=== PATIENT | male | born 1950 | race Caucasian/White ===

== ENCOUNTER 2020-03-01 11:17 | Outpatient (REF) | payer MEDICARE, OTHER, SELFPAY ==
[2020-03-01 13:47] LABS: Basophils Percent Auto 0.3 % (0-2); Eosinophils Absolute Auto 0.2 X10*3/uL (0.0-0.4); Hematocrit 41.6 % (42-52); Hemoglobin 14.1 g/dl (14.0-18.0); Imm Gran Abs Auto 0.05 X10*3/uL (0.00-0.03); Imm Gran Pct Auto 0.6 % (0.0-0.4); Lymphocytes Absolute Auto 3.3 X10*3/uL (1.2-4.9); Lymphocytes Percent Auto 37.3 % (20-40); MANUAL DIFF FLAG NO; Mean Corpuscular HGB Conc 33.9 g/dl (31.0-36.0); Mean Corpuscular Hemoglobin 31.1 pg (27.0-33.0); Mean Corpuscular Volume 91.6 fL (80-98); Monocytes Absolute Auto 0.8 X10*3/uL (0.1-1.2); Monocytes Percent Auto 8.4 % (2-11); Neutrophils Absolute Auto 4.6 X10*3/uL (2.0-8.3); Neutrophils Percent Auto 51.4 % (45-73); Platelet Count 219 X10*3/uL (160-400); Red Blood Count 4.54 X10*6/uL (4.60-5.80); Red Cell Distribution Width 13.7 % (11.0-16.0)
[2020-03-01 14:09] LABS: Alanine Aminotransferase 59 U/L (0-40); Albumin Level 4.1 g/dL (3.5-5.0); Alkaline Phosphatase 107 U/L (39-117); Anion Gap 10 (12-20); Aspartate Amino Transferase 42 U/L (5-37); Bilirubin Total 0.6 mg/dL (0.0-1.0); Blood Urea Nitrogen 20 mg/dL (9-16); Calcium 8.8 mg/dL (8.4-10.2); Carbon Dioxide 29 mmol/L (22-29); Chloride 104 mmol/L (96-108); Estimated Glomerular Filt Rate > 60; Glucose Random 74 mg/dL (60-115); Lactate Dehydrogenase 190 U/L (118-273); Potassium 4.4 mmol/l (3.3-5.1); Sodium 139 mmol/L (135-145); Total Protein 5.7 g/dL (6.5-8.0)
[2020-03-01 14:48] LABS: Erythrocyte Sedimentation Rate 3 MM/HR (0-15)
[2020-03-02 19:18] LABS: IgA 10 mg/dL (70-320); IgG 121 mg/dL (600-1540); IgM 327 mg/dL (50-300)
== END 2020-03-01 11:18 | disposition home or self-care (01) ==
LOC: HO.10HDL 11:17
PROVIDERS: PCP Internal Medicine Medical Oncology; Visit Provider Internal Medicine Medical Oncology
DX: C88.0 Waldenstrom macroglobulinemia (principal); I10 Essential (primary) hypertension
CPT/HCPCS: 36415; 80053; 82784; 83615; 85025; 85652; 86334

== ENCOUNTER → 2020-04-05 09:21 | Outpatient (BNVA) | payer MEDICARE, MEDICAID, OTHER, SELFPAY | PROVIDERS: PCP Internal Medicine Medical Oncology; Visit Provider Internal Medicine Cardiovascular Disease | DX: I48.19 Other persistent atrial fibrillation (principal); I51.7 Cardiomegaly; I10 Essential (primary) hypertension | CPT/HCPCS: 93005; 99212 ==

== ENCOUNTER 2020-04-11 10:30 | Day surgery (SDC) | payer MEDICARE, MEDICAID, SELFPAY ==
--- NOTE | 2020-04-10 12:27 | P.CONAN_ITS ---
HPI - Anesthesia Eval Consult details Narrative: 70yo M for Card[facility] Past Medical History Medical History (Updated 04/05/20 @ 11:45 by Yvan Xiao MD) Enlarged RV (right ventricle) HTN (hypertension) Paroxysmal atrial fibrillation Paroxysmal atrial flutter Persistent atrial fibrillation Family History Family History (Updated 04/04/20 @ 11:46 by MANNIE Vasques) Father CVD (cardiovascular disease) Mother Cancer Surgical History Surgical History (Updated 04/04/20 @ 11:45 by MANNIE Vasques) History of bone marrow biopsy History of cardiac radiofrequency ablation (RFA) History of ear surgery History of stapedectomy History of surgery on wrist Hx of hemorrhoidectomy Hx of tonsillectomy Hx of transesophageal echocardiography (ANUSHKA) for monitoring Hx of wisdom tooth extraction Social History Social History Smoking Status: Former smoker Meds Allergies Allergy/AdvReac Type Severity Reaction Status Date / Time amoxicillin [AMOXICILLIN] Allergy Intermediate RASH Verified 04/11/20 10:52 soap [Betadine] Allergy Unknown Rash Verified 04/11/20 10:52 povidone-iodine AdvReac Intermediate RASH (IF Verified 04/11/20 10:52 [From BETADINE] ON SKIN FOR PROLONGED TIME) Home Medications Medication Instructions Recorded Confirmed Type apixaban 5 mg tablet 5 mg PO BID 04/05/20 04/05/20 History atorvastatin 20 mg tablet 20 mg PO DAILY 04/05/20 04/05/20 History melatonin 5 mg capsule 5 mg PO .qhs cap 04/05/20 04/05/20 History metoprolol tartrate 25 mg tablet 25 mg PO BID 04/05/20 04/05/20 History multivitamin 1 tab PO DAILY 04/05/20 04/05/20 History ibrutinib [Imbruvica] tab PO 04/11/20 History Exam Exam Date and Time: April 10, 2020 1227 Narrative Narrative: EKG afib @ 84 Assessment and Plan Assessment Anesthesia Assessment: Chart Reviewed
[2020-04-11] VITALS (7 sets, daily range): BP systolic 99–123; BP diastolic 62–83; PULSE 76–93; RESP 16–17; TEMP 36.6–36.9; O2SAT 97–100; BMI 26.2
[2020-04-11] MEDS: Lactated Ringers 1,000 ML 50 ML IVCONT (11:02)
--- NOTE | 2020-04-11 12:00 | MHC.SHP ---
Pre-Procedural Eval Section A The patient is an INPATIENT: No Changes since office visit: Yes Patient answered all questions; No Cold of Flu in the past 2 weeks, No New Medical Problems and No Changes in Medication The History & Physical has been completed within 30 days and I have reviewed it.: Yes Section B Chief Complaint: a-fib Allergies: Allergies Allergy/AdvReac Type Severity Reaction Status Date / Time amoxicillin [AMOXICILLIN] Allergy Intermediate RASH Verified 04/11/20 10:52 soap [Betadine] Allergy Unknown Rash Verified 04/11/20 10:52 povidone-iodine AdvReac Intermediate RASH (IF Verified 04/11/20 10:52 [From BETADINE] ON SKIN FOR PROLONGED TIME) Plan I have reviewed the history and physical and performed a pertinent physical examination on my patient. No changes have occurred unless specified.
--- NOTE | 2020-04-11 12:07 | ECG_ITS ---
Test Reason : S/P CARDIOVERSION Blood Pressure : / mmHG Vent. Rate : 077 BPM Atrial Rate : 077 BPM P-R Int : 218 ms QRS Dur : 086 ms QT Int : 372 ms P-R-T Axes : -10 018 023 degrees QTc Int : 420 ms Sinus rhythm with 1st degree A-V block Otherwise normal ECG When compared with ECG of 02-JUL-2011 08:58, [place] interval has increased Referred By: Yvan Xiao Electronically Signed By:Jeffery Lima
--- NOTE | 2020-04-11 12:19 | HO.POSTANES ---
Post Anesthesia Evaluation Post Anesthesia Evaluation Vital Signs: Vital Signs Temp Pulse Resp BP Pulse Ox 04/11/20 12:12 97.9 F 76 16 103/67 100 04/11/20 10:52 98.5 F 93 16 123/83 97 Anesthesia: General Mental Status: Awake Pain Control: Satisfactory Nausea/Vomiting: None Hydration: Adequate Anesthesia-Related Issues: No Anes. Related Issues
--- NOTE | 2020-04-11 12:20 | HO.CARDIVERS ---
Cardioversion Procedure Note Cardioversion Date of Procedure: 04/11/2020 Ordering Provider: Myself Performing Provider: Myself Indication for Procedure: Recurrent persistent atrial fibrillation Pre-Op Diagnosis: Persistent atrial fibrillation Post-Op Diagnosis: Sinus rhythm Performed with Transesophageal Echo: No History: See history and physical for details. Consent: Verbal and Written consent was obtained from the patient before starting and confirming use of medications and oral anticoagulation. The patient was made aware of the risk benefits alternatives and 2nd opinion to procedure Procedure: After consent obtained, cardioversion pads were attached in anteroposterior configuration and the patient was sedated by the anesthesia team. Once adequate sedation achieved, patient was delivered 200 joules of biphasic synchronized energy in anteroposterior configuration Complications: None Impression: Converted successfully to sinus rhythm Recommendations: 1. . Continue flecainide 150 mg b.i.d.. 2. Continue full oral anticoagulation 3. Outpatient Holter monitor 4. EKG after cardioversion.
== END 2020-04-11 13:24 | disposition home or self-care (01) ==
PROVIDERS: PCP Internal Medicine Medical Oncology; Visit Provider Internal Medicine Cardiovascular Disease
PROC: 5A2204Z Restoration of Cardiac Rhythm, Single (ICD-10-PCS; principal; 2020-04-11 12:00)
DX: I48.19 Other persistent atrial fibrillation (principal); I51.7 Cardiomegaly; I11.9 Hypertensive heart disease without heart failure; Z79.02 Long term (current) use of antithrombotics/antiplatelets; Z79.899 Other long term (current) drug therapy; Z88.1 Allergy status to other antibiotic agents
CPT/HCPCS: 92960; 93005

== ENCOUNTER 2020-04-21 07:24 | Outpatient (REF) | payer MEDICARE, MEDICAID, SELFPAY ==
--- NOTE | ~2020-04-21 | XR_ITS ---
EXAMINATION: XR CHEST CLINICAL INFORMATION: Restaging lymphoma. COMPARISON: 11/17/2018 chest radiographs. TECHNIQUE: 2 views of the chest were obtained. FINDINGS: Subtle opacities are seen overlying the midlung woodward and right lower lung. There are no pleural effusions. No pneumothorax. The heart and mediastinal structures are unremarkable. XR/XR chest 2V IMPRESSION: Bilateral subtle infiltrates are nonspecific, but may represent an infectious/inflammatory process. Short-term radiographic follow-up is recommended as clinically indicated to assess for more acute change given the long interval between studies.
[2020-04-21 08:43] LABS: MANUAL DIFF FLAG NO
[2020-04-21 08:50] LABS: Basophils Absolute Auto 0.1 X10*3/uL (0.0-0.2); Basophils Percent Auto 0.6 % (0-2); Eosinophils Absolute Auto 0.2 X10*3/uL (0.0-0.4); Hematocrit 40.9 % (42-52); Hemoglobin 13.6 g/dl (14.0-18.0); Imm Gran Abs Auto 0.12 X10*3/uL (0.00-0.03); Imm Gran Pct Auto 1.3 % (0.0-0.4); Lymphocytes Absolute Auto 2.9 X10*3/uL (1.2-4.9); Lymphocytes Percent Auto 31.1 % (20-40); Mean Corpuscular HGB Conc 33.3 g/dl (31.0-36.0); Mean Corpuscular Hemoglobin 30.6 pg (27.0-33.0); Mean Corpuscular Volume 91.9 fL (80-98); Mean Platelet Volume 10.8 fL (9.4-12.4); Monocytes Absolute Auto 1.2 X10*3/uL (0.1-1.2); Monocytes Percent Auto 12.7 % (2-11); Neutrophils Absolute Auto 4.9 X10*3/uL (2.0-8.3); Neutrophils Percent Auto 52.3 % (45-73); Red Blood Count 4.45 X10*6/uL (4.60-5.80); Red Cell Distribution Width 13.4 % (11.0-16.0); White Blood Count 9.4 X10*3/uL (4.8-10.8)
[2020-04-21 09:03] LABS: Alanine Aminotransferase 40 U/L (0-40); Albumin Level 3.6 g/dL (3.5-5.0); Alkaline Phosphatase 149 U/L (39-117); Anion Gap 11 (12-20); Aspartate Amino Transferase 33 U/L (5-37); Bilirubin Total 0.5 mg/dL (0.0-1.0); Blood Urea Nitrogen 17 mg/dL (9-16); Calcium 8.9 mg/dL (8.4-10.2); Carbon Dioxide 30 mmol/L (22-29); Chloride 102 mmol/L (96-108); Estimated Glomerular Filt Rate > 60; Glucose Random 93 mg/dL (60-115); Platelet Count 400 X10*3/uL (160-400); Potassium 4.1 mmol/L (3.3-5.1); Sodium 139 mmol/L (135-145); Total Protein 5.6 g/dL (6.5-8.0)
[2020-04-24 11:52] LABS: IgA 12 mg/dL (70-320); IgG 122 mg/dL (600-1540); IgM 759 mg/dL (50-300)
[2020-04-25 07:58] LABS: Viscosity 1.6 rel to H2O (1.5-1.9)
== END 2020-04-21 07:25 | disposition home or self-care (01) ==
LOC: HO.XRAY 07:24
PROVIDERS: PCP Internal Medicine Medical Oncology; Visit Provider Internal Medicine Medical Oncology
DX: C83.00 Small cell B-cell lymphoma, unspecified site (principal)
CPT/HCPCS: 36415; 71046; 80053; 82784; 85025; 85810; 86334

== ENCOUNTER 2020-04-26 06:19 | Outpatient (REF) | payer MEDICARE, MEDICAID, SELFPAY ==
--- NOTE | ~2020-04-26 | CT_ITS ---
EXAMINATION: CT ABDOMEN AND PELVIS WITH CONTRAST CLINICAL INFORMATION: Malignant lymphoplasmacytic lymphoma. COMPARISON: CT abdomen and pelvis 11/17/2018 TECHNIQUE: Multidetector volumetric images were obtained from the superior aspect of the liver through the pubic symphysis following administration 85 mL of Omnipaque 350 intravenous contrast. Sagittal and coronal reformatted images were obtained on the technologist's workstation. Oral contrast: No. This CT examination was performed using dose optimization techniques as appropriate, variously including the following: *Automated exposure control *Adjustment of mA and/or kV according to patient size (this includes techniques or standardized protocols for targeted exams where dose is matched to indication/reason for exam; i.e. extremities or head) *Use of iterative reconstruction technique DLP: 431 mGy-cm FINDINGS: LUNG BASES: The heart size is normal. There is patchy atelectasis in the right lower lobe. There are scattered ground-glass attenuation changes in the left lower lobe. LIVER, GALLBLADDER, AND BILIARY TREE: The liver is normal in size, shape, and attenuation. No focal hepatic lesion or biliary ductal dilatation is present. The gallbladder is unremarkable with no evidence of radiopaque gallstones, gallbladder wall thickening, or obvious pericholecystic inflammatory changes. PANCREAS: Unremarkable. SPLEEN: Unremarkable. ADRENAL GLANDS: Unremarkable. KIDNEYS AND URETERS: The kidneys are normal in size, shape, and attenuation. No hydronephrosis, hydroureter, or calculi seen. No perinephric stranding. BLADDER: Unremarkable. GASTROINTESTINAL TRACT: There is scattered stool and gas seen throughout the colon without any significant distention. The small bowel loops are normal caliber. The appendix is normal caliber. ABDOMINAL WALL: No significant hernia is appreciated. LYMPH NODES: Normal. VASCULAR: Unremarkable. PELVIC VISCERA: The prostate gland is mildly enlarged. No abnormal pelvic or inguinal lymph nodes seen. There is no free fluid. OSSEOUS STRUCTURES: There is bilateral L3-L4, L4-L5 and L5-S1 facet joint arthropathy. No lytic or sclerotic process seen. CT/CT abdomen pelvis w con IMPRESSION: Patchy atelectasis right lower lobe and scattered small ground-glass attenuation changes left lower lobe, question atelectasis versus early infiltrate changes. No acute intra-abdominal process seen. Especially, there are no abnormal retroperitoneal or pelvic lymph nodes.
--- NOTE | 2020-04-26 02:53 | ECG_ITS ---
Hook-up date: 2020-04-26 15:56:00 Duration: 47:59:00 Test Indications: PERSISTANT ATRIAL FIB Medications: [id number] QRS complexes 50 Ventricular ectopics which represent <1 % of total QRS comp. 18 Supraventricular ectopics which represent <1 % of total QRS comp. * Paced QRS complexs which represent % of total QRS comp. VENTRICULAR ECTOPY 46 Isolated 0 Bigeminal Cycles 2 Couplets 0 Runs 0 Beats in Runs * Beats LONGEST at * BPM at :: -- * Beats FASTEST at * BPM at :: -- SUPRAVENTRICULAR ECTOPY 16 Isolated 1 Couplets 0 Runs 0 Beats in Runs * Beats LONGEST at * BPM at :: -- * Beats FASTEST at * BPM at :: -- HEART RATES 56 MIN at 02:02:13 2020-04-27 74 AVG 105 MAX at 10:30:46 2020-04-27 LONGEST RR 1.0880 secs at 09:27:59 2020-04-27 S-T LEVELS Channel 1 - 128 mm at 15:56:00 2020-04-26 - 128 mm at 15:56:00 2020-04-26 Channel 2 - 128 mm at 15:56:00 2020-04-26 - 128 mm at 15:56:00 2020-04-26 Channel 3 - 128 mm at 03:51:51 -- - 128 mm at 03:51:51 Underlying rhythm is sinus; Average ventricular rate 74/min; Rare supraventricular ectopy; Rare ventricular ectopy; mostly isolated with 2 couplets; No sustained arrhythmias; No atrial fibrillation; Patient diary not available for review. Referred By: Yvan Xiao Overread By: YASH SANDOVAL
[2020-04-26] MEDS: iohexoL 350 MG/ML 100 ML INFUS..BTL 85 ML IV (10:06)
[2020-04-26] MEDS: Barium Sulfate Oral (Berry) 450 ML ORAL.SUSP 900 ML PO (10:07)
== END 2020-04-26 06:20 | disposition home or self-care (01) ==
LOC: HO.CT 06:19
PROVIDERS: Visit Provider Internal Medicine Medical Oncology
DX: C83.00 Small cell B-cell lymphoma, unspecified site (principal); I48.19 Other persistent atrial fibrillation
CPT/HCPCS: 74177; 93225; 93226; Q9967

== ENCOUNTER → 2020-05-24 08:39 | Outpatient (BNVA) | payer MEDICARE, MEDICAID, SELFPAY | PROVIDERS: PCP Internal Medicine Medical Oncology; Visit Provider Internal Medicine Cardiovascular Disease | DX: I48.0 Paroxysmal atrial fibrillation (principal); I51.7 Cardiomegaly; I10 Essential (primary) hypertension | CPT/HCPCS: 93005; 99212 ==

== ENCOUNTER 2020-05-28 12:51 | Outpatient (REF) | payer MEDICARE, MEDICAID, SELFPAY ==
--- NOTE | ~2020-05-28 | XR_ITS ---
EXAMINATION: XR CHEST CLINICAL INFORMATION: Atelectasis. COMPARISON: Chest x-ray to 621 TECHNIQUE: 2 views of the chest were obtained. FINDINGS: The lungs are hyperinflated but clear of acute process. Heart size and pulmonary vascularity is normal. No gross bony abnormality seen. XR/XR chest 2V IMPRESSION: Unremarkable chest exam. No change from 04/21/2020
[2020-05-30 16:12] LABS: PES - Abn Protein Band 1 0.3 g/dL (NONE DETECTED); Prot Elec - Albumin 4.2 g/dL (3.8-4.8); Prot Elec - Alpha1 0.2 g/dL (0.2-0.3); Prot Elec - Alpha2 0.6 g/dL (0.5-0.9); Prot Elec - Beta 1 0.5 g/dL (0.4-0.6); Prot Elec - Beta 2 0.2 g/dL (0.2-0.5); Prot Elec - Gamma 0.5 g/dL (0.8-1.7); Prot Elec - Total Protein 6.1 g/dL (6.1-8.1)
[2020-06-03 11:27] LABS: IgA 14 mg/dL (70-320); IgG 128 mg/dL (600-1540); IgM 594 mg/dL (50-300)
== END 2020-05-28 12:52 | disposition home or self-care (01) ==
LOC: HO.XRAY 12:51
PROVIDERS: PCP Internal Medicine Medical Oncology; Visit Provider Internal Medicine Medical Oncology
DX: C83.00 Small cell B-cell lymphoma, unspecified site (principal); C88.0 Waldenstrom macroglobulinemia; J98.11 Atelectasis; R91.8 Other nonspecific abnormal finding of lung field
CPT/HCPCS: 36415; 71046; 82784; 84155; 84165; 86334

== ENCOUNTER 2020-08-02 07:38 | Outpatient (REF) | payer MEDICARE, MEDICAID, SELFPAY ==
[2020-08-02 08:40] LABS: MANUAL DIFF FLAG NO
[2020-08-02 08:46] LABS: Basophils Percent Auto 0.3 % (0-2); Eosinophils Percent Auto 0.2 % (0-4); Hematocrit 42.4 % (42-52); Hemoglobin 14.6 g/dl (14.0-18.0); Imm Gran Abs Auto 0.12 X10*3/uL (0.00-0.03); Imm Gran Pct Auto 1.3 % (0.0-0.4); Lymphocytes Absolute Auto 3.2 X10*3/uL (1.2-4.9); Lymphocytes Percent Auto 33.6 % (20-40); Mean Corpuscular HGB Conc 34.4 g/dl (31.0-36.0); Mean Corpuscular Hemoglobin 31.3 pg (27.0-33.0); Neutrophils Absolute Auto 5.2 X10*3/uL (2.0-8.3); Neutrophils Percent Auto 54.6 % (45-73); Platelet Count 195 X10*3/uL (160-400); Red Blood Count 4.66 X10*6/uL (4.60-5.80); Red Cell Distribution Width 13.3 % (11.0-16.0); White Blood Count 9.6 X10*3/uL (4.8-10.8)
[2020-08-02 09:10] LABS: Alanine Aminotransferase 203 U/L (0-40); Albumin Level 3.8 g/dL (3.5-5.0); Alkaline Phosphatase 100 U/L (39-117); Anion Gap 10 (12-20); Aspartate Amino Transferase 62 U/L (5-37); Bilirubin Total 0.6 mg/dL (0.0-1.0); Blood Urea Nitrogen 18 mg/dL (9-16); Calcium 8.9 mg/dL (8.4-10.2); Carbon Dioxide 28 mmol/L (22-29); Chloride 104 mmol/L (96-108); Estimated Glomerular Filt Rate > 60; Glucose Random 85 mg/dL (60-115); Potassium 3.8 mmol/L (3.3-5.1); Sodium 138 mmol/L (135-145); Total Protein 5.3 g/dL (6.5-8.0)
[2020-08-03 21:52] LABS: PES - Abn Protein Band 1 0.2 g/dL (NONE DETECTED); Prot Elec - Albumin 3.7 g/dL (3.8-4.8); Prot Elec - Alpha1 0.2 g/dL (0.2-0.3); Prot Elec - Alpha2 0.6 g/dL (0.5-0.9); Prot Elec - Beta 1 0.4 g/dL (0.4-0.6); Prot Elec - Beta 2 0.1 g/dL (0.2-0.5); Prot Elec - Gamma 0.4 g/dL (0.8-1.7); Prot Elec - Total Protein 5.4 g/dL (6.1-8.1)
[2020-08-06 14:02] LABS: IgA 12 mg/dL (70-320); IgG 113 mg/dL (600-1540); IgM 356 mg/dL (50-300)
== END 2020-08-02 07:39 | disposition home or self-care (01) ==
LOC: HO.LAB 07:38
PROVIDERS: PCP Internal Medicine Medical Oncology; Visit Provider Internal Medicine Medical Oncology
DX: C83.00 Small cell B-cell lymphoma, unspecified site (principal); C88.0 Waldenstrom macroglobulinemia
CPT/HCPCS: 36415; 80053; 82784; 84155; 84165; 85025; 86334

== ENCOUNTER 2020-08-22 09:28 | Outpatient (REF) | payer MEDICARE, MEDICAID, OTHER, SELFPAY ==
--- NOTE | 2020-08-22 09:30 | EMG_ITS ---
This is a 70-year-old man with heart disease and 2-month history of right hand weakness, which has gotten better. He is on flecainide, metoprolol, Eliquis, and atorvastatin. His neurological exam is normal. IMPRESSION: Right hand weakness, rule out nerve entrapment. Nerve conduction EMG study: Mild carpal tunnel syndrome on the right, otherwise normal study. Normal EMG of the right C5-T1 innervated muscles. MD SANDRO Lucas/ISAAC / [id number]
== END 2020-08-22 09:29 | disposition home or self-care (01) ==
LOC: HO.NEURO 09:28
PROVIDERS: Visit Provider Internal Medicine Medical Oncology
DX: G56.03 Carpal tunnel syndrome, bilateral upper limbs (principal)
CPT/HCPCS: 95885; 95910

== ENCOUNTER → 2020-08-27 08:10 | Outpatient (BNVA) | payer MEDICARE, OTHER, SELFPAY | PROVIDERS: PCP Internal Medicine Medical Oncology; Visit Provider Internal Medicine Cardiovascular Disease | DX: I48.0 Paroxysmal atrial fibrillation (principal); I10 Essential (primary) hypertension; Z79.899 Other long term (current) drug therapy | CPT/HCPCS: 93005; 99212 ==

== ENCOUNTER 2020-09-03 09:01 | Outpatient (REF) | payer MEDICARE, OTHER, SELFPAY ==
--- NOTE | ~2020-09-03 | XR_ITS ---
EXAMINATION: XR HAND, RIGHT CLINICAL INFORMATION: Pain in right hand. COMPARISON: None TECHNIQUE: PA, lateral, and oblique views of the right hand. FINDINGS: There is mild loss of PIP and DIP joint space. The MCP and intercarpal joint space is normal. No acute fracture, dislocation or subluxation seen. The soft tissues are normal. XR/XR hand RT min 3V IMPRESSION: Mild degenerative changes PIP and DIP joints right hand. No acute fracture or dislocation seen.
== END 2020-09-03 09:02 | disposition home or self-care (01) ==
LOC: HO.HOSX 09:01
PROVIDERS: Visit Provider Orthopaedic Surgery
DX: M79.641 Pain in right hand (principal)
CPT/HCPCS: 73130

== ENCOUNTER → 2020-09-24 09:58 | Outpatient (BNVA) | payer MEDICARE, OTHER, SELFPAY | PROVIDERS: PCP Internal Medicine Medical Oncology; Visit Provider Orthopaedic Surgery | DX: R29.898 Other symptoms and signs involving the musculoskeletal system (principal) | CPT/HCPCS: 99202 ==

== ENCOUNTER 2020-10-02 07:30 | Outpatient (REF) | payer MEDICARE, OTHER, SELFPAY ==
[2020-10-02 10:16] LABS: MANUAL DIFF FLAG NO
[2020-10-02 10:21] LABS: Basophils Percent Auto 0.5 % (0-2); Eosinophils Absolute Auto 0.2 X10*3/uL (0.0-0.4); Eosinophils Percent Auto 2.2 % (0-4); Hematocrit 41.5 % (42-52); Hemoglobin 14.1 g/dl (14.0-18.0); Imm Gran Abs Auto 0.04 X10*3/uL (0.00-0.03); Imm Gran Pct Auto 0.5 % (0.0-0.4); Lymphocytes Percent Auto 38.4 % (20-40); Mean Corpuscular Hemoglobin 31.8 pg (27.0-33.0); Mean Corpuscular Volume 93.7 fL (80-98); Mean Platelet Volume 12.4 fL (9.4-12.4); Monocytes Absolute Auto 0.7 X10*3/uL (0.1-1.2); Monocytes Percent Auto 9.4 % (2-11); Neutrophils Absolute Auto 3.8 X10*3/uL (2.0-8.3); Platelet Count 170 X10*3/uL (160-400); Red Blood Count 4.43 X10*6/uL (4.60-5.80); Red Cell Distribution Width 13.5 % (11.0-16.0); White Blood Count 7.7 X10*3/uL (4.8-10.8)
[2020-10-02 10:40] LABS: Alanine Aminotransferase 29 U/L (0-40); Alkaline Phosphatase 79 U/L (39-117); Anion Gap 12 (12-20); Aspartate Amino Transferase 32 U/L (5-37); Bilirubin Total 0.9 mg/dL (0.0-1.0); Blood Urea Nitrogen 15 mg/dL (9-16); Calcium 9.1 mg/dL (8.4-10.2); Carbon Dioxide 27 mmol/L (22-29); Chloride 106 mmol/L (96-108); Estimated Glomerular Filt Rate > 60; Glucose Random 100 mg/dL (60-115); Potassium 3.9 mmol/L (3.3-5.1); Sodium 141 mmol/L (135-145); Total Protein 5.6 g/dL (6.5-8.0)
[2020-10-03 13:47] LABS: IgA 10 mg/dL (70-320); IgM 289 mg/dL (50-300)
[2020-10-03 19:46] LABS: PES - Abn Protein Band 1 0.2 g/dL (NONE DETECTED); Prot Elec - Albumin 3.8 g/dL (3.8-4.8); Prot Elec - Alpha1 0.2 g/dL (0.2-0.3); Prot Elec - Alpha2 0.5 g/dL (0.5-0.9); Prot Elec - Beta 1 0.4 g/dL (0.4-0.6); Prot Elec - Beta 2 0.2 g/dL (0.2-0.5); Prot Elec - Gamma 0.3 g/dL (0.8-1.7); Prot Elec - Total Protein 5.4 g/dL (6.1-8.1)
== END 2020-10-02 07:31 | disposition home or self-care (01) ==
LOC: HO.10HDL 07:30
PROVIDERS: Visit Provider Internal Medicine Medical Oncology
DX: C83.00 Small cell B-cell lymphoma, unspecified site (principal); E78.00 Pure hypercholesterolemia, unspecified; E66.3 Overweight
CPT/HCPCS: 36415; 80053; 82784; 84165; 85025

== ENCOUNTER 2021-01-01 07:34 | Outpatient (REF) | payer MEDICARE, OTHER, SELFPAY ==
[2021-01-01 10:29] LABS: MANUAL DIFF FLAG NO
[2021-01-01 10:38] LABS: Basophils Percent Auto 0.4 % (0-2); Eosinophils Absolute Auto 0.2 X10*3/uL (0.0-0.4); Eosinophils Percent Auto 2.4 % (0-4); Hematocrit 46.8 % (42-52); Imm Gran Abs Auto 0.02 X10*3/uL (0.00-0.03); Imm Gran Pct Auto 0.2 % (0.0-0.4); Lymphocytes Absolute Auto 2.8 X10*3/uL (1.2-4.9); Lymphocytes Percent Auto 35.2 % (20-40); Mean Corpuscular HGB Conc 34.2 g/dl (31.0-36.0); Mean Corpuscular Hemoglobin 30.8 pg (27.0-33.0); Mean Platelet Volume 12.5 fL (9.4-12.4); Monocytes Absolute Auto 0.7 X10*3/uL (0.1-1.2); Monocytes Percent Auto 8.1 % (2-11); Neutrophils Absolute Auto 4.3 X10*3/uL (2.0-8.3); Neutrophils Percent Auto 53.7 % (45-73); Platelet Count 186 X10*3/uL (160-400); White Blood Count 8.1 X10*3/uL (4.8-10.8)
[2021-01-01 10:43] LABS: INTERNATIONAL NORM RATIO 1.1 (0.9-1.1); Prothrombin Time 12.1 SEC (9.9-13.0)
[2021-01-01 11:13] LABS: Alanine Aminotransferase 36 U/L (0-40); Albumin Level 4.3 g/dL (3.5-5.0); Alkaline Phosphatase 78 U/L (39-117); Anion Gap 14 (12-20); Aspartate Amino Transferase 35 U/L (5-37); Bilirubin Total 0.7 mg/dL (0.0-1.0); Blood Urea Nitrogen 15 mg/dL (9-16); Calcium 9.3 mg/dL (8.4-10.2); Carbon Dioxide 27 mmol/L (22-29); Chloride 104 mmol/L (96-108); Cholesterol 206 mg/dL; Estimated Glomerular Filt Rate > 60; Glucose Fasting 91 mg/dL (60-99); HDL Cholesterol 101 mg/dL; LDL Cholesterol Calculated 91 mg/dl; Potassium 4.2 mmol/L (3.3-5.1); Sodium 141 mmol/L (135-145); Total Protein 5.9 g/dL (6.5-8.0); Triglycerides 74 mg/dL
[2021-01-01 11:38] LABS: Ferritin 135 ng/mL (20-250)
[2021-01-02 21:01] LABS: PES - Abn Protein Band 1 0.2 g/dL (NONE DETECTED); Prot Elec - Albumin 4.2 g/dL (3.8-4.8); Prot Elec - Alpha1 0.2 g/dL (0.2-0.3); Prot Elec - Alpha2 0.5 g/dL (0.5-0.9); Prot Elec - Beta 1 0.4 g/dL (0.4-0.6); Prot Elec - Beta 2 0.2 g/dL (0.2-0.5); Prot Elec - Gamma 0.3 g/dL (0.8-1.7); Prot Elec - Total Protein 5.8 g/dL (6.1-8.1)
[2021-01-03 13:26] LABS: IgA 11 mg/dL (70-320); IgM 314 mg/dL (50-300)
== END 2021-01-01 07:35 | disposition home or self-care (01) ==
LOC: HO.10HDL 07:34
PROVIDERS: Absent Provider Internal Medicine Clinical Cardiac Electrophysiology; Visit Provider Internal Medicine Medical Oncology
DX: M54.16 Radiculopathy, lumbar region (principal); C88.0 Waldenstrom macroglobulinemia; E78.00 Pure hypercholesterolemia, unspecified; I48.0 Paroxysmal atrial fibrillation
CPT/HCPCS: 36415; 80053; 80061; 82728; 82784; 84165; 85025; 85610; 86334

== ENCOUNTER → 2021-01-21 07:22 | Outpatient (REF) | payer MEDICARE, OTHER, SELFPAY ==
--- NOTE | 2021-01-21 07:24 | CA_ITS ---
Transthoracic Echocardiogram Patient (Last, First, Middle): Jose Powers M Gender: Male Date of : 1950 Age: 70 Procedure Date: 01/21/2021 Procedure Type: Transthoracic Echocardiogram Location: OP Height: 175.26 cm Weight: 81.65 kg BSA: 1.98 m2 Heart Rate: bpm BP: 118 / 60 mmHg Coconut Jelly Roller: Referring MD: Yvan Xiao MD Symptoms: I31.3 - Pericardial effusion (noninflammatory) Study Quality: Good ECG Rhythm: Sinus Conclusions: - The left ventricular systolic function is normal. The calculated ejection fraction is 58% by biplane method. - Mildly increased right ventricular cavity size. - There is a trivial pericardial effusion. Findings Left Ventricle Normal left ventricular cavity size. There is mildly increased left ventricular wall thickness. The left ventricular systolic function is normal. The calculated ejection fraction is 58% by biplane method. There is no evidence of regional wall motion abnormalities. Right Ventricle Mildly increased right ventricular cavity size. There is normal right ventricular systolic function. Tricuspid Valve There is mild tricuspid valve regurgitation. Pericardium/Pleural There is a trivial pericardial effusion. Prior Study Comparison No significant change compared to prior study dated: 09/09/2019. Measurements 2D Linear Measurements IVSd: 1.13 0.6-0.9/0.6-1.0 cm LVIDd: 4.53 3.9-5.3/4.2-5.9 cm LVIDd Index: 2.29 2.4-3.2/2.2-3.1 cm/m2 LVIDs: 2.88 2.0-3.6 cm LVPWd: 1.16 0.7-1.1 cm LV Mass: 233.23 67-162/88-224 g LV Mass Index: 117.79 43-95/49-115 g/m2 2D Systolic Function EF 4C: 59.80 >55% EF 2C: 56.40 >55% EF BiP: 58.20 >55% Mitral Valve MV Pk E: 0.84 MV PK A: 0.68 MV Decel Time: 180.00 E/A: 1.20 E'Lateral: 10.20 E'Medial: 6.53 E/E' Med: 12.90 E/E' Lat: 8.20 PHT: 53.00 MVA PHT: 4.15 Decel [place]: 4.66 Diastolic Function MV Pk E: 0.84 MV Pk A: 0.68 E/A: 1.20 E'Medial: 6.53 E/E' Med: 12.90 E' Laterial: 10.20 E/E' Lat: 8.20 Tricuspid Valve TR Pk Durga: 2.57 TR Pk Grad: 26.00 Updated in Other Vendor System with Status of Final Wyatt Palomino MD electronically signed on 01/23/2021 4:05:47 PM with status of Final
== END ==
LOC: HO.CARD 07:22
PROVIDERS: Visit Provider Internal Medicine Cardiovascular Disease
DX: I31.3 Pericardial effusion (noninflammatory) (principal); I48.0 Paroxysmal atrial fibrillation; I51.7 Cardiomegaly
CPT/HCPCS: 93308

== ENCOUNTER → 2021-02-01 11:12 | Outpatient (BNVA) | payer MEDICARE, OTHER, SELFPAY | PROVIDERS: PCP Internal Medicine Medical Oncology; Visit Provider Internal Medicine Cardiovascular Disease | DX: I48.0 Paroxysmal atrial fibrillation (principal); I10 Essential (primary) hypertension | CPT/HCPCS: 93005; 99212 ==

== ENCOUNTER → 2021-02-22 11:52 | Outpatient (BNVA) | payer MEDICARE, OTHER, SELFPAY | PROVIDERS: Visit Provider Internal Medicine Cardiovascular Disease | DX: R94.31 Abnormal electrocardiogram [ECG] [EKG] (principal) | CPT/HCPCS: 93005 ==

== ENCOUNTER 2021-02-23 23:25 | Emergency (ER) | payer MEDICARE, MEDICAID, SELFPAY ==
--- NOTE | 2021-02-23 | ECG_ITS ---
Test Reason : WEAK Blood Pressure : / mmHG Vent. Rate : 092 BPM Atrial Rate : 092 BPM P-R Int : 208 ms QRS Dur : 106 ms QT Int : 420 ms P-R-T Axes : 031 027 078 degrees QTc Int : 519 ms Normal sinus rhythm Low voltage QRS Lateral T wave inversions. consider oschemia Prolonged QT Abnormal ECG When compared with ECG of 11-APR-2020 12:18, QRS duration has increased Nonspecific T wave abnormality, worse in Inferior leads T wave inversion now evident in Lateral leads QT has lengthened Referred By: Generic ED Physician Electronically Signed By:Jeffery Lima
--- NOTE | ~2021-02-23 | CT_ITS ---
EXAMINATION: CT ABDOMEN AND PELVIS WITH CONTRAST CLINICAL INFORMATION: Right upper quadrant pain, elevated alkaline phosphatase COMPARISON: 04/26/2020 TECHNIQUE: Multidetector volumetric images were obtained from the superior aspect of the liver through the pubic symphysis following administration 85 mL of Omnipaque 350 intravenous contrast. Sagittal and coronal reformatted images were obtained on the technologist's workstation. Oral contrast: No This CT examination was performed using dose optimization techniques as appropriate, variously including the following: *Automated exposure control *Adjustment of mA and/or kV according to patient size (this includes techniques or standardized protocols for targeted exams where dose is matched to indication/reason for exam; i.e. extremities or head) *Use of iterative reconstruction technique DLP: 619 mGy-cm FINDINGS: LUNG BASES: There are partially visualized small pleural effusions, right greater than left. Partially visualized moderate to large pericardial effusion. LIVER, GALLBLADDER, AND BILIARY TREE: There is hypoattenuation of the liver suggesting steatosis. No intrahepatic biliary ductal dilatation. Trace perihepatic fluid. Gallbladder appears partially contracted with thick-walled appearance. PANCREAS: Unremarkable. SPLEEN: Unremarkable. ADRENAL GLANDS: Unremarkable. KIDNEYS AND URETERS: Bilateral nephrograms are symmetric. No hydronephrosis or obstructing calculus identified. BLADDER: Unremarkable. GASTROINTESTINAL TRACT: There is minimal colonic diverticulosis without diverticulitis. No evidence of bowel obstruction or significant wall thickening. The appendix is unremarkable. No free air is seen. ABDOMINAL WALL: No significant hernia is appreciated. LYMPH NODES: Normal. VASCULAR: There are scattered atherosclerotic calcifications. PELVIC VISCERA: Prostate gland appears enlarged, measuring approximately 5.2 cm in diameter. Small amount of pelvic free fluid is noted. OSSEOUS STRUCTURES: Unremarkable. CT/CT abdomen pelvis w con IMPRESSION: 1. Thick-walled appearance of the partially contracted gallbladder. Cholecystitis is a possibility, and this would be better assessed with ultrasound. 2. Partially visualized moderate to large pericardial effusion and small pleural effusions. 3. Trace free fluid in the abdomen/pelvis. Fleischner guidelines were followed.
[2021-02-23 23:32] VITALS: BP 139/98; PULSE 99; O2SAT 98
[2021-02-23 23:34] VITALS: BP 130/93; PULSE 98; RESP 16; TEMP 36.4; O2SAT 99; BMI 28.2
[2021-02-24 01:13] LABS: MANUAL DIFF FLAG NO
[2021-02-24 01:15] LABS: Basophils Percent Auto 0.2 % (0-2); Hematocrit 36.7 % (42.0-52.0); Hemoglobin 12.3 g/dl (14.0-18.0); Imm Gran Abs Auto 0.27 X10*3/uL (0.00-0.03); Imm Gran Pct Auto 2.1 % (0.0-0.4); Lymphocytes Absolute Auto 1.5 X10*3/uL (1.2-4.9); Lymphocytes Percent Auto 11.5 % (20-40); Mean Corpuscular HGB Conc 33.5 g/dl (31.0-36.0); Mean Corpuscular Hemoglobin 30.4 pg (27.0-33.0); Mean Corpuscular Volume 90.8 fL (80.0-98.0); Mean Platelet Volume 11.8 fL (9.4-12.4); Monocytes Absolute Auto 1.4 X10*3/uL (0.1-1.2); Monocytes Percent Auto 11.2 % (2-11); Neutrophils Absolute Auto 9.6 x10*3/uL (2.0-8.3); Platelet Count 382 X10*3/uL (160-400); Red Blood Count 4.04 X10*6/uL (4.60-5.80); Red Cell Distribution Width 13.2 % (11.0-16.0); White Blood Count 12.8 X10*3/uL (4.8-10.8)
[2021-02-24 01:27] LABS: COVID-19 Test Negative (Negative); IDNOW Serial# 9DD0AD1C
[2021-02-24 01:31] LABS: Alanine Aminotransferase 126 U/L (0-40); Albumin Level 3.6 g/dL (3.5-5.0); Alkaline Phosphatase 336 U/L (39-117); Anion Gap 16 (12-20); Aspartate Amino Transferase 59 U/L (5-37); Bilirubin Total 0.7 mg/dL (0.0-1.0); Blood Urea Nitrogen 36 mg/dL (9-16); Calcium 8.4 mg/dL (8.4-10.2); Carbon Dioxide 22 mmol/L (22-29); Chloride 98 mmol/L (96-108); Creatinine Clr Calc Pharmacy 60.8; Estimated Glomerular Filt Rate 57; Glucose Random 150 mg/dL (60-115); Potassium 4.9 mmol/L (3.3-5.1); Sodium 131 mmol/L (135-145); Total Protein 5.3 g/dL (6.5-8.0)
[2021-02-24 01:34] LABS: Troponin-I High Sensitivity 4.1 ng/L (<3.5-35.0)
[2021-02-24 04:32] VITALS: BP 122/92; PULSE 90; RESP 16; O2SAT 96
--- NOTE | 2021-02-24 04:42 | ED_ITS ---
HPI - Weakness General Chief complaint: Weakness Stated complaint: failure to thrive Time Seen by Provider: 02/24/21 04:11 Source: patient Mode of arrival: EMS History of Present Illness HPI Narrative: 71-year-old male with history of atrial fibrillation, hypertension is brought in by EMS after he complains of increasing weakness and shortness of breath over the past 4-5 days with loss of appetite and states he has had decreased urine output. Patient states that he recently had an ablation approximately 3 weeks ago and afterwards developed pericardial effusion and is concerned that it may be present. Related Data Home Medications Medication Instructions Recorded Confirmed melatonin 5 mg capsule 5 mg PO .qhs cap 04/05/20 02/01/21 multivitamin (Multiple Vitamins) 1 tab PO DAILY 04/05/20 02/01/21 ferrous sulfate 324 mg (65 mg 324 mg PO DAILY 05/24/20 02/01/21 iron) tablet,delayed release ibrutinib 280 mg tablet (Imbruvica) 280 mg PO tab 05/24/20 02/01/21 colchicine 0.6 mg tablet 0.6 mg PO DAILY tab 02/01/21 02/01/21 Previous Rx's Medication Instructions Recorded atorvastatin 20 mg tablet 20 mg PO DAILY #90 tab 05/14/20 metoprolol tartrate 50 mg tablet 50 mg PO BID #180 tab 05/28/20 flecainide 150 mg tablet 150 mg PO Q12H #180 tab 08/27/20 apixaban 5 mg tablet (Eliquis) 5 mg PO BID #60 tab 02/01/21 Allergies Allergy/AdvReac Type Severity Reaction Status Date / Time amoxicillin [AMOXICILLIN] Allergy Intermediate RASH Verified 09/24/20 10:14 soap [Betadine] Allergy Unknown Rash Verified 09/24/20 10:14 povidone-iodine AdvReac Intermediate RASH (IF Verified 09/24/20 10:14 [From BETADINE] ON SKIN FOR PROLONGED TIME) Review of Systems Review of Systems: Pertinent positives and negatives as stated in HPI 10 point review of systems otherwise negative. [facility] Past Medical History Source: nursing notes reviewed Medical History Enlarged RV (right ventricle) HTN (hypertension) Paroxysmal atrial fibrillation Paroxysmal atrial flutter Pericardial effusion Persistent atrial fibrillation Surgical History History of bone marrow biopsy History of cardiac radiofrequency ablation (RFA) History of ear surgery History of stapedectomy History of surgery on wrist Hx of hemorrhoidectomy Hx of tonsillectomy Hx of transesophageal echocardiography (ANUSHKA) for monitoring Hx of wisdom tooth extraction Family History Family History Father CVD (cardiovascular disease) Mother Cancer Social History Social History Alcohol intake: never Patient Tobacco Use Status: Never used Tobacco Use of substances other than those prescribed or required for medical reasons: No Advance Directives: No Advance Directives Information Provided: Yes 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al status: retired 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 GENERAL: Well developed, well nourished, mild distress. HEAD: Normocephalic/atraumatic EYES: PERRLA, EOMI OROPHARYNX: no oral lesions noted, posterior pharynx clear NECK: Supple, no adenopathy LUNGS: Normal breath sounds. No adventitious sounds or accessory muscle use. SpO2<96> CARDIOVASCULAR: Regular rate and rhythm without noted murmurs, no JVD ABDOMEN: Soft, right upper quadrant discomfort, non-distended with bowel sounds. SKIN: Inspection of the skin reveals no rashes, NEUROLOGIC: Alert and oriented x 4. Strength and sensation to light touch were grossly intact x 4. Course Course Course Narrative: 71-year-old male with history and clinical presentation suggestive of possible choledocholithiasis/cholecystitis and the possibility pericardial effusion. Clinically patient is hemodynamically stable and on review of all investigations is noted have a leukocytosis in combination with LFT elevations. On CT scan it was noted that patient has a large pericardial effusion. I discussed this case with Dr. Lima and IR confirms that they do not come in on the weekend and therefore discussed the case with [facility] who accepts transfer. Patient was informed of all results, findings, and plans and is agreeable to the transfer. MDM - Weakness Lab Data Result diagrams: 02/24/21 01:09 02/24/21 01:09 Labs: Lab Results 02/24/21 02/24/21 02/24/21 Range/Units 01:09 01:09 01:09 WBC 12.8 H (4.8-10.8) X10*3/uL RBC 4.04 L (4.60-5.80) X10*6/uL Hgb 12.3 L (14.0-18.0) g/dl Hct 36.7 L (42.0-52.0) % MCV 90.8 (80.0-98.0) fL MCH 30.4 (27.0-33.0) pg MCHC 33.5 (31.0-36.0) g/dl RDW 13.2 (11.0-16.0) % Plt Count 382 (160-400) X10*3/uL MPV 11.8 (9.4-12.4) fL Immature Gran % (Auto) 2.1 H (0.0-0.4) % Neut % (Auto) 75.0 H (45-73) % Lymph % (Auto) 11.5 L (20-40) % Bryan % (Auto) 11.2 H (2-11) % Eos % (Auto) 0.0 (0-4) % Baso % (Auto) 0.2 (0-2) % Lymph # (Auto) 1.5 (1.2-4.9) X10*3/uL Bryan # (Auto) 1.4 H (0.1-1.2) X10*3/uL Eos # (Auto) 0.0 (0.0-0.4) X10*3/uL Baso # (Auto) 0.0 (0.0-0.2) X10*3/uL Abs Immat Gran (auto) 0.27 H (0.00-0.03) X10*3/uL Absolute Neuts (auto) 9.6 H (2.0-8.3) x10*3/uL Absolute Nucleated RBC 0.000 (0.0-0.012) X10*3/uL Nucleated RBC % (auto) 0.0 (0.0-0.2) /100WBC Sodium 131 L (135-145) mmol/L Potassium 4.9 (3.3-5.1) mmol/L Chloride 98 (96-108) mmol/L Carbon Dioxide 22 (22-29) mmol/L Anion Gap 16 (12-20) BUN 36 H (9-16) mg/dL Creatinine 1.25 (0.5-1.4) mg/dL Estim Creat Clear Calc 60.8 Estimated GFR 57 Random Glucose 150 H D (60-115) mg/dL Calcium 8.4 D (8.4-10.2) mg/dL Total Bilirubin 0.7 (0.0-1.0) mg/dL AST 59 H (5-37) U/L ALT 126 H (0-40) U/L Alkaline Phosphatase 336 H D (39-117) U/L Troponin I High Sens 4.1 (<3.5-35.0) ng/L Total Protein 5.3 L (6.5-8.0) g/dL Albumin 3.6 (3.5-5.0) g/dL Urine Color Urine Appearance Urine pH (5.0-8.0) Ur Specific [facility] (1.005-1.025) Urine Protein (NEG-TRACE) MG/DL Urine Glucose (UA) (NEG) MG/DL Urine Ketones (NEG) MG/DL Urine Blood (NEG) Urine Nitrite (NEG) Ur Leukocyte Esterase (NEG) Urine RBC (0) /HPF Urine WBC (0-4) /HPF Ur Squamous Epith Cells /LPF Urine Bacteria /LPF Hyaline Casts /LPF Granular Casts /LPF Urine Mucus /LPF COVID-19 (CHIVO) (Negative) COVID-19 Clin Com 02/24/21 02/24/21 Range/Units 01:09 04:47 WBC (4.8-10.8) X10*3/uL RBC (4.60-5.80) X10*6/uL Hgb (14.0-18.0) g/dl Hct (42.0-52.0) % MCV (80.0-98.0) fL MCH (27.0-33.0) pg MCHC (31.0-36.0) g/dl RDW (11.0-16.0) % Plt Count (160-400) X10*3/uL MPV (9.4-12.4) fL Immature Gran % (Auto) (0.0-0.4) % Neut % (Auto) (45-73) % Lymph % (Auto) (20-40) % Bryan % (Auto) (2-11) % Eos % (Auto) (0-4) % Baso % (Auto) (0-2) % Lymph # (Auto) (1.2-4.9) X10*3/uL Bryan # (Auto) (0.1-1.2) X10*3/uL Eos # (Auto) (0.0-0.4) X10*3/uL Baso # (Auto) (0.0-0.2) X10*3/uL Abs Immat Gran (auto) (0.00-0.03) X10*3/uL Absolute Neuts (auto) (2.0-8.3) x10*3/uL Absolute Nucleated RBC (0.0-0.012) X10*3/uL Nucleated RBC % (auto) (0.0-0.2) /100WBC Sodium (135-145) mmol/L Potassium (3.3-5.1) mmol/L Chloride (96-108) mmol/L Carbon Dioxide (22-29) mmol/L Anion Gap (12-20) BUN (9-16) mg/dL Creatinine (0.5-1.4) mg/dL Estim Creat Clear Calc Estimated GFR Random Glucose (60-115) mg/dL Calcium (8.4-10.2) mg/dL Total Bilirubin (0.0-1.0) mg/dL AST (5-37) U/L ALT (0-40) U/L Alkaline Phosphatase (39-117) U/L Troponin I High Sens (<3.5-35.0) ng/L Total Protein (6.5-8.0) g/dL Albumin (3.5-5.0) g/dL Urine Color DK YELLOW Urine Appearance HAZY Urine pH 6.0 (5.0-8.0) Ur Specific [facility] >= 1.030 H (1.005-1.025) Urine Protein 2+ H (NEG-TRACE) MG/DL Urine Glucose (UA) NEG (NEG) MG/DL Urine Ketones NEG (NEG) MG/DL Urine Blood NEG (NEG) Urine Nitrite NEG (NEG) Ur Leukocyte Esterase NEG (NEG) Urine RBC 0-2 (0) /HPF Urine WBC 0-2 (0-4) /HPF Ur Squamous Epith Cells 1+ /LPF Urine Bacteria TRACE /LPF Hyaline Casts 15-29 /LPF Granular Casts 0-2 /LPF Urine Mucus 3+ /LPF COVID-19 (CHIVO) Negative (Negative) COVID-19 Clin Com See Note ECG Data Attestation: I personally reviewed and interpreted this ECG as follows: Prior ECG tracings: available for review (04/11/[address] changes in V4-V6) Interpretation: Normal sinus rhythm, HR-92, no STEMI. Discharge Plan Discharge Clinical Impression: Pericardial effusion, Abdominal pain, right upper quadrant Patient Disposition: Xfer [facility] Transfer Details: Requires specialty services, Interventional Radiology for large pericardial effusion Prescriptions: No Action atorvastatin 20 mg tablet 20 mg PO DAILY Qty: 90 RF: 3 metoprolol tartrate 50 mg tablet 50 mg PO BID Qty: 180 RF: 3 flecainide 150 mg tablet 150 mg PO Q12H Qty: 180 RF: 1 Imbruvica 280 mg tablet 280 mg PO RF: 0 ferrous sulfate 324 mg (65 mg iron) tablet,delayed release (DR/EC) 324 mg PO DAILY RF: 0 multivitamin [Multiple Vitamins] Tablet 1 tab PO DAILY RF: 0 melatonin 5 mg capsule 5 mg PO .qhs RF: 0 colchicine 0.6 mg tablet 0.6 mg PO DAILY RF: 0 Eliquis 5 mg tablet 5 mg PO BID Qty: 60 RF: 1
[2021-02-24 04:53] LABS: Appearance Urine HAZY; Color Urine DK YELLOW; Glucose Urine UA NEG (NEG); Leukocyte Esterase Urine NEG (NEG); Nitrite Urine NEG (NEG); Specific Gravity - Urine >= 1.030 (1.005-1.025); UACC Culture Trigger NO; Urine Blood NEG (NEG); Urine Ketones NEG (NEG); Urine Protein 2+ MG/DL (NEG-TRACE)
[2021-02-24 04:58] LABS: RBC Urine 0-2 /HPF (0); Squamous Epithelial Cell Urine 1+ /LPF; WBC Urine 0-2 /HPF (0-4)
[2021-02-24 04:59] LABS: Bacteria Urine TRACE /LPF; Granular Casts Urine 0-2 /LPF; Mucus Urine 3+ /LPF
[2021-02-24] MEDS: iohexoL 350 MG/ML 100 ML INFUS..BTL IV (05:08)
--- NOTE | 2021-02-24 05:25 | PC.NURSE ---
call out to jolie
--- NOTE | 2021-02-24 06:14 | PC.NURSE ---
Jose presents alert and oriented x 3 for evaluation of generalized weakness and the sensation that he is short of breath with minimal exertion x 3-4 days. There is no chest pain. Respirations appear spontaneous and non-labored, no cyanosis, he is speaking in full sentences. Jose states he has voided not at all since Thursday night. However, shorty after his arrival to bed 10 he ambulated to the bathroom outside of bed 7 and back to bed 10 independently and with steady gait. He was able to provide approximately 150cc skye urine.
--- NOTE | 2021-02-24 06:35 | PC.NURSE ---
Due to finding of large pericardial effusion on CT the pt will be transferred to [facility] for a higher level of care/interventional radiology.
--- NOTE | 2021-02-24 06:42 | PC.NURSE ---
nursing report given to EHSAN Lentz at [facility] m6 - [phone]
[2021-02-24 06:50] LABS: Lipase 26 U/L (8-78)
[2021-02-24 07:10] VITALS: BP 140/99; PULSE 92; RESP 18; TEMP 36.7; O2SAT 97
== END 2021-02-24 07:48 | disposition short-term general hospital (02) ==
PROVIDERS: Emergency Provider Student in an Organized Health Care Education/Training Program
DX: I31.3 Pericardial effusion (noninflammatory) (principal); R10.11 Right upper quadrant pain; D72.829 Elevated white blood cell count, unspecified; R53.1 Weakness; R62.7 Adult failure to thrive; I10 Essential (primary) hypertension; I48.0 Paroxysmal atrial fibrillation; Z79.01 Long term (current) use of anticoagulants; Z79.02 Long term (current) use of antithrombotics/antiplatelets; Z20.822 Contact with and (suspected) exposure to COVID-19
CPT/HCPCS: 36415; 74177; 80053; 81001; 83690; 84484; 85025; 87635; 93005; 99285; Q9967

== ENCOUNTER 2021-03-21 07:37 | Outpatient (REF) | payer MEDICARE, OTHER, SELFPAY ==
[2021-03-21 10:21] LABS: MANUAL DIFF FLAG NO
[2021-03-21 10:28] LABS: Basophils Absolute Auto 0.1 X10*3/uL (0.0-0.2); Basophils Percent Auto 0.7 % (0-2); Eosinophils Absolute Auto 0.3 X10*3/uL (0.0-0.4); Eosinophils Percent Auto 4.1 % (0-4); Hemoglobin 13.1 g/dl (14.0-18.0); Imm Gran Abs Auto 0.06 X10*3/uL (0.00-0.03); Imm Gran Pct Auto 0.7 % (0.0-0.4); Lymphocytes Absolute Auto 2.5 X10*3/uL (1.2-4.9); Lymphocytes Percent Auto 30.2 % (20-40); Mean Corpuscular Volume 90.7 fL (80.0-98.0); Mean Platelet Volume 10.7 fL (9.4-12.4); Monocytes Absolute Auto 0.8 X10*3/uL (0.1-1.2); Monocytes Percent Auto 9.6 % (2-11); Neutrophils Absolute Auto 4.5 x10*3/uL (2.0-8.3); Neutrophils Percent Auto 54.7 % (45-73); Platelet Count 535 X10*3/uL (160-400); Red Blood Count 4.52 X10*6/uL (4.60-5.80); White Blood Count 8.3 X10*3/uL (4.8-10.8)
[2021-03-21 11:04] LABS: Alanine Aminotransferase 38 U/L (0-40); Albumin Level 3.8 g/dL (3.5-5.0); Alkaline Phosphatase 187 U/L (39-117); Anion Gap 11 (12-20); Aspartate Amino Transferase 30 U/L (5-37); Bilirubin Total 0.4 mg/dL (0.0-1.0); Blood Urea Nitrogen 13 mg/dL (9-16); Calcium 9.5 mg/dL (8.4-10.2); Carbon Dioxide 29 mmol/L (22-29); Chloride 105 mmol/L (96-108); Estimated Glomerular Filt Rate > 60; Glucose Random 85 mg/dL (60-115); Potassium 4.4 mmol/L (3.3-5.1); Sodium 141 mmol/L (135-145); Total Protein 5.6 g/dL (6.5-8.0)
[2021-03-22 13:36] LABS: Beta-2 Microglobulin, Serum 2.54 mg/L (< OR = 2.51)
[2021-03-23 12:01] LABS: PES - Abn Protein Band 1 <0.2 g/dL (NONE DETECTED); Prot Elec - Albumin 3.4 g/dL (3.8-4.8); Prot Elec - Alpha1 0.3 g/dL (0.2-0.3); Prot Elec - Alpha2 0.7 g/dL (0.5-0.9); Prot Elec - Beta 1 0.4 g/dL (0.4-0.6); Prot Elec - Beta 2 0.2 g/dL (0.2-0.5); Prot Elec - Gamma 0.2 g/dL (0.8-1.7); Prot Elec - Total Protein 5.2 g/dL (6.1-8.1)
[2021-03-26 08:11] LABS: IgA 12 mg/dL (70-320); IgM 212 mg/dL (50-300)
[2021-03-28 06:12] LABS: Viscosity 1.5 rel to H2O (1.5-1.9)
== END 2021-03-21 07:38 | disposition home or self-care (01) ==
LOC: HO.10HDL 07:37
PROVIDERS: PCP Internal Medicine Medical Oncology; Visit Provider Internal Medicine Medical Oncology
DX: M54.16 Radiculopathy, lumbar region (principal); C83.00 Small cell B-cell lymphoma, unspecified site; C88.0 Waldenstrom macroglobulinemia
CPT/HCPCS: 36415; 80053; 82232; 82784; 84165; 85025; 85810; 86334

== ENCOUNTER → 2021-03-27 08:40 | Outpatient (BNVA) | payer MEDICARE, OTHER, SELFPAY | PROVIDERS: PCP Internal Medicine Medical Oncology; Visit Provider Internal Medicine Cardiovascular Disease | DX: I48.0 Paroxysmal atrial fibrillation (principal); I31.3 Pericardial effusion (noninflammatory) | CPT/HCPCS: 93005; 99212 ==

== ENCOUNTER → 2021-04-03 07:25 | Outpatient (REF) | payer MEDICARE, OTHER, SELFPAY ==
--- NOTE | 2021-04-03 07:35 | CA_ITS ---
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 There are no definitive echocardiographic findings of constrictive physiology. Prior Study Comparison Changes noted compared to prior study dated: 01/21/2021. no evidence of constrictive pericarditis on this study Updated in Other Vendor System with Status of Final Yvan Xiao MD electronically signed on 04/03/2021 8:56:51 AM with status of Final
== END ==
LOC: HO.CARD 07:25
PROVIDERS: PCP Internal Medicine Medical Oncology; Visit Provider Internal Medicine Cardiovascular Disease
DX: I31.3 Pericardial effusion (noninflammatory) (principal)
CPT/HCPCS: 93308

== ENCOUNTER → 2021-05-07 06:53 | Outpatient (REF) | payer MEDICARE, MEDICAID, SELFPAY ==
--- NOTE | 2021-05-07 06:55 | HM_ITS ---
* Total monitored time 3 days. * Underlying rhythm is sinus; average rate 90/Min; range 73 to 127/Min. * Frequent ventricular ectopy; burden of 13.2%; 2 morphologies; 1744 couplets; 94 runs, longest 4 beats. * Rare supraventricular ectopy. 3 supraventricular episodes; longest, 26 beats. * Patient symptoms of fainting/syncope associated with PVCs. MTDD
== END ==
LOC: HO.CARD 06:53
PROVIDERS: Visit Provider Internal Medicine Cardiovascular Disease
DX: I48.0 Paroxysmal atrial fibrillation (principal)
CPT/HCPCS: 93242

== ENCOUNTER 2021-06-20 07:33 | Outpatient (REF) | payer MEDICARE, OTHER, SELFPAY ==
[2021-06-20 07:57] LABS: MANUAL DIFF FLAG NO
[2021-06-20 08:10] LABS: Basophils Percent Auto 0.5 % (0-2); Eosinophils Absolute Auto 0.5 X10*3/uL (0.0-0.4); Eosinophils Percent Auto 5.7 % (0-4); Hematocrit 46.2 % (42.0-52.0); Hemoglobin 15.7 g/dl (14.0-18.0); Imm Gran Abs Auto 0.04 X10*3/uL (0.00-0.03); Imm Gran Pct Auto 0.5 % (0.0-0.4); Lymphocytes Absolute Auto 3.1 X10*3/uL (1.2-4.9); Lymphocytes Percent Auto 37.1 % (20-40); Mean Corpuscular Hemoglobin 29.6 pg (27.0-33.0); Mean Corpuscular Volume 87.2 fL (80.0-98.0); Mean Platelet Volume 11.4 fL (9.4-12.4); Monocytes Absolute Auto 0.8 X10*3/uL (0.1-1.2); Neutrophils Absolute Auto 3.8 x10*3/uL (2.0-8.3); Neutrophils Percent Auto 46.2 % (45-73); Platelet Count 215 X10*3/uL (160-400); White Blood Count 8.2 X10*3/uL (4.8-10.8)
[2021-06-20 08:35] LABS: Alanine Aminotransferase 33 U/L (0-40); Albumin Level 4.2 g/dL (3.5-5.0); Alkaline Phosphatase 94 U/L (39-117); Anion Gap 12 (12-20); Aspartate Amino Transferase 30 U/L (5-37); Bilirubin Total 0.7 mg/dL (0.0-1.0); Blood Urea Nitrogen 17 mg/dL (9-16); Calcium 9.5 mg/dL (8.4-10.2); Carbon Dioxide 27 mmol/L (22-29); Chloride 105 mmol/L (96-108); Estimated Glomerular Filt Rate > 60; Glucose Random 98 mg/dL (60-115); Potassium 4.7 mmol/L (3.3-5.1); Sodium 139 mmol/L (135-145); Total Protein 5.8 g/dL (6.5-8.0)
[2021-06-20 08:52] LABS: Erythrocyte Sedimentation Rate 2 MM/HR (0-15)
[2021-06-21 22:06] LABS: PES - Abn Protein Band 1 0.2 g/dL (NONE DETECTED); Prot Elec - Albumin 4.1 g/dL (3.8-4.8); Prot Elec - Alpha1 0.2 g/dL (0.2-0.3); Prot Elec - Alpha2 0.6 g/dL (0.5-0.9); Prot Elec - Beta 1 0.4 g/dL (0.4-0.6); Prot Elec - Beta 2 0.2 g/dL (0.2-0.5); Prot Elec - Gamma 0.3 g/dL (0.8-1.7); Prot Elec - Total Protein 5.8 g/dL (6.1-8.1)
[2021-06-25 14:27] LABS: IgA 13 mg/dL (70-320); IgM 253 mg/dL (50-300)
== END 2021-06-20 07:34 | disposition home or self-care (01) ==
LOC: HO.LAB 07:33
PROVIDERS: PCP Internal Medicine Medical Oncology; Visit Provider Internal Medicine Medical Oncology
DX: C83.00 Small cell B-cell lymphoma, unspecified site (principal); I10 Essential (primary) hypertension
CPT/HCPCS: 36415; 80053; 82784; 84165; 85025; 85652; 86334

== ENCOUNTER → 2021-07-09 08:42 | Outpatient (BNVA) | payer MEDICARE, OTHER, SELFPAY | PROVIDERS: PCP Internal Medicine Medical Oncology; Referring Provider Internal Medicine Medical Oncology; Visit Provider Internal Medicine Cardiovascular Disease | DX: R06.02 Shortness of breath (principal); I48.0 Paroxysmal atrial fibrillation; Z79.01 Long term (current) use of anticoagulants; Z79.899 Other long term (current) drug therapy | CPT/HCPCS: 93005; 99212 ==

== ENCOUNTER → 2021-08-01 07:29 | Outpatient (REF) | payer MEDICARE, OTHER, SELFPAY ==
--- NOTE | 2021-08-01 07:31 | CA_ITS ---
Acquisition Time: 2021-08-01 08:30:29 Total Exercise Time: 00:09:33 Test Indications: SOB, AFIB, PVC'S Medications: SEE CHART Protocol: ANGELITA Max HR: 122 BPM 80% of Pred: 151 BPM Max BP: 190/060 mmHG Max Work Load: 11.0 METS Exercise stress test with exercise 9 min 33 sec of Angelita protocol, achieving 80% MPHR, 11 METs, with mild sob, no chest discomfort, with attenuated heart rate, likely due to Metoprolol, with normotensive response to exercise, without arrythmia, with nondiagnostic EKG for ischemia due to suboptimal heart rate however there is ST depression noted inferiorly and V5-V6 that suggests ischemia.Test reviewed with Dr Palomino. Exercise nuclear stress test ordered for further evaluation. Referred By: Yvan Xiao Overread By: JENNIFER MADRIGAL
--- NOTE | 2021-08-01 07:31 | CA_ITS ---
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 The calculated ejection fraction is 53% by biplane method. - There is mild tricuspid valve regurgitation. Findings Left Ventricle Normal left ventricular cavity size. There is normal left ventricular wall thickness. The left ventricular systolic function is low normal. The calculated ejection fraction is 53% by biplane method. There is no evidence of regional wall motion abnormalities. Diastolic function is normal for age. Right Ventricle Normal right ventricular cavity size and systolic function. Atria Both atria are normal in size. Aortic Valve There is a normal trileaflet aortic valve. There is no aortic valve stenosis. There is no aortic valve regurgitation. Mitral Valve The mitral valve appears normal. There is trace mitral valve regurgitation. There is no mitral valve stenosis. Pulmonic Valve The pulmonic valve is likely normal. Tricuspid Valve Normal tricuspid valve structure. There is mild tricuspid valve regurgitation. The pulmonary artery systolic pressure is normal. Great Vessels The asc aorta is normal in size. Venous The inferior vena cava is normal in size and collapses greater than 50% with inspiration. Pericardium/Pleural There is no evidence of pericardial effusion. Prior Study Comparison Changes noted compared to prior study dated: 01/21/2021. LVEF slightly lower. Measurements 2D Linear Measurements IVSd: 0.92 0.6-0.9/0.6-1.0 cm LVIDd: 4.57 3.9-5.3/4.2-5.9 cm LVIDd Index: 2.26 2.4-3.2/2.2-3.1 cm/m2 LVIDs: 3.41 2.0-3.6 cm LVPWd: 0.97 0.7-1.1 cm LA Diam: 3.80 2.7-3.8/3.0-4.0 cm LAIDs Index: 1.88 1.5-2.3 cm/m2 LV Mass: 180.85 67-162/88-224 g LV Mass Index: 89.53 43-95/49-115 g/m2 LVOT Diam: 2.00 3.0+(-)1.3 cm 2D Systolic Function EF 4C: 50.50 >55% EF 2C: 55.90 >55% EF BiP: 53.20 >55% Mitral Valve MV Pk E: 0.81 MV PK A: 0.71 MV Decel Time: 164.00 E/A: 1.20 E'Lateral: 10.30 E'Medial: 7.72 E/E' Med: 10.50 E/E' Lat: 7.90 PHT: 48.00 MVA PHT: 4.58 Decel [place]: 4.97 Aortic Valve AoV Pk Durga: 1.26 AoV Mn Durga: 0.97 AoV VTI: 0.28 AoV Pk Grad: 6.00 Aov Mn Grad: 4.00 LACEY Cont.VTI: 2.11 LVOT LVOT Pk Durga: 0.78 LVOT Mn Durga: 0.59 LVOT VTI: 0.19 LVOT Pk Grad: 2.00 LVOT Mn Grad: 2.00 LVOT Diam: 2.00 LVOT Area: 3.14 Diastolic Function MV Pk E: 0.81 MV Pk A: 0.71 E/A: 1.20 E'Medial: 7.72 E/E' Med: 10.50 E' Laterial: 10.30 E/E' Lat: 7.90 Right Ventricle TAPSE (mm): 20.30 TVS' Durga: 10.30 Tricuspid Valve TR Pk Durga: 2.70 TR Pk Grad: 29.00 RA Press: 3.00 RVSP: 32.00 Great Vessels Aorta Sinus of Valsalva: 2.88 2.0-3.[address] Ridge: 2.59 1.7-3.4 cm Ao Asc: 3.20 2.1-3.4 cm Ao Arch: 3.00 Updated in Other Vendor System with Status of Final Wyatt Palomino MD electronically signed on 08/03/2021 1:48:38 PM with status of Final
== END ==
LOC: HO.CARD 07:29
PROVIDERS: Visit Provider Internal Medicine Cardiovascular Disease
DX: R06.02 Shortness of breath (principal)
CPT/HCPCS: 93017; 93306

== ENCOUNTER → 2021-08-13 13:26 | Outpatient (BNVA) | payer MEDICARE, OTHER, SELFPAY | PROVIDERS: PCP Internal Medicine Medical Oncology; Referring Provider Internal Medicine Medical Oncology; Visit Provider Internal Medicine Cardiovascular Disease | DX: R06.02 Shortness of breath (principal); I48.0 Paroxysmal atrial fibrillation; I10 Essential (primary) hypertension | CPT/HCPCS: 93005; 99212 ==

== ENCOUNTER 2021-09-19 05:59 | Outpatient (REF) | payer MEDICARE, MEDICAID, SELFPAY ==
[2021-09-19 11:22] LABS: MANUAL DIFF FLAG NO
[2021-09-19 11:33] LABS: Basophils Percent Auto 0.5 % (0-2); Eosinophils Absolute Auto 0.3 X10*3/uL (0.0-0.4); Eosinophils Percent Auto 4.3 % (0-4); Hematocrit 45.7 % (42.0-52.0); Hemoglobin 15.6 g/dl (14.0-18.0); Imm Gran Abs Auto 0.04 X10*3/uL (0.00-0.03); Imm Gran Pct Auto 0.5 % (0.0-0.4); Lymphocytes Absolute Auto 2.7 X10*3/uL (1.2-4.9); Mean Corpuscular HGB Conc 34.1 g/dl (31.0-36.0); Mean Corpuscular Hemoglobin 31.4 pg (27.0-33.0); Monocytes Absolute Auto 0.7 X10*3/uL (0.1-1.2); Monocytes Percent Auto 9.2 % (2-11); Neutrophils Absolute Auto 3.9 x10*3/uL (2.0-8.3); Neutrophils Percent Auto 50.5 % (45-73); Platelet Count 201 X10*3/uL (160-400); Red Blood Count 4.97 X10*6/uL (4.60-5.80); Red Cell Distribution Width 13.3 % (11.0-16.0); White Blood Count 7.7 X10*3/uL (4.8-10.8)
[2021-09-19 11:58] LABS: Alanine Aminotransferase 28 U/L (0-40); Albumin Level 4.1 g/dL (3.5-5.0); Alkaline Phosphatase 78 U/L (39-117); Anion Gap 11 (12-20); Aspartate Amino Transferase 26 U/L (5-37); Bilirubin Total 0.8 mg/dL (0.0-1.0); Blood Urea Nitrogen 15 mg/dL (9-16); Calcium 9.1 mg/dL (8.4-10.2); Carbon Dioxide 29 mmol/L (22-29); Chloride 105 mmol/L (96-108); Cholesterol 198 mg/dL; Estimated Glomerular Filt Rate > 60; Glucose Fasting 99 mg/dL (60-99); HDL Cholesterol 98 mg/dL; LDL Cholesterol Calculated 84 mg/dl; Potassium 4.4 mmol/L (3.3-5.1); Sodium 141 mmol/L (135-145); Total Protein 5.7 g/dL (6.5-8.0); Triglycerides 82 mg/dL
[2021-09-19 12:14] LABS: Prostate Specific Antigen 2.26 ng/mL (<0.05-4.0)
[2021-09-23 21:51] LABS: PES - Abn Protein Band 1 0.2 g/dL (NONE DETECTED); Prot Elec - Alpha1 0.2 g/dL (0.2-0.3); Prot Elec - Alpha2 0.5 g/dL (0.5-0.9); Prot Elec - Beta 1 0.4 g/dL (0.4-0.6); Prot Elec - Beta 2 0.2 g/dL (0.2-0.5); Prot Elec - Gamma 0.3 g/dL (0.8-1.7); Prot Elec - Total Protein 5.6 g/dL (6.1-8.1)
[2021-09-26 09:36] LABS: IgA 10 mg/dL (70-320); IgM 252 mg/dL (50-300)
== END 2021-09-19 06:00 | disposition home or self-care (01) ==
LOC: HO.HMGCLDS 05:59
PROVIDERS: Visit Provider Internal Medicine Medical Oncology
DX: Z12.5 Encounter for screening for malignant neoplasm of prostate (principal); C83.00 Small cell B-cell lymphoma, unspecified site; N40.0 Benign prostatic hyperplasia without lower urinary tract symptoms; C88.0 Waldenstrom macroglobulinemia; E66.3 Overweight
CPT/HCPCS: 36415; 80053; 80061; 82784; 84153; 84165; 85025; 86334

== ENCOUNTER 2021-09-24 08:21 | Outpatient (REF) | payer MEDICARE, MEDICAID, SELFPAY ==
--- NOTE | ~2021-09-24 | FL_ITS ---
EXAMINATION: FL BARIUM SWALLOW CLINICAL INFORMATION: Dysphagia. COMPARISON: None. TECHNIQUE: Barium swallow examination is performed using fluoroscopic evaluation in addition to multiple fluoroscopic spot views. The patient is imaged both upright and prone and using both thick and thin sulfate along with effervescent granules. Barium tablet was also administered. Fluoroscopy time: 0.6 minutes DAP: 4.9 Gy-cm2 Images: 48 FINDINGS: The swallowing mechanism is normal. No aspiration is seen. There is minimal laryngeal penetration. There is a large Zenker's diverticulum. The esophagus is otherwise normal-appearing. Esophageal motility is normal. No hernia or reflux or stricture is seen. Barium tablet passed freely into the stomach. FL/FL barium swallow IMPRESSION: Large Zenker's diverticulum. Minimal laryngeal penetration. No aspiration.
== END 2021-09-24 08:22 | disposition home or self-care (01) ==
LOC: HO.XRAY 08:21
PROVIDERS: PCP Internal Medicine Medical Oncology; Visit Provider Internal Medicine Medical Oncology
DX: C83.00 Small cell B-cell lymphoma, unspecified site (principal); R13.10 Dysphagia, unspecified
CPT/HCPCS: 74220

== ENCOUNTER 2022-01-01 08:30 | Outpatient (REF) | payer MEDICARE, MEDICAID, SELFPAY ==
[2022-01-01 10:36] LABS: MANUAL DIFF FLAG NO
[2022-01-01 11:06] LABS: Basophils Absolute Auto 0.1 X10*3/uL (0.0-0.2); Basophils Percent Auto 0.7 % (0-2); Eosinophils Absolute Auto 0.3 X10*3/uL (0.0-0.4); Eosinophils Percent Auto 3.8 % (0-4); Hematocrit 45.8 % (42.0-52.0); Imm Gran Abs Auto 0.07 X10*3/uL (0.00-0.03); Imm Gran Pct Auto 0.9 % (0.0-0.4); Lymphocytes Absolute Auto 2.6 X10*3/uL (1.2-4.9); Lymphocytes Percent Auto 35.3 % (20-40); Mean Corpuscular HGB Conc 34.9 g/dl (31.0-36.0); Mean Corpuscular Hemoglobin 31.4 pg (27.0-33.0); Monocytes Absolute Auto 0.7 X10*3/uL (0.1-1.2); Monocytes Percent Auto 9.3 % (2-11); Neutrophils Absolute Auto 3.7 x10*3/uL (2.0-8.3); Platelet Count 193 X10*3/uL (160-400); Red Blood Count 5.09 X10*6/uL (4.60-5.80); Red Cell Distribution Width 12.6 % (11.0-16.0); White Blood Count 7.4 X10*3/uL (4.8-10.8)
[2022-01-01 11:22] LABS: Alanine Aminotransferase 30 U/L (0-40); Albumin Level 4.3 g/dL (3.5-5.0); Alkaline Phosphatase 82 U/L (39-117); Anion Gap 13 (12-20); Aspartate Amino Transferase 30 U/L (5-37); Bilirubin Total 0.8 mg/dL (0.0-1.0); Blood Urea Nitrogen 16 mg/dL (9-16); Calcium 9.4 mg/dL (8.4-10.2); Carbon Dioxide 29 mmol/L (22-29); Chloride 104 mmol/L (96-108); Cholesterol 194 mg/dL; Estimated Glomerular Filt Rate > 60; Glucose Fasting 96 mg/dL (60-99); HDL Cholesterol 94 mg/dL; LDL Cholesterol Calculated 88 mg/dl; Potassium 4.8 mmol/L (3.3-5.1); Sodium 141 mmol/L (135-145); Triglycerides 61 mg/dL
[2022-01-01 11:42] LABS: Prostate Specific Antigen 2.48 ng/mL (<0.05-4.0)
[2022-01-03 14:56] LABS: Beta-2 Microglobulin, Serum 2.06 mg/L (< OR = 2.51)
[2022-01-04 21:56] LABS: PES - Abn Protein Band 1 <0.2 g/dL (NONE DETECTED); Prot Elec - Albumin 4.3 g/dL (3.8-4.8); Prot Elec - Alpha1 0.2 g/dL (0.2-0.3); Prot Elec - Alpha2 0.6 g/dL (0.5-0.9); Prot Elec - Beta 1 0.4 g/dL (0.4-0.6); Prot Elec - Beta 2 0.2 g/dL (0.2-0.5); Prot Elec - Gamma 0.3 g/dL (0.8-1.7)
[2022-01-06 15:56] LABS: IgA <5 mg/dL (70-320); IgM 244 mg/dL (50-300)
== END 2022-01-01 08:31 | disposition home or self-care (01) ==
LOC: HO.10HDL 08:30
PROVIDERS: Visit Provider Internal Medicine Medical Oncology
DX: Z12.5 Encounter for screening for malignant neoplasm of prostate (principal); C83.00 Small cell B-cell lymphoma, unspecified site; N40.0 Benign prostatic hyperplasia without lower urinary tract symptoms; E66.3 Overweight
CPT/HCPCS: 36415; 80053; 80061; 82232; 82784; 84153; 84165; 85025; 86334

== ENCOUNTER 2022-01-08 10:03 | Outpatient (REF) | payer MEDICARE, OTHER, SELFPAY ==
--- NOTE | ~2022-01-08 | XR_ITS ---
EXAMINATION: XR LUMBOSACRAL SPINE CLINICAL INFORMATION: Lumbar ago. Left-sided sciatica. COMPARISON: CT abdomen pelvis February 24, 2021 TECHNIQUE: Three views of the lumbosacral spine. FINDINGS: 5 nonrib-bearing lumbar vertebral bodies are visualized. There is minimal anterolisthesis of L5 on S1. Alignment is otherwise unremarkable. Lumbar vertebral body heights are maintained. Disc spaces throughout the lumbar spine are maintained. There are mild degenerative changes involving the posterior elements of the mid to lower lumbar spine. Sacroiliac joints are symmetric. Vascular calcifications noted. XR/XR lumbar spine 2-3V IMPRESSION: Mild degenerative changes of the lumbar spine. No compression deformity.
== END 2022-01-08 10:04 | disposition home or self-care (01) ==
LOC: HO.XRAY 10:03
PROVIDERS: PCP Internal Medicine Medical Oncology; Visit Provider Internal Medicine Medical Oncology
DX: M54.16 Radiculopathy, lumbar region (principal); G89.29 Other chronic pain; M54.41 Lumbago with sciatica, right side; M54.42 Lumbago with sciatica, left side
CPT/HCPCS: 72100

== ENCOUNTER → 2022-02-13 08:58 | Outpatient (BNVA) | payer MEDICARE, MEDICAID, SELFPAY | PROVIDERS: PCP Internal Medicine Medical Oncology; Referring Provider Internal Medicine Medical Oncology; Visit Provider Internal Medicine Cardiovascular Disease | DX: I44.30 Unspecified atrioventricular block (principal); I48.91 Unspecified atrial fibrillation; Z79.01 Long term (current) use of anticoagulants; Z79.899 Other long term (current) drug therapy | CPT/HCPCS: 93005 ==

== ENCOUNTER 2022-03-20 07:46 | Outpatient (REF) | payer MEDICARE, MEDICAID, SELFPAY ==
[2022-03-20 10:22] LABS: MANUAL DIFF FLAG NO
[2022-03-20 10:28] LABS: Basophils Absolute Auto 0.1 X10*3/uL (0.0-0.2); Basophils Percent Auto 0.7 % (0-2); Eosinophils Absolute Auto 0.2 X10*3/uL (0.0-0.4); Eosinophils Percent Auto 2.5 % (0-4); Hemoglobin 14.6 g/dl (14.0-18.0); Imm Gran Abs Auto 0.09 X10*3/uL (0.00-0.03); Imm Gran Pct Auto 1.1 % (0.0-0.4); Lymphocytes Absolute Auto 3.7 X10*3/uL (1.2-4.9); Lymphocytes Percent Auto 44.2 % (20-40); Mean Corpuscular Hemoglobin 30.3 pg (27.0-33.0); Mean Corpuscular Volume 89.2 fL (80.0-98.0); Mean Platelet Volume 10.9 fL (9.4-12.4); Monocytes Percent Auto 11.5 % (2-11); Neutrophils Absolute Auto 3.4 x10*3/uL (2.0-8.3); Platelet Count 261 X10*3/uL (160-400); Red Blood Count 4.82 X10*6/uL (4.60-5.80); Red Cell Distribution Width 12.7 % (11.0-16.0); White Blood Count 8.4 X10*3/uL (4.8-10.8)
[2022-03-20 10:54] LABS: Alanine Aminotransferase 33 U/L (0-40); Albumin Level 3.9 g/dL (3.5-5.0); Alkaline Phosphatase 114 U/L (39-117); Anion Gap 11 (12-20); Aspartate Amino Transferase 31 U/L (5-37); Bilirubin Total 0.7 mg/dL (0.0-1.0); Blood Urea Nitrogen 12 mg/dL (9-16); Carbon Dioxide 27 mmol/L (22-29); Chloride 106 mmol/L (96-108); Estimated Glomerular Filt Rate > 60; Glucose Random 95 mg/dL (60-115); Potassium 4.3 mmol/L (3.3-5.1); Sodium 140 mmol/L (135-145); Total Protein 5.3 g/dL (6.5-8.0)
[2022-03-20 11:14] LABS: Ferritin 354 ng/mL (20-250)
[2022-03-21 21:43] LABS: PES - Abn Protein Band 1 <0.2 g/dL (NONE DETECTED); Prot Elec - Albumin 3.6 g/dL (3.8-4.8); Prot Elec - Alpha1 0.3 g/dL (0.2-0.3); Prot Elec - Alpha2 0.7 g/dL (0.5-0.9); Prot Elec - Beta 1 0.4 g/dL (0.4-0.6); Prot Elec - Beta 2 0.2 g/dL (0.2-0.5); Prot Elec - Gamma 0.2 g/dL (0.8-1.7); Prot Elec - Total Protein 5.4 g/dL (6.1-8.1)
[2022-03-22 13:23] LABS: Beta-2 Microglobulin, Serum 2.29 mg/L (< OR = 2.51)
[2022-03-24 17:03] LABS: Viscosity 1.5 rel to H2O (1.5-1.9)
[2022-03-27 13:03] LABS: IgA 10 mg/dL (70-320); IgM 175 mg/dL (50-300)
== END 2022-03-20 07:47 | disposition home or self-care (01) ==
LOC: HO.10HDL 07:46
PROVIDERS: Emergency Medicine; Visit Provider Internal Medicine Medical Oncology
DX: C83.00 Small cell B-cell lymphoma, unspecified site (principal); M54.16 Radiculopathy, lumbar region; N40.0 Benign prostatic hyperplasia without lower urinary tract symptoms; C88.0 Waldenstrom macroglobulinemia
CPT/HCPCS: 36415; 80053; 82232; 82728; 82784; 84165; 85025; 85810; 86334

== ENCOUNTER 2022-03-24 05:55 | Outpatient (REF) | payer MEDICARE, OTHER, SELFPAY ==
--- NOTE | ~2022-03-24 | XR_ITS ---
EXAMINATION: XR CHEST CLINICAL INFORMATION: Malignant lymphoblastic lymphoma, Lovejoy storms macroglobulinemia for restaging COMPARISON: None TECHNIQUE: 2 views of the chest were obtained. FINDINGS: The lungs are well-expanded and clear. There is bilateral apical pleural thickening. The heart size and pulmonary vascularity is normal. No gross bony abnormality seen. XR/XR chest 2V IMPRESSION: Unremarkable chest exam.
--- NOTE | ~2022-03-24 | CT_ITS ---
EXAMINATION: CT ABDOMEN AND PELVIS WITH CONTRAST CLINICAL INFORMATION: Small B-cell lymphoma COMPARISON: 02/24/2021 TECHNIQUE: Multidetector volumetric images were obtained from the superior aspect of the liver through the pubic symphysis following administration 85 mL of Omnipaque 350 intravenous contrast. Sagittal and coronal reformatted images were obtained on the technologist's workstation. Oral contrast: No This CT examination was performed using dose optimization techniques as appropriate, variously including the following: *Automated exposure control *Adjustment of mA and/or kV according to patient size (this includes techniques or standardized protocols for targeted exams where dose is matched to indication/reason for exam; i.e. extremities or head) *Use of iterative reconstruction technique DLP: 547 mGy-cm FINDINGS: LUNG BASES: Previously seen pericardial effusion has resolved. Normal heart size. No pleural effusion. No focal consolidation or mass. LIVER, GALLBLADDER, AND BILIARY TREE: The liver is normal in size, shape, and attenuation. No focal hepatic lesion or biliary ductal dilatation is present. The gallbladder is unremarkable with no evidence of radiopaque gallstones, gallbladder wall thickening, or obvious pericholecystic inflammatory changes. PANCREAS: Unremarkable. SPLEEN: Unremarkable. ADRENAL GLANDS: Unremarkable. KIDNEYS AND URETERS: The kidneys are normal in size, shape, and attenuation. No hydronephrosis, hydroureter, or calculi seen. No perinephric stranding. BLADDER: Unremarkable. GASTROINTESTINAL TRACT: The small and large bowel are unremarkable. The appendix is unremarkable. ABDOMINAL WALL: No significant hernia is appreciated. LYMPH NODES: There are a few subcentimeter upper retroperitoneal lymph nodes. The largest is an aortocaval lymph node in image 38/95 that measures 8 x 10 mm. VASCULAR: Unremarkable. PELVIC VISCERA: Unremarkable. OSSEOUS STRUCTURES: Unremarkable. CT/CT abdomen pelvis w IV con IMPRESSION: No acute CT findings. No lymphadenopathy. Fleischner guidelines were followed.
[2022-03-24] MEDS: Barium Sulfate Oral (Berry) 450 ML ORAL.SUSP 900 ML PO (09:46)
[2022-03-24] MEDS: iohexoL 350 MG/ML 100 ML INFUS..BTL IV (09:46)
== END 2022-03-24 05:56 | disposition home or self-care (01) ==
LOC: HO.CT 05:55
PROVIDERS: Visit Provider Internal Medicine Medical Oncology
DX: C88.0 Waldenstrom macroglobulinemia (principal)
CPT/HCPCS: 71046; 74177; Q9967

== ENCOUNTER 2022-04-24 08:49 | Outpatient (REF) | payer MEDICARE, MEDICAID, SELFPAY ==
--- NOTE | ~2022-04-24 | MR_ITS ---
EXAMINATION: MR LUMBAR SPINE WITHOUT CONTRAST CLINICAL INFORMATION: Question herniated disc. History of DDD. Worsening bilateral leg pain. Known lymphoplasmacytic lymphoma. COMPARISON: Lumbar spine MRI 11/13/2015. TECHNIQUE: MRI of the lumbar spine was obtained using routine sequences without contrast. FINDINGS: The lumbar vertebral bodies maintain normal heights and alignment. There is disc desiccation at L4-L5 and L5-S1. Several scattered hemangiomata are noted. The conus medullaris terminates normally at the L1 level. The imaged portions of the intra-abdominal and intrapelvic contents are within normal limits. SPINAL LEVELS: L1-L2: No posterior disc abnormality. No spinal canal or neural foraminal stenosis. L2-L3: Mild disc bulging with moderate facet arthropathy. No spinal canal or neural foraminal stenosis. L3-L4: Disc bulging with moderate facet arthropathy ligamentum flavum infolding resulting mild spinal canal stenosis and mild right and mild to moderate left neural foraminal stenosis, increased from prior. L4-L5: Disc bulging with shallow central protrusion with moderate facet arthropathy resulting in severe spinal canal stenosis with compression of the thecal sac and compression of the traversing left more than right L5 nerve roots, increased from prior. Progressive mild to moderate left and mild right neural foraminal stenosis. L5-S1: Disc bulging with severe facet arthropathy. No significant narrowing of the spinal canal. Severe bilateral neural foraminal stenosis, mildly progressed from prior. MR/MR lumbar spine wo con IMPRESSION: 1. At L4-L5 there is progressive severe spinal canal stenosis with compression of the thecal sac and traversing left more than right L5 nerve roots. Progressive mild to moderate left and mild right neural foraminal stenosis. 2. At L5-S1 there is progressive severe bilateral neural foraminal stenosis.
== END 2022-04-24 08:50 | disposition home or self-care (01) ==
LOC: HO.MRI 08:49
PROVIDERS: Visit Provider Internal Medicine Medical Oncology
DX: M54.16 Radiculopathy, lumbar region (principal); M54.41 Lumbago with sciatica, right side
CPT/HCPCS: 72148

== ENCOUNTER 2022-04-28 15:31 | Outpatient (REF) | payer MEDICARE, MEDICAID, SELFPAY ==
--- NOTE | ~2022-04-28 | XR_ITS ---
EXAMINATION: XR FINGER, LEFT CLINICAL INFORMATION: Left hand injury COMPARISON: Previous x-ray April 2014 TECHNIQUE: 3 views of the left fourth finger FINDINGS: The bones and soft tissues are normal. No fracture. Alignment is anatomic. Joint spaces are maintained. XR/XR finger LT min 2V IMPRESSION: Normal finger radiographs.
== END 2022-04-28 15:32 | disposition home or self-care (01) ==
LOC: HO.XRAY 15:31
PROVIDERS: PCP Internal Medicine Medical Oncology; Visit Provider Internal Medicine Medical Oncology
DX: S69.92XA Unspecified injury of left wrist, hand and finger(s), initial encounter (principal); X58.XXXA Exposure to other specified factors, initial encounter; Y93.9 Activity, unspecified; Y92.9 Unspecified place or not applicable; Y99.9 Unspecified external cause status
CPT/HCPCS: 73140

== ENCOUNTER 2022-07-08 11:40 | Outpatient (REF) | payer MEDICARE, MEDICAID, SELFPAY ==
--- NOTE | ~2022-07-08 | FL_ITS ---
EXAMINATION: XR BARIUM SWALLOW CLINICAL INFORMATION: Pharyngoesophageal dysphagia COMPARISON: Previous barium swallow September 2021 TECHNIQUE: Fluoroscopic guidance was provided for modified barium swallow performed by the speech and hearing department. Patient was administered liquid barium and various food media mixed with barium. FINDINGS: There is question of flash penetration seen with initial swallowing of thin liquid. This was not appreciated on later images. There is abnormal contrast collection in the posterior esophagus suggestive of a Zenker's diverticulum. This is similar to preoperative exam September 2021. No aspiration. FLUOROSCOPY TIME: 1.1 minutes DOSE AREA PRODUCT: 1.2 Masters per centimeter squared. No saved fluoroscopic images. FL/FL barium swallow modified IMPRESSION: Contrast collection seen in the posterior esophagus suggestive of Zenker's diverticulum similar to preoperative exam September 2021. Question flash penetration with liquid barium seen on initial swallow. See speech and hearing report for detailed findings.
[2022-07-08 13:27] LABS: MANUAL DIFF FLAG NO
[2022-07-08 13:31] LABS: Basophils Absolute Auto 0.1 X10*3/uL (0.0-0.2); Basophils Percent Auto 0.6 % (0-2); Eosinophils Absolute Auto 0.2 X10*3/uL (0.0-0.4); Eosinophils Percent Auto 2.5 % (0-4); Hematocrit 45.9 % (42.0-52.0); Hemoglobin 15.6 g/dl (14.0-18.0); Imm Gran Abs Auto 0.04 X10*3/uL (0.00-0.03); Imm Gran Pct Auto 0.4 % (0.0-0.4); Lymphocytes Absolute Auto 4.1 X10*3/uL (1.2-4.9); Mean Corpuscular Hemoglobin 29.9 pg (27.0-33.0); Mean Corpuscular Volume 88.1 fL (80.0-98.0); Mean Platelet Volume 12.2 fL (9.4-12.4); Monocytes Absolute Auto 0.9 X10*3/uL (0.1-1.2); Neutrophils Absolute Auto 4.2 x10*3/uL (2.0-8.3); Neutrophils Percent Auto 44.5 % (45-73); Platelet Count 243 X10*3/uL (160-400); Red Blood Count 5.21 X10*6/uL (4.60-5.80); Red Cell Distribution Width 12.9 % (11.0-16.0); White Blood Count 9.5 X10*3/uL (4.8-10.8)
[2022-07-08 14:00] LABS: Alanine Aminotransferase 23 U/L (0-40); Albumin Level 4.1 g/dL (3.5-5.0); Alkaline Phosphatase 116 U/L (39-117); Anion Gap 12 (12-20); Aspartate Amino Transferase 26 U/L (5-37); Blood Urea Nitrogen 15 mg/dL (9-16); Calcium 9.3 mg/dL (8.4-10.2); Carbon Dioxide 27 mmol/L (22-29); Chloride 106 mmol/L (96-108); Estimated Glomerular Filt Rate > 60; Glucose Random 86 mg/dL (60-115); Potassium 4.4 mmol/L (3.3-5.1); Sodium 141 mmol/L (135-145); Total Protein 5.7 g/dL (6.5-8.0)
[2022-07-11 11:24] LABS: PES - Abn Protein Band 1 <0.2 g/dL (NONE DETECTED); Prot Elec - Albumin 3.7 g/dL (3.8-4.8); Prot Elec - Alpha1 0.3 g/dL (0.2-0.3); Prot Elec - Alpha2 0.7 g/dL (0.5-0.9); Prot Elec - Beta 1 0.4 g/dL (0.4-0.6); Prot Elec - Beta 2 0.3 g/dL (0.2-0.5); Prot Elec - Gamma 0.2 g/dL (0.8-1.7); Prot Elec - Total Protein 5.7 g/dL (6.1-8.1)
[2022-07-14 04:19] LABS: IgA 12 mg/dL (70-320); IgM 169 mg/dL (50-300)
== END 2022-07-08 11:41 | disposition home or self-care (01) ==
LOC: HO.10HDL 11:40
PROVIDERS: Visit Provider Internal Medicine Medical Oncology
DX: C88.0 Waldenstrom macroglobulinemia (principal); R13.14 Dysphagia, pharyngoesophageal phase; Z98.890 Other specified postprocedural states
CPT/HCPCS: 36415; 74230; 80053; 82232; 82784; 84165; 85025

== ENCOUNTER 2022-07-08 14:19 | Outpatient (REF) | payer MEDICARE, MEDICAID, SELFPAY | END 2022-07-08 14:20 | disposition home or self-care (01) | LOC: HO.XRAY 14:19 | PROVIDERS: Visit Provider Internal Medicine | DX: Z13.89 Encounter for screening for other disorder (principal) ==

== ENCOUNTER 2022-07-11 08:45 | Outpatient (REF) | payer MEDICARE, MEDICAID, SELFPAY ==
--- NOTE | ~2022-07-11 | FL_ITS ---
EXAMINATION: FL BARIUM SWALLOW CLINICAL INFORMATION: Pharyngeal esophageal dysphagia. Zenker's diverticulum. COMPARISON: Modified barium swallow 07/08/2022, barium swallow 09/24/2021 TECHNIQUE: Barium swallow examination is performed using fluoroscopic evaluation in addition to multiple fluoroscopic spot views, including cine images during swallowing. The patient is imaged both upright and semiupright using both thick and thin sulfate along with effervescent granules. Fluoroscopy time: 1.4 minutes DAP: 5.738 Gycm2 Images: 34 FINDINGS: There is a moderate Zenker's diverticulum approximately level C6. The mouth of the diverticulum appears wide. Diverticulum is midline on AP view. The mucosa is smooth. There is no extravasation of contrast. There is pooling of swallowed barium in the diverticulum. No aspiration during the exam. The diverticulum appears larger when compared with prior barium swallow exam 09/24/2021. Swallowing function appears normal. No cervical web or cervical achalasia. The thoracic esophagus shows normal motility with no obstruction, stricture, or ulceration. No tertiary contractions. There is a small intermittent sliding hiatal hernia during the Valsalva maneuver. There is also gastroesophageal reflux into the lower third thoracic esophagus. FL/FL barium swallow IMPRESSION: -Moderate midline Zenker's diverticulum, increased from prior barium swallow 09/24/2021. -Small intermittent sliding hiatal hernia with reflux.
--- NOTE | 2022-07-17 13:59 | MHC.SL.IMP ---
Date of Plan of Treatment: 07/08/22 Onset of Symptoms/Illness: 07/08/22 Date Treatment Started: 07/08/22 Admitting Diagnosis: Zenker's Diverticulum Primary Speech & Language Diagnosis: R13.14 Pharyngoesophageal Phase Dysphagia Secondary Speech & Language Diagnosis: Reason for Today's Visit: 68228 Modified Barium Swallow Study Comments: Pre-evaluation Dietary Consistencies: Regular Pre-evaluation Liquid Consistency: Thin Pre-evaluation Medication Administration: Whole with Liquid Medical History: Acid Reflux Comments: [facility] Fall Risk Assessment Score: Low risk Oral Motor Exam Facial Symmetry: Asymmetrical Facial Movement: Oral-Facial Facial Miscellaneous Observations: Mouth Occlusion: Oral-Facial Teeth Characteristics: Intact/Normal Oral-Facial Teeth Miscellaneous Observation: Oral-Facial Lip Pucker Description: Oral-Facial Smile (Lips) Description: Oral-Facial Puff Cheeks Description: Oral-Facial Lip Miscellaneous Comment: Tongue Size: Normal Tongue Frenum Length: Tongue Excursion Description: Normal Tongue Range of Movement Description: Normal Tongue Speed of Movement Description: Normal Tongue Strength of Movement (against opposing pressure): Normal Tongue Movement Characteristics: Tongue Movement Miscellaneous Observation: Oral Expression Ability: Understands Concepts Is patient able to manage secretions?: Yes Is patient able to produce volitional cough?: Yes Food and Liquid Trials: Oral Impairment: Lip Closure: 0=No labial escape Oral Impairment: Tongue Control During Bolus Hold: 0=Cohesive bolus between tongue to palatal seal Oral Impairment: Bolus Preparation/Mastication: 0=Timely and efficient chewing and mashing Oral Impairment: Bolus Transport/Lingual Motion: 0=Brisk tongue motion Oral Impairment: Oral Residue: 1=Trace residue lining oral structures Oral Impairment:Initiation of Pharyngeal Swallow: 0=Bolus head at posterior angle of ramus (first hyoid excursion) Pharyngeal Impairment: Soft Palate Elevation: 0=No bolus between soft palate (SP)/pharyngeal wall (PW) Pharyngeal Impairment: Laryngeal Elevation: 0=Complete superior movement of thyroid cartilage (see description) Pharyngeal Impairment: Anterior Hyoid Excursion: 0=Complete anterior movement Pharyngeal Impairment: Epiglottic Movement: 0=Complete inversion Pharyngeal Impairment: Laryngeal Vestibular Closure:: Pharyngeal Impairment: Pharyngeal Stripping Wave: 0=Present: complete Pharyngeal Impairment: Pharyngeal Contraction: Did not test Pharyngeal Impairment: Pharyngoesophageal Segment Openin=Minimal distension/minimal duration: marked obstruction of flow Pharyngeal Impairment: Tongue Base (TB) Retraction: 1=Trace column of contrast/air between TB and posterior PW Pharyngeal Impairment: Pharyngeal Residue: 2=Collection of residue within or on pharyngeal structures Pharyngeal Impairment: Esophageal Clearance Upright Position: Did not test Impressions and Recommendations Clinical Observations: Current (pre-evaluation) Intake/Diet: Pre-Study Functional Oral Intake Scale (FOIS): 7- Total oral intake with no restrictions MBSImP ID: [id number] Results: Lip closure for intraoral bolus containment resulted in no labial escape. Tongue control during bolus hold maintained a cohesive bolus held between tongue to palate seal. Bolus preparation and mastication resulted in timely and efficient chewing and mashing. Bolus transport/lingual motion was with brisk tongue motion. Oral residue was a trace, lining oral structures. Initiation of the pharyngeal swallow occurred as the bolus head reached the posterior angle of the mandibular ramus. Soft palate elevation resulted in no bolus between the soft palate and the pharyngeal wall. Laryngeal elevation demonstrated complete superior movement of the thyroid cartilage with complete approximation of the arytenoids to the epiglottic petiole. Anterior hyoid excursion demonstrated complete anterior movement. Epiglottic movement resulted in complete inversion. Laryngeal vestibular closure was complete, as indicated by no air or contrast within the laryngeal vestibule at the height of the swallow. Pharyngeal stripping wave was present and complete. Pharyngeal contraction could not be determined due to logistical reasons not related to physiologic impairment. Pharyngoesophageal segment opening yielded no distension, resulting in total obstruction of flow. Tongue base retraction allowed a trace column of contrast or air between the retracted tongue base and the posterior pharyngeal wall. Pharyngeal residue was a collection of residue within or on pharyngeal structures. Esophageal clearance in the upright position could not be assessed due to logistical reasons not related to physiologic impairment. Pt found to have a Zenker's diverticulum. Unfortunately, this is negatively impacting his ability to maintain nutrition and causes him distress. Contrast was noted to enter the upper esophagus and material form the diverticulum was shown to re-enter the pharynx. Cues to tuck chin or swallow effortfully were not able to clear the residue. He demonstrated good airway protection, but does explain that sometimes he coughs with food, comes back up . He is being referred back to his GI provider with questions of further surgical repair. Liquid Intake Recommendation: Thin Liquid Intake Strategies: Small Sips Dietary Recommendations: Regular Medication Administration: Crushed with Puree Please contact the pharmacy regarding appropriate crushable or liquid drug formulations that are available whenever modified delivery is recommended. Compensatory Strategies Recommended: Sitting Upright (90 deg) Double Swallow Small Bites and Sips Supervision during eating and or drinking: None Needed Recommended Treatments: Compens. Strategy Educat. Recommendation for Speech Therapy: Modified Barium Swallow Study - Outpatient Text Comment: Frequency/Duration: Date Range for Service Requested: Timeline to reassess: 3 months Bulk Clerk Clinician/Clinical Fellow: No Supervisory Statement: N/A Speech Language Pathologist: Gilles Mckenzie M.A., CCC-PRODUCTION MACHINIST
== END 2022-07-11 08:46 | disposition home or self-care (01) ==
LOC: HO.XRAY 08:45
PROVIDERS: Visit Provider Internal Medicine
DX: R13.14 Dysphagia, pharyngoesophageal phase (principal); Z98.890 Other specified postprocedural states
CPT/HCPCS: 74220; 92611

== ENCOUNTER → 2022-08-07 08:24 | Outpatient (BNVA) | payer MEDICARE, MEDICAID, SELFPAY | PROVIDERS: PCP Internal Medicine Medical Oncology; Referring Provider Internal Medicine Medical Oncology; Visit Provider Internal Medicine Cardiovascular Disease | DX: I48.0 Paroxysmal atrial fibrillation (principal); R06.02 Shortness of breath; Z79.01 Long term (current) use of anticoagulants; Z79.899 Other long term (current) drug therapy | CPT/HCPCS: 93005; 99212 ==

== ENCOUNTER → 2022-08-19 07:55 | Outpatient (REF) | payer MEDICARE, MEDICAID, SELFPAY ==
--- NOTE | 2022-08-19 07:57 | CA_ITS ---
Transthoracic Echocardiogram Patient (Last, First, Middle): Jose Powers M Gender: Male Date of : 1950 Age: 72 Procedure Date: 08/19/2022 Procedure Type: Transthoracic Echocardiogram Location: OP Height: 175.26 cm Weight: 92.99 kg BSA: 2.09 m2 Heart Rate: bpm BP: 128 / 80 mmHg Animal Anatomy Teacher: Referring MD: Yvan Xiao MD Symptoms: R06.02 - Shortness of breath Study Quality: Fair w Contrast ECG Rhythm: Sinus Conclusions: - The left ventricular systolic function is low normal. The visually estimated ejection fraction is between 50-55%. - Evidence suggests grade II (moderate) diastolic dysfunction. - Mildly increased right ventricular cavity size. - No obvious valvular pathology seen on this study. 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 Findings Procedure Information Contrast agent, definity, is being given per protocol without apparent complications. Left Ventricle Normal left ventricular cavity size. There is mildly increased left ventricular wall thickness. The left ventricular systolic function is low normal. The visually estimated ejection fraction is between 50-55%. E/E prime ratio is between 8 and 15 consistent with indeterminate filling pressures. Evidence suggests grade II (moderate) diastolic dysfunction. Right Ventricle Mildly increased right ventricular cavity size. There is normal right ventricular systolic function. Atria Both atria are likely dilated. Aortic Valve There is a normal trileaflet aortic valve. There is no aortic valve stenosis. There is no aortic valve regurgitation. Mitral Valve The mitral valve appears normal. There is trace mitral valve regurgitation. There is no mitral valve stenosis. Pulmonic Valve The pulmonic valve is likely normal. Tricuspid Valve Normal tricuspid valve structure. There is mild tricuspid valve regurgitation. There is no evidence of pulmonary hypertension. Great Vessels The asc aorta is normal in size. Venous The inferior vena cava is normal in size and collapses greater than 50% with inspiration. 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 Pericardium/Pleural There is no evidence of pericardial effusion. Prior Study Comparison No significant change compared to prior study dated: 08/01/2021. Recommendations, Care & Conclusions No obvious valvular pathology seen on this study. Measurements 2D Linear Measurements IVSd: 1.05 0.6-0.9/0.6-1.0 cm LVIDd: 4.54 3.9-5.3/4.2-5.9 cm LVIDd Index: 2.17 2.4-3.2/2.2-3.1 cm/m2 LVIDs: 3.70 2.0-3.6 cm LVPWd: 1.07 0.7-1.1 cm Ao Root: 3.00 2.1-3.5 cm LA Diam: 4.00 2.7-3.8/3.0-4.0 cm LAIDs Index: 1.91 1.5-2.3 cm/m2 LV Mass: 209.90 67-162/88-224 g LV Mass Index: 100.43 43-95/49-115 g/m2 LVOT Diam: 2.00 3.0+(-)1.3 cm 2D Systolic Function EF 4C: 50.00 >55% EF 2C: 53.00 >55% EF BiP: 52.80 >55% Mitral Valve MV Pk E: 0.79 MV PK A: 0.74 MV Decel Time: 153.00 E/A: 1.10 E'Lateral: 11.60 E'Medial: 6.42 E/E' Med: 12.40 E/E' Lat: 6.80 PHT: 45.00 MVA PHT: 4.89 Decel Berrien: 5.18 Aortic Valve AoV Pk Durga: 1.48 AoV Mn Durga: 0.94 AoV VTI: 0.35 AoV Pk Grad: 9.00 Aov Mn Grad: 4.00 LACEY Cont.VTI: 1.76 LVOT LVOT Pk Durga: 0.84 LVOT Mn Durga: 0.54 LVOT VTI: 0.19 LVOT Pk Grad: 3.00 LVOT Mn Grad: 1.00 LVOT Diam: 2.00 LVOT Area: 3.14 Diastolic Function MV Pk E: 0.79 MV Pk A: 0.74 E/A: 1.10 E'Medial: 6.42 E/E' Med: 12.40 E' Laterial: 11.60 E/E' Lat: 6.80 Right Ventricle TAPSE (mm): 27.00 TVS' Durga: 10.00 Tricuspid Valve TR Pk Durga: 2.32 TR Pk Grad: 22.00 RA Press: 3.00 RVSP: 25.00 Great Vessels Aorta Ao Root-2D: 3.00 2.0-3.7 cm Ao Asc: 3.10 2.1-3.4 cm Pulmonary Valve PV Pk Durga: 1.19 Peak PV Grad: 6.00 Updated in Other Vendor System with Status of Final Wyatt Palomino MD electronically signed on 08/20/2022 12:12:53 PM with status of Final
== END ==
LOC: HO.CARD 07:55
PROVIDERS: PCP Internal Medicine Medical Oncology; Visit Provider Internal Medicine Cardiovascular Disease
DX: R06.02 Shortness of breath (principal)
CPT/HCPCS: 93306; Q9957

== ENCOUNTER 2022-10-01 07:26 | Outpatient (REF) | payer MEDICARE, MEDICAID, SELFPAY ==
[2022-10-01 09:37] LABS: MANUAL DIFF FLAG NO
[2022-10-01 09:45] LABS: Basophils Absolute Auto 0.1 X10*3/uL (0.0-0.2); Basophils Percent Auto 0.5 % (0-2); Eosinophils Absolute Auto 0.2 X10*3/uL (0.0-0.4); Eosinophils Percent Auto 1.2 % (0-4); Hematocrit 40.9 % (42.0-52.0); Hemoglobin 13.5 g/dl (14.0-18.0); Imm Gran Abs Auto 0.26 X10*3/uL (0.00-0.03); Lymphocytes Absolute Auto 3.3 X10*3/uL (1.2-4.9); Mean Corpuscular Hemoglobin 29.3 pg (27.0-33.0); Mean Corpuscular Volume 88.9 fL (80.0-98.0); Mean Platelet Volume 11.7 fL (9.4-12.4); Monocytes Absolute Auto 1.2 X10*3/uL (0.1-1.2); Monocytes Percent Auto 9.5 % (2-11); Neutrophils Absolute Auto 8.1 x10*3/uL (2.0-8.3); Neutrophils Percent Auto 61.8 % (45-73); Platelet Count 261 X10*3/uL (160-400); Red Cell Distribution Width 13.2 % (11.0-16.0); White Blood Count 13.1 X10*3/uL (4.8-10.8)
[2022-10-01 09:54] LABS: Alanine Aminotransferase 24 U/L (0-40); Albumin Level 3.7 g/dL (3.5-5.0); Alkaline Phosphatase 164 U/L (39-117); Anion Gap 13 (12-20); Aspartate Amino Transferase 25 U/L (5-37); Bilirubin Total 0.6 mg/dL (0.0-1.0); Blood Urea Nitrogen 20 mg/dL (9-16); Calcium 9.2 mg/dL (8.4-10.2); Carbon Dioxide 26 mmol/L (22-29); Chloride 105 mmol/L (96-108); Cholesterol 139 mg/dL; Estimated Glomerular Filt Rate > 60; Glucose Fasting 85 mg/dL (60-99); HDL Cholesterol 60 mg/dL; LDL Cholesterol Calculated 63 mg/dl; Lactate Dehydrogenase 264 U/L (118-273); Sodium 140 mmol/L (135-145); Total Protein 5.8 g/dL (6.5-8.0); Triglycerides 83 mg/dL
[2022-10-03 13:47] LABS: PES - Abn Protein Band 1 <0.2 g/dL (NONE DETECTED); Prot Elec - Albumin 3.4 g/dL (3.8-4.8); Prot Elec - Alpha1 0.4 g/dL (0.2-0.3); Prot Elec - Alpha2 0.8 g/dL (0.5-0.9); Prot Elec - Beta 1 0.4 g/dL (0.4-0.6); Prot Elec - Beta 2 0.2 g/dL (0.2-0.5); Prot Elec - Gamma 0.2 g/dL (0.8-1.7); Prot Elec - Total Protein 5.4 g/dL (6.1-8.1)
[2022-10-05 20:28] LABS: Viscosity 1.4 rel to H2O (1.5-1.9)
[2022-10-08 14:44] LABS: IgA 13 mg/dL (70-320); IgM 150 mg/dL (50-300)
== END 2022-10-01 07:27 | disposition home or self-care (01) ==
LOC: HO.10HDL 07:26
PROVIDERS: Visit Provider Internal Medicine Medical Oncology
DX: C88.0 Waldenstrom macroglobulinemia (principal); I10 Essential (primary) hypertension; E78.01 Familial hypercholesterolemia
CPT/HCPCS: 36415; 80053; 80061; 82784; 83615; 84165; 85025; 85810; 86334

== ENCOUNTER 2022-12-29 07:46 | Outpatient (REF) | payer MEDICARE, MEDICAID, SELFPAY ==
[2022-12-29 10:35] LABS: MANUAL DIFF FLAG NO
[2022-12-29 10:42] LABS: Basophils Percent Auto 0.5 % (0-2); Eosinophils Absolute Auto 0.3 X10*3/uL (0.0-0.4); Eosinophils Percent Auto 3.3 % (0-4); Hematocrit 45.6 % (42.0-52.0); Hemoglobin 15.6 g/dl (14.0-18.0); Imm Gran Abs Auto 0.02 X10*3/uL (0.00-0.03); Imm Gran Pct Auto 0.3 % (0.0-0.4); Lymphocytes Percent Auto 38.1 % (20-40); Mean Corpuscular HGB Conc 34.2 g/dl (31.0-36.0); Mean Corpuscular Volume 87.7 fL (80.0-98.0); Mean Platelet Volume 11.6 fL (9.4-12.4); Monocytes Absolute Auto 0.9 X10*3/uL (0.1-1.2); Monocytes Percent Auto 11.4 % (2-11); Neutrophils Absolute Auto 3.6 x10*3/uL (2.0-8.3); Neutrophils Percent Auto 46.4 % (45-73); Platelet Count 212 X10*3/uL (160-400); Red Cell Distribution Width 14.3 % (11.0-16.0); White Blood Count 7.8 X10*3/uL (4.8-10.8)
[2022-12-29 11:24] LABS: Alanine Aminotransferase 33 U/L (0-40); Albumin Level 4.1 g/dL (3.5-5.0); Alkaline Phosphatase 102 U/L (39-117); Anion Gap 14 (12-20); Aspartate Amino Transferase 35 U/L (5-37); Bilirubin Total 0.6 mg/dL (0.0-1.0); Blood Urea Nitrogen 22 mg/dL (9-16); Calcium 9.2 mg/dL (8.4-10.2); Carbon Dioxide 26 mmol/L (22-29); Chloride 104 mmol/L (96-108); Estimated Glomerular Filt Rate > 60; Glucose Random 91 mg/dL (60-115); Lactate Dehydrogenase 258 U/L (118-273); Sodium 140 mmol/L (135-145)
[2022-12-30 12:49] LABS: Beta-2 Microglobulin, Serum 2.13 mg/L (< OR = 2.51)
[2023-01-01 16:47] LABS: Viscosity 1.5 rel to H2O (1.5-1.9)
[2023-01-01 19:08] LABS: IgA 14 mg/dL (70-320); IgM 193 mg/dL (50-300)
== END 2022-12-29 07:47 | disposition home or self-care (01) ==
LOC: HO.10HDL 07:46
PROVIDERS: Visit Provider Internal Medicine Medical Oncology
DX: C88.0 Waldenstrom macroglobulinemia (principal); I10 Essential (primary) hypertension; E66.3 Overweight
CPT/HCPCS: 36415; 80053; 82232; 82784; 83615; 85025; 85810; 86334

== ENCOUNTER 2023-04-23 07:23 | Outpatient (REF) | payer MEDICARE, MEDICAID, SELFPAY ==
[2023-04-23 07:35] LABS: MANUAL DIFF FLAG NO
[2023-04-23 07:42] LABS: Basophils Percent Auto 0.4 % (0-2); Eosinophils Absolute Auto 0.3 X10*3/uL (0.0-0.4); Eosinophils Percent Auto 3.5 % (0-4); Hematocrit 46.9 % (42.0-52.0); Hemoglobin 16.3 g/dl (14.0-18.0); Imm Gran Abs Auto 0.05 X10*3/uL (0.00-0.03); Imm Gran Pct Auto 0.5 % (0.0-0.4); Lymphocytes Absolute Auto 3.3 X10*3/uL (1.2-4.9); Lymphocytes Percent Auto 34.3 % (20-40); Mean Corpuscular HGB Conc 34.8 g/dl (31.0-36.0); Mean Corpuscular Hemoglobin 30.3 pg (27.0-33.0); Mean Corpuscular Volume 87.2 fL (80.0-98.0); Mean Platelet Volume 10.9 fL (9.4-12.4); Monocytes Absolute Auto 0.9 X10*3/uL (0.1-1.2); Monocytes Percent Auto 9.2 % (2-11); Neutrophils Absolute Auto 5.1 x10*3/uL (2.0-8.3); Neutrophils Percent Auto 52.1 % (45-73); Platelet Count 222 X10*3/uL (160-400); Red Blood Count 5.38 X10*6/uL (4.60-5.80); Red Cell Distribution Width 13.4 % (11.0-16.0); White Blood Count 9.7 X10*3/uL (4.8-10.8)
[2023-04-23 08:10] LABS: Alanine Aminotransferase 36 U/L (0-40); Albumin Level 4.1 g/dL (3.5-5.0); Alkaline Phosphatase 106 U/L (39-117); Anion Gap 11 (12-20); Aspartate Amino Transferase 37 U/L (5-37); Bilirubin Total 0.8 mg/dL (0.0-1.0); Blood Urea Nitrogen 19 mg/dL (9-16); Calcium 9.1 mg/dL (8.4-10.2); Carbon Dioxide 29 mmol/L (22-29); Chloride 105 mmol/L (96-108); Cholesterol 186 mg/dL (<200); Estimated Glomerular Filt Rate > 60; Glucose Fasting 100 mg/dL (60-99); HDL Cholesterol 73 mg/dL (>40); LDL Cholesterol Calculated 95 mg/dL (<100); Potassium 4.5 mmol/L (3.3-5.1); Sodium 140 mmol/L (135-145); Total Protein 5.9 g/dL (6.5-8.0); Triglycerides 92 mg/dL (<150)
[2023-04-24 13:18] LABS: Beta-2 Microglobulin, Serum 2.23 mg/L (< OR = 2.51)
[2023-04-27 11:39] LABS: PES - Abn Protein Band 1 <0.2 g/dL (NONE DETECTED); Prot Elec - Albumin 4.2 g/dL (3.8-4.8); Prot Elec - Alpha1 0.2 g/dL (0.2-0.3); Prot Elec - Alpha2 0.5 g/dL (0.5-0.9); Prot Elec - Beta 1 0.4 g/dL (0.4-0.6); Prot Elec - Beta 2 0.2 g/dL (0.2-0.5); Prot Elec - Gamma 0.2 g/dL (0.8-1.7); Prot Elec - Total Protein 5.8 g/dL (6.1-8.1)
[2023-04-28 13:33] LABS: IgA 13 mg/dL (70-320); IgM 170 mg/dL (50-300)
== END 2023-04-23 07:24 | disposition home or self-care (01) ==
LOC: HO.LAB 07:23
PROVIDERS: PCP Internal Medicine Medical Oncology; Visit Provider Internal Medicine Medical Oncology
DX: C83.00 Small cell B-cell lymphoma, unspecified site (principal); E66.3 Overweight; I10 Essential (primary) hypertension
CPT/HCPCS: 36415; 80053; 80061; 82232; 82784; 84165; 85025; 86334

== ENCOUNTER 2023-07-21 07:32 | Outpatient (REF) | payer MEDICARE, MEDICAID, SELFPAY ==
[2023-07-21 10:52] LABS: MANUAL DIFF FLAG NO
[2023-07-21 11:08] LABS: Basophils Percent Auto 0.5 % (0-2); Eosinophils Absolute Auto 0.2 X10*3/uL (0.0-0.4); Hematocrit 46.5 % (42.0-52.0); Hemoglobin 16.3 g/dl (14.0-18.0); Imm Gran Abs Auto 0.04 X10*3/uL (0.00-0.03); Imm Gran Pct Auto 0.5 % (0.0-0.4); Lymphocytes Absolute Auto 2.5 X10*3/uL (1.2-4.9); Lymphocytes Percent Auto 31.3 % (20-40); Mean Corpuscular HGB Conc 35.1 g/dl (31.0-36.0); Mean Corpuscular Volume 88.4 fL (80.0-98.0); Mean Platelet Volume 12.1 fL (9.4-12.4); Monocytes Absolute Auto 0.8 X10*3/uL (0.1-1.2); Neutrophils Absolute Auto 4.4 x10*3/uL (2.0-8.3); Neutrophils Percent Auto 54.7 % (45-73); Platelet Count 198 X10*3/uL (160-400); Red Blood Count 5.26 X10*6/uL (4.60-5.80); Red Cell Distribution Width 13.8 % (11.0-16.0)
[2023-07-21 12:00] LABS: Alanine Aminotransferase 30 U/L (0-40); Albumin Level 4.1 g/dL (3.5-5.0); Alkaline Phosphatase 100 U/L (39-117); Anion Gap 13 (12-20); Aspartate Amino Transferase 31 U/L (5-37); Bilirubin Total 0.8 mg/dL (0.0-1.0); Blood Urea Nitrogen 16 mg/dL (9-16); Calcium 9.2 mg/dL (8.4-10.2); Carbon Dioxide 26 mmol/L (22-29); Chloride 106 mmol/L (96-108); Cholesterol 172 mg/dL (<200); Estimated Glomerular Filt Rate > 60; Glucose Fasting 91 mg/dL (60-99); HDL Cholesterol 78 mg/dL (>40); LDL Cholesterol Calculated 75 mg/dL (<100); Potassium 4.3 mmol/L (3.3-5.1); Sodium 141 mmol/L (135-145); Total Protein 5.9 g/dL (6.5-8.0); Triglycerides 99 mg/dL (<150)
[2023-07-21 12:06] LABS: Prostate Specific Antigen 3.51 ng/mL (<0.05-4.0)
[2023-07-22 11:33] LABS: PES - Abn Protein Band 1 <0.2 g/dL (NONE DETECTED); Prot Elec - Alpha1 0.2 g/dL (0.2-0.3); Prot Elec - Alpha2 0.5 g/dL (0.5-0.9); Prot Elec - Beta 1 0.4 g/dL (0.4-0.6); Prot Elec - Beta 2 0.2 g/dL (0.2-0.5); Prot Elec - Gamma 0.2 g/dL (0.8-1.7); Prot Elec - Total Protein 5.6 g/dL (6.1-8.1)
[2023-07-22 11:58] LABS: Beta-2 Microglobulin, Serum 2.14 mg/L (< OR = 2.51)
[2023-07-24 16:37] LABS: IgA 12 mg/dL (70-320); IgG 114 mg/dL (600-1540); IgM 161 mg/dL (50-300)
== END 2023-07-21 07:33 | disposition home or self-care (01) ==
LOC: HO.10HDL 07:32
PROVIDERS: Visit Provider Internal Medicine Medical Oncology
DX: Z12.5 Encounter for screening for malignant neoplasm of prostate (principal); C83.00 Small cell B-cell lymphoma, unspecified site; E66.3 Overweight; N40.0 Benign prostatic hyperplasia without lower urinary tract symptoms; E78.01 Familial hypercholesterolemia
CPT/HCPCS: 36415; 80053; 80061; 82232; 82784; 84153; 84165; 85025; 86334

== ENCOUNTER 2023-08-06 08:43 | Outpatient (AMB) | payer MEDICARE, MEDICAID, SELFPAY ==
--- NOTE | 2023-08-06 08:45 | A.OFFVIS_ITS ---
Vital Signs 08/06/23 08:46 Height 5 ft 9 in Weight 218 lb 4.122 oz BMI 32.2 BP 120/78 Blood Pressure Location Lt brachial Position Sitting Pulse 66 Intake Visit Reasons: 1 yr f/up w/ ekg Intake Note: 1 year follow-up with ekg feeling good Hotel Front Desk Agent Required: No Allergies amoxicillin [AMOXICILLIN] Allergy (Intermediate, Verified 08/07/22 08:40) RASH soap [Betadine] Allergy (Unknown, Verified 08/07/22 08:40) Rash povidone-iodine [From BETADINE] Adverse Reaction (Intermediate, Verified 08/07/22 08:40) RASH (IF ON SKIN FOR PROLONGED TIME) Medication List - Last Reconciled 08/06/23 by Yvan Xiao MD atorvastatin 20 mg PO DAILY flecainide 150 mg PO Q12H ibrutinib (Imbruvica) mg PO metoprolol tartrate 50 mg PO BID multivitamin (Multiple Vitamins tablet) 1 tab PO DAILY naproxen 500 mg PO BID omeprazole 40 mg PO QAM HPI Comments Details: Sidney comes for follow-up. He has stopped taking his Eliquis because he said pharmacy was giving a tough time getting him Eliquis as he is also taking naproxen. Decided that naproxen is more important medicine for him as it helps him function and relieves his back pain. He is very limited because of his back pain. He decided to stop taking Eliquis understanding the stroke risk. He denies any episodes of atrial fibrillation. Overall doing well from that persp ective. He has had no prolonged palpitation irregular heartbeat. No lightheadedness, syncope. Denies any worsening shortness of breath, orthopnea, PND, leg edema. Taking all his medications. No major bleeding issues or neurologic events. [facility] Medical History Enlarged RV (right ventricle) HTN (hypertension) Paroxysmal atrial fibrillation Paroxysmal atrial flutter Pericardial effusion Persistent atrial fibrillation Surgical History History of bone marrow biopsy History of cardiac radiofrequency ablation (RFA) History of ear surgery History of stapedectomy History of surgery on wrist Hx of hemorrhoidectomy Hx of tonsillectomy Hx of transesophageal echocardiography (ANUSHKA) for monitoring Hx of wisdom tooth extraction Status post creation of pericardial window Family History Father CVD (cardiovascular disease) Mother Cancer Social History Alcohol intake: current Alcohol intake frequency: holidays/special occasions only Patient Tobacco Use Status: Never used Tobacco 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al status: retired 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 Review of Systems Const Denies chills, Denies fatigue, Denies fever(s), Denies frequent falls, Denies weakness, Denies weight gain and Denies weight loss ENT Denies dizziness Card Denies chest pain, Denies leg edema, Denies lightheadedness, Denies palpita tions, Denies dyspnea, Denies dyspnea on exertion, Denies orthopnea and Denies other (loss of consciousness) Resp Denies cough, Denies dyspnea and Denies dyspnea on exertion GI Denies hematochezia and Denies change in stool character Musc Denies abnormal gait, Denies muscle weakness, Denies numbness, Denies radiating pain into limb and Denies tingling Neuro Denies abnormal gait, Denies dizziness, Denies frequent falls, Denies numbness, Denies tingling and Denies weakness Endo Denies fatigue and Denies palpitations Physical Exam Vital Signs: Last Vital Signs Pulse 66 08/06/23 08:46 BP 120/78 08/06/23 08:46 BMI result Body Mass Index 32.2 Const General: cooperative, comfortable, alert and awake Nutritional Appearance: overweight Orientation/consciousness: patient oriented x3 Limitations: no limitations Neck Neck: Yes trachea midline, Yes supple and Yes no JVD Resp Effort & Inspection: normal respiratory effort Auscultation: clear to auscultation bilaterally Cardio Jugular venous distension: no JVD Palpation: normal PMI Rate: regular rate Rhythm: abnormal rhythm with ectopic beats Heart sounds: S1 normal heart sound present GI Auscultation: normal bowel sounds Skin General skin exam: no rashes or lesions noted Neuro General: patient oriented x3 and no focal motor deficits Extrem General: Yes no clubbing, cyanosis or edema Psych Appearance: grossly normal Office Procedures EKG Details: EKG shows normal sinus rhythm with first-degree AV block with nonspecific ST abnormality [id number], Complete Assessment & Plan Assessment & Plan (1) Paroxysmal atrial fibrillation: Code(s): I48.0 - Paroxysmal atrial fibrillation Category: Medical Plan: Highly symptomatic paroxysmal atrial fibrillation mostly heart failure symptoms. Has done very well with rhythm control approach. Will continue pursue rhythm control approach. Has tolerated flecainide therapy well. Continue flecainide will need concomitant metoprolol therapy for the same. Goals of therapy were discussed. Continue flecainide therapy. Will need EKGs every 6 months will schedule the same. We discussed the need for Eliquis therapy given his risk for stroke. I discussed interaction with naproxen therapy. He understands the risk. He is taking naproxen with food as well as taking omeprazole every day to protect his stomach. He understands the bleeding risk associated with Eliquis and naproxen. He will wish to restart Eliquis fully understanding the risk. I have taken the liberty to prescribe Eliquis. As an alternative to naproxen therapy who would like to explore other avenues and I have taken the liberty to refer him to pain Clinic (2) HTN (hypertension): Code(s): I10 - Essential (primary) hypertension Category: Medical Plan: Hypertension which is currently well optimized advised to monitor blood pressure at home. Goal blood pressure less than 130/84. Low-salt diet was discussed he does have underlying diastolic dysfunction. Will follow-up echocardiogram next year. Continue metoprolol therapy. Encouraged to participate in regular physical activity and weight loss program. Will follow up in the clinic in 6 months for EKG in 1 year with me. Thank you for allowing me to partake in his care Orders: Referrals Pain Management Referral M54.50 - Low back pain, unspecified Medications: New apixaban (Eliquis) 5 mg PO BID 180 tabs 3RF Refilled flecainide 150 mg PO Q12H 180 tabs 3RF R06.02 - Shortness of breath atorvastatin 20 mg PO DAILY 90 tabs 3RF Coding Level of Care Code Est Pt Level 4 (66582) Diagnoses Paroxysmal atrial fibrillation I48.0 HTN (hypertension) I10 CPT Codes EKG - CPT: 43256-[id number], Complete ([id number])
[2023-08-06 08:46] VITALS: BP 120/78; PULSE 66; BMI 32.2
== END 2023-08-06 09:10 | disposition home or self-care (01) ==
PROVIDERS: PCP Internal Medicine Medical Oncology; Visit Provider Internal Medicine Cardiovascular Disease
DX: I48.0 Paroxysmal atrial fibrillation (principal); I10 Essential (primary) hypertension
CPT/HCPCS: 93010; 99214

== ENCOUNTER → 2023-08-06 08:43 | Outpatient (BNVA) | payer MEDICARE, MEDICAID, SELFPAY | PROVIDERS: Visit Provider Internal Medicine Cardiovascular Disease | DX: I48.0 Paroxysmal atrial fibrillation (principal); I10 Essential (primary) hypertension; I44.0 Atrioventricular block, first degree; R94.31 Abnormal electrocardiogram [ECG] [EKG] | CPT/HCPCS: 93005; 99212 ==

== ENCOUNTER 2023-08-17 08:52 | Outpatient (AMB) | payer MEDICARE, MEDICAID, SELFPAY ==
--- NOTE | 2023-08-17 08:55 | A.OFFVIS_ITS ---
Vital Signs 08/17/23 09:00 Height 5 ft 9 in Weight 214 lb BMI 31.6 BP 177/90 H Blood Pressure Location Lt brachial Position Sitting Respiration 16 Pulse 71 Pulse Source Pulse Oximeter Pulse Oximetry (%) 96 Oxygen Delivery Method Room Air Intake Visit Reasons: Low Back Pain Allergies amoxicillin [AMOXICILLIN] Allergy (Intermediate, Verified 08/07/22 08:40) RASH soap [Betadine] Allergy (Unknown, Verified 08/07/22 08:40) Rash povidone-iodine [From BETADINE] Adverse Reaction (Intermediate, Verified 08/07/22 08:40) RASH (IF ON SKIN FOR PROLONGED TIME) HPI Comments Details: Jose is very pleasant 73 years old gentleman who presents in my office with complains bilateral lower extremities in the sensation of burning as well as weakness in bilateral lower extremities and tiredness of bilateral lower extremities. He reports his pain is not aggravated by flexing backwards at all. Flexing forward hurts himself a little however still demonstrates remarkable ability to flex his back forward. He denies pain with prolonged sitting. He reports the pain most severe in the morning and he in the morning walks with flexing himself forward unable to straighten his back to normal position. His pain varies withSeverity 3/10. He can not normally and do activities of daily living but He can not take care of himself. He is retired individual. He is self mobile. He went for consult with Dr. Raquel James, he had anf the lumbar spine the full report is as below however the most significant changes are at L4-5 interspace where there is severe progressive spinal canal stenosis. He was offered the surgery but he does not want to go for surgery. He reports his pain is stabbing, lancinating, sharp, lacerating, tingling, stinging, dull, hurting, heavy, tiring, exhausting sensation. He had physical therapy which made his pain worse. He went for chiropractic manipulation which resulted in no improvement. He was prescribed Naprosyn and nabumetone both of them are not helping his pain. 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 He is currently in sinus rhythm and order cardiology observation, there is no information of congestive heart failure. He is on blood thinners. His past surgical history significant for esophagoscopy diverticulectomy cricopharyngeal myotomy, 2022 radiofrequency ablation of the cardiac pathologic pathways which resulted in pericardial effusion and pericardial window surgery all of this happened in 2020 he had several bone marrow aspirations, he had ear surgery in 2011 hemorrhoidectomy in 2004 wrist surgery [id number] and rectal surgery in . His social history: He is retired individual. He stopped smoking 30 years ago. He drinks mixed drinks a week and he denies recreational drugs. [facility] Medical History Enlarged RV (right ventricle) HTN (hypertension) Paroxysmal atrial fibrillation Paroxysmal atrial flutter Pericardial effusion Persistent atrial fibrillation Surgical History History of bone marrow biopsy History of cardiac radiofrequency ablation (RFA) History of ear surgery History of stapedectomy History of surgery on wrist Hx of hemorrhoidectomy Hx of tonsillectomy Hx of transesophageal echocardiography (ANUSHKA) for monitoring Hx of wisdom tooth extraction Status post creation of pericardial window Family History Father CVD (cardiovascular disease) Mother Cancer Social History Alcohol intake: current Alcohol intake frequency: holidays/special occasions only Patient Tobacco Use Status: Never used Tobacco 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al status: retired 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 Review of Systems Const All systems reviewed & are unremarkable except as noted in HPI and below ENT Reports Normal hearing present Card Reports as per HPI Resp Reports no additional complaints GI Reports as per HPI Reports no additional complaints Musc Reports as per HPI Neuro Reports no additional complaints, Reports Normal hearing present, Denies Abnormal speech present, Denies confusion and Denies Sensory deficit (Neuro) Psych Denies confusion Jose De Jesus/Lymph Reports as per HPI Physical Exam Vital Signs: Last Vital Signs Pulse 71 08/17/23 09:00 Resp 16 08/17/23 09:00 BP 177/90 H 08/17/23 09:00 Pulse Ox 96 08/17/23 09:00 Oxygen Delivery Method Room Air 08/17/23 09:00 BMI result Body Mass Index 31.6 Const General: no acute distress; No confusion Orientation/consciousness: patient oriented x3 and No confusion Eyes General: appearance normal, both eyes and all related structures Pupils: Equal, round and reactive pupils present EOM: EOMs intact bilaterally Neck Neck: Yes full ROM Chest Chest palpation & inspection: normal inspection of the chest Resp Effort & Inspection: normal respiratory effort, able to speak in complete sentences, normal respiratory pattern, no audible wheezes and no cough Cardio Jugular venous distension: no JVD GI Inspection: Yes normal to inspection Back/Spine/Pelvis Other: Able to flex himself forward and backwards without significant difficulty. Reports only minimal discomfort with flexing forward ,but not flexing backwards. Admits urinary retention. Loading test is negative bilaterally. SLR is negative bilaterally. Bin test is negative bilaterally for the pain in the projection of sacroiliac joints, he reports pain in the projection of bilateral trochanters on performing of Bin test..pelvic distraction tests are negative bilaterally. Valsalva maneuver aggravates his pain. Flexing forward makes him more mobile. Reports increasing weakness in bilateral lower extremities with prolonged walking. Neuro General: patient oriented x3, gait normal and No confusion Cranial nerves: Yes CN's II-XII intact bilaterally, Yes Equal, round and reactive pupils present, Yes Normal hearing present and Yes Ability to bilaterally elevate shoulders present Speech: No Abnormal speech present Gait exam (Neuro): Normal gait present Motor exam (neuro): 5/5 motor strength present throughout Sensory Exam: No Sensory deficit (Neuro) Extrem General: No pedal edema Psych Speech and movement: Normal speech and movement present Affect: normal affect Attitude: cooperative Thought process: Normal thought process present Thought content: Normal thought content present Insight: Good insight present (Psych) Judgement: Good judgement present (Psych) Results Reviewed Results Reviewed: MR LUMBAR SPINE WITHOUT CONTRAST 04/24/2022 CLINICAL INFORMATION: Question herniated disc. History of DDD. Worsening bilateral leg pain. Known lymphoplasmacytic lymphoma. COMPARISON: Lumbar spine MRI 11/13/2015. TECHNIQUE: MRI of the lumbar spine was obtained using routine sequences without contrast. FINDINGS: The lumbar vertebral bodies maintain normal heights and alignment. There is disc desiccation at L4-L5 and L5-S1. Several scattered hemangiomata are noted. The conus medullaris terminates normally at the L1 level. The imaged portions of the intra-abdominal and intrapelvic contents are within normal limits. SPINAL LEVELS: L1-L2: No posterior disc abnormality. No spinal canal or neural foraminal stenosis. L2-L3: Mild disc bulging with moderate facet arthropathy. No spinal canal or neural foraminal stenosis. L3-L4: Disc bulging with moderate facet arthropathy ligamentum flavum infolding resulting mild spinal canal stenosis and mild right and mild to moderate left neural foraminal stenosis, increased from prior. L4-L5: Disc bulging with shallow central protrusion with moderate facet arthropathy resulting in severe spinal canal stenosis with compression of the thecal sac and compression of the traversing left more than right L5 nerve roots, increased from prior. Progressive mild to moderate left and mild right neural foraminal stenosis. L5-S1: Disc bulging with severe facet arthropathy. No significant narrowing of the spinal canal. Severe bilateral neural foraminal stenosis, mildly progressed from prior. MR/MR lumbar spine wo con IMPRESSION: 1. At L4-L5 there is progressive severe spinal canal stenosis with compression of the thecal sac and traversing left more than right L5 nerve roots. Progressive mild to moderate left and mild right neural foraminal stenosis. 2. At L5-S1 there is progressive severe bilateral neural foraminal stenosis. Assessment & Plan Assessment & Plan (1) Spinal stenosis at L4-L5 level: Code(s): M48.061 - Spinal stenosis, lumbar region without neurogenic claudication Category: Medical (2) Chronic pain syndrome: Code(s): G89.4 - Chronic pain syndrome Category: Medical Plan This very pleasant 73 years old gentleman is suffering from severe lower back pain secondary to spinal stenosis. He was offered a surgery by Dr. James, however he is a cancer patient and have questions about ability to heal after this extensive procedure. We discussed today options to treat his condition. He currently on significant doses of NSAIDs and they minimally helped his pain. At the same time he has heart problems as well as significant debilitating cancer diagnosis. He does not want to take any steroid injections because he is currently on medication which already suppresses his B-cells. In the situation I gave patient 3 options: 1. Make patient member of chronic opioid program here, he has a cancer patient and therefore has no limits for upper opioid dosages. It is less than ideal the because opioids will affect his endocrine system, gastrointestinal system, central neuro system. The patient rejected the offer to become a chronic opioid program member. Then I offered the patient neuromodulation with intrathecal pain pump versus spinal cord stimulator Nevro. I will schedule him for the trial of Nevro he seemed to be interested in the trial. He does not need to have psychological evaluation because he has a cancer patient. He was negative about intrathecal pain pump at least in the beginning. Therefore the only option is left for him as a trial of SCS. Patient Instructions: I here by testify that I spent 45 minutes in conversation with this patient as well as planning his care and organizing this note. Coding Level of Care Code New Pt Level 4 (40150) Diagnoses Spinal stenosis at L4-L5 level M48.061 Chronic pain syndrome G89.4
[2023-08-17 09:00] VITALS: BP 177/90; PULSE 71; RESP 16; O2SAT 96; BMI 31.6
== END 2023-08-17 09:59 | disposition home or self-care (01) ==
PROVIDERS: PCP Internal Medicine Medical Oncology; Referring Provider Internal Medicine Cardiovascular Disease; Visit Provider Anesthesiology
DX: M48.061 Spinal stenosis, lumbar region without neurogenic claudication (principal); G89.4 Chronic pain syndrome
CPT/HCPCS: 99204

== ENCOUNTER → 2023-08-17 08:52 | Outpatient (BNVA) | payer MEDICARE, MEDICAID, SELFPAY | PROVIDERS: PCP Internal Medicine Medical Oncology; Referring Provider Internal Medicine Cardiovascular Disease; Visit Provider Anesthesiology | DX: M48.061 Spinal stenosis, lumbar region without neurogenic claudication (principal); G89.4 Chronic pain syndrome | CPT/HCPCS: 99202 ==

== ENCOUNTER 2023-10-07 09:31 | Outpatient (REF) | payer MEDICARE, MEDICAID, SELFPAY ==
--- NOTE | ~2023-10-07 | US_ITS ---
EXAMINATION: US VENOUS ULTRASOUND WITH DOPPLER LOWER EXTREMITY, LEFT CLINICAL INFORMATION: Leg swelling COMPARISON: 04/15/2018 TECHNIQUE: Ultrasound of the deep veins is performed from the hip to the calf with compression sonography and color and pulse Doppler assessment. Spectral analysis with color-flow imaging is performed. FINDINGS: The common femoral vein is compressible and exhibits a normal phasic waveform; this suggests that the iliac veins are widely patent above. Within the proximal thigh, the visualized profunda femoris vein is normal. The examined greater saphenous vein and saphenofemoral junction are normal. Superficial femoral vein is patent in the proximal, mid and distal thigh. Popliteal vein is normal to the level of the trifurcation. On compression de paz scale and color Doppler images, the visualized posterior tibial and peroneal veins of the calf are patent. No evidence of Moss's cyst. US/US venous duplex LE IMPRESSION: No evidence of deep vein thrombosis in the left lower extremity.
== END 2023-10-07 09:32 | disposition home or self-care (01) ==
LOC: HO.US 09:31
PROVIDERS: PCP Internal Medicine Medical Oncology; Visit Provider Internal Medicine Medical Oncology
DX: R60.0 Localized edema (principal); R23.8 Other skin changes
CPT/HCPCS: 87070; 87205; 93971

== ENCOUNTER 2023-10-20 07:32 | Outpatient (REF) | payer MEDICARE, MEDICAID, SELFPAY ==
[2023-10-20 10:26] LABS: MANUAL DIFF FLAG NO
[2023-10-20 10:31] LABS: Basophils Percent Auto 0.4 % (0-2); Eosinophils Absolute Auto 0.2 X10*3/uL (0.0-0.4); Hematocrit 42.1 % (42.0-52.0); Hemoglobin 14.6 g/dl (14.0-18.0); Imm Gran Abs Auto 0.04 X10*3/uL (0.00-0.03); Imm Gran Pct Auto 0.6 % (0.0-0.4); Lymphocytes Absolute Auto 2.5 X10*3/uL (1.2-4.9); Lymphocytes Percent Auto 34.7 % (20-40); Mean Corpuscular HGB Conc 34.7 g/dl (31.0-36.0); Mean Corpuscular Hemoglobin 30.5 pg (27.0-33.0); Mean Corpuscular Volume 87.9 fL (80.0-98.0); Mean Platelet Volume 11.8 fL (9.4-12.4); Monocytes Absolute Auto 0.8 X10*3/uL (0.1-1.2); Neutrophils Absolute Auto 3.6 x10*3/uL (2.0-8.3); Neutrophils Percent Auto 50.3 % (45-73); Platelet Count 214 X10*3/uL (160-400); Red Blood Count 4.79 X10*6/uL (4.60-5.80); Red Cell Distribution Width 13.2 % (11.0-16.0); White Blood Count 7.1 X10*3/uL (4.8-10.8)
[2023-10-20 11:20] LABS: Prostate Specific Antigen 5.67 ng/mL (<0.05-4.0)
[2023-10-20 11:21] LABS: Alanine Aminotransferase 32 U/L (0-40); Albumin Level 3.9 g/dL (3.5-5.0); Alkaline Phosphatase 123 U/L (39-117); Anion Gap 15 (12-20); Aspartate Amino Transferase 34 U/L (5-37); Bilirubin Total 0.6 mg/dL (0.0-1.0); Blood Urea Nitrogen 13 mg/dL (9-16); Calcium 8.8 mg/dL (8.4-10.2); Carbon Dioxide 27 mmol/L (22-29); Chloride 103 mmol/L (96-108); Cholesterol 162 mg/dL (<200); Estimated Glomerular Filt Rate > 60; Glucose Fasting 103 mg/dL (60-99); HDL Cholesterol 67 mg/dL (>40); LDL Cholesterol Calculated 79 mg/dL (<100); Potassium 4.5 mmol/L (3.3-5.1); Sodium 140 mmol/L (135-145); Total Protein 5.5 g/dL (6.5-8.0); Triglycerides 84 mg/dL (<150)
[2023-10-21 13:13] LABS: PES - Abn Protein Band 1 <0.2 g/dL (NONE DETECTED); Prot Elec - Albumin 3.7 g/dL (3.8-4.8); Prot Elec - Alpha1 0.2 g/dL (0.2-0.3); Prot Elec - Alpha2 0.5 g/dL (0.5-0.9); Prot Elec - Beta 1 0.4 g/dL (0.4-0.6); Prot Elec - Beta 2 0.2 g/dL (0.2-0.5); Prot Elec - Gamma 0.2 g/dL (0.8-1.7); Prot Elec - Total Protein 5.2 g/dL (6.1-8.1)
[2023-10-22 12:08] LABS: IgA 11 mg/dL (70-320); IgG 91 mg/dL (600-1540); IgM 136 mg/dL (50-300)
== END 2023-10-20 07:33 | disposition home or self-care (01) ==
LOC: HO.10HDL 07:32
PROVIDERS: Visit Provider Internal Medicine Medical Oncology
DX: Z12.5 Encounter for screening for malignant neoplasm of prostate (principal); C83.00 Small cell B-cell lymphoma, unspecified site; I10 Essential (primary) hypertension; N40.0 Benign prostatic hyperplasia without lower urinary tract symptoms
CPT/HCPCS: 36415; 80053; 80061; 82784; 84153; 84165; 85025; 86334

== ENCOUNTER 2023-10-28 10:55 | Outpatient (REF) | payer MEDICARE, MEDICAID, SELFPAY ==
--- NOTE | ~2023-10-28 | XR_ITS ---
EXAMINATION: XR CHEST CLINICAL INFORMATION: Malignant lymphoplasmacytic lymphoma. Leg swelling. COMPARISON: 03/24/2022 TECHNIQUE: 2 views of the chest were obtained. FINDINGS: The lungs are well expanded. No focal consolidation. No pleural effusion. Cardiac silhouette is unchanged. XR/XR chest 2V IMPRESSION: No acute abnormality.
[2023-10-30 08:38] LABS: Free Prostate Spec Ag 0.5 ng/mL; Percent Free Prostate Spec Ag 11 % (calc) (>25); Prostate Specific Ag Total 4.7 ng/mL (< OR = 4.0)
== END 2023-10-28 10:56 | disposition home or self-care (01) ==
LOC: HO.10HDL 10:55
PROVIDERS: Visit Provider Internal Medicine Medical Oncology
DX: C83.00 Small cell B-cell lymphoma, unspecified site (principal); R60.0 Localized edema; N40.0 Benign prostatic hyperplasia without lower urinary tract symptoms
CPT/HCPCS: 36415; 71046; 84154

== ENCOUNTER 2023-11-02 13:44 | Outpatient (REF) | payer MEDICARE, MEDICAID, SELFPAY ==
--- NOTE | ~2023-11-02 | CT_ITS ---
EXAMINATION: CT ABDOMEN AND PELVIS WITH CONTRAST CLINICAL INFORMATION: Restaging of lymphoma. Left lower extremity swelling. Question obstruction of iliac vessels. COMPARISON: CT abdomen and pelvis from 03/24/2022. TECHNIQUE: Multidetector volumetric images were obtained from the superior aspect of the liver through the pubic symphysis following administration 85 mL of Omnipaque 350 intravenous contrast. Sagittal and coronal reformatted images were obtained on the technologist's workstation. Oral contrast: not given. This CT examination was performed using dose optimization techniques as appropriate, variously including the following: *Automated exposure control *Adjustment of mA and/or kV according to patient size (this includes techniques or standardized protocols for targeted exams where dose is matched to indication/reason for exam; i.e. extremities or head) *Use of iterative reconstruction technique DLP: 743 mGy-cm FINDINGS: LUNG BASES: Chronic stable reticulation in the periphery of the visualized lung bases. No focal consolidation or pleural effusion. No subpleural honeycombing. 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 HEPATOBILIARY: Liver has normal size, shape, and attenuation. No liver mass. Gallbladder has a normal appearance. No dilated bile ducts. PANCREAS: No edema, pancreatic ductal dilatation or mass. SPLEEN: Normal. ADRENAL GLANDS: Normal. KIDNEYS AND URETERS: Kidneys are normal in size and enhance symmetrically. No renal mass, nephrolithiasis or hydronephrosis. BLADDER: Normal. BOWEL AND PERITONEUM: Stomach and small bowel are unremarkable. No dilated loops. The appendix is normal. Scattered diverticula of the colon without evidence of diverticulitis. No overt colonic wall thickening or mesenteric fat stranding. No free fluid or pneumoperitoneum. ABDOMINAL WALL: Unremarkable. VASCULATURE: Mild atherosclerosis of the abdominal aorta without aneurysm. Inferior vena cava is normal. There is no evidence of caval or iliac vein thrombosis. Also, there is no pelvic mass or lymphadenopathy compressing vessels in the pelvis. LYMPH NODES: No suspicious enlarging lymph nodes. There are no pathologic sized lymph nodes. A retroperitoneal lymph node of 0.7 cm short axis dimension is unchanged (image 317, series 4). A left external iliac lymph node of 0.8 cm short axis dimension is unchanged. PELVIC VISCERA: Prostate gland is mildly enlarged and measures 5 cm transverse. No pelvic free fluid. MUSCULOSKELETAL: No acute or suspicious osseous abnormality. There are hemangiomas of the T10 and T11 vertebral bodies. Severe facet arthropathy, vacuum disc change and grade 1 anterolisthesis at L3-L4. Also, severe facet arthropathy, vacuum disc degenerative phenomenon and minimal anterolisthesis at L5-S1. Mild osteoarthritis of the hips. CT/CT abdomen pelvis w IV con IMPRESSION: * No imaging evidence of active lymphoma. No pathologic sized lymph nodes or splenomegaly. * The nonspecific interstitial disease in the visualized lower lung zones is unchanged compared to 03/24/2022. * No evidence of pelvic mass. There is no soft tissue lesion compressing iliac vessels.
[2023-11-02] MEDS: iohexoL 350 MG/ML 100 ML INFUS..BTL IV (14:15)
== END 2023-11-02 13:45 | disposition home or self-care (01) ==
LOC: HO.CT 13:44
PROVIDERS: PCP Internal Medicine Medical Oncology; Visit Provider Internal Medicine Medical Oncology
DX: C83.00 Small cell B-cell lymphoma, unspecified site (principal); M79.89 Other specified soft tissue disorders
CPT/HCPCS: 74177; Q9967

== ENCOUNTER 2023-11-30 08:46 | Outpatient (AMB) | payer MEDICARE, MEDICAID, SELFPAY ==
--- NOTE | 2023-11-30 08:49 | A.OFFVIS_ITS ---
Vital Signs 11/30/23 08:56 Height 5 ft 9 in Weight 214 lb BMI 31.6 Handedness Right Intake Visit Reasons: SUPERVISING CHEF right shoulder pain Intake Note: Jose is a 73 year old right hand dominant male who presents today as a new patient with complaints of right shoulder pain. Patient reports ongoing pain for many years. He states he had an injection in past with no relief. Patient mentions that his pain is on the lateral aspect of the shoulder and sometimes radiates to his neck. No hx of physical therapy. Allergies amoxicillin [AMOXICILLIN] Allergy (Intermediate, Verified 11/30/23 08:53) RASH adhesive Allergy (Mild, Verified 11/30/23 08:53) Rash soap [Betadine] Allergy (Unknown, Verified 11/30/23 08:53) Rash povidone-iodine [From BETADINE] Adverse Reaction (Intermediate, Verified 11/30/23 08:53) RASH (IF ON SKIN FOR PROLONGED TIME) HPI HPI SUPERVISING CHEF right shoulder pain: Details: This is a 73-year-old gentleman with right shoulder and neck pain. He was seen here about 6 years ago and diagnosed with rotator cuff arthropathy on the right. At that time he received in injection which was not particularly helpful. Now he describes more neck pain than shoulder pain. He has difficulty raising his hand to his mouth he has difficulty brushing his teeth and combing his hair and engaging in daily activities. He has a history of lymphoma which is controlled on a biologic. He is on Eliquis for atrial fibrillation and has a history of an enlarged right ventricle. [facility] Medical History Enlarged RV (right ventricle) HTN (hypertension) Paroxysmal atrial fibrillation Paroxysmal atrial flutter Pericardial effusion Persistent atrial fibrillation Surgical History History of bone marrow biopsy History of cardiac radiofrequency ablation (RFA) History of ear surgery History of stapedectomy History of surgery on wrist Hx of hemorrhoidectomy Hx of tonsillectomy Hx of transesophageal echocardiography (ANUSHKA) for monitoring Hx of wisdom tooth extraction Status post creation of pericardial window Family History Father CVD (cardiovascular disease) Mother Cancer Social History Alcohol intake: current Alcohol intake frequency: holidays/special occasions only Patient Tobacco Use Status: Never used Tobacco 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al status: retired 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 Physical Exam Vital Signs: BMI result Body Mass Index 31.6 Extrem Other: 3-/5 EC Positive horn blower's Positive drop-arm Results Reviewed Results Reviewed: MRI from 2018 shows rotator cuff arthropathy with proximal head migration. Assessment & Plan Assessment & Plan (1) Rotator cuff arthropathy of right shoulder: Code(s): M12.811 - Other specific arthropathies, not elsewhere classified, right shoulder Category: Medical Plan: This is a 73-year-old gentleman with rotator cuff arthropathy of the right shoulder. He is unable to engage in basic daily activities without pain and I discussed his diagnosis with him. I do think he would benefit from a reverse total shoulder arthroplasty. He has some cardiac comorbidities and a history of lymphoma. He has atrial fibrillation and a history of cardiac tamponade with an abnormal EKG performed about a year ago. He states that this is all stable and we will need to get some cardiac clarification. I explained to him the details of surgery including the risks, benefits and alternatives. He would like to proceed forward. I will have our nurse navigator contact him and we will order additional imaging for preoperative planning and seek cardiac clearance. Orders: Orders CT shoulder RT wo IV con Today M12.811 - Other specific arthropathies, not elsewhere classified, right shoulder MR shoulder RT wo con Today M12.811 - Other specific arthropathies, not elsewhere classified, right shoulder XR shoulder RT min 2V Today M25.519 - Pain in unspecified shoulder Coding Level of Care Code New Pt Level 4 (48727) Diagnoses Rotator cuff arthropathy of right shoulder M12.811
[2023-11-30 08:56] VITALS: BMI 31.6
== END 2023-11-30 09:27 | disposition home or self-care (01) ==
PROVIDERS: PCP Internal Medicine Medical Oncology; Visit Provider Orthopaedic Surgery
DX: M12.811 Other specific arthropathies, not elsewhere classified, right shoulder (principal)
CPT/HCPCS: 99204

== ENCOUNTER 2023-11-30 08:46 | Outpatient (REF) | payer MEDICARE, MEDICAID, SELFPAY | END 2023-11-30 08:47 | disposition home or self-care (01) | LOC: HO.HOSX 08:46 | PROVIDERS: PCP Internal Medicine Medical Oncology; Visit Provider Orthopaedic Surgery | DX: M25.511 Pain in right shoulder (principal); M12.811 Other specific arthropathies, not elsewhere classified, right shoulder; M54.2 Cervicalgia | CPT/HCPCS: 99202 ==

== ENCOUNTER 2023-12-29 13:11 | Outpatient (REF) | payer MEDICARE, MEDICAID, SELFPAY | END 2023-12-29 13:12 | disposition home or self-care (01) | LOC: HO.LNP 13:11 | PROVIDERS: Visit Provider Internal Medicine Medical Oncology | DX: S81.802A Unspecified open wound, left lower leg, initial encounter (principal) | CPT/HCPCS: 87070; 87147; 87205 ==

== ENCOUNTER 2023-12-31 11:24 | Outpatient (AMB) | payer MEDICARE, MEDICAID, SELFPAY ==
[2023-12-31 11:28] VITALS: BMI 31.6
--- NOTE | 2023-12-31 11:28 | MHC.OFFVIS ---
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 Pt states started in September 2023, he did bump the pretibial area of his left leg and about a week later his Left LE became discolored and swollen. He states his left foot looked bruised and his leg was red from the knee down. He did develop weeping and a non-healing ulcer. Pt states when he leaves it open to air they seem to heal faster, when he places a bandage on the wound it seems to drain more. States skin is very thin. 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 He had an initial injury in the being in September of this summer where he banged his left lower leg which caused a small laceration. Approximately 1 week after the injury, he began having increased left lower extremity swelling with discoloration with weeping of his left lower leg. He had a duplex ultrasound of the left lower extremity on October 06 which was negative for DVT. The discoloration continues; however, approximately over a month ago he had 2 open wounds on his lower danielle. They have just recently scabbed over. Approximately 2 weeks ago he had a wound just below the other 2 wounds open up and has consistently been weeping over the last 2 weeks. He has been keeping the area clean and dry with soap and water. He has been applying Neosporin and a Band-Aid over the site daily to prevent the weeping from destroying any clothes. He has been keeping the area open to air whenever possible. He states the discharge is very clear to yellowish discharge. He is on anticoagulation with Eliquis b.i.d. for AFib. He is not a diabetic. He has a remote history of smoking. He denies any pain of the left lower leg. He denies any concerns with the right lower leg. [facility] Medical History Pericardial effusion HTN (hypertension) Enlarged RV (right ventricle) Paroxysmal atrial flutter Paroxysmal atrial fibrillation Persistent atrial fibrillation Surgical History Status post creation of pericardial window Hx of wisdom tooth extraction History of surgery on wrist Hx of tonsillectomy History of stapedectomy Hx of transesophageal echocardiography (ANUSHKA) for monitoring Hx of hemorrhoidectomy History of bone marrow biopsy History of cardiac radiofrequency ablation (RFA) History of ear surgery Family History Father CVD (cardiovascular disease) Mother Cancer Social History Alcohol intake: current Alcohol intake frequency: holidays/special occasions only Patient Tobacco Use Status: Never used Tobacco 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al status: retired 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 Review of Systems Const Reports as per HPI and Denies weakness ENT Reports Normal hearing present and Denies dizziness Card Reports as per HPI, Denies chest pain, Denies chest pain at rest, Denies chest pain with activity, Denies dyspnea and Denies dyspnea on exertion Resp Reports as per HPI, Denies cough, Denies dyspnea and Denies dyspnea on exertion GI Reports as per HPI, Denies abdominal pain, Denies nausea and Denies vomiting Musc Denies numbness Skin/Breast Reports as per HPI, Denies erythema and Denies wounds Neuro Reports Normal hearing present, Denies dizziness, Denies numbness, Denies Sensory deficit (Neuro) and Denies weakness Psych Reports no additional complaints Endo Reports no additional complaints Physical Exam Vital Signs: BMI result Body Mass Index 31.6 Const General: healthy appearing and no acute distress Orientation/consciousness: patient oriented x3 HEENT Head: Yes normal to inspection Ears: hearing grossly normal bilaterally Mouth: Normal oral and palatal mucosa present Resp Effort & Inspection: normal respiratory effort and able to speak in complete sentences Auscultation: clear to auscultation bilaterally Cardio Jugular venous distension: no JVD Rate: regular rate Rhythm: regular rhythm Heart sounds: S1 normal heart sound present and S2 normal heart sound present Bruits: no abdominal aortic bruits, no carotid bruits, no femoral bruits and no renal bruits Peripheral pulses: Peripheral pulses 2+ throughout GI Inspection: Yes normal to inspection Palpation (GI): No Abdominal aortic bruit present Skin Other: Left lower extremity: Deep reddish-brown discoloration noted from just below the tibial tuberosity to the top of his ankle anteriorly. Two small healing circumferential wounds just below mid danielle with scabs in place. Dry skin noted through discoloration section. Appx 3cmx1.5cm open weeping wound noted with pink granulation base just below healed wounds. Dry skin noted throughout the discolored area. Feet cool to the touch. + palpable DP and PT pulses. Right lower extremity: no discoloration, erythema, wounds noted. CEAP C - 4 discoloration with erythema and wound E - primary A - superficial P - reflux General skin exam: no rashes or lesions noted Wounds: no wounds Hair: normal Neuro General: patient oriented x3 Cranial nerves: Yes Normal hearing present Cognition (Neuro): normal cognition Gait exam (Neuro): Normal gait present Motor exam (neuro): 5/5 motor strength present throughout Sensory Exam: No Sensory deficit (Neuro) Extrem General: Yes normal to inspection, Yes full ROM, Yes capillary refill normal and Yes normal gait Assessment & Plan Assessment & Plan (1) Inflammation of left lower leg concurrent with and due to varicose ulcer: Code(s): I83.228 - Varicose veins of left lower extremity with both ulcer of other part of lower extremity and inflammation Category: Medical (2) Non-healing wound of lower extremity: Comment: We discussed the keep the bandage on for the next 5-7 days. If the site continues to weep then keep a dry dressing on it. If the site starts drying, then you may apply bacitracin or Neosporin and bandage. If anything changes with this or the site gets worse, please reach back out to us Code(s): S81.809A - Unspecified open wound, unspecified lower leg, initial encounter Category: Medical Plan Jose is presenting today as a referral from his PCP for ongoing nonhealing wounds of his left lower leg. He had an initial injury of just hitting his left lower leg towards the knee against some concrete; the next week his entire anterior leg was weeping and discolored. He has since had 2 wounds that took appx 1m to heal (now both scabbed over) and another wound which continues to remain open. He has been placing Neosporin and bandages daily to prevent the weeping from damaging clothes. He was negative for a DVT when a duplex was done in September. He denies any pain and is able to walk without difficulty. His PCP ordered compression stockings; however, they ended up being too expensive so the pt was unable to get them. Possibly he has a nonhealing ulcer due to venous insufficiency. We will be ordering an USVI for the left lower extremity. I have discussed the pathophysiology with the patient. In addition I have provided informational material regarding venous disease to the patient. We have discussed conservative measures including compression, elevation, and exercise. I have also provided a handout regarding appropriate use of compression stockings and where to purchase good compression stockings as well. I have taken the liberty of ordering venous insufficiency testing with the patient. They will follow up with me after testing. The patient had an opportunity to ask questions regarding the treatment plan. All questions were answered. No major barriers to understanding were identified. The patient expressed understanding and agreement with the above treatment plan. The patient is aware they should contact our office by phone for worsening of the current condition or the appearance of new symptoms. Thank you for allowing me to participate in the vascular care of this patient. If you have any questions or concerns regarding the treatment for the above condition please do not hesitate to contact me. The office telephone contact is [phone]. This note is constructed using voice recognition software. While every effort has been made to ensure accuracy, professor of vegetable science errors may have been included. Thank you for allowing me to participate in the care of your patient. Yours sincerely, EMILY Sarmiento Orders: Orders US venous duplex LE LT 1 Week I83.228 - Varicose veins of left lower extremity with both ulcer of other part of lower extremity and inflammation, S81.809A - Unspecified open wound, unspecified lower leg, initial encounter Coding Level of Care Code New Pt New Pt Level 4 (19412) Patient Type New Diagnoses Inflammation of left lower leg concurrent with and due to varicose ulcer I83.228 Non-healing wound of lower extremity S81.809A
== END 2023-12-31 12:04 | disposition home or self-care (01) ==
LOC: HO.HVS 11:24
PROVIDERS: PCP Internal Medicine Medical Oncology; Visit Provider Physician Assistant Surgical
DX: I83.228 Varicose veins of left lower extremity with both ulcer of other part of lower extremity and inflammation (principal); S81.809A Unspecified open wound, unspecified lower leg, initial encounter
CPT/HCPCS: 99204

== ENCOUNTER → 2023-12-31 11:24 | Outpatient (BNVA) | payer MEDICARE, MEDICAID, SELFPAY | PROVIDERS: PCP Internal Medicine Medical Oncology; Visit Provider Physician Assistant Surgical | DX: I83.228 Varicose veins of left lower extremity with both ulcer of other part of lower extremity and inflammation (principal); L97.829 Non-pressure chronic ulcer of other part of left lower leg with unspecified severity; I48.91 Unspecified atrial fibrillation; Z79.01 Long term (current) use of anticoagulants; Z87.891 Personal history of nicotine dependence | CPT/HCPCS: 99202 ==

== ENCOUNTER 2024-01-01 07:47 | Outpatient (REF) | payer MEDICARE, MEDICAID, SELFPAY ==
--- NOTE | ~2024-01-01 | MR_ITS ---
EXAMINATION: MR SHOULDER WITHOUT CONTRAST, RIGHT CLINICAL INFORMATION: Right shoulder pain. Preoperative evaluation. Evaluate for rotator cuff tendon tear. COMPARISON: Right shoulder MRI dated 11/09/2017. TECHNIQUE: MRI of the shoulder without contrast was performed on a high-field scanner. FINDINGS: ROTATOR CUFF: Complete, full-thickness supraspinatus and infraspinatus tendon tears, increased when compared to the prior MRI. Tearing measures approximately 5.3 x 7.1 cm (AP x ML) with retraction of the torn tendon fibers proximal to the glenohumeral articulation. Severe supraspinatus and infraspinatus muscle atrophy. Full-thickness partial tear of the subscapularis tendon with thin inferior tendon fibers remaining intact. Moderate subscapularis muscle atrophy. BICEPS: Heterogeneity and irregularity of the intra-articular long head biceps tendon, consistent with tendinosis and longitudinal partial tearing. CORACOACROMIAL ARCH: The undersurface of the acromion is flat with undersurface bony remodeling and subacromial spurring. Severe acromioclavicular osteoarthritis. LABRUM/CAPSULE: Blunting through the periphery of the superior labrum, consistent with peripheral tearing. Intact inferior joint capsule. GLENOHUMERAL JOINT/MARROW: Chronic superior subluxation of the humeral head related to the rotator cuff tendon tears. Diffuse glenohumeral articular cartilage signal heterogeneity with marginal osteophytes. Small joint effusion with mild synovitis. Degenerative cystic change at the posterior aspect of the humeral head. MR/MR shoulder RT wo con IMPRESSION: 1. Complete, full-thickness tears of the supraspinatus and infraspinatus tendons with retraction of the torn tendon fibers proximal to the glenohumeral articulation. Full-thickness partial tear of the subscapularis tendon with thin inferior tendon fibers remaining intact. Moderate subscapularis muscle atrophy. 2. Intra-articular long head biceps tendinosis and longitudinal partial tearing. 3. Severe acromioclavicular osteoarthritis with undersurface bony remodeling and subacromial spurring. 4. Peripheral tearing through the periphery of the superior labrum. 5. Chronic superior subluxation of the humeral head related to the rotator cuff tendon tears. [id number] glenohumeral osteoarthritis. Small joint effusion with mild synovitis. Electronically signed by: Munir Pardo MD 01/10/2024 03:35 PM EDT RP
== END 2024-01-01 07:48 | disposition home or self-care (01) ==
LOC: HO.MRI 07:47
PROVIDERS: PCP Internal Medicine Medical Oncology; Visit Provider Orthopaedic Surgery
DX: M12.811 Other specific arthropathies, not elsewhere classified, right shoulder (principal)
CPT/HCPCS: 73221

== ENCOUNTER 2024-01-08 13:33 | Outpatient (REF) | payer MEDICARE, MEDICAID, SELFPAY ==
--- NOTE | ~2024-01-08 | CT_ITS ---
EXAMINATION: CT SHOULDER WITHOUT CONTRAST, RIGHT CLINICAL INFORMATION: Osteoarthritis. Pain. Preoperative evaluation. COMPARISON: Right shoulder MRI dated 01/01/2024. TECHNIQUE: Contiguous axial CT images of the right shoulder were obtained without contrast. Multiplanar reformats were provided and reviewed. This CT examination was performed using dose optimization techniques as appropriate, variously including the following: *Automated exposure control *Adjustment of mA and/or kV according to patient size (this includes techniques or standardized protocols for targeted exams where dose is matched to indication/reason for exam; i.e. extremities or head) *Use of iterative reconstruction technique DLP: 466 mGy-cm FINDINGS: Visualized right lung: Unremarkable. Bone/joint: No acute fracture or dislocation. Chronic superior subluxation of the humeral head related to the underlying rotator cuff tendon tear. Bony remodeling of the acromial undersurface. Glenohumeral joint space narrowing with marginal osteophytes. [id number] acromioclavicular osteoarthritis. No concerning lytic or blastic osseous lesion. Glenoid version: No glenoid bony remodeling or glenoid retroversion. Estimated depth of the glenoid vault: Approximately 2.1 cm. Glenoid morphology: Walch Type A2 Joint fluid/bursa/soft tissues: Small glenohumeral joint effusion. Complete, full-thickness tears of the supraspinatus and infraspinatus tendons with associated muscle atrophy. Rotator cuff tendon is better evaluated on the prior shoulder MRI. CT/CT shoulder RT wo IV con IMPRESSION: 1. Complete, full-thickness tears of the supraspinatus and infraspinatus tendons with associated muscle atrophy. 2. Chronic superior subluxation of the humeral head related to the underlying rotator cuff tendon tear. 3. Moderate glenohumeral osteoarthritis and [id number] acromioclavicular osteoarthritis. Electronically signed by: Munir Pardo MD 01/10/2024 03:49 PM EDT
== END 2024-01-08 13:34 | disposition home or self-care (01) ==
LOC: HO.CT 13:33
PROVIDERS: PCP Internal Medicine Medical Oncology; Visit Provider Orthopaedic Surgery
DX: M12.811 Other specific arthropathies, not elsewhere classified, right shoulder (principal)
CPT/HCPCS: 73200

== ENCOUNTER 2024-01-11 08:16 | Outpatient (REF) | payer MEDICARE, MEDICAID, SELFPAY ==
--- NOTE | ~2024-01-11 | US_ITS ---
EXAMINATION: US LOWER EXTREMITY VENOUS (REFLUX EXAM), BILATERAL CLINICAL INFORMATION: Unspecified open wound, unspecified lower leg, initial encounter COMPARISON: Venous duplex ultrasound of the left lower extremity dated 10/07/2023 TECHNIQUE: Color flow triplex imaging and compression Doppler was performed to evaluate both the deep and the superficial systems bilaterally. To evaluate the superficial system, the examination was performed in the upright position. Color-flow Doppler ultrasound and compression ultrasound were utilized. In addition, maneuvers were utilized to demonstrate reflux. FINDINGS: 1. DEEP VENOUS ULTRASOUND OF THE RIGHT LOWER EXTREMITY: Common Femoral Vein: Compressible, normal respiratory variation and augmented flow. Femoral Vein: Compressible, normal color flow and augmentation. Popliteal Vein: Compressible, normal augmentation. Deep Reflux: There is no evidence of reflux in the deep system in either the common femoral vein, superficial femoral or the popliteal vein. There is no evidence of a Moss's cyst. 2. SUPERFICIAL ULTRASOUND WITH DOPPLER OF RIGHT LOWER EXTREMITY: GREAT SAPHENOUS VEIN: Saphenofemoral Junction: 0.8 cm; Reflux: 0 ms Proximal Thigh: 0.4 cm; Reflux: 0 ms Mid Thigh: 0.3 cm; Reflux: 0 ms Distal Thigh: 0.3 cm; Reflux: 0 ms At Knee: 0.2 cm; Reflux: 0 ms Proximal Calf: 0.2 cm; Reflux: 0 ms Mid Calf: 0.2 cm; Reflux: 1188 ms Distal Calf: 0.2 cm; Reflux: 0 ms SMALL SAPHENOUS VEIN: Saphenopopliteal Junction: 0.4 cm; Reflux: 0 ms Proximal: 0.3 cm; Reflux: 0 ms Distal: 0.3 cm; Reflux: 0 ms PERFORATORS: Location: Mid calf Size: 0.4; Reflux: 0 ms VARICOSITIES: None imaged. 3. DEEP VENOUS ULTRASOUND OF THE LEFT LOWER EXTREMITY: Common Femoral Vein: Compressible, normal respiratory variation and augmented flow. Femoral Vein: Compressible, normal color flow and augmentation. Popliteal Vein: Compressible, normal augmentation. Deep Reflux: There is no evidence of reflux in the deep system in either the common femoral vein, superficial femoral or the popliteal vein. There is no evidence of a Moss's cyst. 4. SUPERFICIAL ULTRASOUND WITH DOPPLER OF LEFT LOWER EXTREMITY: GREAT SAPHENOUS VEIN: Saphenofemoral Junction: 0.7 cm; Reflux: 0 ms Proximal Thigh: 0.5 cm; Reflux: 0 ms Mid Thigh: 0.3 cm; Reflux: 0 ms Distal Thigh: 0.4 cm; Reflux: 0 ms At Knee: 0.3 cm; Reflux: 0 ms Proximal Calf: 0.3 cm; Reflux: 0 ms Mid Calf: 0.3 cm; Reflux: 1424 ms Distal Calf: 0.2 cm; Reflux: 0 ms DUPLICATED LATERAL GREAT SAPHENOUS VEIN: Saphenofemoral Junction: 0.2 cm; Reflux: 0 ms Mid Thigh: 0.1 cm; Reflux: 0 ms SMALL SAPHENOUS VEIN: Saphenopopliteal Junction: 0.4 cm; Reflux: 0 ms Proximal: 0.2 cm; Reflux: 0 ms Distal: 0.2 cm; Reflux: 0 ms PERFORATORS: Location: Mid calf Size: 0.3; Reflux: 0 ms VARICOSITIES: Location: Proximal calf Size: 0.3; Reflux: 0 ms Location: Mid calf Size: 0.4; Reflux: 1872 ms US/US venous duplex LE BI IMPRESSION: 1. No evidence of deep venous thrombosis or reflux in bilateral lower extremities. 2. Focal incompetence of the right great saphenous vein at the level of the mid calf with reflux measuring 1188 ms. 3. Focal incompetence of the left great saphenous vein at the level of the mid calf with reflux measuring 1424 ms. 4. 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 5. 2. Varicosities visualized in the left calf, one of which demonstrates significant reflux of 1872 ms. Electronically signed by: Luisa Moses MD 01/20/2024 01:47 PM [facility]
== END 2024-01-11 08:17 | disposition home or self-care (01) ==
LOC: HO.US 08:16
PROVIDERS: Visit Provider Physician Assistant Surgical
DX: I83.228 Varicose veins of left lower extremity with both ulcer of other part of lower extremity and inflammation (principal)
CPT/HCPCS: 93970

== ENCOUNTER 2024-01-18 07:50 | Outpatient (AMB) | payer MEDICARE, MEDICAID, SELFPAY ==
--- NOTE | 2024-01-18 08:05 | A.OFFVIS_ITS ---
Intake Visit Reasons: elevated PSA Intake Note: New Patient presents for initial visit for elevated psa Last PSA : 10/28/23- 4.7 Urology Medications: none Blood Thinner: Apixaban Decorator Consultant Required: No Bag Filler: Bag Filler offered & declined Accompanied by: Self / Same As Patient Allergies amoxicillin [AMOXICILLIN] Allergy (Intermediate, Verified 01/18/24 10:56) RASH adhesive Allergy (Mild, Verified 01/18/24 10:56) Rash soap [Betadine] Allergy (Unknown, Verified 01/18/24 10:56) Rash povidone-iodine [From BETADINE] Adverse Reaction (Intermediate, Verified 01/18/24 10:56) RASH (IF ON SKIN FOR PROLONGED TIME) Medication List - Last Reconciled 01/18/24 by MIKE Abbasi- apixaban (Eliquis) 5 mg PO BID atorvastatin 20 mg PO DAILY flecainide 150 mg PO Q12H ibrutinib (Imbruvica) mg PO metoprolol tartrate 50 mg PO BID metronidazole 0.75% 1 appl topical BEDTIME multivitamin (Multiple Vitamins tablet) 1 tab PO DAILY naproxen 500 mg PO BID omeprazole 40 mg PO QAM sulfamethoxazole-trimethoprim 800-160 mg (Bactrim DS) 1 tab PO BID 14 days tamsulosin 0.4 mg PO BEDTIME 90 days HPI Comments Details: Jose is a very pleasant 73-year-old male patient of . He has a past medical history of pericardial effusion, hypertension, enlarged right ventricle, and paroxysmal AFib/a flutter. He presents to the office today as a new patient for an elevated PSA. In discussion with the patient today he reports having followed up with his PCP at which time PSA was noted to be elevated and recommendation was made for urology referral for further assessment evaluation. PSAs are as follows: 10/04 2.3, 01/04 2.5, 08/06 3.5, 11/06 4.7, 11/06 5.7 % free PSA 11%. He reports noting ongoing issues with weak urinary stream, urinary hesitancy, and feeling of incomplete bladder emptying however reports the symptoms are present at night when having episodes of nocturia however denies any bothersome urinary issues throughout the day. We discussed at length potential causes of elevated PSA as well as lower urinary tract symptoms patient is experiencing. KUMAR noted boggy prostate. We discuss treatment of potential prostatitis given KUMAR. When asked he denies any known family history of prostate cancer. Discussed obtaining redraw of PSA 4-6 weeks status post completion of antibiotic therapy. Discussed obtaining retroperitoneal ultrasound for further assessment evaluation. He otherwise denies hematuria, dysuria, foul smelling urine, changes to urinary stream, flank pain, fever, and or chills. Unable to obtain urine for urinalysis as patient was unable to void. He otherwise offers no other issues or concerns at this time. [facility] Medical History Pericardial effusion HTN (hypertension) Enlarged RV (right ventricle) Paroxysmal atrial flutter Paroxysmal atrial fibrillation Persistent atrial fibrillation Surgical History Status post creation of pericardial window Hx of wisdom tooth extraction History of surgery on wrist Hx of tonsillectomy History of stapedectomy Hx of transesophageal echocardiography (ANUSHKA) for monitoring Hx of hemorrhoidectomy History of bone marrow biopsy History of cardiac radiofrequency ablation (RFA) History of ear surgery Family History Father CVD (cardiovascular disease) Mother Cancer Social History Alcohol intake: current Alcohol intake frequency: holidays/special occasions o nly Patient Tobacco Use Status: Never used Tobacco 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al status: retired 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 Review of Systems Const All systems reviewed & are unremarkable except as noted in HPI and below Physical Exam Const General: cooperative, healthy appearing, comfortable, no acute distress, well developed, alert and awake Orientation/consciousness: patient oriented x3 Limitations: no limitations HEENT Head: Yes normal to inspection, Yes normocephalic and Yes atraumatic Ears: hearing grossly normal bilaterally Eyes General: appearance normal, both eyes and all related structures Neck Neck: Yes normal visual inspection and Yes trachea midline Chest Chest palpation & inspection: normal inspection of the chest Resp Effort & Inspection: normal respiratory effort and able to speak in complete sentences Cardio Rate: regular rate GI Inspection: Yes normal to inspection General: Yes no CVA tenderness Back/Spine/Pelvis Back: no CVA tenderness Skin General skin exam: no rashes or lesions noted Neuro General: patient oriented x3 Extrem General: Yes normal to inspection Psych Appearance: grossly normal and well kempt Mental Status: mental status grossly normal Speech and movement: Normal speech and movement present and Clear speech present Affect: normal affect Attitude: cooperative Thought process: Normal thought process present Thought content: Normal thought content present Insight: Fair insight present (Psych) Judgement: Fair judgement present (Psych) Assessment & Plan Assessment & Plan (1) History of urinary hesitancy: Code(s): Z87.898 - Personal history of other specified conditions Category: Medical (2) Weak urinary stream: Code(s): R39.12 - Poor urinary stream Category: Medical (3) Prostatitis: Code(s): N41.9 - Inflammatory disease of prostate, unspecified Category: Medical Plan Unable to obtain urine for urinalysis as patient unable to void. KUMAR performed; as noted above. Discussed at length potential causes of elevated PSA as well as potential for prostatitis given KUMAR noted boggy prostate. Start Bactrim as discussed and prescribed. Start tamsulosin as discussed and prescribed. Discussed bladder triggers/irritants. Discussed obtaining PSA 4-6 weeks status post completion of antibiotic therapy as prescribed. Will obtain retroperitoneal ultrasound for further assessment evaluation. Follow-up in 2-3 months with imaging and labs to be completed prior; or sooner with any issues, concerns, and or questions. Orders: Orders PSA,Total (Free>4and<10) 6 Weeks E11.69 - Type 2 diabetes mellitus with other specified complication, N52.1 - Erectile dysfunction due to diseases classified elsewhere US retroperitoneal comp Today N41.9 - Inflammatory disease of prostate, unspecified, R39.12 - Poor urinary stream, Z87.898 - Personal history of other specified conditions Medications: New tamsulosin 0.4 mg PO BEDTIME 90 days 90 caps 0RF N40.1 - Benign prostatic hyperplasia with lower urinary tract symptoms sulfamethoxazole-trimethoprim 800-160 mg (Bactrim DS) 1 tab PO BID 14 days 28 tabs 0RF N39.0 - Urinary tract infection, site not specified Patient Instructions: The patient had an opportunity to ask questions regarding the treatment plan. All questions were answered. Physical exam, labs, and imaging were discussed and reviewed in detail. As well as risks, benefits, and discussion of treatment choices. No major barriers to understanding were identified. The patient expressed understanding and agreement with the above treatment plan. The patient was made aware they should contact our office by phone for worsening of their current condition, the appearance of new symptoms, or with any questions or concerns. Compliance is encouraged with any medications and follow up testing that is ordered. It is a privilege to be allowed the opportunity to participate in? your urological care.? Again, if you have any questions or concerns If you have any questions or concerns please do not hesitate to contact me. The office is [phone]. This note is constructed using voice recognition software. While every effort has been made to ensure accuracy director and professor errors may have been included. Yours sincerely, MARY Abbasi Coding Level of Care Code New Pt Level 4 (32397) Diagnoses History of urinary hesitancy Z87.898 Weak urinary stream R39.12 Prostatitis N41.9
== END 2024-01-18 08:42 | disposition home or self-care (01) ==
LOC: HO.HUSH 07:51
PROVIDERS: PCP Internal Medicine Medical Oncology; Visit Provider Nurse Practitioner Family
DX: Z87.898 Personal history of other specified conditions (principal); R39.12 Poor urinary stream; N41.9 Inflammatory disease of prostate, unspecified
CPT/HCPCS: 99204

== ENCOUNTER → 2024-01-18 07:50 | Outpatient (BNVA) | payer MEDICARE, MEDICAID, SELFPAY | PROVIDERS: PCP Internal Medicine Medical Oncology; Visit Provider Nurse Practitioner Family | DX: E11.69 Type 2 diabetes mellitus with other specified complication (principal); N52.1 Erectile dysfunction due to diseases classified elsewhere; N40.1 Benign prostatic hyperplasia with lower urinary tract symptoms; R39.12 Poor urinary stream; R33.8 Other retention of urine; R39.11 Hesitancy of micturition; R35.1 Nocturia; N41.9 Inflammatory disease of prostate, unspecified; N39.0 Urinary tract infection, site not specified | CPT/HCPCS: 99202 ==

== ENCOUNTER 2024-01-21 08:53 | Outpatient (AMB) | payer MEDICARE, MEDICAID, SELFPAY ==
--- NOTE | 2024-01-21 08:55 | A.OFFVIS_ITS ---
Vital Signs 01/21/24 08:56 Height 5 ft 9 in Weight 214 lb BMI 31.6 Intake Visit Reasons: follow up s/p US 01/11/24 Intake Note: follow up US 01/11/24, pt has Left LE swelling w/ ulcers and weeping over pretibial area. States that at times the wounds scab over and stay dry. Does not have dressing on today, states the wounds are better when open to air. States that elevation also helps with swelling and draining reduction. Service Architect Required: No Accompanied by: Self / Same As Patient Allergies amoxicillin [AMOXICILLIN] Allergy (Intermediate, Verified 01/18/24 10:56) RASH adhesive Allergy (Mild, Verified 01/18/24 10:56) Rash soap [Betadine] Allergy (Unknown, Verified 01/18/24 10:56) Rash povidone-iodine [From BETADINE] Adverse Reaction (Intermediate, Verified 01/18/24 10:56) RASH (IF ON SKIN FOR PROLONGED TIME) HPI HPI follow up s/p US 01/11/24: Details: Jose is presenting today as a follow-up to his ultrasound performed on 01/11/2024. He continues with a nonhealing ulcers on his left lower extremity with weeping. He states he used the Allevyn and he states it did much better. He has not been using any other treatments at this point. He has been trying to reach out to wound care multiple times on a referral from his PCP; however, he has not been able to reach them. He denies any other new concerns this morning. [facility] Medical History Pericardial effusion HTN (hypertension) Enlarged RV (right ventricle) Paroxysmal atrial flutter Paroxysmal atrial fibrillation Persistent atrial fibrillation Surgical History Status post creation of pericardial window Hx of wisdom tooth extraction History of surgery on wrist Hx of tonsillectomy History of stapedectomy Hx of transesophageal echocardiography (ANUSHKA) for monitoring Hx of hemorrhoidectomy History of bone marrow biopsy History of cardiac radiofrequency ablation (RFA) History of ear surgery Family History Father CVD (cardiovascular disease) Mother Cancer Social History Alcohol intake: current Alcohol intake frequency: holidays/special occasions only Patient Tobacco Use Status: Never used Tobacco 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al status: retired 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 Review of Systems Const Reports as per HPI and Denies weakness ENT Reports Normal hearing present and Denies dizziness Card Reports as per HPI, Denies chest pain, Denies chest pain at rest, Denies chest pain with activity, Denies dyspnea and Denies dyspnea on exertion Resp Reports as per HPI, Denies cough, Denies dyspnea and Denies dyspnea on exertion GI Reports as per HPI, Denies abdominal pain, Denies nausea and Denies vomiting Musc Denies numbness Skin/Breast Reports as per HPI, Denies erythema and Denies wounds Neuro Reports Normal hearing present, Denies dizziness, Denies numbness, Denies Sensory deficit (Neuro) and Denies weakness Psych Reports no additional complaints Endo Reports no additional complaints Physical Exam Vital Signs: BMI result Body Mass Index 31.6 Const General: healthy appearing and no acute distress Orientation/consciousness: patient oriented x3 HEENT Head: Yes normal to inspection Ears: hearing grossly normal bilaterally Mouth: Normal oral and palatal mucosa present Resp Effort & Inspection: normal respiratory effort and able to speak in complete sentences Auscultation: clear to auscultation bilaterally Cardio Jugular venous distension: no JVD Rate: regular rate Rhythm: regular rhythm Heart sounds: S1 normal heart sound present and S2 normal heart sound present Bruits: no abdominal aortic bruits, no carotid bruits, no femoral bruits and no renal bruits Peripheral pulses: Peripheral pulses 2+ throughout GI Inspection: Yes normal to inspection Palpation (GI): No Abdominal aortic bruit present Skin General skin exam: no rashes or lesions noted Wounds: no wounds Hair: normal Neuro General: patient oriented x3 Cranial nerves: Yes Normal hearing present Cognition (Neuro): normal cognition Gait exam (Neuro): Normal gait present Motor exam (neuro): 5/5 motor strength present throughout Sensory Exam: No Sensory deficit (Neuro) Extrem Other: Left lower extremity: Discoloration, erythematous, from the tibial tuberosity to the top of the ankle anteriorly. Two small nonhealing circular wounds noted, the most distal 1 weeping yellow/white discharge. Dry skin noted throughout the discoloration. Palpable DP pulses. Right lower extremity: No discoloration, erythema, or wounds noted. General: Yes normal to inspection, Yes full ROM, Yes capillary refill normal and Yes normal gait Results Reviewed Results Reviewed: Brief summary of venous insufficiency testing is as follows: right great saphenous vein: negative right small saphenous vein: negative right accessory vein: none present left great saphenous vein: negative left small saphenous vein: negative left accessory vein: none present Please note there is no evidence of any venous aneurysms or significant tortuosity. There were chronic changes noted in the left SSV px. Assessment & Plan Assessment & Plan (1) Non-healing wound of lower extremity: Comment: We discussed the keep the bandage on for the next 5-7 days. If the site continues to weep then keep a dry dressing on it. If the site starts drying, then you may apply bacitracin or Neosporin and bandage. If anything changes with this or the site gets worse, please reach back out to us Code(s): S81.809A - Unspecified open wound, unspecified lower leg, initial encounter Category: Medical Qualifiers: Encounter type: subsequent encounter Laterality: left Qualified Code(s): S81.802D - Unspecified open wound, left lower leg, subsequent encounter Plan: Jose continues to have nonhealing ulcerations on the left lower extremity. We reviewed his ultrasound today, there were no insufficiency is noted. The patient has been treated conservatively with compression stockings, leg elevation and exercise program for over 3 months. Patient has been compliant with treatment and instructions. They continue to be a source of swelling, ulcerations/wounds, and pain. I do not anticipate this course of treatment will alter the underlying etiology. I am concerned further delay will only contribute to chronic venous insufficiency. We have reached out to wound care; we believe he will benefit from wound care treatment because this does not appear to be a vascular issue. We did discuss with the patient that if he does not hear from wound care in the next couple of days to reach back out to our office and we will get hold of them. We applied an Allevyn dressing and discussed with the patient that this is the best course of action at this point until he is seen at wound care. Thank you for the consult. We will continue to monitor as needed. If there are any questions or concerns please do not hesitate to reach out to us. Coding Level of Care Code Established Pt Est Pt Level 4 (84421) Patient Type Established Diagnoses Non-healing wound of lower extremity, left, subsequent encounter S80.826G Encounter type: subsequent encounter Laterality: left Comment Review of ultrasound, wound care
[2024-01-21 08:56] VITALS: BMI 31.6
== END 2024-01-21 09:09 | disposition home or self-care (01) ==
LOC: HO.HVS 08:54
PROVIDERS: PCP Internal Medicine Medical Oncology; Visit Provider Physician Assistant Surgical
DX: S81.802D Unspecified open wound, left lower leg, subsequent encounter (principal)
CPT/HCPCS: 99214

== ENCOUNTER → 2024-01-21 08:53 | Outpatient (BNVA) | payer MEDICARE, MEDICAID, SELFPAY | PROVIDERS: PCP Internal Medicine Medical Oncology; Visit Provider Physician Assistant Surgical | DX: L97.829 Non-pressure chronic ulcer of other part of left lower leg with unspecified severity (principal) | CPT/HCPCS: 99212 ==

== ENCOUNTER → 2024-01-28 08:20 | Outpatient (BNVA) | payer MEDICARE, MEDICAID, SELFPAY | PROVIDERS: PCP Internal Medicine Medical Oncology; Visit Provider Internal Medicine Cardiovascular Disease ==

== ENCOUNTER 2024-03-24 13:29 | Outpatient (AMB) | payer MEDICARE, MEDICAID, SELFPAY ==
--- NOTE | 2024-03-24 13:35 | A.OFFVIS_ITS ---
Intake Visit Reasons: OV - Discuss Right TSA Intake Note: Jose is a 74 year old - hand dominant male who presents today for a follow up of his right shoulder to discuss Right TSA. confirmed he did not pursue SCS trial, and does not plan to, as he states he does not agree with that plan. confirmed he still has weeping, open BLLE wounds that are slowly healing, and that he has declined any treatments with [facility], as he does not agree with that plan either. Allergies amoxicillin [AMOXICILLIN] Allergy (Intermediate, Verified 01/18/24 10:56) RASH adhesive Allergy (Mild, Verified 01/18/24 10:56) Rash soap [Betadine] Allergy (Unknown, Verified 01/18/24 10:56) Rash povidone-iodine [From BETADINE] Adverse Reaction (Intermediate, Verified 01/18/24 10:56) RASH (IF ON SKIN FOR PROLONGED TIME) HPI HPI OV - Discuss Right TSA: Details: Jose is a 74 year old - hand dominant male who presents today for a follow up of his right shoulder to discuss Right TSA. confirmed he did not pursue SCS trial, and does not plan to, he. He is here today with his daughters. He would like to discuss surgical treatment. He feels that he can not function on with respect to his right shoulder. He has difficulty abducting his arm. He can not gauge in daily activities without difficulty. The pain is minimal. [facility] Medical History Pericardial effusion HTN (hypertension) Enlarged RV (right ventricle) Paroxysmal atrial flutter Paroxysmal atrial fibrillation Persistent atrial fibrillation Surgical History Status post creation of pericardial window Hx of wisdom tooth extraction History of surgery on wrist Hx of tonsillectomy History of stapedectomy Hx of transesophageal echocardiography (ANUSHKA) for monitoring Hx of hemorrhoidectomy History of bone marrow biopsy History of cardiac radiofrequency ablation (RFA) History of ear surgery Family History Father CVD (cardiovascular disease) Mother Cancer Social History Alcohol intake: current Alcohol intake frequency: holidays/special occasions only Patient Tobacco Use Status: Never used Tobacco 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al status: retired 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 Physical Exam Extrem Other: 4-/5 EC Positive horn blower's Positive drop-arm Positive lift-off Passive external rotation to 45 degrees and full passive range of motion otherwise. Results Reviewed Results Reviewed: I personally reviewed the MR images. Complete, full-thickness tears of the supraspinatus and infraspinatus tendons with retraction of the torn tendon fibers proximal to the glenohumeral articulation. Full-thickness partial tear of the subscapularis tendon with thin inferior tendon fibers remaining intact. Moderate subscapularis muscle atrophy. 2. Intra-articular long head biceps tendinosis and longitudinal partial tearing. 3. Severe acromioclavicular osteoarthritis with undersurface bony remodeling and subacromial spurring. 4. Peripheral tearing through the periphery of the superior labrum. 5. Chronic superior subluxation of the humeral head related to the rotator cuff tendon tears. Gyyv-[id number] glenohumeral osteoarthritis. Small joint effusion with mild synovitis. Assessment & Plan Assessment & Plan (1) Rotator cuff arthropathy of right shoulder: Code(s): M12.811 - Other specific arthropathies, not elsewhere classified, right shoulder Category: Medical Plan: This is a 74-year-old gentleman with rotator cuff arthropathy of the right shoulder. I have reviewed his exam is with him and explained the pathophysiology as well as the treatment options including nonsurgical and surgical treatment options. I discussed the risks, benefits and alternatives to surgery including to, but not limited to, infection, dislocation, fracture, stiffness, aseptic loosening as well as medical complications associated with surgery. He does have a history of nonhealing lower extremity wounds. This is idiopathic. It is on Eliquis for AFib. I think he is a reasonable candidate for surgery. He would need medical clearance but I suspect that this would not be an issue. He is interested in having surgery next winter. I think this is reasonable. I think he should return to see me in 6 months. Coding Level of Care Code Est Pt Level 4 (18198) Diagnoses Rotator cuff arthropathy of right shoulder M12.811
--- OUTSIDE RECORDS SUMMARY | 2024-03-24 14:45 | XMS_ITS ---
Author Organization Nicolás Bustos III, MD Address [address] [address] Care Team Providers Care Charge Entry Clerk Name Role Phone Nicolás Bustos Primary Care Provider REASON FOR VISIT FYI Social History Sex Assigned At : Social History Observation Description Sex Assigned At Male Encounters Encounter Location Date Provider Diagnosis Nicolás Bustos III, MD [address] [place] [address] [place] [address] 12/29/2023 Nicolás Bustos Plan Of Treatment Next Appt Details Provider Name:Nicolás Bustos, 05/04/2024 10:00:00 AM, [address] [place] [address] [address], [place], [address], Progress Notes * GIOJoseDOB:1950 ([age] yo M)Acc No.[id number]:12/29/2023 Patient:?GIOJose :1950???Age:73 Y???Sex:Male Address:[address] [facility], [address], [place], [address] * true * Date:? Generated for Samirai kenna/Mikel/eTransmitting on:?03/24/2024 02:44 PM EST
--- OUTSIDE RECORDS SUMMARY | 2024-03-24 14:45 | XMS_ITS ---
Author Organization Nicolás Bustos III, MD Address 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 [...] Next Appt Details Follow Up: As Scheduled, Sandhya son: OV Provider Name:Nicolás Bustos, 05/04/2024 10:00:00 AM, [address] [place] [address], [id number], Progress Notes * Jose POWERSDOB:1950 ([age] yo M)Acc No.[id number]:02/08/2024 Progress Notes Patient:?Jose POWERS Provider:?Nicolás Bustos MD :1950???Age:73 Y???Sex:Male [place] e:02/08/2024 Address:[address] [place] [address] [address], [place] [id number] Subjective: * Chief Complaints: * ???Left Shoulder tendinopath yLymphoplasmacytic lymphomaWound left shinLumbar radiculopathyAtrial flutterReview * HPI: ???COVID-19 Screening:?Questions?Have you experienced fever, chills, cough, sore throat, shortness of breath, difficulty breathing, muscle aches, loss of taste or smell??No ?Have you been exposed to the virus within the last 10 days??No ?Have you travelled internationally in the last 10 days??No ?Have you been exposed to COVID-19 in the past??No ???:?The patient, a 73-year-old male, presented with a [...] today consist of a scab overlying healthy skin.? The peripheral edema in the left leg has resolved.? He was instructed to wear kneelength heavy socks to prevent the delicate sitting from trauma and to wear long pants as well.? Close follow-up was arranged. * ROS:?General/Constitutional:?Admits?pain,?Left shoulder.?Chills?denies.?Fatigue?admits.?Fever?denies.?ENT:?Decreased hearing?denies.?Respiratory:?Cough?denies.?Cardiovascular:?Chest pain with exertion?denies.?Dyspnea on exertion?denies.?Shortness of breath?denies.?Gastrointestinal:?Constipation?admits.?Decreased appetite?denies.?Diarrhea?denies.?Heartburn?denies.?Nausea?denies.?Rectal bleeding?denies.?Vomiting?denies.?Hematology:?bruising?denies.?petechiae?denies.?Swollen glands?none have been noted.?Genitourinary:?Frequent urination?once a night.?Musculoskeletal:?Muscle aches?denies.?Painful joints?denies.?Sciatica?denies.?Weakness?denies.?Skin:?Itching?denies.?Rash?denies.?Skin lesion(s)?denies.?Neurologic:?Difficulty speaking?denies.?Dizziness?denies.?Headache?denies.?Low back pain?that is chronic.?Psychiatric:?Depressed mood?denies.? * Medical History:? * Surgical History:?Tonsillect dilan child 1957Left wrist tendon surgery age 32's- Dr. Cl Woody at [facility] 1992Sleep Study- Dr. Xiao at [facility] [id number] stapedotomy w/ vein graft- Dr. Chin at [facility] [phone] catheter ablation- [place]. [place] [facility] [place] flutter s/p cardioversion- Dr. Xiao at [facility] [id number] cyst from back- Dr. Willoughby at [facility] [phone] cyst right wrist at [facility] [phone] external hemorrhoid at [facility] [phone] surgery Rt. ear- Dr. Washington at [facility] [phone] cyst from rectum at [facility] 1986Remove cyst from chest- Dr. Castillo 1976Extract wisdom teeth at [facility] 1976Pericardiocentesis and pericardial window iverticulum, Esophagus 03/2022,09/29/2022No history * Hospitalization/Major Diagno stic Procedure:?No history * Family History:?Father: dece ased, Heart disease, diagnosed with HTN.?Mother: 82 yrs, lung cancer, diagnosed with Cancer.?Paternal Grand Father: , alzheimer.?Maternal Grand Father: , Blood disorder/ non-clotting disorder.?Maternal Grand Mother: 90 yrs, colon cancer, diagnosed with Cancer.?2 brother(s) , 2 sister(s) . 1 son(s) , 2 daughter(s) . .? One sister has had a cholecystectomy and has an arrythmia. A brother and a son have hypertension. His father's sisters have myeloma and lung cancer. His sister in 2018. He is not aware of any family history of mental illness or substance use disorder or addiction. * Social History:?Tobacco Use:?Tobacco Use/Smoking?Patient is a?former smoker ?How long has it been since you last smoked??> 10 years ?Additional Findings: Tobacco Non-User?Ex-cigarette smoker ???He stopped smoking many years ago. He does not drink alcohol. He lives in [facility]. He has two daughters Bernice and Shannan and a son. * Medications:?TakingNaproxen 500 MG Tablet TAKE 1 TABLET BY [...] reviewed and reconciled with the patient * Allergies:?Amoxicillin: Rash Betadine: RashAdhesive: edelmirano[Allergies Verified] Objective: * Vitals:?Ht: 69, Wt:216, BMI: 31.89, BP:120/74, HR:66, Temp:97.2, Ht-cm: 175.26, Wt-k.98. * ???Past Orders: Lab:Gram stain * Collection Date 12/29/2023 [...] 01/08/2024) (Performed Date - 01/08/2024) * Examination: ???General Examination: ?GENERAL APPEARANCE:?pleasant, well nourished, well developed, in no acute distress, calm and relaxed, obese, man.?HEAD:?atraumatic, normocephalic.?EYES:?eomi, perrla, anicteric, conjugate.?EARS:?normal.?NOSE:?septum intact.?ORAL CAVITY:?normal, unremarkable.?NECK/THYROID:?no jugular venous distention, no carotid bruit, thyroid normal.?LYMPH NODES:?no enlarged lymph nodes,spleen normal.?SKIN:?no suspicious lesions, anicteric, Wound left danielle is 75% healed.?HEART:?no clicks, gallops, murmurs, or rubs, regular rhythm, S1, S2 normal, no s3, or vascular bruits.?LUNGS:?clear to auscultation .?BREASTS:??no masses palpable bilaterally.?ABDOMEN:?bowel sounds normal, no ascites, no organomegaly, no mass, centripital obesity.?RECTAL EXAM:?not examined.?MUSCULOSKELETAL:?extremities unremarkable, no clubbing, cyanosis or edema.?PERIPHERAL PULSES:?normal.?NEUROLOGIC:?alert and oriented, cranial nerves 2-12 grossly intact, deep tendon reflexes 2+ symmetrical, motor strength normal upper and lower extremities, sensory exam intact.?PSYCH:?alert, oriented.? 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 He will be observed carefully. His viscosity is 1.4. The abnormal IgM protein is not detectable. The IgM level is in the normal range. His CBC is unremarkable.???2.?Benign prostatic hyperplasia, unspecified whether lower urinary tract symptoms present - N40.0???Notes :He rises from sleep once a night to urinate. We have discussed lifestyle modifications he could make to reduce nocturia.???3.?Essential hypertension - I10???Notes :His blood pressure remained stable.? No change in his regimen was made.???4.?Hyperlipidemia type II - E78.01???Notes :His fasting lipid profile has been ordered.? No change in his regimen as needed.???5.?Obesity (BMI 30.0-34.9) - E66.9???Notes :His weight has been stable with a body mass index of 31.? We have discussed his diet and nutrition at length.? We have formulated a weight loss strategy.???6.?Atrial flutter - I48.92???Notes :He is in sinus rhythm today. He is taking metoprolol and flecainide.???7.?Former smoker - Z87.891???Notes :He is motivated not to smoke and we discussed maintenance of abstinence.???8.?Wound of left lower extremity, initial encounter - S81.802A?? Notes :Wound on the left danielle has progressed and is almost healed in the peripheral edema has resolved.??? Plan: * Treatment: 2.?Benign prostatic hyperpla kaleb, unspecified whether lower urinary tract symptoms present? Continue Melatonin Tablet, 5 MG, 1 tablet in the evening, Orally, Once a day.?? 3.?Essential hypertension?LAB: PROFILE, FASTING (COMPREHENSIVE METABOLIC) ?LAB: IMMUNOFIXATION PANEL, SERUM (IEP) ?LAB: PROTEIN ELECTROPHORESIS, SERUM ?LAB: VISCOSITY ?LAB: CBC WITH AUTO DIFF ?LAB: Lipid Panel ?LAB: Beta-2 Microglobulin, Serum 4.?Hyperlipidemia type II?LAB: PROFILE, FASTING (COMPREHENSIVE METABOLIC) ?LAB: IMMUNOFIXATION PANEL, SERUM (IEP) ?LAB: PROTEIN ELECTROPHORESIS, SERUM ?LAB: VISCOSITY ?LAB: CBC WITH AUTO DIFF ?LAB: Lipid Panel ?LAB: Beta-2 Microglobulin, Serum 5.?Obesity (BMI 30.0-34.9)?LAB: PROFILE, FASTING (COMPREHENSIVE METABOLIC) ?LAB: IMMUNOFIXATION PANEL, SERUM (IEP) ?LAB: PROTEIN ELECTROPHORESIS, SERUM ?LAB: VISCOSITY ?LAB: CBC WITH AUTO DIFF ?LAB: Lipid Panel ?LAB: Beta-2 Microglobulin, Serum 6.?Others? Continue Naproxen Tablet, 500 MG, TAKE 1 TABLET BY MOUTH TWICE DAILY WITH FOOD OR MILK NEEDED;?Continue Imbruvica Capsule, 140 MG, 2 tablet, Orally, Once a day.?? * Procedure Codes:? * Preventive Medicine:? ??Counseling:?Care goal follow-up plan:?Counseling for abnormal BMI given?Yes ?Above Normal BMI Follow-up?Dietary management education, guidance, and counseling, Dietary needs education, Exercise promotion: strength training, Exercise promotion: stretching, Feeding regime, Giving encouragement to exercise, Lifestyle education regarding diet, Nutrition / feeding management, Nutrition therapy, Prescribed activity/exercise education, Prescribed diet education, Prescribed dietary intake, Special diet education, Weight monitoring , Intervention, Order not done: Medical or Other reason not done ?Smoking/Tobacco Use?Patient counseled on the dangers of tobacco use and urged to quit.?02/08/2024 * Follow Up:?As Scheduled (Sandhya son: OV) * Images: * Sign off status: Completed true * Provider:?Nicolás Bustos MD Date:?01/15 Generated for Printi ng/Farashmig/eTransmitting on:?03/24/2024 02:44 PM EST History and Physical Notes * HPI (History of Present Illness) Category Sub-Category Detail Notes COVID-19 Screening Questions Have you had any new onset fever, chills, cough, congestion, sore throat, shortness of breath, muscle aches?: No Have you been exposed to the virus withi n the last 10 days?: No Have you travelled internationally in e last 10 days?: No Have you been [...]
--- OUTSIDE RECORDS SUMMARY | 2024-03-24 14:45 | XMS_ITS ---
Author Organization Nicolás Bustos III, MD Address [address] [place] [address] Care Team Providers Care Wind Operations Supervisor Name Role Phone Nicolás Bustos Primary Care Provider [phone] Allergies Allergen (clinical drug ingredient) Drug/Non Drug Allergy documented on EMR Reaction Allergy Type Onset Date Status Adhesive rash Allergy Active povidone-iodine Betadine Rash Drug Allergy A ctive amoxicillin Amoxicillin Rash Drug Allergy Act jocelin Reason For Referral Reason non healing wound le ft danielle left danielle mild lymphedema Diagnosis 1 Open wound (T14.8XXA ) Referral Organization Nicolás Bustos III, MD Referring Provider First Name Nicolás Referring Provider Last Name Juli Referring Provider Speciality Internal M edicine Referred Provider [facility] Referred Provider Specialty Unknown General Notes Trina Bueno CMA 01/11 10:37:56 AM > ref/demo/progress [facility] 01/15/2024 02:23:06 PM > [facility] calling stated they did not receive the referral and would like for us to refax it so they are able to schedule the patient. Referral faxed, Trina Bueno CMA 01/21/2024 02:27:41 PM >Spoke to wound center pt does not have appt as of yet they will be calling pt for appt, Trina Bueno CMA 01/28/2024 01:21:02 PM > called wound center at pt has appt on 01/03/24 at 8:30am Referral Priority Routine Referral Appointment Date 02/03/2024 REASON FOR VISIT Wounds on the left danielle, Lymphoplasmacytic lymphoma, Right shoulder pain, Elevated PSA Medications Medication SIG (Take, Route, Frequency, Duration) Notes Start Date End Date Status Metoprolol Tartrate 50 MG 1 tablet with food Orally Twice a day Active Melatonin 5 MG 1 tablet in the even ing Orally Once a day Active Atorvastatin Calcium 20 MG 1 tablet Oral ly Once a day Active Flecainide Acetate 150 MG as directed Orally Active Multivitamin/Minerals 1 Tablet Orally On ce a day Active Naproxen 500 MG TAKE 1 TABLET BY KATHY TH TWICE DAILY WITH FOOD OR MILK NEEDED Active Imbruvica 140 MG 2 tablet Orally Once a day 04/06/2023 Active Social History Tobacco Use: Social History [...] Non-User Ex-cigaret te smoker Vital Signs Temperature 97.4 degrees Fahrenheit 01/12/20 24 Blood pressure systolic 136 mm Hg 01/12/20 24 Blood pressure diastolic 87 mm Hg 024 Heart Rate 73 /min 01/12/2024 Height 69 in 01/12/2024 Weight 217 lbs 01/12/2024 BMI 32.04 kg/m2 01/12/2024 Encounters Encounter Location Date Provider Diagnosis Nicolás Bustos III, MD [address] [place] [address] [place] [address] 01/12/2024 Nicolás Bustos 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 He will be observed carefully. His viscosity is 1.4. The abnormal IgM protein is not detectable. The IgM level is in the normal range. His CBC is unremarkable. 01/12/2024 Benign prostatic hyperplasia, unspecified whether lower urinary tract symptoms present (ICD-10 - N40.0) He rises from sleep once a night to urinate. We have discussed lifestyle modifications he could make to reduce nocturia. 01/12/2024 Former smoker (ICD-1 0 - Z87.891) He is motivated not to smoke and we discussed maintenance of abstinence. 01/12/2024 Elevated PSA (ICD-10 - R97.20) The PSA was 5.67, but when it was repeated with a free PSA it was 4.7 with a free PSA of 11%. I have asked urology to evaluate him. 01/12/2024 Atrial fibrillation (ICD-10 - I48.91) He is in a normal sinus rhythm today. His rate is controlled. 01/12/2024 Essential hypertensi on (ICD-10 - I10) His blood pressure is stable at 138/85. We discussed lifestyle modifications as a way to reduce his blood pressure. I recommended aggressive weight reduction and sodium restriction and physical activity. 01/12/2024 Right anterior shoul serenity pain (ICD-10 - M25.511) He has a full-thickness tear of the infraspinatus and supraspinatus tendons. He does not know how this happened. He will go back to the orthopedic clinic to discuss treatment. 01/12/2024 Obesity (BMI 30-39.9 ) (ICD-10 - E66.9) He has gained 3 pounds since his last visit. His appetite is good and I have discussed a strategy for weight loss with him. Plan Of Treatment Medication Medication Name Sig Start Date Stop Date Notes Metoprolol Tartrate 50 MG 1 tablet with food Orally Twice a day Melatonin 5 MG 1 tablet in the even ing Orally Once a day Atorvastatin Calcium 20 MG 1 tablet Orally Once a day Flecainide Acetate 150 MG as directed Orally Multivitamin/Minerals 1 Tablet Orally Once a day Naproxen 500 MG TAKE 1 TABLET BY KATHY TWICE DAILY WITH FOOD OR MILK NEEDED Imbruvica 140 MG 2 tablet Orally Once a day 04/06/2023 Referrals Referral Date Details 01/12/2024 01/12/2024, non heal ing wound left danielle left danielle mild lymphedema, [facility] Next Appt Details Follow Up: 4 Weeks, Reason: ov no tests Provider Name:Nicolás Bustos 05/04/2024 10:00:00 AM, [address] [place] [address] [address], [place], [address], Progress Notes * Jose POWERSDOB:1950 ([age] yo M)Acc No.[id number]:01/12/2024 Progress Notes Patient:?Jose POWERS Provider:?Nicolás Bustos MD :1950???Age:73 Y???Sex:Male Glen e:01/12/2024 Address:[address] [place] [address], [id number] Subjective: * Chief Complaints: * ???Wounds on the left shinLy mphoplasmacytic lymphomaRight shoulder painElevated PSA * HPI: ???COVID-19 Screening:?He is being seen recently because of 3 open areas on the left danielle of uncertain cause.2 of the wounds are resolving.? One has resolved.? There is a new large blister present in the area. It remains intact.? He went to vascular surgery an ultrasound was done but the report is not available.? I have referred him to the wound clinic. He was recently referred to the orthopedic clinic because of right shoulder pain.? He saw Dr. Davila.? An MRI has shown complete tear of the supraspinatus and infraspinatus tendon.? 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 He is soon to go back to orthopedics to discuss these findings and their treatment. There was no sign today of progression of the lymphoplasmacytic lymphoma.? Recent blood work showed her to be under control. ?Questions?Have you experienced fever, chills, cough, sore throat, shortness of breath, difficulty breathing, muscle aches, loss of taste or smell??No ?Have you been exposed to the virus within the last 10 days??No ?Have you travelled internationally in the last 10 days??No ?Have you been exposed to COVID-19 in the past??No * ROS:?General/Constitutional:?pain?Low back pain right shoulder pain left danielle..?Chills?denies.?Fatigue?admits.?Fever?denies.?ENT:?Decreased hearing?denies.?Respiratory:?Cough?denies.?Cardiovascular:?Chest pain with exertion?denies.?Dyspnea on exertion?denies.?Shortness of breath?denies.?Gastrointestinal:?Constipation?occasional.?Decreased appetite?denies.?Diarrhea?denies.?Heartburn?denies.?Nausea?denies.?Rectal bleeding?denies.?Vomiting?denies.?Hematology:?bruising?denies.?petechiae?denies.?Swollen glands?none have been noted.?Genitourinary:?Frequent urination?once a night.?Musculoskeletal:?Muscle aches?denies.?Painful joints?denies.?Sciatica?denies.?Weakness?denies.?Skin:?Itching?denies.?Rash?denies.?Skin lesion(s)?denies.?Neurologic:?Difficulty speaking?denies.?Dizziness?denies.?Headache?denies.?Low back pain?denies.?Psychiatric:?Depressed mood?denies.? * Medical History:? * Surgical History:?Tonsillect dilan child 1957Left wrist tendon surgery age 32's- Dr. Cl Woody at [facility] 1993Sleep Study- Dr. Xiao at [facility] [id number] stapedotomy w/ vein graft- Dr. Chin at [facility] [id number] catheter ablation- Dr. Vance at [facility] 07-15-2011 flutter s/p cardioversion- Dr. X[facility] [phone] cyst from back- Dr. Willoughby at [facility] [id number] cyst right wrist at [facility] [phone] external hemorrhoid at [facility] [phone] surgery Rt. ear- Dr. Washington at [facility] [phone] cyst from rectum at [facility] 1986Remove cyst from chest- Dr. Castillo 1976Extract wisdom teeth at [facility] 1975Pericardiocentesis and pericardial window iverticulum, Esophagus 03/2022,09/29/2022No [...] does not drink alcohol. He lives in [facility]. He has two daughters Bernice and Shannan and a son. * Medications:?TakingNaproxen 500 MG Tablet TAKE 1 TABLET BY MOUTH TWICE DAILY WITH FOOD OR MILK NEEDED Imbruvica 140 MG Capsule 2 tablet Orally Once a day Multivitamin/Minerals 1 Tablet Orally Once a day Atorvastatin Calcium 20 MG Tablet 1 tablet Orally Once a day Flecainide Acetate 150 MG Tablet as directed Orally Metoprolol Tartrate 50 MG Tablet 1 tablet with food Orally Twice a day Melatonin 5 MG Tablet 1 tablet in the evening Orally Once a day Medication List reviewed and reconciled with the patientTaking Naproxen 500 MG Tablet TAKE 1 TABLET BY MOUTH TWICE DAILY WITH FOOD OR MILK NEEDED Taking Imbruvica 140 MG Capsule 2 tablet Orally Once a day Taking Multivitamin/Minerals 1 Tablet Orally Once a day Taking Atorvastatin Calcium 20 MG Tablet 1 tablet Orally Once a day Taking Flecainide Acetate 150 MG Tablet as directed Orally Taking Metoprolol Tartrate 50 MG Tablet 1 tablet with food Orally Twice a day Taking Melatonin 5 MG Tablet 1 tablet in the evening Orally Once a day Medication List reviewed and reconciled with the patient * Allergies:?Amoxicillin: Rash Betadine: RashAdhesive: rashno[Allergies Verified] Objective: * Vitals:?Ht: 69, Wt:217, BMI: 32.04, BP:136/87, HR:73, Temp:97.4, Ht-cm: 175.26, Wt-k.43. * ???Past Orders: Lab:Gram stain * Collection [...] Date - 01/08/2024) (Performed Date - 01/08/2024) ???Lab:PSA Free and Total (Order Date - 10/28/2023) (Collection Date & Time - 10/28/2023 11:00 AM)?ValueReference Range?Prostate Specific Ag Total4.7A< OR = 4.0 - ng/mL?Percent Free Prostate Spec Ag11A>25 - % (calc)?Free Prostate Spec Ag0.5- ng/mL * Lab:[facility]aur[facility] she[facility] Fast * Collection Date 10/20/2023 07/21/2023 04/23/2023 Collection Time 07:40 AM 07:38 AM 07:34 AM Order Date 10/20/2023 07/21/2023 04/23/2023 Sodium 140 (Ref Range: 135-145 mmol/L) 141 (Ref Range: 135-145 mmol/L) 140 (Ref Range: 135-145 mmol/L) Bilirubin Total 0.6 (Ref Range: 0.0-1.0 mg/dL) 0.8 (Ref Range: 0.0-1.0 mg/dL) 0.8 (Ref Range: 0.0-1.0 mg/dL) Aspartate Amino Transferase 34 (Ref Range: 5-37 U/L) 31 (Ref Range: 5-37 U/L) 37 (Ref Range: 5-37 U/L) Alanine Aminotransferase 32 (Ref Range: 0-40 U/L) 30 (Ref Range: 0-40 U/L) 36 (Ref Range: 0-40 U/L) Total Protein 5.5?L (Ref Range: 6.5-8.0 g/dL) 5.9?L (Ref Range: 6.5-8.0 g/dL) 5.9?L (Ref Range: 6.5-8.0 g/dL) Albumin Level 3.9 (Ref Range: 3.5-5.0 g/dL) 4.1 (Ref Range: 3.5-5.0 g/dL) 4.1 (Ref Range: 3.5-5.0 g/dL) Alkaline Phosphatase 123?H (Ref Range: 39-117 U/L) 100 (Ref Range: 39-117 U/L) 106 (Ref Range: 39-117 U/L) Potassium 4.5 (Ref Range: 3.3-5.1 mmol/L) 4.3 (Ref Range: 3.3-5.1 mmol/L) 4.5 (Ref Range: 3.3-5.1 mmol/L) Chloride 103 (Ref Range: 96-108 mmol/L) 106 (Ref Range: 96-108 mmol/L) 105 (Ref Range: 96-108 mmol/L) Carbon Dioxide 27 (Ref Range: 22-29 mmol/L) 26 (Ref Range: 22-29 mmol/L) 29 (Ref Range: 22-29 mmol/L) Anion Gap 15 (Ref Range: 12-20) 13 (Ref Range: 12-20) 11?L (Ref Range: 12-20) Blood Urea Nitrogen 13 (Ref Range: 9-16 mg/dL) 16 (Ref Range: 9-16 mg/dL) 19?H (Ref Range: 9-16 mg/dL) Creatinine 0.99 (Ref Range: 0.5-1.4 mg/dL) 0.89 (Ref Range: 0.5-1.4 mg/dL) 0.94 (Ref Range: 0.5-1.4 mg/dL) Estimated Glomerular Filt Rate > 60 > 60 > 60 Glucose Fasting 103?H (Ref Range: 60-99 mg/dL) 91 (Ref Range: 60-99 mg/dL) 100?H (Ref Range: 60-99 mg/dL) Calcium 8.8 (Ref Range: 8.4-10.2 mg/dL) 9.2 (Ref Range: 8.4-10.2 mg/dL) 9.1 (Ref Range: 8.4-10.2 mg/dL) * Lab:Lipid Panel * Collection Date 10/20/2023 07/21/2023 04/23/2023 Collection Time 07:40 AM 07:38 AM 07:34 AM Order Date 10/20/2023 07/21/2023 04/23/2023 Triglycerides 84 (Ref Range: <150 mg/dL) 99 (Ref Range: <150 mg/dL) 92 (Ref Range: <150 mg/dL) Cholesterol 162 (Ref Range: <200 mg/dL) 172 (Ref Range: <200 mg/dL) 186 (Ref Range: <200 mg/dL) LDL Cholesterol Calculated 79 (Ref Range: <100 mg/dL) 75 (Ref Range: <100 mg/dL) 95 (Ref Range: <100 mg/dL) HDL Cholesterol 67 (Ref Range: >40 mg/dL) 78 (Ref Range: >40 mg/dL) 73 (Ref Range: >40 mg/dL) * Lab:Prostate Specific Antige n * Collection Date 10/20/2023 07/21/2023 01/01/2022 Collection Time 07:40 AM 07:38 AM 08:40 AM Order Date 10/20/2023 07/21/2023 01/01/2022 Prostate Specific Antigen 5.67?H (Ref Range: <0.05-4.0 ng/mL) 3.51 (Ref Range: <0.05-4.0 ng/mL) 2.48 (Ref Range: <0.05-4.0 ng/mL) * Lab:Protein Electrophoresis, Serum * Collection Date 10/20/2023 07/21/2023 04/23/2023 Collection Time 07:40 AM 07:38 AM 07:34 AM Order Date 10/20/2023 07/21/2023 04/23/2023 Prot Elec - Total Protein 5.2?A (Ref Range: 6.1-8.1 g/dL) 5.6?A (Ref Range: 6.1-8.1 g/dL) 5.8?A (Ref Range: 6.1-8.1 g/dL) Prot Elec - Albumin 3.7?A (Ref Range: 3.8-4.8 g/dL) 4.0 (Ref Range: 3.8-4.8 g/dL) 4.2 (Ref Range: 3.8-4.8 g/dL) Prot Elec - Alpha1 0.2 (Ref Range: 0.2-0.3 g/dL) 0.2 (Ref Range: 0.2-0.3 g/dL) 0.2 (Ref Range: 0.2-0.3 g/dL) Prot Elec - Alpha2 0.5 (Ref Range: 0.5-0.9 g/dL) 0.5 (Ref Range: 0.5-0.9 g/dL) 0.5 (Ref Range: 0.5-0.9 g/dL) Prot Elec - Beta 1 0.4 (Ref Range: 0.4-0.6 g/dL) 0.4 (Ref Range: 0.4-0.6 g/dL) 0.4 (Ref Range: 0.4-0.6 g/dL) Prot Elec - Beta 2 0.2 (Ref Range: 0.2-0.5 g/dL) 0.2 (Ref Range: 0.2-0.5 g/dL) 0.2 (Ref Range: 0.2-0.5 g/dL) Prot Elec - Gamma 0.2?A (Ref Range: 0.8-1.7 g/dL) 0.2?A (Ref Range: 0.8-1.7 g/dL) 0.2?A (Ref Range: 0.8-1.7 g/dL) PES - Abn Protein Band 1 <0.2?A (Ref Range: NONE DETECTED g/dL) <0.2?A (Ref Range: NONE DETECTED g/dL) <0.2?A (Ref Range: NONE DETECTED g/dL) PES-Abn Protein Band 2 TNP TNP TNP PES-Abn Protein Band 3 TNP TNP TNP Prot Elec - Interpretation SEE NOTE SEE NOTE SEE NOTE * Lab:Immunofixation Pnl, Seru m * Collection Date 10/20/2023 07/21/2023 04/23/2023 Collection Time 07:40 AM 07:38 AM 07:34 AM Order Date 10/20/2023 07/21/2023 04/23/2023 IgG 91?A (Ref Range: 600-1540 mg/dL) 114?A (Ref Range: 600-1540 mg/dL) <109?A (Ref Range: 600-1540 mg/dL) IgA 11?A (Ref Range: 70-320 mg/dL) 12?A (Ref Range: 70-320 mg/dL) 13?A (Ref Range: 70-320 mg/dL) IgM 136 (Ref Range: 50-300 mg/dL) 161 (Ref Range: 50-300 mg/dL) 170 (Ref Range: 50-300 mg/dL) Immunofixation Interpretation SEE NOTE SEE NOTE SEE NOTE * Lab:Complete Blood Count Aut o Diff * Collection Date 10/20/2023 07/21/2023 04/23/2023 Collection Time 07:40 AM 07:38 AM 07:34 AM Order Date 10/20/2023 07/21/2023 04/23/2023 White Blood Count 7.1 (Ref Range: 4.8-10.8 X10*3/uL) 8.0 (Ref Range: 4.8-10.8 X10*3/uL) 9.7 (Ref Range: 4.8-10.8 X10*3/uL) Red Blood Count 4.79 (Ref Range: 4.60-5.80 X10*6/uL) 5.26 (Ref Range: 4.60-5.80 X10*6/uL) 5.38 (Ref Range: 4.60-5.80 X10*6/uL) Hemoglobin 14.6 (Ref Range: 14.0-18.0 g/dl) 16.3 (Ref Range: 14.0-18.0 g/dl) 16.3 (Ref Range: 14.0-18.0 g/dl) Hematocrit 42.1 (Ref Range: 42.0-52.0 %) 46.5 (Ref Range: 42.0-52.0 %) 46.9 (Ref Range: 42.0-52.0 %) Mean Corpuscular Volume 87.9 (Ref Range: 80.0-98.0 fL) 88.4 (Ref Range: 80.0-98.0 fL) 87.2 (Ref Range: 80.0-98.0 fL) Mean Corpuscular Hemoglobin 30.5 (Ref Range: 27.0-33.0 pg) 31.0 (Ref Range: 27.0-33.0 pg) 30.3 (Ref Range: 27.0-33.0 pg) Mean Corpuscular HGB Conc 34.7 (Ref Range: 31.0-36.0 g/dl) 35.1 (Ref Range: 31.0-36.0 g/dl) 34.8 (Ref Range: 31.0-36.0 g/dl) Red Cell Distribution Width 13.2 (Ref Range: 11.0-16.0 %) 13.8 (Ref Range: 11.0-16.0 %) 13.4 (Ref Range: 11.0-16.0 %) Platelet Count 214 (Ref Range: 160-400 X10*3/uL) 198 (Ref Range: 160-400 X10*3/uL) 222 (Ref Range: 160-400 X10*3/uL) Mean Platelet Volume 11.8 (Ref Range: 9.4-12.4 fL) 12.1 (Ref Range: 9.4-12.4 fL) 10.9 (Ref Range: 9.4-12.4 fL) Neutrophils Percent Auto 50.3 (Ref Range: 45-73 %) 54.7 (Ref Range: 45-73 %) 52.1 (Ref Range: 45-73 %) Imm Gran Pct Auto 0.6?H (Ref Range: 0.0-0.4 %) 0.5?H (Ref Range: 0.0-0.4 %) 0.5?H (Ref Range: 0.0-0.4 %) Lymphocytes Percent Auto 34.7 (Ref Range: 20-40 %) 31.3 (Ref Range: 20-40 %) 34.3 (Ref Range: 20-40 %) Monocytes Percent Auto 11.0 (Ref Range: 2-11 %) 10.0 (Ref Range: 2-11 %) 9.2 (Ref Range: 2-11 %) Eosinophils Percent Auto 3.0 (Ref Range: 0-4 %) 3.0 (Ref Range: 0-4 %) 3.5 (Ref Range: 0-4 %) Basophils Percent Auto 0.4 (Ref Range: 0-2 %) 0.5 (Ref Range: 0-2 %) 0.4 (Ref Range: 0-2 %) NRBC Pct Auto 0.0 (Ref Range: 0.0-0.2 /100WBC) 0.0 (Ref Range: 0.0-0.2 /100WBC) 0.0 (Ref Range: 0.0-0.2 /100WBC) Neutrophils Absolute Auto 3.6 (Ref Range: 2.0-8.3 x10*3/uL) 4.4 (Ref Range: 2.0-8.3 x10*3/uL) 5.1 (Ref Range: 2.0-8.3 x10*3/uL) Imm Gran Abs Auto 0.04?H (Ref Range: 0.00-0.03 X10*3/uL) 0.04?H (Ref Range: 0.00-0.03 X10*3/uL) 0.05?H (Ref Range: 0.00-0.03 X10*3/uL) Lymphocytes Absolute Auto 2.5 (Ref Range: 1.2-4.9 X10*3/uL) 2.5 (Ref Range: 1.2-4.9 X10*3/uL) 3.3 (Ref Range: 1.2-4.9 X10*3/uL) Monocytes Absolute Auto 0.8 (Ref Range: 0.1-1.2 X10*3/uL) 0.8 (Ref Range: 0.1-1.2 X10*3/uL) 0.9 (Ref Range: 0.1-1.2 X10*3/uL) Eosinophils Absolute Auto 0.2 (Ref Range: 0.0-0.4 X10*3/uL) 0.2 (Ref Range: 0.0-0.4 X10*3/uL) 0.3 (Ref Range: 0.0-0.4 X10*3/uL) Basophils Absolute Auto 0.0 (Ref Range: 0.0-0.2 X10*3/uL) 0.0 (Ref Range: 0.0-0.2 X10*3/uL) 0.0 (Ref Range: 0.0-0.2 X10*3/uL) NRBC Abs Auto 0.000 (Ref Range: 0.0-0.012 X10*3/uL) 0.000 (Ref Range: 0.0-0.012 X10*3/uL) 0.000 (Ref Range: 0.0-0.012 X10*3/uL) * Imaging:CT abdomen pelvis w con * Performed Date 11/02/2023 03/24/2022 04/26/2020 02:19 PM 08:45 AM 06:22 AM Order Date 11/02/2023 03/24/2022 04/26/2020 * Imaging:XR chest 2V * Performed Date 10/28/2023 03/24/2022 05/28/2020 11:18 AM 06:05 AM 01:06 PM Order Date 10/28/2023 03/24/2022 05/28/2020 * Examination: ???General Examination: ?GENERAL APPEARANCE:?pleasant, well nourished, well developed, in no acute distress, calm and relaxed, obese, man.?HEAD:?atraumatic, normocephalic.?EYES:?eomi, perrla, anicteric, conjugate.?EARS:?normal.?NOSE:?septum intact.?ORAL CAVITY:?normal, unremarkable.?NECK/THYROID:?no jugular venous distention, no carotid bruit, thyroid normal.?LYMPH NODES:?no enlarged lymph nodes,spleen normal.?SKIN:?no suspicious lesions, anicteric.?HEART:?no clicks, gallops, murmurs, or rubs, regular rhythm, S1, S2 normal, no s3, or vascular bruits.?LUNGS:?clear to auscultation .?BREASTS:??no masses palpable bilaterally.?ABDOMEN:?bowel sounds normal, no ascites, no organomegaly, no mass, centripital obesity.?RECTAL EXAM:?not examined.?MUSCULOSKELETAL:?On the anterior surface of the left danielle are 3 healing ulcers and one new 2 cm blister with intact skin there is only small amount of edema in the skin.? There are no petechiae or bruises..?PERIPHERAL PULSES:?normal.?NEUROLOGIC:?alert and oriented, cranial nerves 2-12 grossly [...] lifestyle modifications he could make to reduce nocturia.???3.?Former smoker - Z87.891???Notes :He is motivated not to smoke and we discussed maintenance of abstinence.???4.?Elevated PSA - R97.20???Notes :The PSA was 5.67, but when it was repeated with a free PSA it was 4.7 with a free PSA of 11%. I have asked urology to evaluate him.???5.?Atrial fibrillation - I48.91???Notes :He is in a normal sinus rhythm today. His rate is controlled.???6.?Essential hypertension - I10???Notes :His blood pressure is stable at 138/85. We discussed lifestyle modifications as a way to reduce his blood pressure. I recommended aggressive weight reduction and sodium restriction and physical activity.???7.?Right anterior shoulder pain - M25.511???Notes :He has a full-thickness tear of the infraspinatus and supraspinatus tendons.? He does not know how this happened.? He will go back to the orthopedic clinic to discuss treatment.???8.?Obesity (BMI 30-39.9) - E66.9???Notes :He has gained 3 pounds since his last visit. His appetite is good and I have discussed a strategy for weight loss with him.??? Plan: * Treatment: 2.?Benign prostatic hyperpla kaleb, unspecified whether lower urinary tract symptoms present? Continue Melatonin Tablet, 5 MG, 1 tablet in the evening, Orally, Once a day.?? 3.?Others? Continue Naproxen Tablet, 500 MG, TAKE 1 TABLET BY MOUTH TWICE DAILY WITH FOOD OR MILK NEEDED;?Continue Imbruvica Capsule, 140 MG, 2 tablet, Orally, Once a day.? Referral To:[facility]??Unknown ?Reason:non healing wound left danielle left danielle mild lymphedema * Procedure Codes:? * Preventive Medicine:? ??Counseling:?Care goal follow-up plan:?Counseling for abnormal BMI given?Yes ?Above Normal BMI Follow-up?Dietary management education, guidance, and counseling, Dietary needs education, Exercise promotion: strength training ?Smoking/Tobacco Use?Patient counseled on the dangers of tobacco use and urged to quit.?01/12/2024 * Follow Up:?4 Weeks (Reason: ov no tests) * Images: * Sign off status: Completed true * Provider:?Nicolás Bustos MD Date:?12/15 Generated for Printi ng/Dominiqueg/eTransmitting on:?03/24/2024 02:44 PM EST History and Physical Notes * HPI (History of Present Illness) Category Sub-Category Detail Notes COVID-19 Screening Questions Have you had any new onset fever, chills, cough, congestion, sore throat, shortness of breath, muscle aches?: No Have you been exposed to the virus withi n the last 10 days?: No Have you travelled internationally in [facility] last 10 days?: No Have you been [...] exam intact SKIN: no suspicious lesion s, anicteric PERIPHERAL PULSES: normal BREASTS: no masses palpable b ilaterally MUSCULOSKELETAL: On the anterior surf moon of the left danielle are 3 healing ulcers and one new 2 cm blister with intact skin there is only small amount of edema in the skin. There are no petechiae or bruises. LYMPH NODES: no enlarged lymph no ekya,spleen normal RECTAL EXAM: not examined PSYCH: alert, oriented ORAL CAVITY: normal, unremarkable Consultation Request Notes Referral Date Referring Provider Referred Provider Not es 01/12/2024 Nicolás Bustos Wound, c are center non healing wound left danielle left danielle mild lymphedema
--- OUTSIDE RECORDS SUMMARY | 2024-03-24 14:45 | XMS_ITS | Patient Health Record ---
Author Organization Nicolás Bustos III, MD Address [address] [facility] [place] [address] Care Team Providers Care Residue Furnace Operator Name Role Phone Nicolás Bustos Primary Care Provider Allergies Allergen (clinical drug ingredient) Drug/Non Drug Allergy documented on EMR Reaction Allergy Type Onset Date Status Adhesive rash Allergy Active povidone-iodine Betadine Rash Drug Allergy A ctive amoxicillin Amoxicillin Rash Drug Allergy Act jocelin Results Component Value Reference Range Notes URINE DIP STICK Reviewed date:05/01/2023 01:39:46 PM Interpretation: Performing Lab: Notes/Report: SG 1.010 1.005 - 1.025 pH 6.0 5.0 - 9.0 NATACHA Negative Negative - NIT Negative Negative - PRO Negative Negative - Trace GLU Negative Negative - KET Negative Negative - UBG 0.2 0.1 - 1.8 OMKAR Negative 0.2 - 1.3 BLD Negative Negative - Routine Culture Reviewed date:10/09/2023 08:58:18 PM Interpretation: Performing Lab:[facility], [address] [place] [phone] Notes/Report: Routine Culture No growth after 2 days Routine Culture Reviewed date:01/03/2024 08:39:28 AM Interpretation: Performing Lab:[facility], [address] [place] [phone] Notes/Report: Routine Culture Report - external Routine Culture 1+ SKIN DANIELLA O:STRAGA Strep agalactiae (Grp B) Routine Culture Quant Org ID Routine Culture 1+ Routine Culture Susc N/A Routine Culture Susceptibility not routinely performed on this isolate. Complete Blood Count Auto Di ff Reviewed date:04/26/2023 10:01:27 AM Interpretation: Performing Lab:[facility], [address] [place] [phone] Notes/Report: White Blood Count 9.7 4.8-10.8 X10*3/uL Red Blood Count 5.38 4.60-5.80 X10*6/uL Hemoglobin 16.3 14.0-18.0 g/dl Hematocrit 46.9 42.0-52.0 % Mean Corpuscular Volume 87.2 80.0-98.0 fL Mean Corpuscular Hemoglobin 30.3 27.0-33.0 pg Mean Corpuscular HGB Conc 34.8 31.0-36.0 g/dl Red Cell Distribution Width 13.4 11.0-16.0 % Platelet Count 222 160-400 X10*3/uL Mean Platelet Volume 10.9 9.4-12.4 fL Neutrophils Percent Auto 52.1 45-73 % Imm Gran Pct Auto 0.5 0.0-0.4 % Lymphocytes Percent Auto 34.3 20-40 % Monocytes Percent Auto 9.2 2-11 % Eosinophils Percent Auto 3.5 0-4 % Basophils Percent Auto 0.4 0-2 % NRBC Pct Auto 0.0 0.0-0.2 /100WBC Neutrophils Absolute Auto 5.1 2.0-8.3 x10*3/uL Imm Gran Abs Auto 0.05 0.00-0.03 X10*3/uL Lymphocytes Absolute Auto 3.3 1.2-4.9 X10*3/uL Monocytes Absolute Auto 0.9 0.1-1.2 X10*3/uL Eosinophils Absolute Auto 0.3 0.0-0.4 X10*3/uL Basophils Absolute Auto 0.0 0.0-0.2 X10*3/uL NRBC Abs Auto 0.000 0.0-0.012 X10*3/uL Comprehensive Rockfall. Panel Fa st Reviewed date:04/26/2023 10:01:27 AM Interpretation: Performing Lab:[facility], [address] [place] [address] Notes/Report: Sodium 140 135-145 mmol/L Potassium 4.5 3.3-5.1 mmol/L Chloride 105 96-108 mmol/L Carbon Dioxide 29 22-29 mmol/L Anion Gap 11 12-20 Blood Urea Nitrogen 19 9-16 mg/dL Creatinine 0.94 0.5-1.4 mg/dL Estimated Glomerular Filt Rate > 60 NOTE: For -[place] individuals, multiply the result by 1.210. Chronic Kidney Disease: Estimated GFR < 60 mL/min/1.73m2 Severe Kidney Disease: Estimated GFR < 15 mL/min/1.73m2 Glucose Fasting 100 60-99 mg/dL A fasting glucose from 100-125 mg/dl is considered impaired (pre-diabetes). Calcium 9.1 8.4-10.2 mg/dL Bilirubin Total 0.8 0.0-1.0 mg/dL Aspartate Amino Transferase 37 5-37 U/L Alanine Aminotransferase 36 0-40 U/L Total Protein 5.9 6.5-8.0 g/dL Albumin Level 4.1 3.5-5.0 g/dL Alkaline Phosphatase 106 39-117 U/L Lipid Panel Reviewed date:04/26/2023 10:01:27 AM Interpretation: Performing Lab:[facility], [address] [place] [phone] Notes/Report: Triglycerides 92 <150 mg/dL Desirable Triglyceride: less than 150 mg/dL Borderline High Triglyceride 150-199 mg/dL High Triglyceride: 200-499 mg/dL Very High Triglyceride: greater than or equal to 5OO mg/dL Cholesterol 186 <200 mg/dL Desirable Cholesterol: less than 200 mg/dL Borderline High Cholesterol: 200-239 mg/dL High Cholesterol: greater than 239 mg/dL LDL Cholesterol Calculated 95 <100 mg/dL Desirable LDL: less than 100 mg/dL Near Optimal/Above Optimal LDL: 110-129 mg/dL Borderline High LDL: 130-159 mg/dL High LDL: 160-189 mg/dL Very High LDL: greater than or equal to 190 mg/dL HDL Cholesterol 73 >40 mg/dL Desirable HDL: greater than 40 mg/dL Note: This HDL assay may give artificially low results in patients with liver disease. Beta-2 Microglobulin, Serum Reviewed date:04/26/2023 10:01:27 AM Interpretation: Performing Lab:[address] [phone] Notes/Report: Beta-2 Microglobulin, Serum 2.23 < OR = 2.51 mg/L THIS TEST WAS PERFORMED AT: [email or web address] [address] [place] [phone] KRYSTAL URBINA MD Protein Electrophoresis, Ser um Reviewed date:05/01/2023 08:45:05 AM Interpretation: Performing Lab:[facility], [address] [place] [phone] Notes/Report: Prot Elec - Total Protein 5.8 6.1-8.1 g/dL Prot Elec - Albumin 4.2 3.8-4.8 g/dL Prot Elec - Alpha1 0.2 0.2-0.3 g/dL Prot Elec - Alpha2 0.5 0.5-0.9 g/dL Prot Elec - Beta 1 0.4 0.4-0.6 g/dL Prot Elec - Beta 2 0.2 0.2-0.5 g/dL Prot Elec - Gamma 0.2 0.8-1.7 g/dL PES - Abn Protein Band 1 <0.2 NONE DE TECTED g/dL PES-Abn Protein Band 2 TNP PES-Abn Protein Band 3 TNP Prot Elec - Interpretation SEE NOTE Evaluation reveals a faint restricted band (M-spike) migrating in the gamma globulin region. If not already requested, Immunofixation should be considered. THIS TEST WAS PERFORMED AT: [email or web address] [address] [place] [phone] KRYSTAL URBINA MD Immunofixation Pnl, Serum Reviewed date:05/01/2023 08:45:05 AM Interpretation: Performing Lab:[facility], [address] [place] [phone] Notes/Report: IgG <381 172-0500 mg/dL IgA 13 70-320 mg/dL IgM 170 50-300 mg/dL THIS TEST WAS PERFORMED AT: [email or web address] [address] [place] [phone] KRYSTAL URBINA MD Immunofixation Interpretation SEE NOTE Faint IgM kappa monoclonal band present. Complete Blood Count Auto Di ff Reviewed date:07/21/2023 04:18:28 PM Interpretation: Performing Lab:[facility], [address] [place] [phone] Notes/Report: White Blood Count 8.0 4.8-10.8 X10*3/uL Red Blood Count 5.26 4.60-5.80 X10*6/uL Hemoglobin 16.3 14.0-18.0 g/dl Hematocrit 46.5 42.0-52.0 % Mean Corpuscular Volume 88.4 80.0-98.0 fL Mean Corpuscular Hemoglobin 31.0 27.0-33.0 pg Mean Corpuscular HGB Conc 35.1 31.0-36.0 g/dl Red Cell Distribution Width 13.8 11.0-16.0 % Platelet Count 198 160-400 X10*3/uL Mean Platelet Volume 12.1 9.4-12.4 fL Neutrophils Percent Auto 54.7 45-73 % Imm Gran Pct Auto 0.5 0.0-0.4 % Lymphocytes Percent Auto 31.3 20-40 % Monocytes Percent Auto 10.0 2-11 % Eosinophils Percent Auto 3.0 0-4 % Basophils Percent Auto 0.5 0-2 % NRBC Pct Auto 0.0 0.0-0.2 /100WBC Neutrophils Absolute Auto 4.4 2.0-8.3 x10*3/uL Imm Gran Abs Auto 0.04 0.00-0.03 X10*3/uL Lymphocytes Absolute Auto 2.5 1.2-4.9 X10*3/uL Monocytes Absolute Auto 0.8 0.1-1.2 X10*3/uL Eosinophils Absolute Auto 0.2 0.0-0.4 X10*3/uL Basophils Absolute Auto 0.0 0.0-0.2 X10*3/uL NRBC Abs Auto 0.000 0.0-0.012 X10*3/uL Comprehensive Rockfall. Panel Fa st Reviewed date:07/21/2023 04:18:28 PM Interpretation: Performing Lab:[facility], [address] [place] [address], [place] [address] Notes/Report: Sodium 141 135-145 mmol/L Potassium 4.3 3.3-5.1 mmol/L Chloride 106 96-108 mmol/L Carbon Dioxide 26 22-29 mmol/L Anion Gap 13 12-20 Blood Urea Nitrogen 16 9-16 mg/dL Creatinine 0.89 0.5-1.4 mg/dL Estimated Glomerular Filt Rate > 60 NOTE: For -[place] individuals, multiply the result by 1.210. Chronic Kidney Disease: Estimated GFR < 60 mL/min/1.73m2 Severe Kidney Disease: Estimated GFR < 15 mL/min/1.73m2 Glucose Fasting 91 60-99 mg/dL Calcium 9.2 8.4-10.2 mg/dL Bilirubin Total 0.8 0.0-1.0 mg/dL Aspartate Amino Transferase 31 5-37 U/L Alanine Aminotransferase 30 0-40 U/L Total Protein 5.9 6.5-8.0 g/dL Albumin Level 4.1 3.5-5.0 g/dL Alkaline Phosphatase 100 39-117 U/L Lipid Panel Reviewed date:07/21/2023 04:18:28 PM Interpretation: Performing Lab:[address] [phone] Notes/Report: Triglycerides 99 <150 mg/dL Desirable Triglyceride: less than 150 mg/dL Borderline High Triglyceride 150-199 mg/dL High Triglyceride: 200-499 mg/dL Very High Triglyceride: greater than or equal to 5OO mg/dL Cholesterol 172 <200 mg/dL Desirable Cholesterol: less than 200 mg/dL Borderline High Cholesterol: 200-239 mg/dL High Cholesterol: greater than 239 mg/dL LDL Cholesterol Calculated 75 <100 mg/dL Desirable LDL: less than 100 mg/dL Near Optimal/Above Optimal LDL: 110-129 mg/dL Borderline High LDL: 130-159 mg/dL High LDL: 160-189 mg/dL Very High LDL: greater than or equal to 190 mg/dL HDL Cholesterol 78 >40 mg/dL Desirable HDL: greater than 40 mg/dL Note: This HDL assay may give artificially low results in patients with liver disease. Prostate Specific Antigen Reviewed date:07/21/2023 04:18:28 PM Interpretation: Performing Lab:[address] [phone] Notes/Report: Prostate Specific Antigen 3.51 <0.05-4.0 ng/mL PSA methodology: Bryan Alinity i Chemiluminescent Microparticle Immunoassay (CMIA) Beta-2 Microglobulin, Serum Reviewed date:07/26/2023 07:24:28 AM Interpretation: Performing Lab:[address] [phone] Notes/Report: Beta-2 Microglobulin, Serum 2.14 < OR = 2.51 mg/L THIS TEST WAS PERFORMED AT: [email or web address] [address] [place] [phone] KRYSTAL URBINA MD Protein Electrophoresis, Ser um Reviewed date:07/29/2023 10:36:45 AM Interpretation: Performing Lab:[facility], [address] [place] [phone] Notes/Report: Prot Elec - Total Protein 5.6 6.1-8.1 g/dL Prot Elec - Albumin 4.0 3.8-4.8 g/dL Prot Elec - Alpha1 0.2 0.2-0.3 g/dL Prot Elec - Alpha2 0.5 0.5-0.9 g/dL Prot Elec - Beta 1 0.4 0.4-0.6 g/dL Prot Elec - Beta 2 0.2 0.2-0.5 g/dL Prot Elec - Gamma 0.2 0.8-1.7 g/dL PES - Abn Protein Band 1 <0.2 NONE DE TECTED g/dL PES-Abn Protein Band 2 TNP PES-Abn Protein Band 3 TNP Prot Elec - Interpretation SEE NOTE Evaluation reveals a faint restricted band (M-spike) migrating in the gamma globulin region. If not already requested, Immunofixation should be considered. THIS TEST WAS PERFORMED AT: [email or web address] [address] [place] [phone] KRYSTAL URBINA MD Immunofixation Pnl, Serum Reviewed date:07/29/2023 10:36:45 AM Interpretation: Performing Lab:[facility], [address] [place] [phone] Notes/Report: IgG 706 [address] mg/dL IgA 12 70-320 mg/dL IgM 161 50-300 mg/dL THIS TEST WAS PERFORMED AT: [email or web address] [address] [place] [phone] KRYSTAL URBINA MD Immunofixation Interpretation SEE NOTE Faint IgM kappa monoclonal band present. Gram stain Reviewed date:10/09/2023 08:58:18 PM Interpretation: Performing Lab:[facility], [address] [place] [phone] Notes/Report: Gram stain Gram stain results: Gram stain No polys Gram stain No organisms seen US venous duplex LE LT Reviewed date:10/07/2023 12:55:50 PM Interpretation: Performing Lab: Notes/Report: [address] [address] Ultrasound Report Signed Patient: Jose Powers MR#: [id number] : 1950 Acct:[id number] Age/Sex: 73 / M ADM Date: 10/07/23 Loc: HO.US Attending Dr: Nicolás Bustos MD Ordering Physician: Nicolás Bustos MD Date of Service: 10/07/23 Procedure(s): US venous duplex LE LT Accession Number(s): [id number] cc: Nicolás Bustos MD EXAMINATION: US VENOUS ULTRASOUND WITH DOPPLER LOWER EXTREMITY, LEFT CLINICAL INFORMATION: Leg swelling COMPARISON: 04/15/2018 TECHNIQUE: Ultrasound of the deep veins is performed from the hip to the calf with compression sonography and color and pulse Doppler assessment. Spectral analysis with color-flow imaging is performed. FINDINGS: The common femoral vein is compressible and exhibits a normal phasic waveform; this suggests that the iliac veins are widely patent above. Within the proximal thigh, the visualized profunda femoris vein is normal. The examined greater saphenous vein and saphenofemoral junction are normal. Superficial femoral vein is patent in the proximal, mid and distal thigh. Popliteal vein is normal to the level of the trifurcation. On compression de paz scale and color Doppler images, the visualized posterior tibial and peroneal veins of the calf are patent. No evidence of Moss's cyst. US/US venous duplex LE LT IMPRESSION: No evidence of deep vein thrombosis in the left lower extremity. Dictated By: Dino Gallegos MD Signed By: <Electronically signed by Dino Gallegos MD in OV> 10/07/23 1127 DD/ 1030 TD/TT: Supervisor [employer]: [address] [address] Ultrasound Report Signed Patient: Jose Powers MR#: [id number] : 1950 Acct:[id number] Age/Sex: 73 / M ADM Date: 10/07/23 Loc: HO.US Attending Dr: Nicolás Bustos MD Ordering Physician: Nicolás Bustos MD Date of Service: 10/07/23 Procedure(s): US cris ous duplex LE LT Accession Number(s): [id number] cc: Nicolás Bustos MD EXAMINATION: US VENOUS ULTRASOUND WITH DOPPLER LOWER EXTREMITY, LEFT CLINICAL INFORMATION: Leg swelling COMPARISON: 04/15/2018 TECHNIQUE: Ultrasound of the de ep veins is performed from the hip to the calf with compression sonograp hy and color and pulse Doppler assessment. Spectral analysis with color- flow imaging is performed. FINDINGS: The common femoral v ein is compressible and exhibits a normal phasic waveform; this sugge sts that the iliac veins are widely patent above. Within the proximal thigh, the visualized profunda femoris vein is normal. The examined greater saphenous vein and saphenofemoral junction are normal. Superficial femoral vein is patent in the proximal, mid and distal thigh. Popliteal vei n is normal to the level of the trifurcation. On compression de paz sca le and color Doppler images, the visualized posterior tibial and peroneal veins of the calf are patent. No evidence of Moss's cyst. U S/US venous duplex LE LT IMPRESSION: No evidence of deep vein thrombosis in the left lower extremity. Dictated By: Dino Gallegos MD Signed By: <Electronically signed by Dino Gallegos MD in OV> 10/07/23 1127 DD/ 1030 TD/TT: Medical Coordinator Pesticide Use ist: PD Complete Blood Count Auto Di ff Reviewed date:10/28/2023 10:22:37 AM Interpretation: Performing Lab:[facility], [address] [place] [phone] Notes/Report: White Blood Count 7.1 4.8-10.8 X10*3/uL Red Blood Count 4.79 4.60-5.80 X10*6/uL Hemoglobin 14.6 14.0-18.0 g/dl Hematocrit 42.1 42.0-52.0 % Mean Corpuscular Volume 87.9 80.0-98.0 fL Mean Corpuscular Hemoglobin 30.5 27.0-33.0 pg Mean Corpuscular HGB Conc 34.7 31.0-36.0 g/dl Red Cell Distribution Width 13.2 11.0-16.0 % Platelet Count 214 160-400 X10*3/uL Mean Platelet Volume 11.8 9.4-12.4 fL Neutrophils Percent Auto 50.3 45-73 % Imm Gran Pct Auto 0.6 0.0-0.4 % Lymphocytes Percent Auto 34.7 20-40 % Monocytes Percent Auto 11.0 2-11 % Eosinophils Percent Auto 3.0 0-4 % Basophils Percent Auto 0.4 0-2 % NRBC Pct Auto 0.0 0.0-0.2 /100WBC Neutrophils Absolute Auto 3.6 2.0-8.3 x10*3/uL Imm Gran Abs Auto 0.04 0.00-0.03 X10*3/uL Lymphocytes Absolute Auto 2.5 1.2-4.9 X10*3/uL Monocytes Absolute Auto 0.8 0.1-1.2 X10*3/uL Eosinophils Absolute Auto 0.2 0.0-0.4 X10*3/uL Basophils Absolute Auto 0.0 0.0-0.2 X10*3/uL NRBC Abs Auto 0.000 0.0-0.012 X10*3/uL Comprehensive Rockfall. Panel Fa st Reviewed date:10/28/2023 10:22:37 AM Interpretation: Performing Lab:[facility], [address] [place] [phone] Notes/Report: Sodium 140 135-145 mmol/L Potassium 4.5 3.3-5.1 mmol/L Chloride 103 96-108 mmol/L Carbon Dioxide 27 22-29 mmol/L Anion Gap 15 12-20 Blood Urea Nitrogen 13 9-16 mg/dL Creatinine 0.99 0.5-1.4 mg/dL Estimated Glomerular Filt Rate > 60 NOTE: For -[place] individuals, multiply the result by 1.210. Chronic Kidney Disease: Estimated GFR < 60 mL/min/1.73m2 Severe Kidney Disease: Estimated GFR < 15 mL/min/1.73m2 Glucose Fasting 103 60-99 mg/dL A fasting glucose from 100-125 mg/dl is considered impaired (pre-diabetes). Calcium 8.8 8.4-10.2 mg/dL Bilirubin Total 0.6 0.0-1.0 mg/dL Aspartate Amino Transferase 34 5-37 U/L Alanine Aminotransferase 32 0-40 U/L Total Protein 5.5 6.5-8.0 g/dL Albumin Level 3.9 3.5-5.0 g/dL Alkaline Phosphatase 123 39-117 U/L Lipid Panel Reviewed date:10/28/2023 10:22:37 AM Interpretation: Performing Lab:[facility], [address] [place] [phone] Notes/Report: Triglycerides 84 <150 mg/dL Desirable Triglyceride: less than 150 mg/dL Borderline High Triglyceride 150-199 mg/dL High Triglyceride: 200-499 mg/dL Very High Triglyceride: greater than or equal to 5OO mg/dL Cholesterol 162 <200 mg/dL Desirable Cholesterol: less than 200 mg/dL Borderline High Cholesterol: 200-239 mg/dL High Cholesterol: greater than 239 mg/dL LDL Cholesterol Calculated 79 <100 mg/dL Desirable LDL: less than 100 mg/dL Near Optimal/Above Optimal LDL: 110-129 mg/dL Borderline High LDL: 130-159 mg/dL High LDL: 160-189 mg/dL Very High LDL: greater than or equal to 190 mg/dL HDL Cholesterol 67 >40 mg/dL Desirable HDL: greater than 40 mg/dL Note: This HDL assay may give artificially low results in patients with liver disease. Prostate Specific Antigen Reviewed date:10/28/2023 10:22:37 AM Interpretation: Performing Lab:[facility], [address] [place] [phone] Notes/Report: Prostate Specific Antigen 5.67 <0.05-4.0 ng/mL PSA methodology: Bryan Alinity i Chemiluminescent Microparticle Immunoassay (CMIA) Protein Electrophoresis, Ser um Reviewed date:10/28/2023 10:22:37 AM Interpretation: Performing Lab:[facility], [address] [place] [phone] Notes/Report: Prot Elec - Total Protein 5.2 6.1-8.1 g/dL Prot Elec - Albumin 3.7 3.8-4.8 g/dL Prot Elec - Alpha1 0.2 0.2-0.3 g/dL Prot Elec - Alpha2 0.5 0.5-0.9 g/dL Prot Elec - Beta 1 0.4 0.4-0.6 g/dL Prot Elec - Beta 2 0.2 0.2-0.5 g/dL Prot Elec - Gamma 0.2 0.8-1.7 g/dL PES - Abn Protein Band 1 <0.2 NONE DE TECTED g/dL PES-Abn Protein Band 2 TNP PES-Abn Protein Band 3 TNP Prot Elec - Interpretation SEE NOTE Evaluation reveals a faint restricted band (M-spike) migrating in the gamma globulin region. If not already requested, Immunofixation should be considered. THIS TEST WAS PERFORMED AT: [email or web address] [address] [place] [phone] KRYSTAL URBINA MD Immunofixation Pnl, Serum Reviewed date:10/28/2023 10:22:37 AM Interpretation: Performing Lab:[facility], [address] [place] [phone] Notes/Report: IgG 91 600-1540 mg/dL Verified by r epeat analysis. IgA 11 70-320 mg/dL IgM 136 50-300 mg/dL THIS TEST WAS PERFORMED AT: [email or web address] [address] [place] [phone] KRYSTAL URBINA MD Immunofixation Interpretation SEE NOTE Faint IgM kappa monoclonal band present. PSA Free and Total Reviewed date:11/01/2023 07:00:19 AM Interpretation: Performing Lab:[facility], [address] [place] [phone] Notes/Report: Prostate Specific Ag Total 4.7 < OR = 4.0 ng/mL Percent Free Prostate Spec Ag 11 >25 % (calc) PSA(ng/mL) Free PSA(%) Estimated(x) Probability of Cancer(as%) 0-2.5 (*) Approx. 1 2.6-4.0(1) 0-27(2) 24(3) 4.1-10(4) 0-10 56 11-15 28 16-20 20 21-25 16 >or =26 8 >10(+) N/A >50 References:(1)Lesly a et al.:Urology 60: 469-474 (2002) (2)Fatmata et al.:J.Urol 168: 922-925 (2002) Free PSA(%) Sensitivity(%) Specificity(%) < or = 25 85 19 < or = 30 93 9 (3)Catalona et al.:PAULO 277: 0820-0600 (1996) (4)Catalona et al.:PAULO 279: 0631-6582 (1997) (x)These estimates vary with age, ethnicity, family history and KUMAR results. (*)The diagnostic usefulness of % Free PSA has not been established in patients with total PSA below 2.6 ng/mL (+)In men with PSA above 10 ng/mL, prostate cancer risk is determined by total PSA alone. The Total PSA value from this assay system is standardized against the equimolar PSA standard. The test result will be approximately 20% higher when compared to the WHO-standardized Total PSA (Siemens assay). Comparison of serial PSA results should be interpreted with this fact in mind. PSA was performed using the Bowen [place] Immunoassay method. Values obtained from different assay methods cannot be used interchangeably. PSA levels, regardless of value, should not be interpreted as absolute evidence of the presence or absence of disease. 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 COMPARISON: 03/24/2022 TECHNIQUE: 2 views of the chest were obtained. FINDINGS: The lungs are well expanded. No focal consolidation. No pleural effusion. Cardiac silhouette is unchanged. XR/XR chest 2V IMPRESSION: No acute abnormality. 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 COMPARISON: 03/24/2022 TECHNIQUE: 2 views of the chest were obtained. FINDINGS: The lungs are well expanded. No focal consolidation. No pleural effusion. Cardiac silhouette is unchanged. X R/XR chest 2V IMPRESSION: No acute abnormality. Dictated By: Shayna Hernandez MD Signed By: <Electronically signed by Sahyna Hernandez MD in OV> 10/28/23 1249 DD/ 1118 TD/TT: Supervisor [employer]: CT abdomen pelvis w con Reviewed date:11/11/2023 11:21:50 AM Interpretation: Performing Lab: Notes/Report: [address] [address] [address] Scan Report Signed Patient: Jose Powers MR#: [id number] : 1950 Acct:[id number] Age/Sex: 73 / M ADM Date: 11/02/23 Loc: HO.CT Attending Dr: Nicolás Bustos MD Ordering Physician: Nicolás Bustos MD Date of Service: 11/02/23 Procedure(s): CT abdomen pelvis w IV con Accession Number(s): [id number] cc: Nicolás Bustos MD EXAMINATION: CT ABDOMEN AND PELVIS WITH CONTRAST CLINICAL INFORMATION: Restaging of lymphoma. Left lower extremity swelling. Question obstruction of iliac vessels. COMPARISON: CT abdomen and pelvis from 03/24/2022. TECHNIQUE: Multidetector volumetric images were obtained from the superior aspect of the liver through the pubic symphysis following administration 85 mL of Omnipaque 350 intravenous contrast. Sagittal and coronal reformatted images were obtained on the technologist's workstation. Oral contrast: not given. This CT examination was performed using dose optimization techniques as appropriate, variously including the following: *Automated exposure control *Adjustment of mA and/or kV according to patient size (this includes techniques or standardized protocols for targeted exams where dose is matched to indication/reason for exam; i.e. extremities or head) *Use of iterative reconstruction technique DLP: 743 mGy-cm FINDINGS: LUNG BASES: Chronic stable reticulation in the periphery of the visualized lung bases. No focal consolidation or pleural effusion. No subpleural honeycombing. 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 HEPATOBILIARY: Liver has normal size, shape, and attenuation. No liver mass. Gallbladder has a normal appearance. No dilated bile ducts. PANCREAS: No edema, pancreatic ductal dilatation or mass. SPLEEN: Normal. ADRENAL GLANDS: Normal. KIDNEYS AND URETERS: Kidneys are normal in size and enhance symmetrically. No renal mass, nephrolithiasis or hydronephrosis. BLADDER: Normal. BOWEL AND PERITONEUM: Stomach and small bowel are unremarkable. No dilated loops. The appendix is normal. Scattered diverticula of the colon without evidence of diverticulitis. No overt colonic wall thickening or mesenteric fat stranding. No free fluid or pneumoperitoneum. ABDOMINAL WALL: Unremarkable. VASCULATURE: Mild atherosclerosis of the abdominal aorta without aneurysm. Inferior vena cava is normal. There is no evidence of caval or iliac vein thrombosis. Also, there is no pelvic mass or lymphadenopathy compressing vessels in the pelvis. LYMPH NODES: No suspicious enlarging lymph nodes. There are no pathologic sized lymph nodes. A retroperitoneal lymph node of 0.7 cm short axis dimension is unchanged (image 317, series 4). A left external iliac lymph node of 0.8 cm short axis dimension is unchanged. PELVIC VISCERA: Prostate gland is mildly enlarged and measures 5 cm transverse. No pelvic free fluid. MUSCULOSKELETAL: No acute or suspicious osseous abnormality. There are hemangiomas of the T10 and T11 vertebral bodies. Severe facet arthropathy, vacuum disc change and grade 1 anterolisthesis at L3-L4. Also, severe facet arthropathy, vacuum disc degenerative phenomenon and minimal anterolisthesis at L5-S1. Mild osteoarthritis of the hips. CT/CT abdomen pelvis w IV con IMPRESSION: * No imaging evidence of active lymphoma. No pathologic sized lymph nodes or splenomegaly. * The nonspecific interstitial disease in the visualized lower lung zones is unchanged compared to 03/24/2022. * No evidence of pelvic mass. There is no soft tissue lesion compressing iliac vessels. Dictated By: Dino Gallegos MD Signed By: <Electronically signed by Dino Gallegos MD in OV> 11/02/23 1548 DD/ 1419 TD/TT: Supervisor [employer]el: [place] [address] CT Scan Report Signed Patient: Jose Powers MR#: [id number] : 1950 Acct:[id number] Age/Sex: 73 / M ADM Date: 11/02/23 Loc: HO.CT Attending Dr: Nicolás Bustos MD Ordering Physician: Nicolás Bustos MD Date of Service: 11/02/23 Procedure(s): CT abd omen pelvis w IV con Accession Number(s): [id number] cc: Nicolás Bustos MD EXAMINATION: CT ABDOMEN AND PELVI S WITH CONTRAST CLINICAL INFORMATION: Restaging of lymphom a. Left lower extremity swelling. Question obstruction of iliac vessels. COMPARISON: CT abdomen and pelvi s from 03/24/2022. TECHNIQUE: Multidetector volume tric images were obtained from the superior aspect of the liver through the pubic symphysis following administration 85 mL of Omnipaque 350 intravenous contrast. Sagittal and coronal reformatted images were obtained on the technologist's workstation. Oral contrast: not given. This CT examination was performed using dose optimization techniques as appropriate, various ly including the following: *Automated exposure control *Adjustment of mA an d/or kV according to patient size (this includes techniques or standardized protocols for targeted exams where dose is matched to indication/reason for exam; i.e. extremities or head) *Use of iterative reconstruction technique DLP: 743 mGy-cm FINDINGS: LUNG BASES: Chronic stable reticulation in the periphery of the visualized lung base s. No focal consolidation or pleural effusion. No subpleural honeycomb ing. There is an old stable lipoma of the lateral right serratus anter ior muscle. HEPATOBILIARY: Liver has normal size, shape, and attenuation. No liver mass. Gallbladder carpio s a normal appearance. No dilated bile ducts. PANCREAS: No edema, pancreatic ductal dilatation or mass. SPLEEN: Normal. ADRENAL GLANDS: Normal. KIDNEYS AND URETERS: Kidneys are normal in size and enhance symmetrically. No re nal mass, nephrolithiasis or hydronephrosis. BLADDER: Normal. BOWEL AND PERITONEUM : Stomach and small bowel are unremarkable. No dilated loops. The appendix is normal. Scattered diverticula of the colon without eviden ce of diverticulitis. No overt colonic wall thickening or mesent cele fat stranding. No free fluid or pneumoperitoneum. ABDOMINAL WALL: Unremarkable. VASCULATURE: Mild atherosclerosis of the abdominal aorta without aneurysm. Inferior v catherine cava is normal. There is no evidence of caval or iliac vein thrombosis. Also, there is no pelvic mass or lymphadenopathy compressing vessels in the pelvis. LYMPH NODES: No suspicious enlarging lymph nodes. There are no pathologic sized lym ph nodes. A retroperitoneal lymph node of 0.7 cm short axis dimension is unchanged (image 317, series 4). A left external iliac lymph node of 0.8 cm short axis dimension is unchanged. PELVIC VISCERA: Pros scott gland is mildly enlarged and measures 5 cm transverse. No pelvi c free fluid. MUSCULOSKELETAL: No acute or suspicious osseous abnormality. There are hemangiomas of the T 10 and T11 vertebral bodies. Severe facet arthropathy, vacuum disc change and grade 1 anterolisthesis at L3-L4. Also, severe facet arthropathy, vacuum disc degenerative phenomenon and minimal anterolisthe sis at L5-S1. Mild osteoarthritis of the hips. C T/CT abdomen pelvis w IV con IMPRESSION: * No imaging evidenc e of active lymphoma. No pathologic sized lymph nodes or splenomegaly. * The nonspecific interstitial disease in the visualized lower lung zones is unchanged compared to 03/24/2022. * No evidence of pel yolande mass. There is no soft tissue lesion compressing iliac vessels. Dictated By: Dino Gallegos MD Signed By: <Electronically signed by Dino Gallegos MD in OV> 11/02/23 1548 DD/ 1419 TD/TT: Medical Coordinator Pesticide Use ist: PD Gram stain Reviewed date:01/03/2024 08:39:28 AM Interpretation: Performing Lab:[facility], [address] [place] [id number] Notes/Report: Gram stain Gram stain results: Gram stain No polys Gram stain 2+ epithelial cells Gram stain No organisms seen MR shoulder RT wo con Reviewed date:01/11/2024 09:22:44 AM Interpretation: Performing Lab: Notes/Report: [address] [place] [address] Magnetic Resonance Report Signed Patient: Jose Powers MR#: [id number] : 1950 Acct:[id number] Age/Sex: 73 / M ADM Date: 01/01/24 Loc: .MRI Attending Dr: Sergio Davila MD Ordering Physician: Sergio Davila MD Date of Service: 01/01/24 Procedure(s): MR shoulder RT wo con Accession Number(s): [id number] cc: Nicolás Bustos MD; Sergio Davila MD EXAMINATION: MR SHOULDER WITHOUT CONTRAST, RIGHT CLINICAL INFORMATION: Right shoulder pain. Preoperative evaluation. Evaluate for rotator cuff tendon tear. COMPARISON: Right shoulder MRI dated 11/09/2017. TECHNIQUE: MRI of the shoulder without contrast was performed on a high-field scanner. FINDINGS: ROTATOR CUFF: Complete, full-thickness supraspinatus and infraspinatus tendon tears, increased when compared to the prior MRI. Tearing measures approximately 5.3 x 7.1 cm (AP x ML) with retraction of the torn tendon fibers proximal to the glenohumeral articulation. Severe supraspinatus and infraspinatus muscle atrophy. Full-thickness partial tear of the subscapularis tendon with thin inferior tendon fibers remaining intact. Moderate subscapularis muscle atrophy. BICEPS: Heterogeneity and irregularity of the intra-articular long head biceps tendon, consistent with tendinosis and longitudinal partial tearing. CORACOACROMIAL ARCH: The undersurface of the acromion is flat with undersurface bony remodeling and subacromial spurring. Severe acromioclavicular osteoarthritis. LABRUM/CAPSULE: Blunting through the periphery of the superior labrum, consistent with peripheral tearing. Intact inferior joint capsule. GLENOHUMERAL JOINT/MARROW: Chronic superior subluxation of the humeral head related to the rotator cuff tendon tears. Diffuse glenohumeral articular cartilage signal heterogeneity with marginal osteophytes. Small joint effusion with mild synovitis. Degenerative cystic change at the posterior aspect of the humeral head. MR/MR shoulder RT wo con IMPRESSION: 1. Complete, full-thickness tears of the supraspinatus and infraspinatus tendons with retraction of the torn tendon fibers proximal to the glenohumeral articulation. Full-thickness partial tear of the subscapularis tendon with thin inferior tendon fibers remaining intact. Moderate subscapularis muscle atrophy. 2. Intra-articular long head biceps tendinosis and longitudinal partial tearing. 3. Severe acromioclavicular osteoarthritis with undersurface bony remodeling and subacromial spurring. 4. Peripheral tearing through the periphery of the superior labrum. 5. Chronic superior subluxation of the humeral head related to the rotator cuff tendon tears. Gzsr-fq-fqhwpwdv glenohumeral osteoarthritis. Small joint effusion with mild synovitis. Electronically signed by: Munir Pardo MD 01/10/2024 03:35 PM EDT Dictated By: Munir Pardo MD Signed By: <Electronically signed by Munir Pardo MD in OV> 01/10/24 1535 DD/ 0800 TD/TT: 01/01/24 0839 [employer]: [place] [address] Magnetic Resonance Report Signed Patient: Jose Powers MR#: [id number] : 1950 Acct:[id number] Age/Sex: 73 / M ADM Date: 01/01/24 Loc: HO.MRI Attending Dr: Sergio Davila MD Ordering Physician: Sergio Davila MD Date of Service: 01/01/24 Procedure(s): MR shoulder RT wo con Accession Number(s): [id number] cc: Nicolás Bustos MD; Sergio Davila MD EXAMINATION: MR SHOULDER WITHOUT CONTRAST, RIGHT CLINICAL INFORMATION: Right shoulder pain. Preoperative evaluation. Evaluate for rotator cuff tendon tear. COMPARISON: Right shoulder MRI d ated 11/09/2017. TECHNIQUE: MRI of the shoulder without contrast was performed on a high-field scanner. FINDINGS: ROTATOR CUFF: Comple te, full-thickness supraspinatus and infraspinatus tendon tears, increa sed when compared to the prior MRI. Tearing measures approximate ly 5.3 x 7.1 cm (AP x ML) with retraction of the torn tendon fibers proximal to the glenohumeral articulation. Severe supraspinatus and infraspinatus muscle atrophy. Full-thickness partial tear of the subscapularis tendon with thin inferior tendon fibers remaining intact. Moderate subscapularis muscle atrophy. BICEPS: Heterogeneit y and irregularity of the intra-articular long head biceps tendon, consistent with tendinosis and longitudinal partial tearing. CORACOACROMIAL ARCH: The undersurface of the acromion is flat with undersurface bony remodeling and subacromial spurring. Severe acromioclavicular osteoarthritis. LABRUM/CAPSULE: Blun ting through the periphery of the superior labrum, consistent with peripheral tearing. Intact inferior joint capsule. GLENOHUMERAL JOINT/MARROW: Chronic superior subluxation of the humeral head related to the rotator cuff tendon tears. Diffuse glenohumeral articular cartilage signal heterogeneity with marginal osteophytes. Small joint effusion with mild synovitis. Degenerative cystic change at the posterior aspect of the humeral head. M R/MR shoulder RT wo con IMPRESSION: 1. Complete, full-thickness tears of the supraspinatus and infraspinatus tendon s with retraction of the torn tendon fibers proximal to the glenohumeral articulation. Full-thickness partial tear of the subscapularis tendon with thin inferior tendon fibers remaining intact. Moderate subscapularis muscle atrophy. 2. Intra-articular l troy head biceps tendinosis and longitudinal partial tearing. 3. Severe acromioclavicular osteoarthritis with undersurface bony remodeling and subacromial spurring. 4. Peripheral tearin g through the periphery of the superior labrum. 5. Chronic superior subluxation of the humeral head related to the rotator cuff tendon tears. Jnjm-ti-nnivksma glenohumeral osteoarthritis. Smal l joint effusion with mild synovitis. Electronically martha d by: Munir Pardo MD 01/10/2024 03:35 PM EDT [id number] Dictated By: Munir Pardo MD Signed By: <Electronically signed by Munir Pardo MD in OV> 01/10/24 1535 DD/ 0800 TD/TT: 01/01/24 0839 Supervisor [employer]el: CT shoulder RT wo con Reviewed date:01/11/2024 09:22:44 AM Interpretation: Performing Lab: Notes/Report: [address] [address] [address] Scan Report Signed Patient: Jose Powers MR#: [id number] : 1950 Acct:[id number] Age/Sex: 73 / M ADM Date: 01/08/24 Loc: HO.CT Attending Dr: Sergio Davila MD Ordering Physician: Sergio Davila MD Date of Service: 01/08/24 Procedure(s): CT shoulder RT wo IV con Accession Number(s): [id number] cc: Nicolás Bustos MD; Sergio Davila MD EXAMINATION: CT SHOULDER WITHOUT CONTRAST, RIGHT CLINICAL INFORMATION: Osteoarthritis. Pain. Preoperative evaluation. COMPARISON: Right shoulder MRI dated 01/01/2024. TECHNIQUE: Contiguous axial CT images of the right shoulder were obtained without contrast. Multiplanar reformats were provided and reviewed. This CT examination was performed using dose optimization techniques as appropriate, variously including the following: *Automated exposure control *Adjustment of mA and/or kV according to patient size (this includes techniques or standardized protocols for targeted exams where dose is matched to indication/reason for exam; i.e. extremities or head) *Use of iterative reconstruction technique DLP: 466 mGy-cm FINDINGS: Visualized right lung: Unremarkable. Bone/joint: No acute fracture or dislocation. Chronic superior subluxation of the humeral head related to the underlying rotator cuff tendon tear. Bony remodeling of the acromial undersurface. Glenohumeral joint space narrowing with marginal osteophytes. Kyloehan-gt-cslasj acromioclavicular osteoarthritis. No concerning lytic or blastic osseous lesion. Glenoid version: No glenoid bony remodeling or glenoid retroversion. Estimated depth of the glenoid vault: Approximately 2.1 cm. Glenoid morphology: Walch Type A2 Joint fluid/bursa/soft tissues: Small glenohumeral joint effusion. Complete, full-thickness tears of the supraspinatus and infraspinatus tendons with associated muscle atrophy. Rotator cuff tendon is better evaluated on the prior shoulder MRI. CT/CT shoulder RT wo IV con IMPRESSION: 1. Complete, full-thickness tears of the supraspinatus and infraspinatus tendons with associated muscle atrophy. 2. Chronic superior subluxation of the humeral head related to the underlying rotator cuff tendon tear. 3. Moderate glenohumeral osteoarthritis and boasxvlo-sc-iszcwu acromioclavicular osteoarthritis. Electronically signed by: Munir Pardo MD 01/10/2024 03:49 PM EDT RP Workstation: [id number] Dictated By: Munir Pardo MD Signed By: <Electronically signed by Munir Pardo MD in OV> 01/10/24 1549 DD/ 1341 TD/TT: 01/08/24 1400 Supervisor [employer]el: [place] [address] CT Scan Report Signed Patient: Jose Powers MR#: [id number] : 1950 Acct:[id number] Age/Sex: 73 / M ADM Date: 01/08/24 Loc: HO.CT Attending Dr: Sergio Davila MD Ordering Physician: Sergio Davila MD Date of Service: 01/08/24 Procedure(s): CT shoulder RT wo IV con Accession Number(s): [id number] cc: Nicolás Bustos MD; Sergio Davila MD EXAMINATION: CT SHOULDER WITHOUT CONTRAST, RIGHT CLINICAL INFORMATION: Osteoarthritis. Pain . Preoperative evaluation. COMPARISON: Right shoulder MRI d ated 01/01/2024. TECHNIQUE: Contiguous axial CT images of the right shoulder were obtained without contrast. Multiplana r reformats were provided and reviewed. This CT examination was performed using dose optimization techniques as appropriate, various ly including the following: *Automated exposure control *Adjustment of mA an d/or kV according to patient size (this includes techniques or standardized protocols for targeted exams where dose is matched to indication/reason for exam; i.e. extremities or head) *Use of iterative reconstruction technique DLP: 466 mGy-cm FINDINGS: Visualized right shauna g: Unremarkable. Bone/joint: No acute fracture or dislocation. Chronic superior subluxation of the humeral head related to the underlying rotator cuff tendon tear. Bony remodeling of the acromial undersurface. Glenohumeral joint space narrowin g with marginal osteophytes. Qqlzxvmj-tp-rpgxpz acromioclavicular osteoarthritis. No concerning lytic or blastic osseous lesion. Glenoid version: No glenoid bony remodeling or glenoid retroversion. Estimated depth of t he glenoid vault: Approximately 2.1 cm. Glenoid morphology: Walch Type A2 Joint fluid/bursa/so ft tissues: Small glenohumeral joint effusion. Complete, full-thick ness tears of the supraspinatus and infraspinatus tendons with associa cezar muscle atrophy. Rotator cuff tendon is better evaluated on the francisco or shoulder MRI. C T/CT shoulder RT wo IV con IMPRESSION: 1. Complete, full-thickness tears of the supraspinatus and infraspinatus tendon s with associated muscle atrophy. 2. Chronic superior subluxation of the humeral head related to the underlying rotator c uff tendon tear. 3. Moderate glenohum eral osteoarthritis and pmcylqcx-xa-moydyy acromioclavicular osteoarthritis. Electronically martha d by: Munir Pardo MD 01/10/2024 03:49 PM EDT Dictated By: Munir Pardo MD Signed By: <Electronically signed by Munir Pardo MD in OV> 01/10/24 1549 DD/ 1341 TD/TT: 01/08/24 1400 Supervisor [employer]: Reason For Referral Reason Change of provider Evaluate and Treat Diagnosis 1 Atrial flutter (I48. 92) Diagnosis 2 Atrial fibrillation (I48.91) Referral Organization Nicolás Bustos III, MD Referring Provider First Name Nicolás Referring Provider Last Name Juli Referring Provider Speciality Internal M edicine Referred Provider Tyson Huynh [facility] Referred Provider Specialty Cardiology General Notes Margarita Davidson 2023 09:30:52 AM EST > Faxed with progress note, referral and progress note from commercial field inspector., Margarita Davidson 05/28/2023 04:03:39 PM EDT > Office is scheduling into August and September, Working on March-Apr referrals.Lety Amber 06/16/2023 03:21:42 PM EDT > Patient still has not been scheduled., Margarita Davidson 07/16/2023 02:39:27 PM EDT > Patient has not been scheduled as of yet, office has referral. Spoke with Addie Referral Priority Routine Referral Appointment Date 12/21/2023 Reason left swollen leg neg ative for DVT evaluate and treat Diagnosis 1 Peripheral neuropath y (G62.9) Diagnosis 2 Left leg swelling (M 79.89) Referral Organization Nicolás Bustos III, MD Referring Provider First Name Nicolás Referring Provider Last Name Bustos Referring Provider Speciality Internal edicine Referred Organization [facility] nt Referred Provider Dillon White Referred Address [address] [place] [address],[place], [id number], Referred Provider Specialty Vascular Chang juice General Notes StGTrina navarro CM 11/11/2023 02:07:41 PM EDT > ref/demo/progress note/labs/x rays faxed to Dr White office, Margarita Davidson 11/24/2023 02:23:28 PM > Patient will be seen by Dr. White on 01/28/2024 @ 2:30pm Referral Priority Routine Referral Appointment Date 01/28/2024 Reason elevated PSA with Fr ee PSA = 11 evaluate and treat Diagnosis 1 Elevated PSA (R97.20 ) Diagnosis 2 Benign prostatic hyp erplasia, unspecified whether lower urinary tract symptoms present (N40.0) Referral Organization Nicolás Bustos III, MD Referring Provider First Name Nicolás Referring Provider Last Name Bustos Referring Provider Speciality Internal edicine Referred Provider [facility] er, Urology Referred Provider Specialty Urology General Notes Trina Nguyen CM 11/11/2023 02:05:52 PM EDT > ref/demo/progress note/labs faxed to [facility] urology office , Margarita Davidson 11/19/2023 02:18:27 PM EDT >ref/demo/progress note/labs faxed to [facility] urology office ., Margarita Davidson 11/24/2023 02:26:00 PM > Patient will be seen by the Nurse practioner on 01/18/24 @ 8am Referral Priority Routine Referral Appointment Date 01/18/2024 Reason severe right shoulde r pain Diagnosis 1 Acute pain of right shoulder (M25.511) Referral Organization Nicolás Bustos III, MD Referring Provider First Name Nicolás Referring Provider Last Name Bustos Referring Provider Speciality Internal M edicine Referred Provider SERGIO DAVILA Referred Provider Specialty Orthopedic S urgery General Notes Trina Nguyen CM 11/11/2023 10:05:54 AM EDT > referral/demo/progress note faxed to Dr Davila office Referral Priority Routine Referral Appointment Date 11/30/2023 Reason non healing wound le ft danielle left danielle mild lymphedema Diagnosis 1 Open wound (T14.8XXA ) Referral Organization Nicolás Bustos III, MD Referring Provider First Name Nicolás Referring Provider Last Name Juli Referring Provider Speciality Internal M edicine Referred Provider [facility] Referred Provider Specialty Unknown General Notes Trina Bueno CMA 01/11 10:37:56 AM > ref/demo/progress [facility] 01/15/2024 02:23:06 PM > [facility] calling stated they did not [...] Referral Priority Routine Referral Appointment Date 02/03/2024 Medications Medication SIG (Take, Route, Frequency, Duration) [...] even ing Orally Once a day Active Immunizations Vaccine Route Administration Date Status Comme nts Td (adult) Unknown 02/25/2010 Administered Tetanus and Diphtheria Toxoids Adsorbed IM Intramuscular 12/08/2019 Administered PCV13 Unknown 12/08/2017 Administered SHINGRIX Unknown 05/18/2018 Administered SHINGRIX Unknown 02/11/2018 Administered Social History Tobacco Use: Social History Observation Description Date Details (start date - stop date) Former Smoker NA - NA Sex Assigned At : Social History Observation Description Sex Assigned At Male Tobacco Use/Smoking Question Answer Notes Patient is a former smoker How long has it been since you last smoked? > 10 years Additional Findings: Tobacco Non-User Ex-cigaret te smoker Alcohol Screen Question Answer Notes Did you have a drink contain ing alcohol in the past year? Yes How often did you have a dri nk containing alcohol in the past year? 2 to 3 times a week (3 points) How many drinks did you have on a typical day when you were drinking in the past year? 1 or 2 drinks (0 point) How often did you have 6 or more drinks on one occasion in the past year? Never (0 point) Points 3 Interpretation Negative Problems Problem Type SNOMED Code ICD Code Onset Dates Problem Status W/U Status Risk Notes Problem 3991928 Former smoker (Z87.891) Active confirmed He is motivated not to smoke and we discussed maintenance of abstinence. Problem 321684768 Overweight (E66.3) Active confirmed We have discussed his diet and nutrition today. We reviewed his weight loss strategy. We made a plan to lose weight at a rate of one half of a pound per week through a diet restricted in calories. Problem 903168161207000 Obesity (BMI 30.0-34.9) (E66.9) Active confirmed His weight has been stable with a body mass index of 31. We have discussed his diet and nutrition at length. We have formulated a weight loss strategy. Problem 943734540 Lumbar radiculopathy (M54.16) Active confirmed He continues to have mild to moderate intermittent low back pain that radiates down both legs. Problem 308157181 Waldenstrom macroglobulinemi a (C88.0) Active confirmed His IgM level and viscosity are stable. He does not require additional treatment at this time.A repeat viscosity has been ordered Problem 33322533 Other chronic pain (G89.29) Active confirmed Problem Atelectasis (18937056) Atelectasis (J98.11) Active confirmed His most recent chest x-ray failed to show any atelectasis. Problem 116449193914189 Lumbago with sciatica, right side (M54.41) Active confirmed He continues to have intermittent chronic mild low back pain. Problem 218181395 Lumbago with sciatica, left side (M54.42) Active confirmed To low back pain that radiates down his legs is mild to moderate and occasional. Problem 00965471 Essential hypertension (I10) Active confirmed His blood pressure remained stable. No change in his regimen was made. Problem Peripheral neuropathy (020400738) Peripheral neuropathy (G62.9) Active confirmed His symptoms of tingling and numbness in the lower extremities are unchanged. He is stable in this respect and no additional treatment is needed. Problem [id number] Penicillin allergy (Z88.0) Active confirmed Problem Atrial fibrillation (50490280) Atrial fibrillation (I48.91) Active confirmed He is in a normal sinus rhythm today. His rate is controlled. Problem [id number] Malignant lymphoplasmacyti c lymphoma (C83.00) Active confirmed He remains stable with no sign of disease progression on physical examination metabolically or biochemically. He will be observed carefully. His viscosity is 1.4. The abnormal IgM protein is not detectable. The IgM level is in the normal range. His CBC is unremarkable. Problem 7435519 Atrial flutter (I48.92) Active confirmed He is in sinus rhythm today. He is taking metoprolol and flecainide. Problem Acquired diverticulum of esophagus (49146920) Esophageal diverticulum, acquired (K22.5) Active confirmed He has a Zenker's diverticulum in the upper esophagus which is likely the cause of his dysphagia. He was referred to a gastroenterolo gist. Problem 03100338 Dysphagia, unspecified type (R13.10) Active confirmed This has resolved. Problem Pure hypercholesterolem ia (918423862) Hyperlipidemia type II (E78.01) Active confirmed His fasting lipid profile has been ordered. No change in his regimen as needed. Problem 107794900 Elevated PSA (R97.20) Active confirmed The PSA was 5.67, but when it was repeated with a free PSA it was 4.7 with a free PSA of 11%. I have asked urology to evaluate him. Problem 173529544 Pure hypercholesterol emia (E78.00) Active confirmed Problem 836341803 Benign prostatic hyperplasia, unspecified whether lower urinary tract symptoms present (N40.0) Active confirmed He rises from sleep once a night to urinate. We have discussed lifestyle modifications he could make to reduce nocturia. Problem 27472621 Right anterior shoulder pain (M25.511) Active confirmed He has a full-thickness tear of the infraspinatus and supraspinatus tendons. He does not know how this happened. He will go back to the orthopedic clinic to discuss treatment. Problem Bilateral carpal tunnel syndrome ([id number] ) Bilateral carpal tunnel syndrome (G56.03) Active confirmed His symptoms are mild and he tolerates. No change in his regimen as needed today. Problem Dyspnea on exertion (26427685) Dyspnea on exertion (R06.00) Active confirmed He has been expperiencing worsening shortness of breath with exertion such as climbing a flight of stairs. He is a former smoker but has been abstinent for many years. The [facility] on was unremarkable. Pulmonary function tests have been ordered. This will be followed by a commode a consultation and a repeat office visit. 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 ; Overweight E66.3 ; Benign prostatic hyperplasia, unspecified whether lower urinary tract symptoms present N40.0 ; Hyperlipidemia type II E78.01 ; Dyspnea on exertion R06.00 and Former smoker Z87.891 Nicolás Bustos III, MD [address] [place] [address] [place] [address] 07/29/2023 Nicolás Bustos 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 ; Waldenstrom macroglobulinemia C88.0 ; Essential hypertension I10 ; Former smoker Z87.891 ; Bilateral carpal tunnel syndrome G56.03 ; Peripheral neuropathy G62.9 ; Dysphagia, unspecified type R13.10 ; Benign prostatic hyperplasia, unspecified whether lower urinary tract symptoms present N40.0 and Atrial fibrillation I48.91 Nicolás Bustos III, MD [address] [place] [address] [place] [address] 09/28/2023 Nicolás Bustos 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 ; Cellulitis of left lower extremity L03.116 ; Waldenstrom macroglobulinemia C88.0 ; Essential hypertension I10 ; Former smoker Z87.891 and Overweight E66.3 Nicolás Bustos III, MD [address] [place] [address] [place] [address] 10/07/2023 Nicolás Bustos 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 ; Leg swelling M79.89 ; Essential hypertension I10 ; Former smoker Z87.891 ; Lumbar radiculopathy M54.16 and Obesity (BMI 30.0-34.9) E66.9 Nicolás Bustos III, MD [address] [place] [address] [place] [address] 10/28/2023 Nicolás Bustos Benign prostatic hyperplasia, unspecified whether lower urinary tract symptoms present N40.0 ; 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 ; Edema of left lower extremity R60.0 ; Waldenstrom macroglobulinemia C88.0 ; Former smoker Z87.891 ; Essential hypertension I10 ; Overweight E66.3 ; Lumbar radiculopathy M54.16 ; Atrial fibrillation I48.91 and Elevated PSA R97.20 Nicolás Bustos III, MD [address] [place] [address] [place] [address] 11/11/2023 Nicolás Bustos 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 ; Benign prostatic hyperplasia, unspecified whether lower urinary tract symptoms present N40.0 ; Essential hypertension I10 ; Former smoker Z87.891 ; Atrial flutter I48.92 ; Hyperlipidemia type II E78.01 ; Elevated PSA R97.20 ; Right anterior shoulder pain M25.511 and Obesity (BMI 30-39.9) E66.9 Nicolás Bustos III, MD [address] [place] [address] [place] [address] 11/25/2023 Nicolás Bustos 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 ; Benign prostatic hyperplasia, unspecified whether lower urinary tract symptoms present N40.0 ; Essential hypertension I10 ; Former smoker Z87.891 ; Lumbar radiculopathy M54.16 ; Overweight E66.3 ; Atrial flutter I48.92 ; Elevated PSA R97.20 ; Obesity (BMI 30.0-34.9) E66.9 and Edema of left lower extremity R60.0 Nicolás Bustos III, MD [address] [place] [address] [place] [address] 12/29/2023 Nicolás Bustos 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 ; Benign prostatic hyperplasia, unspecified whether lower urinary tract symptoms present N40.0 ; Wound of left lower extremity, initial encounter S81.802A ; Former smoker Z87.891 ; Waldenstrom macroglobulinemia C88.0 ; Essential hypertension I10 and Obesity (BMI 30-39.9) E66.9 Nicolás Bustos III, MD [address] [place] [address] [place] [address] 01/12/2024 Nicolás Bustos 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 ; Benign prostatic hyperplasia, unspecified whether lower urinary tract symptoms present N40.0 ; Former smoker Z87.891 ; Elevated PSA R97.20 ; Atrial fibrillation I48.91 ; Essential hypertension I10 ; Right anterior shoulder pain M25.511 and Obesity (BMI 30-39.9) E66.9 Nicolás Bustos III, MD [address] [place] [address] [place] [address] 02/08/2024 Nicolás Bustos 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 ; Benign prostatic hyperplasia, unspecified whether lower urinary tract symptoms present N40.0 ; Essential hypertension I10 ; Hyperlipidemia type II E78.01 ; Obesity (BMI 30.0-34.9) E66.9 ; Atrial flutter I48.92 ; Former smoker Z87.891 and Wound of left lower extremity, initial encounter S81.802A Nicolás Bustos III, MD [address] [place] [address] [place] [address] 04/01/2023 Nicolás Bustos 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 Nicolás Bustos III, MD [address] [place] [address] [place] [address] 10/02/2023 Nicolás Bustos III, MD [address] [place] [address] [place] [address] 10/05/2023 Nicolás Bustos III, MD [address] [place] [address] [place] [address] 10/06/2023 Nicolás Bustos III, MD [address] [place] [address] [place] [address] 10/12/2023 Nicolás Bustos III, MD [address] [place] [address] [place] [address] 11/23/2023 Nicolás Bustos III, MD [address] [place] [address] [place] [address] 11/24/2023 Nicolás Bustos III, MD [address] [place] [address] [place] [address] 12/07/2023 Nicolás Bustos III, MD [address] [place] [address] [place] [address] 12/29/2023 Nicolás Bustos Assessments Encounter Date Diagnosis (ICD Code) Assessment Notes T reatment Notes Treatment Clinical Notes 05/01/2023 Overweight (ICD-10 - E66.3) We have discussed his diet and nutrition today. We reviewed his weight loss strategy. We made a plan to lose weight at a rate of one half of a pound per week through a diet restricted in calories. 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 He will be observed carefully. His viscosity is 1.4. 07/29/2023 Waldenstrom macroglobulinemia (ICD-10 - C88.0) His IgM level and viscosity are stable. He does not require additional treatment at this time. 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 He will be observed carefully. His viscosity is 1.4. The abnormal IgM protein is not detectable. The IgM level is in the normal range. His CBC is unremarkable. 09/28/2023 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 He will be observed carefully. His viscosity is 1.4. The abnormal IgM protein is not detectable. The IgM level is in the normal range. His CBC is unremarkable. 09/28/2023 Cellulitis of left lower extremity (ICD-10 - L03.116) The erythema from the knee down to the ankle shows early cellulitis. He was placed on doxycycline with a follow-up visit. He was instructed on how to care for the wound. 10/07/2023 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 He will be observed carefully. His viscosity is 1.4. The abnormal IgM protein is not detectable. The IgM level is in the normal range. His CBC is unremarkable. 10/07/2023 Leg swelling (ICD-10 - M79.89) The left leg remains swollen below the knee. 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 His alkaline phosphatase has increased to 123 but the total abnormal protein in the IgM level fall decreased. There was no adenopathy or splenomegaly today. His CBC is unremarkable. 10/28/2023 Benign prostatic hyperplasia, unspecified whether lower urinary tract symptoms present (ICD-10 - N40.0) He rises from sleep once a night to urinate. We have discussed lifestyle modifications he could make to reduce nocturia. 11/11/2023 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 He will be observed carefully. His viscosity is 1.4. The abnormal IgM protein is not detectable. The IgM level is in the normal range. His CBC is unremarkable. 11/11/2023 Benign prostatic hyperplasia, unspecified whether lower urinary tract symptoms present (ICD-10 - N40.0) He rises from sleep once a night to urinate. We have discussed lifestyle modifications he could make to reduce nocturia. 11/25/2023 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 He will be observed carefully. His viscosity is 1.4. The abnormal IgM protein is not detectable. The IgM level is in the normal range. His CBC is unremarkable. 11/25/2023 Benign prostatic hyperplasia, unspecified whether lower urinary tract symptoms present (ICD-10 - N40.0) He rises from sleep once a night to urinate. We have discussed lifestyle modifications he could make to reduce nocturia. 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 He will be observed carefully. His viscosity is 1.4. The abnormal IgM protein is not detectable. The IgM level is in the normal range. His CBC is unremarkable. 12/29/2023 Benign prostatic hyperplasia, unspecified whether lower urinary tract symptoms present (ICD-10 - N40.0) He rises from sleep once a night to urinate. We have discussed lifestyle modifications he could make to reduce nocturia. 01/12/2024 Malignant lymphoplasmacytic lymphoma (ICD-10 - C83.00) [...] he could make to reduce nocturia. 02/08/2024 Malignant lymphoplasmacytic lymphoma (ICD-10 - C83.00) [...] modifications he could make to reduce nocturia. 04/01/2023 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 He will be observed carefully. His viscosity is 1.4. 05/01/2023 Benign prostatic hyperplasia, unspecified whether lower urinary tract symptoms present (ICD-10 - N40.0) He arises from sleep once or twice a night to urinate. This deppends upon fluid intake. We have discussed lifestyle modification as a way to reduce nocturia. 07/29/2023 Essential hypertensi on (ICD-10 - I10) His blood pressure is stable at 140/80. We discussed lifestyle modifications as a way to reduce his blood pressure. I recommended aggressive weight reduction and sodium restriction and physical activity. 09/28/2023 Waldenstrom macroglobulinemia (ICD-10 - C88.0) His IgM level and viscosity are stable. He does not require additional treatment at this time. 10/07/2023 Essential hypertensi on (ICD-10 - I10) His blood pressure is stable at 140/80. We discussed lifestyle modifications as a way to reduce his blood pressure. I recommended aggressive weight reduction and sodium restriction and physical activity. 10/28/2023 Edema of left lower extremity (ICD-10 - R60.0) He has 2 small blisters on his left danielle. There is mild edema in the left leg compared to the right. A recent ultrasound showed no DVT in this leg. It appears to be recovering cellulitis. He has had 2 courses of antibiotics. He says it is improving and will be observed at this time. He will pursue leg elevation and compression hose. 11/11/2023 Essential hypertensi on (ICD-10 - I10) His blood pressure is stable at 140/80. We discussed lifestyle modifications as a way to reduce his blood pressure. I recommended aggressive weight reduction and sodium restriction and physical activity. 11/25/2023 Essential hypertensi on (ICD-10 - I10) His blood pressure is stable at 140/80. We discussed lifestyle modifications as a way to reduce his blood pressure. I recommended aggressive weight reduction and sodium restriction and physical activity. 12/29/2023 Wound of left lower extremity, initial encounter (ICD-10 - S81.802A) Of the 3 woounds the to upper ones or well-hhealed. The remaining scabs or about to BX foliate it. The third which is the lower wound has been there he says for month but was new to me. There is broken skin with a thin liquuid discharge but no obvious purulence. A cuulture was done. She is going to see a vascular surgeon soonn to explicate the unilateral lymphedema and evaluate lymphatics and veins. Theere are no lymph nodes in the lower abdomen obstructing the venous outflow of the leg. There is no DVT present ccausing the edema. 01/12/2024 Former smoker (ICD-1 0 - Z87.891) He is motivated not to smoke and we discussed maintenance of abstinence. 02/08/2024 Essential hypertensi on (ICD-10 - I10) His blood pressure remained stable. No change in his regimen was made. 05/01/2023 Hyperlipidemia type II (ICD-10 - E78.01) His lipids are currently stable. No change in his regimen was necessary. 07/29/2023 Former smoker (ICD-1 0 - Z87.891) He is motivated not to smoke and we discussed maintenance of abstinence. 09/28/2023 Essential hypertensi on (ICD-10 - I10) His blood pressure is stable at 140/80. We discussed lifestyle modifications as a way to reduce his blood pressure. I recommended aggressive weight reduction and sodium restriction and physical activity. 10/07/2023 Former smoker (ICD-1 0 - Z87.891) He is motivated not to smoke and we discussed maintenance of abstinence. 10/28/2023 Waldenstrom macroglobulinemia (ICD-10 - C88.0) His IgM level and viscosity are stable. He does not require additional treatment at this time.A repeat viscosity has been ordered 11/11/2023 Former smoker (ICD-1 0 - Z87.891) He is motivated not to smoke and we discussed maintenance of abstinence. 11/25/2023 Former smoker (ICD-1 0 - Z87.891) He is motivated not to smoke and we discussed maintenance of abstinence. 12/29/2023 Former smoker (ICD-1 0 - Z87.891) He is motivated not to smoke and we discussed maintenance of abstinence. 01/12/2024 Elevated PSA (ICD-10 - R97.20) The PSA was 5.67, but when it was repeated with a free PSA it was 4.7 with a free PSA of 11%. I have asked urology to evaluate him. 02/08/2024 Hyperlipidemia type II (ICD-10 - E78.01) His fasting lipid profile has been ordered. No change in his regimen as needed. 05/01/2023 Dyspnea on exertion (ICD-10 - R06.00) He has been expperiencing worsening shortness of breath with exertion such as climbing a flight of stairs. He is a former smoker but has been abstinent for many years. [facility]. Pulmonary function tests have been ordered. This will be followed by a commode a consultation and a repeat office visit. 07/29/2023 Bilateral carpal eyad jaquelin syndrome (ICD-10 - G56.03) His symptoms are mild and he tolerates. No change in his regimen as needed today. 09/28/2023 Former smoker (ICD-1 0 - Z87.891) He is motivated not to smoke and we discussed maintenance of abstinence. 10/07/2023 Lumbar radiculopathy (ICD-10 - M54.16) He continues to have mild to moderate intermittent low back pain that radiates down both legs. 10/28/2023 Former smoker (ICD-1 0 - Z87.891) He is motivated not to smoke and we discussed maintenance of abstinence. 11/11/2023 Atrial flutter (ICD- 10 - I48.92) He is in sinus rhythm today. He is taking metoprolol and flecainide. 11/25/2023 Lumbar radiculopathy (ICD-10 - M54.16) He continues to have mild to moderate intermittent low back pain that radiates down both legs. 12/29/2023 Waldenstrom macroglobulinemia (ICD-10 - C88.0) His IgM level and viscosity are stable. He does not require additional treatment at this time.A repeat viscosity has been ordered 01/12/2024 Atrial fibrillation (ICD-10 - I48.91) He is in a normal sinus rhythm today. His rate is controlled. 02/08/2024 Obesity (BMI 30.0-34 .9) (ICD-10 - E66.9) His weight has been stable with a body mass index of 31. We have discussed his diet and nutrition at length. We have formulated a weight loss strategy. 05/01/2023 Former smoker (ICD-1 0 - Z87.891) 07/29/2023 Peripheral neuropath y (ICD-10 - G62.9) His symptoms of tingling and numbness in the lower extremities are unchanged. He is stable in this respect and no additional treatment is needed. 09/28/2023 Overweight (ICD-10 - E66.3) We have discussed his diet and nutrition today. We reviewed his weight loss strategy. We made a plan to lose weight at a rate of one half of a pound per week through a diet restricted in calories. 10/07/2023 Obesity (BMI 30.0-34 .9) (ICD-10 - E66.9) His body mass index is unchanged. We recommended aggressive weight loss, sodium restriction diet low in animal fat and calories. 10/28/2023 Essential hypertensi on (ICD-10 - I10) His blood pressure is stable at 140/80. We discussed lifestyle modifications as a way to reduce his blood pressure. I recommended aggressive weight reduction and sodium restriction and physical activity. 11/11/2023 Hyperlipidemia type II (ICD-10 - E78.01) His lipids are currently stable. No change in his regimen was necessary. 11/25/2023 Overweight (ICD-10 - E66.3) We have discussed his diet and nutrition today. We reviewed his weight loss strategy. We made a plan to lose weight at a rate of one half of a pound per week through a diet restricted in calories. 12/29/2023 Essential hypertensi on (ICD-10 - I10) His blood pressure is stable at 138/85. We discussed lifestyle modifications as a way to reduce his blood pressure. I recommended aggressive weight reduction and sodium restriction and physical activity. 01/12/2024 Essential hypertensi on (ICD-10 - I10) His blood pressure is stable at 138/85. We discussed lifestyle modifications as a way to reduce his blood pressure. I recommended aggressive weight reduction and sodium restriction and physical activity. 02/08/2024 Atrial flutter (ICD- 10 - I48.92) He is in sinus rhythm today. He is taking metoprolol and flecainide. 07/29/2023 Dysphagia, unspecifi ed type (ICD-10 - R13.10) This has resolved. 10/28/2023 Overweight (ICD-10 - E66.3) We have discussed his diet and nutrition today. We reviewed his weight loss strategy. We made a plan to lose weight at a rate of one half of a pound per week through a diet restricted in calories. 11/11/2023 Elevated PSA (ICD-10 - R97.20) The PSA was 5.67, but when it was repeated with a free PSA it was 4.7 with a free PSA of 11%. I have asked urology to evaluate him. 11/25/2023 Atrial flutter (ICD- 10 - I48.92) He is in sinus rhythm today. He is taking metoprolol and flecainide. 12/29/2023 Obesity (BMI 30-39.9 ) (ICD-10 - E66.9) He has gained 3 pounds since his last visit. His appetite is good and I have discussed a strategy for weight loss with him. 01/12/2024 Right anterior shoul serenity pain (ICD-10 - M25.511) He has a full-thickness tear of the infraspinatus and supraspinatus tendons. He does not know how this happened. He will go back to the orthopedic clinic to discuss treatment. 02/08/2024 Former smoker (ICD-1 0 - Z87.891) He is motivated not to smoke and we discussed maintenance of abstinence. 07/29/2023 Benign prostatic hyperplasia, unspecified whether lower urinary tract symptoms present (ICD-10 - N40.0) He rises from sleep once or twice a night to urinate. We have discussed lifestyle modification as a way to reduce nocturia. 10/28/2023 Lumbar radiculopathy (ICD-10 - M54.16) He continues to have mild to moderate intermittent low back pain that radiates down both legs. 11/11/2023 Right anterior shoul serenity pain (ICD-10 - M25.511) He has severe pain to elevation of the right shoulder. He has been to Dr. Davila in orthopedics in the past. He was referred back for diagnosis and therapy. 11/25/2023 Elevated PSA (ICD-10 - R97.20) The PSA was 5.67, but when it was repeated with a free PSA it was 4.7 with a free PSA of 11%. I have asked urology to evaluate him. 01/12/2024 Obesity (BMI 30-39.9 ) (ICD-10 - E66.9) He has gained 3 pounds since his last visit. His appetite is good and I have discussed a strategy for weight loss with him. 02/08/2024 Wound of left lower extremity, initial encounter (ICD-10 - S81.802A) Wound on the left danielle has progressed and is almost healed in the peripheral edema has resolved. 07/29/2023 Atrial fibrillation (ICD-10 - I48.91) He is in a normal sinus rhythm today. His rate is controlled. 10/28/2023 Atrial fibrillation (ICD-10 - I48.91) He is in a normal sinus rhythm today. His rate is controlled. 11/11/2023 Obesity (BMI 30-39.9 ) (ICD-10 - E66.9) He has gained 3 pounds since his last visit. His appetite is good and I have discussed a strategy for weight loss with him. 11/25/2023 Obesity (BMI 30.0-34 .9) (ICD-10 - E66.9) His body mass index is unchanged. We recommended aggressive weight loss, sodium restriction diet low in animal fat and calories. 10/28/2023 Elevated PSA (ICD-10 - R97.20) His PSA has been rising over the last year. It is now 5.67 which is clearly elevated. He has no symptoms of prostate infection. I have ordered a free PSA. He may need to see urology. 11/25/2023 Edema of left lower extremity (ICD-10 - R60.0) It does not appear to be an infection. He will be very closely observed. There is no obstruction of the venous system in the leg or abdomen or pelvis. Beverly of the edema remains unclear. Plan Of Treatment Pending Test Test Name Order Date PROFILE, FASTING (COMPREHENSIVE METABOLI C) 05/01/2023 PROFILE, FASTING (COMPREHENSIVE METABOLI C) 02/08/2024 PROFILE, FASTING (COMPREHENSIVE METABOLI C) 07/17/2022 PROFILE, FASTING (COMPREHENSIVE METABOLI C) 10/10/2020 PROFILE, FASTING (COMPREHENSIVE METABOLI C) 01/07/2023 PROFILE, FASTING (COMPREHENSIVE METABOLI C) 09/26/2021 PROFILE, RANDOM (COMPREHENSIVE METABOLIC ) 03/26/2021 PROFILE, RANDOM (COMPREHENSIVE METABOLIC ) 08/08/2020 PROFILE, RANDOM (COMPREHENSIVE METABOLIC ) 01/08/2022 PROFILE, RANDOM (COMPREHENSIVE METABOLIC ) 06/08/2020 PROFILE, RANDOM (COMPREHENSIVE METABOLIC ) 06/14/2018 PROFILE, RANDOM (COMPREHENSIVE METABOLIC ) 04/28/2022 PROFILE, RANDOM (COMPREHENSIVE METABOLIC ) 10/07/2022 PROFILE, RANDOM (COMPREHENSIVE METABOLIC ) 01/16/2021 PROFILE, RANDOM (COMPREHENSIVE METABOLIC ) 07/26/2018 LIPID PANEL 07/17/2022 LIPID PANEL 10/10/2020 LDH 10/07/2022 LDH 07/17/2022 FERRITIN 10/10/2020 FERRITIN 07/26/2018 FERRITIN 01/08/2022 PSA, TOTAL 09/26/2021 PSA, TOTAL 05/01/2023 CBC w DIFF 01/16/2021 CBC w DIFF 07/17/2022 CBC w DIFF 03/26/2021 CBC w DIFF 10/07/2022 CBC w DIFF 08/08/2020 CBC w DIFF 10/10/2020 CBC w DIFF 09/26/2021 CBC w DIFF 07/26/2018 CBC w DIFF 06/08/2020 CBC w DIFF 06/14/2018 CBC w DIFF 01/08/2022 CBC w DIFF 04/28/2022 SED RATE (ESR) 03/26/2021 SED RATE (ESR) 07/26/2018 IMMUNOFIXATION PANEL, SERUM (IEP) 2022 IMMUNOFIXATION PANEL, SERUM (IEP) 2020 IMMUNOFIXATION PANEL, SERUM (IEP) 2022 IMMUNOFIXATION PANEL, SERUM (IEP) 2020 IMMUNOFIXATION PANEL, SERUM (IEP) 2022 IMMUNOFIXATION PANEL, SERUM (IEP) 2023 IMMUNOFIXATION PANEL, SERUM (IEP) 2020 IMMUNOFIXATION PANEL, SERUM (IEP) 2021 IMMUNOFIXATION PANEL, SERUM (IEP) 2021 IMMUNOFIXATION PANEL, SERUM (IEP) 2023 IMMUNOFIXATION PANEL, SERUM (IEP) 2020 IMMUNOFIXATION PANEL, SERUM (IEP) 2018 IMMUNOFIXATION PANEL, SERUM (IEP) 2018 IMMUNOFIXATION PANEL, SERUM (IEP) 2021 IMMUNOFIXATION PANEL, SERUM (IEP) 2020 IMMUNOFIXATION PANEL, SERUM (IEP) 2022 PROTEIN ELECTROPHORESIS, SERUM 2 PROTEIN ELECTROPHORESIS, SERUM 1 PROTEIN ELECTROPHORESIS, SERUM 3 PROTEIN ELECTROPHORESIS, SERUM 3 PROTEIN ELECTROPHORESIS, SERUM 1 PROTEIN ELECTROPHORESIS, SERUM 3 PROTEIN ELECTROPHORESIS, SERUM 1 PROTEIN ELECTROPHORESIS, SERUM 4 PROTEIN ELECTROPHORESIS, SERUM 1 PROTEIN ELECTROPHORESIS, SERUM 2 PROTEIN ELECTROPHORESIS, SERUM 4 PROTEIN ELECTROPHORESIS, SERUM 1 VISCOSITY 02/08/2024 VISCOSITY 01/08/2022 VISCOSITY 10/07/2022 VISCOSITY 01/16/2021 VISCOSITY 07/17/2022 BETA-2 MICROGLOBULIN, SERUM 04/28/2022 BETA-2 MICROGLOBULIN, SERUM 01/08/2022 BETA-2 MICROGLOBULIN, SERUM 10/07/2022 BETA-2 MICROGLOBULIN, SERUM 05/01/2023 BETA-2 MICROGLOBULIN, SERUM 01/16/2021 CBC WITH AUTO DIFF 05/01/2023 CBC WITH AUTO DIFF 02/08/2024 CBC WITH AUTO DIFF 01/07/2023 Lipid Panel 05/01/2023 Lipid Panel 02/08/2024 Lipid Panel 01/07/2023 Lipid Panel 09/26/2021 Beta-2 Microglobulin, Serum 02/08/2024 Beta-2 Microglobulin, Serum 01/07/2023 Beta-2 Microglobulin, Serum 09/26/2021 Protein Electrophoresis, Serum 2 NE electromyogram (EMG) 08/14/2020 RT pulmonary function test 05/01/2023 Next Appt Details Provider Name:Nicolás Bustos, 05/04/2024 10:00:00 AM, [address] [place] [address] , KIKO Lucero, [place], [address], Insurance Providers Payer Name Payer Address Payer Phone Subscriber Number Group Number Insured Name Patient Relationship to Insured Coverage Start Date Coverage End Date MEDICARE NGS [address] [place] [address] [id number] Jose Powers Self - patient is the insured MEDICAID [address] [place] [id number] [phone] [id number] Jose Powers Self - patient is the insured Medical (General) History Medical History History ICD Code Hyperlipidemia 272.4 Deformity of toe of right foot 735.9 Hyperkalemia 276.7 HTN (hypertension) 401.9 Gastritis 535.50 Anemia 285.9 obesity former smoker lymphoplasmacytic lymphoma monoclonal gammopathy IgM atrial flutter penicillin allergy Pericardial tamponade February 2021 Lymphoma Chronic Lymphoma, Torn Tendons in Should er Surgical History Surgery Date(Month/Year) Tonsillectomy child 1956 Left wrist tendon surgery ag e 30s- Dr. Cl Woody at [facility] 1992 Sleep Study- Dr. Xiao at [facility] 3 Laser stapedotomy w/ vein gr aft- Dr. Chin at [facility] 12-24-2011 Radiofrequency catheter ablation- Dr. Restrepo at [facility] 07-15-2011 A flutter s/p cardioversion- Dr. Xiao a [facility] 07-01-2011 Remove cyst from back- Dr. Willoughby at [facility] 05-09-2009 Remove cyst right wrist at [facility] 12-31-2004 Remove external hemorrhoid at [facility] 05-10-2004 Exploritory surgery Rt. ear- Dr. Washington at [facility] 12-30-2002 Remove cyst from rectum at [facility] 1986 Remove cyst from chest- Dr. Castillo 19 77 Extract wisdom teeth at [facility] 1975 Pericardiocentesis and pericardial windo w 02/2021 Diverticulum, Esophagus 03/2022,09/30/19 23 No history Hospitalization History Reason Date(Month/Year) No history
--- OUTSIDE RECORDS SUMMARY | 2024-03-24 14:45 | XMS_ITS ---
Author Organization [facility] Address [address] [place] [address] Care Team Providers Care Cardiology Physician Assistant Name Role Phone Nicolás Bustos MD Primary Care Provider Unavailab Nicolás Schwartz Unavailable [phone] REASON FOR VISIT looking to refill patient's omeprazole Encounters Encounter Location Date Provider Diagnosis [facility] [address] [place] [address] 11/11/2023 Nicolás Murguia PLAN OF TREATMENT No Information
--- OUTSIDE RECORDS SUMMARY | 2024-03-24 14:46 | XMS_ITS ---
Author Organization [facility] Address [address] [place] [address] Care Team Providers Care Floor Tech Name Role Phone Nicolás Bustos MD Primary Care Provider Unavailab Nicolás Schwartz Unavailable [phone] REASON FOR VISIT cancel OV Encounters Encounter Location Date Provider Diagnosis [facility] [address] [place] [address] 11/07/2022 Nicolás Murguia PLAN OF TREATMENT No Information
--- OUTSIDE RECORDS SUMMARY | 2024-03-24 14:46 | XMS_ITS | Patient Health Record ---
Author Organization [facility] Address [address] [place] [address] Care Team Providers Care Pump Technician Name Role Phone Nicolás Bustos MD Primary Care Provider UnavailNicolás Dupont Unavailable [phone] ALLERGIES Allergen (clinical drug ingredient) Drug/Non Drug Allergy documented on EMR Reaction Allergy Type Onset Date Status povidone-iodine Betadine Unknown Drug Allergy A ctive diphenhydramine Benadryl Unknown Drug Allergy A ctive amoxicillin Amoxicillin Unknown Drug Allergy Act jocelin REASON FOR REFERRAL No Information MEDICATIONS Medication SIG (Take, Route, Frequency, Duration) Notes Start Date End Date Status Imbruvica 280 MG Oral for 28 A ctive Eliquis 5 MG Oral for 90 Activ e Naproxen 500 MG Oral for 30 Ac tive Omeprazole 40 MG TAKE 1 CAPSULE BY [facility] EVERY MORNING for 30 Active Metoprolol Tartrate 50 MG 1 tablet with food Orally Twice a day Active Melatonin 5 MG 1 tablet at bedtime as needed with food Orally Once a day Active Multi Vitamin/Minerals Orally Active Flecainide Acetate 150 MG Oral for 90 Active Atorvastatin Calcium 20 MG Oral for 90 Active IMMUNIZATIONS Vaccine Route Administration Date Status Comme nts Influenza Unknown 11/26/2021 Refused SOCIAL HISTORY Sex Assigned At : Social History Observation Description Sex Assigned At Unknown PROBLEMS Problem Type ICD Code Onset Dates Problem Status W/U Status Risk SNOMED Code Notes Problem Colon cancer screening (Z12.11) Active confirmed Colon can cer screening (693995679) Problem Pharyngoesophageal dysphagia (R13.14) Active confirmed 57190928 Problem Other specified postprocedural states (Z98.890) Active confirmed 632019265 Problem 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 (79286179) Encounters Encounter Location Date Provider Diagnosis [facility] [address] [place] [address] 11/11/2023 Nicolás Murguia PLAN OF TREATMENT Pending Test Test Name Order Date IRON + IBC (FE) 02/26/2014 FERRITIN 02/26/2014 VITAMIN B12 AND FOLATE 02/26/2014 CBC w DIFF 02/26/2014 XR BARIUM SWALLOW-ESOPHAGUS 06/26/2022 XR BARIUM SWALLOW, MODIFIED VIDEO 2022 Future Test Test Name Order Date UPPER GI ENDOSCOPY 10/25/2013 Insurance Providers Payer Name Payer Address Payer Phone Subscriber Number Group Number Insured Name Patient Relationship to Insured Coverage Start Date Coverage End Date MEDICARE OF [place] [address] [place] [id number] CALEB RAMIREZ Self - patient is the insured MEDICAID OF [facility] [address] [place] [address] [id number] CALEB RAMIREZ Self - patient is the insured MEDICAL (GENERAL) HISTORY Medical History History ICD Code HTN Denies MT,DM,CVA,Lung disease,renal dise ase Screening colonoscopies in 2 000 in [place] and 2010 in [place]--both negative Atrial fibrillation--s/p abl ation in 2011--was on aspirin--stopped in 09/2013 due to anemia Hyperlipidemia Arthritis--had been on Naprosyn --stoppe d in 09/2013 due to anemia Negative sleep study in 2012 He had an upper endoscopy in October of 2013 with the finding of some minimal reflux, minimal gastritis, and some scarring in the duodenal bulb consistent with possible previous ulcer disease-there was no evidence of Girard's esophagus nor H. 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 Nicolás Bustos Cardiac ablation in 2020 wit h complication requiring chest tubes and pericardial window...he was in the hospital for 4 weeks. Surgical History Surgery Date(Month/Year) Cyst removal-back,wrist,rectum and chest Hemorrhoidectomy Tendon repair-left wrist [place] teeth extraction Tonsillectomy Stapedectomy Surgery for a Zenker's diverticulum with Dr. Anil barger ENT 04/07/2022
--- OUTSIDE RECORDS SUMMARY | 2024-03-24 14:46 | XMS_ITS ---
Author Organization [facility] Address [address] [place] [address] Care Team Providers Care Subpoena Server Name Role Phone Nicolás Bustos MD Primary Care Provider Unavailab Nicolás Schwartz Unavailable [phone] REASON FOR VISIT Patient presents today for Zenker's diverticulum in the esophagus Encounters Encounter Location Date Provider Diagnosis [facility] [address] [place] [address] 11/11/2022 Nicolás Murguia PLAN OF TREATMENT No Information
== END 2024-03-24 14:24 | disposition home or self-care (01) ==
PROVIDERS: PCP Internal Medicine Medical Oncology; Visit Provider Orthopaedic Surgery
DX: M12.811 Other specific arthropathies, not elsewhere classified, right shoulder (principal)
CPT/HCPCS: 99214

== ENCOUNTER → 2024-03-24 13:29 | Outpatient (BNVA) | payer MEDICARE, MEDICAID, SELFPAY | PROVIDERS: PCP Internal Medicine Medical Oncology; Visit Provider Orthopaedic Surgery | DX: M12.811 Other specific arthropathies, not elsewhere classified, right shoulder (principal) | CPT/HCPCS: 99212 ==

== ENCOUNTER 2024-04-04 09:12 | Outpatient (REF) | payer MEDICARE, MEDICAID, SELFPAY ==
[2024-04-04 09:29] LABS: MANUAL DIFF FLAG NO
[2024-04-04 10:08] LABS: Basophils Absolute Auto 0.1 X10*3/uL (0.0-0.2); Basophils Percent Auto 0.6 % (0-2); Eosinophils Absolute Auto 0.2 X10*3/uL (0.0-0.4); Eosinophils Percent Auto 1.8 % (0-4); Hematocrit 42.8 % (42.0-52.0); Hemoglobin 14.6 g/dl (14.0-18.0); Imm Gran Abs Auto 0.05 X10*3/uL (0.00-0.03); Imm Gran Pct Auto 0.6 % (0.0-0.4); Lymphocytes Absolute Auto 2.9 X10*3/uL (1.2-4.9); Lymphocytes Percent Auto 33.4 % (20-40); Mean Corpuscular HGB Conc 34.1 g/dl (31.0-36.0); Mean Corpuscular Hemoglobin 29.3 pg (27.0-33.0); Mean Corpuscular Volume 85.8 fL (80.0-98.0); Mean Platelet Volume 11.5 fL (9.4-12.4); Monocytes Absolute Auto 0.8 X10*3/uL (0.1-1.2); Monocytes Percent Auto 9.3 % (2-11); Neutrophils Absolute Auto 4.7 x10*3/uL (2.0-8.3); Neutrophils Percent Auto 54.3 % (45-73); Platelet Count 228 X10*3/uL (160-400); Red Blood Count 4.99 X10*6/uL (4.60-5.80); Red Cell Distribution Width 13.5 % (11.0-16.0); White Blood Count 8.7 X10*3/uL (4.8-10.8)
[2024-04-04 10:43] LABS: Alanine Aminotransferase 33 U/L (0-40); Alkaline Phosphatase 112 U/L (39-117); Anion Gap 10 (12-20); Aspartate Amino Transferase 35 U/L (5-37); Bilirubin Total 0.7 mg/dL (0.0-1.0); Blood Urea Nitrogen 20 mg/dL (9-16); Calcium 8.7 mg/dL (8.4-10.2); Carbon Dioxide 27 mmol/L (22-29); Chloride 103 mmol/L (96-108); Cholesterol 250 mg/dL (<200); Estimated Glomerular Filt Rate > 60; Glucose Fasting 77 mg/dL (60-99); HDL Cholesterol 73 mg/dL (>40); LDL Cholesterol Calculated 158 mg/dL (<100); Potassium 4.4 mmol/L (3.3-5.1); Sodium 136 mmol/L (135-145); Triglycerides 97 mg/dL (<150)
[2024-04-04 10:56] LABS: PSA,Total (Free>4and<10) 4.63 ng/mL (0.00-4.00)
[2024-04-05 06:53] LABS: Beta-2 Microglobulin, Serum 2.26 mg/L (< OR = 2.51)
[2024-04-05 12:28] LABS: Free Prostate Spec Ag 0.7 ng/mL; Percent Free Prostate Spec Ag 15 % (calc) (>25); Prostate Specific Ag Total 4.8 ng/mL (< OR = 4.0)
[2024-04-06 10:09] LABS: PES - Abn Protein Band 1 <0.2 g/dL (NONE DETECTED); Prot Elec - Albumin 4.1 g/dL (3.8-4.8); Prot Elec - Alpha1 0.2 g/dL (0.2-0.3); Prot Elec - Alpha2 0.5 g/dL (0.5-0.9); Prot Elec - Beta 1 0.4 g/dL (0.4-0.6); Prot Elec - Beta 2 0.2 g/dL (0.2-0.5); Prot Elec - Gamma 0.2 g/dL (0.8-1.7); Prot Elec - Total Protein 5.6 g/dL (6.1-8.1)
[2024-04-07 17:28] LABS: Viscosity 1.5 rel to H2O (1.5-1.9)
[2024-04-08 11:03] LABS: IgA 11 mg/dL (70-320); IgG 113 mg/dL (600-1540); IgM 155 mg/dL (50-300)
== END 2024-04-04 09:13 | disposition home or self-care (01) ==
LOC: HO.LAB 09:12
PROVIDERS: Absent Provider Nurse Practitioner Family; PCP Internal Medicine Medical Oncology; Visit Provider Internal Medicine Medical Oncology
DX: Z13.89 Encounter for screening for other disorder (principal)
CPT/HCPCS: 36415; 80053; 80061; 82232; 82784; 84153; 84154; 84165; 85025; 85810; 86334

== ENCOUNTER 2024-04-04 09:22 | Outpatient (REF) | payer MEDICARE, MEDICAID, SELFPAY ==
--- NOTE | ~2024-04-04 | US_ITS ---
CLINICAL HISTORY: N41.9 - Inflammatory disease of prostate, unspecified US Renal Comparison: None Findings: Right kidney normal size and echotexture, 11 cm length. Left kidney normal size and echotexture, 12.1 cm length. Mild left hydronephrosis. No right hydronephrosis. No bladder over distention with left ureteral jet visualized. No imaging after voiding. Normal color Doppler. Urinary bladder is unremarkable. Prevoid volume 209 mL. Postvoid volume 51 mL. Bilateral ureteral jets are visualized. Enlarged prostate at 4.6 x 3.8 x 4.5 cm with volume calculated 40 mL. IMPRESSION: Mild left hydronephrosis, possibly related to degree of bladder distention. Suggest short-term follow-up ultrasound to reassess into include imaging of the kidney after voiding. Otherwise normal-appearing kidneys and urinary bladder. Enlarged prostate. This document has been electronically signed by: Catrachito Shah MD on 04/04/2024 12:01:25
== END 2024-04-04 09:23 | disposition home or self-care (01) ==
LOC: HO.US 09:22
PROVIDERS: PCP Internal Medicine Medical Oncology; Visit Provider Nurse Practitioner Family
DX: N41.9 Inflammatory disease of prostate, unspecified (principal); R39.12 Poor urinary stream; Z87.898 Personal history of other specified conditions
CPT/HCPCS: 76770

== ENCOUNTER → 2024-04-04 09:41 | Outpatient (BNV) | payer MEDICARE, MEDICAID, SELFPAY | PROVIDERS: PCP Internal Medicine Medical Oncology; Visit Provider Radiology Diagnostic Radiology | DX: N40.1 Benign prostatic hyperplasia with lower urinary tract symptoms (principal); N13.30 Unspecified hydronephrosis | CPT/HCPCS: 76770 ==

== ENCOUNTER 2024-04-19 07:39 | Outpatient (AMB) | payer MEDICARE, MEDICAID, SELFPAY ==
--- NOTE | 2024-04-19 07:54 | A.OFFVIS_ITS ---
Intake Visit Reasons: 3m/US/PSA(set) Intake Note: Patient presents today for follow up visit on: elevated psa, prostatitis, psa and ultrasound results * Imaging Completed: 04/04/24 * PSA: 4.8 Urology Medications: none Blood Thinner: Apixaban Laundry Laborer Required: No Dialysis Rn: Dialysis Rn offered & declined Accompanied by: Self / Same As Patient Allergies amoxicillin [AMOXICILLIN] Allergy (Intermediate, Verified 04/19/24 09:23) RASH adhesive Allergy (Mild, Verified 04/19/24 09:23) Rash soap [Betadine] Allergy (Unknown, Verified 04/19/24 09:23) Rash povidone-iodine [From BETADINE] Adverse Reaction (Intermediate, Verified 04/19/24 09:23) RASH (IF ON SKIN FOR PROLONGED TIME) Medication List - Last Reconciled 04/19/24 by MIKE Abbasi- apixaban (Eliquis) 5 mg PO BID finasteride 5 mg PO DAILY 90 days flecainide 150 mg PO Q12H ibrutinib (Imbruvica) mg PO metoprolol tartrate 50 mg PO BID metronidazole 0.75% 1 appl topical BEDTIME multivitamin (Multiple Vitamins tablet) 1 tab PO DAILY naproxen 500 mg PO BID omeprazole 40 mg PO QAM tamsulosin 0.8 mg (2 x 0.4 mg) PO BEDTIME 90 days HPI Comments Details: Jose is a very pleasant 74-year-old male patient of . He has a past medical history of pericardial effusion, hypertension, enlarged right ventricle, and paroxysmal AFib/a flutter. He presents to the office today for follow-up. Of note, patient was seen approximately 3 months ago as a new patient for an elevated PSA at which time a retroperitoneal ultrasound and redraw of PSA were ordered. During last office visit KUMAR was performed and noted boggy prostate. He has since completed antibiotic therapy. Reports feeling lower urinary tract symptoms of weak urinary stream, urinary hesitancy, and feeling of incomplete bladder emptying has significantly improved. He reports feeling Flomax has been extremely helpful. Retroperitoneal ultrasound 04/09 notes mild left hydro, no right hydronephrosis. No bladder over distention. The urinary bladder is unremarkable. Pre void bladder volume is approximately 210 mL. Postvoid bladder volume is approximately 50 mL. Prostate volume is calculated at approximately 40 mL. PSAs are as follows: 10/04 2.3, 01/04 2.5, 08/06 3.5, 11/06 4.7, 11/06 5.7 % free PSA 11%, 04/08 4.8 % free PSA 15%. BUN: 10/05 20, 01/05 22, 05/09 19, 08/06 16, 11/06 13, 04/09 20 Creatinine: 10/05 0.84, 01/05 0.88, 05/09 0.94, 08/06 0.89, 11/06 0.99, 04/09 0.83 We discussed at length potential causes of elevated PSA as well as further treatment options. We reviewed PCPT risk calculator results at today's office visit. 62% chance prostate biopsy is negative for prostate cancer, 26% possibility of low-grade prostate cancer, and 12% potential chance for high- grade prostate cancer. We discussed further treatment options to include MRI of the prostate, prostate biopsy, surveillance monitoring, or initiation of finasteride. Risks and benefits of these interventions were discussed. All questions were answered. He denies hematuria, dysuria, foul smelling urine, changes to urinary stream, flank pain, fever, and or chills. In office urinalysis results reviewed with the patient today. PVR 42 mL. He otherwise offers no other issues or concerns at this time. [facility] Medical History Pericardial effusion HTN (hypertension) Enlarged RV (right ventricle) Paroxysmal atrial flutter Paroxysmal atrial fibrillation Persistent atrial fibrillation Surgical History Status post creation of pericardial window Hx of wisdom tooth extraction History of surgery on wrist Hx of tonsillectomy History of stapedectomy Hx of transesophageal echocardiography (ANUSHKA) for monitoring Hx of hemorrhoidectomy History of bone marrow biopsy History of cardiac radiofrequency ablation (RFA) History of ear surgery Family History Father CVD (cardiovascular disease) Mother Cancer Social History Alcohol intake: current Alcohol intake frequency: holidays/special occasions only Patient Tobacco Use Status: Never used Tobacco 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al status: retired 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 Review of Systems Const All systems reviewed & are unremarkable except as noted in HPI and below Physical Exam Const General: cooperative, healthy appearing, comfortable, no acute distress, well developed, alert and awake Orientation/consciousness: patient oriented x3 Limitations: no limitations HEENT Head: Yes normal to inspection, Yes normocephalic and Yes atraumatic Ears: hearing grossly normal bilaterally Eyes General: appearance normal, both eyes and all related structures Neck Neck: Yes normal visual inspection and Yes trachea midline Chest Chest palpation & inspection: normal inspection of the chest Resp Effort & Inspection: normal respiratory effort and able to speak in complete sentences Cardio Rate: regular rate GI Inspection: Yes normal to inspection General: Yes no CVA tenderness Back/Spine/Pelvis Back: no CVA tenderness Skin General skin exam: no rashes or lesions noted Neuro General: patient oriented x3 Extrem General: Yes normal to inspection Psych Appearance: grossly normal and well kempt Mental Status: mental status grossly normal Speech and movement: Normal speech and movement present and Clear speech present Affect: normal affect Attitude: cooperative Thought process: Normal thought process present Thought content: Normal thought content present Insight: Fair insight present (Psych) Judgement: Fair judgement present (Psych) Office Procedures Post Void Residual Post Residual Void Post Void Residual (PVR): [id number] Void Residual by ultrasound Results AMB Urinalysis, Automated UA Leukoctes 15 Marino/uL Last Edit by Dimitris Santacruz on 04/19/24 08:34 UA Nitrite Last Edit by Dimitris Santacruz on 04/19/24 08:34 UA Urobilinogen 0.2 mg/dL Last Edit by Dimitris Santacruz on 04/19/24 08:34 UA Protein 30 mg/dL Last Edit by Dimitris Santacruz on 04/19/24 08:34 UA pH 7.0 Last Edit by Dimitris Santacruz on 04/19/24 08:34 UA Blood 0 Maehsh/uL Last Edit by Dimitris Santacruz on 04/19/24 08:34 UA Specific [place] 1.015 Last Edit by Dimitris Santacruz on 04/19/24 08:34 UA Ketone Last Edit by Dimitris Santacruz on 04/19/24 08:34 UA Bilirubin 0 mg/dL Last Edit by Dimitris Santacruz on 04/19/24 08:34 UA Glucose 0 mg/dL Last Edit by Dimitris Santacruz on 04/19/24 08:34 Results Reviewed Results Reviewed: Laboratory Last Values Urine pH (Auto) 7.0 04/19/24 08:33 Specific [place] (Auto) 1.015 04/19/24 08:33 Urine Protein (Auto) 30 mg/dL 04/19/24 08:33 Glucose (UA)(Auto) 0 mg/dL 04/19/24 08:33 Urine Blood (Auto) 0 Mahesh/uL 04/19/24 08:33 Urine Bilirubin (Auto) 0 mg/dL 04/19/24 08:33 Urine Urobilinogen (Auto) 0.2 mg/dL 04/19/24 08:33 Leukocyte Esterase (Auto) 15 Marino/uL 04/19/24 08:33 Date of Service: 04/04/24 Procedure(s): US retroperitoneal comp Findings: Right kidney normal size and echotexture, 11 cm length. Left kidney normal size and echotexture, 12.1 cm length. Mild left hydronephrosis. No right hydronephrosis. No bladder over distention with left ureteral jet visualized. No imaging after voiding. Normal color Doppler. Urinary bladder is unremarkable. Prevoid volume 209 mL. Postvoid volume 51 mL. Bilateral ureteral jets are visualized. Enlarged prostate at 4.6 x 3.8 x 4.5 cm with volume calculated 40 mL. IMPRESSION: Mild left hydronephrosis, possibly related to degree of bladder distention. Suggest short-term follow-up ultrasound to reassess into include imaging of the kidney after voiding. Otherwise normal-appearing kidneys and urinary bladder. Enlarged prostate. Assessment & Plan Assessment & Plan (1) History of urinary hesitancy: Code(s): Z87.898 - Personal history of other specified conditions Category: Medical (2) Weak urinary stream: Code(s): R39.12 - Poor urinary stream Category: Medical (3) Elevated PSA: Code(s): R97.20 - Elevated prostate specific antigen [PSA] Category: Medical Plan In office urinalysis results reviewed the patient today; as noted above. PVR 42 mL. Continue Flomax as discussed and prescribed; refill provided. Start finasteride. Recent retroperitoneal ultrasound results reviewed with the patient today; as noted above. Recent PSA results reviewed the patient today; as noted above. We discussed further treatment options of elevated PSA and risks and benefits of these interventions. PCPT risk calculator results reviewed with the patient today; as noted above. We discussed mild hydro noted on imaging; we discussed further workup to include CT verses nuclear renal scan versus surveillance monitoring; will continue with surveillance monitoring at this time. Will obtain PSA in 4 months Follow-up in 4 months with labs, and PVR; or sooner with any issues, concerns, and or questions. Orders: Orders AMB Urinalysis Automated Today Z13.9 - Encounter for screening, unspecified AMB Post Void Residual by ultrasound Today R39.12 - Poor urinary stream Creatinine 4 Months R39.15 - Urgency of urination Prostate Specific Antigen 4 Months R97.20 - Elevated prostate specific antigen [PSA] Blood Urea Nitrogen 4 Months R39.15 - Urgency of urination Medications: New tamsulosin 0.8 mg (2 x 0.4 mg) PO BEDTIME 90 days 180 caps 1RF N40.0 - Benign prostatic hyperplasia without lower urinary tract symptoms finasteride 5 mg PO DAILY 90 days 90 tabs 1RF N32.0 - Bladder-neck obstruction Patient Instructions: The patient had an opportunity to ask questions regarding the treatment plan. All questions were answered. Physical exam, labs, and imaging were discussed and reviewed in detail. As well as risks, benefits, and discussion of treatment choices. No major barriers to understanding were identified. The patient expressed understanding and agreement with the above treatment plan. The patient was made aware they should contact our office by phone for worsening of their current condition, the appearance of new symptoms, or with any questions or concerns. Compliance is encouraged with any medications and follow up testing that is ordered. It is a privilege to be allowed the opportunity to participate in? your urological care.? Again, if you have any questions or concerns If you have any questions or concerns please do not hesitate to contact me. The office is [phone]. This note is constructed using voice recognition software. While every effort has been made to ensure accuracy construction rigger errors may have been included. Yours sincerely, MIKE Abbasi-BC Coding Level of Care Code Est Pt Level 4 (68107) Diagnoses History of urinary hesitancy Z87.898 Weak urinary stream R39.12 Elevated PSA R97.20 CPT Codes Post Residual Void - PVR CPT Code: 44301-Ihqa Void Residual by ultrasound ([id number])
== END 2024-04-19 08:44 | disposition home or self-care (01) ==
PROVIDERS: PCP Internal Medicine Medical Oncology; Visit Provider Nurse Practitioner Family
DX: Z87.898 Personal history of other specified conditions (principal); R39.12 Poor urinary stream; R97.20 Elevated prostate specific antigen [PSA]; Z13.9 Encounter for screening, unspecified
CPT/HCPCS: 99214

== ENCOUNTER → 2024-04-19 07:39 | Outpatient (BNVA) | payer MEDICARE, MEDICAID, SELFPAY | PROVIDERS: PCP Internal Medicine Medical Oncology; Visit Provider Nurse Practitioner Family | DX: R39.12 Poor urinary stream (principal); R97.20 Elevated prostate specific antigen [PSA]; Z87.898 Personal history of other specified conditions | CPT/HCPCS: 51798; 81003; 99212 ==

== ENCOUNTER 2024-07-18 08:40 | Outpatient (REF) | payer MEDICARE, MEDICAID, SELFPAY ==
--- OUTSIDE RECORDS SUMMARY | 2024-07-18 09:02 | XMS_ITS | Patient Health Record ---
Author Organization [facility] Address [address] [place] [address] Care Team Providers Care Building Tech Name Role Phone Nicolás Bustos MD Primary Care Provider Unavailab Nicolás Schwartz Unavailable [phone] Allergies Allergen (clinical drug ingredient) Drug/Non Drug Allergy documented on EMR Reaction Allergy Type Onset Date Status povidone-iodine Betadine Unknown Drug Allergy A ctive diphenhydramine Benadryl Unknown Drug Allergy A ctive amoxicillin Amoxicillin Unknown Drug Allergy Act jocelin Reason For Referral No Information Medications Medication SIG (Take, Route, Frequency, Duration) Notes Start Date End Date Status Imbruvica 280 MG Oral for 28 A ctive Eliquis 5 MG Oral for 90 Activ e Naproxen 500 MG Oral for 30 Ac tive Omeprazole 40 MG TAKE 1 CAPSULE BY [facility] EVERY MORNING for 30 Active Metoprolol Tartrate 50 MG 1 tablet with food Orally Twice a day Active Melatonin 5 MG 1 tablet at bedtime as needed with food Orally Once a day Active Multi Vitamin/Minerals Orally Active Flecainide Acetate 150 MG Oral for 90 Active Atorvastatin Calcium 20 MG Oral for 90 Active Immunizations Vaccine Route Administration Date Status Comme nts Influenza Unknown 11/26/2021 Refused Problems Problem Type SNOMED Code ICD Code Onset Dates Problem Status W/U Status Risk Notes Problem Colon cancer screening (874031628) Colon cancer screening (Z12.11) Active confirmed Problem 85757959 Pharyngoesophage al dysphagia (R13.14) Active confirmed Problem 543184189 Other specified postprocedural states (Z98.890) Active confirmed Problem Acquired diverticulum of esophagus (65215438) 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 [address] [place] [address] [id number] CALEB RAMIREZ Self - patient is the insured Medical (General) History Medical History History ICD Code HTN Denies [place],DM,CVA,Lung disease,renal dise ase Screening colonoscopies in 2 000 in [place] and 2010 in [place]--both negative Atrial fibrillation--s/p abl ation in 2011--was [...] removal-back,wrist,rectum and chest Hemorrhoidectomy Tendon repair-left wrist [place] teeth extraction Tonsillectomy Stapedectomy Surgery for a Zenker's diverticulum with Dr. Anil barger ENT 04/07/2022
--- OUTSIDE RECORDS SUMMARY | 2024-07-18 09:02 | XMS_ITS ---
Author Organization Nicolás Bustos III, MD Address [address] [place] [address] [place] [address] Care Team Providers Care Pillar Worker Name Role Phone Nicolás Bustos Primary Care Provider REASON FOR VISIT Needs call back from Social History Sex Assigned At : Social History Observation Description Sex Assigned At Male Encounters Encounter Location Date Provider Diagnosis Nicolás Bustos III, MD [address] [place] [address] [place] [address] 06/27/2024 Nicolás Bustos Plan Of Treatment Next Appt Details Provider Name:Nicolás Bustos, 09/02/2024 09:00:00 AM, [address] [place] [address] [place], [address], Provider Name:Nicolás Bustos, 05/05/2025 10:00:00 AM, [address] [place] [address] [place], [address], Progress Notes * GIOJoseDOB:1950 ([age] yo M)Acc No.[id number]:06/27/2024 Patient:?Jose POWERS :1950???Age:74 Y???Sex:Male Address:[address], [place], [address] * true * Date:? Generated for Printi ng/Faxing/eTransmitting on:?07/18/2024 09:02 AM EDT
--- OUTSIDE RECORDS SUMMARY | 2024-07-18 09:02 | XMS_ITS ---
Author Organization Nicolás Bustos III, MD Address [address] [place] [address] Care Team Providers Care Wharfmaster Name Role Phone Nicolás Bustos Primary Care [...] Problem Status W/U Status Risk Notes Problem 053366575 Other obesity due to excess calories (E66.09) Active confirmed Problem 095016475 Body mass index [BMI] 30.0-30.9, adult (Z68.30) Active confirmed Problem 839524092 Obesity, class 1 (E66.811) Active confirmed Problem 442436637 Lumbar back pain (M54.50) Active confirmed He is substantially improved since presentation. He was continued on current medication. He will begin to resume the activities of daily living slowly. He has had no falls or incontinence. 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 [...] Months, Reason: Follow up Provider Name:Nicolás Bustos, 09/02/2024 09:00:00 AM, [address] [place] [address] [place], [place], [address], Provider Name:Nicolás Bustos, 05/05/2025 10:00:00 AM, [address] [place] [address] [place], [place], [address], Progress Notes * Jose POWERSDOB:1950 ([age] yo M)Acc No.[id number]:06/24/2024 Patient:?Jose POWERS Provider:?Nicolás Bustos MD :1950???Age:74 Y???Sex:Male Glen e:06/24/2024 Address:[address] [place] [address] [address] Subjective: * Chief Complaints: * ???Telehealth * HPI: ???:? This telehealth visit took place over 15 minutes with the patient at home and me in my office.? He gave consent for billing.? This gentleman is low back pain has steadily improved.? He says it is a dull ache in his lumbar spine and no longer radiates below the buttocks.? He has been compliant with resting and taking his medication.? He wants to begin to start to resume normal life.? We discussed how rapidly this could be done safely.? His x-ray showed only arthritis.? Follow-up visit was arranged. ?Telehealth?Location of provider rendering services:?{...} [address] [facility] [address] ?Location of patient:?address listed in demographics for today's visit ?Patient identification confirmed using:?Name, ?Telehealth method:?Telephone only. Patient not visible to care provider. ?Consent:?Patient verbally consented to treatment, Patient verbally consented to billing insurance company, Patient informed of any privacy concerns related to method of visit ?Total time spent with patient (mins)?15 * ROS:?General/Constitutional:?pain?Lumbar spine and left knee.?Chills?denies.?Fatigue?admits.?Fever?denies.?ENT:?Decreased hearing?denies.?Respiratory:?Cough?denies.?Cardiovascular:?Chest pain with exertion?denies.?Dyspnea on exertion?denies.?Shortness of breath?with exertion.?Gastrointestinal:?Constipation?occasional.?Decreased appetite?denies.?Diarrhea?denies.?Heartburn?denies.?Nausea?denies.?Rectal bleeding?denies.?Vomiting?denies.?Hematology:?bruising?denies.?petechiae?denies.?Swollen glands?none have been noted.?Genitourinary:?Frequent urination?twice a night.?Musculoskeletal:?Muscle aches?denies.?Painful joints?denies.?Sciatica?denies.?Weakness?that is generalized.?Skin:?Itching?denies.?Rash?denies.?Skin lesion(s)?denies.?Neurologic:?Difficulty speaking?denies.?Dizziness?denies.?Headache?denies.?Low back pain?that is new.?Psychiatric:?Depressed mood?which is mild.? * Medical History:? * Surgical History:?Tonsillect dilan child 1957Left wrist tendon surgery age 32's- Dr. Cl Woody at [facility] 1992Sleep Study- Dr. Xiao at [facility] 43-23-3131Roxup stapedotomy w/ vein graft- Dr. Chin at [facility] 22-44-9942Nbxjizepvewefm catheter ablation- Dr. Vance at [facility] 07-15-2011 flutter s/p cardioversion- Dr. Xiao at [facility] 60-80-7750Ihbaqb cyst from back- Dr. Willoughby at [facility] 57-84-2660Sgnpwh cyst right wrist at [facility] 26-56-4787Gnagcv external hemorrhoid at [facility] 12-36-9604Jvrgefjyocz surgery Rt. ear- Dr. Washington at [facility] 48-29-7236Jhdkwf cyst from rectum at [facility] 1986Remove cyst from chest- Dr. Castillo 1976Extract wisdom teeth at [facility] 1976Pericardiocentesis and pericardial window iverticulum, Esophagus 03/2022,09/29/2022No [...] disorder or addiction. * Social History:?Tobacco Use:?Tobacco Control (Standard)?Tobacco use:?Former smoker ?How long has it been since you last smoked??Greater than 10 years ?Additional Findings: Tobacco non-user?Ex-cigarette smoker ???He stopped smoking many years ago. He does not drink alcohol. He lives in [facility]. He has two daughters Bernice and Shannan and a son. * Medications:?TakingImbruvica 140 MG Capsule 2 tablet Orally Once [...] RashAdhesive: rashno[Allergies Verified] Objective: * Vitals:?Ht: 69, Wt:209, BMI: 30.86, Ht-cm: 175.26, Wt-k.8. Assessment: * Assessment: 1.?Lumbar back pain - M54.50 (Primary)???Notes :He is substantially improved since presentation.? He was continued on current medication.? He will begin to resume the activities of daily living slowly.? 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 He will be observed carefully. His viscosity is 1.4. The abnormal IgM protein is not detectable. The IgM level is in the normal range. His CBC is unremarkable.???3.?Benign prostatic hyperplasia, unspecified whether lower urinary tract symptoms present - N40.0???Notes :He rises from sleep once a night to urinate. We have discussed lifestyle modifications he could make to reduce nocturia.???4.?Former smoker - Z87.891???Notes :He is motivated not to smoke and we discussed maintenance of abstinence.???5.?Essential hypertension - I10???Notes :His pressure is slightly high, today, but he is in pain and excited. It will be rechecked in the near future.???6.?Atrial fibrillation - I48.91???Notes :He is in a normal sinus rhythm today. His rate is controlled.???7.?Right anterior shoulder pain - M25.511???Notes :He has a full-thickness tear of the infraspinatus and supraspinatus tendons. He does not know how this happened. He will go back to the orthopedic clinic to discuss treatment.???8.?Other obesity due to excess calories - E66.09???9.?Body mass index [BMI] 30.0-30.9, adult - Z68.30???10.?Obesity, class 1 - E66.811??? Plan: * Treatment: 2.?Benign prostatic hyperpla kaleb, unspecified whether lower urinary tract symptoms present? Continue Melatonin Tablet, 5 MG, 1 tablet in the evening, Orally, Once a day.?? 3.?Others? Continue Imbruvica Capsule, 140 MG, 2 tablet, Orally, Once a day;?Continue Nabumetone Tablet, 500 MG, 1 tablet, Orally, Twice a day.?? * Procedure Codes:?22738 SYNCH AUDIO-ONLY EST SF 10 * Preventive Medicine:? ??Counseling:?Care goal follow-up plan:?Counseling [...] or Other reason not done * Follow Up:?2 Months (Reason: Follow up) * Images: * Sign off status: Completed true * Provider:?Nicolás Bustos MD Date:?06/14 Generated for Michelle pierson/Mikel/eTkareemsmitting on:?07/18/2024 09:02 AM EDT History and Physical Notes * HPI (History of Present Illness) Category Sub-Category Detail Notes Telehealth Location of [facility] rendering services:: {...} [address] [facility] [address] Location of patient:: address listed in demographics [...]
--- OUTSIDE RECORDS SUMMARY | 2024-07-18 09:02 | XMS_ITS ---
Author Organization [facility] Address [address] [place] [address] Care Team Providers Care Tanker Driver Name Role Phone Nicolás Bustos MD Primary Care Provider Unavailab Nicolás Schwartz Unavailable [phone] REASON FOR VISIT looking to refill patient's omeprazole Encounters Encounter Location Date Provider Diagnosis [facility] [address] [place] [address] 11/11/2023 Nicolás Murguia Plan Of Treatment No Information Progress Notes * CAELB RAMIREZDOB:1950 ([age] yo M)Acc No.[id number]:11/11/2023 Patient:?CALEB RAMIREZ :1950???Age:73 Y???Sex:Male Address:[address] , , [place], [address] * true * Date:? Generated for Michelle pierson/Mikel/eTransmitting on:?07/18/2024 09:01 AM EDT
--- OUTSIDE RECORDS SUMMARY | 2024-07-18 09:03 | XMS_ITS | Patient Health Record ---
Author Organization Nicolás Bustos III, MD Address [address] [place] [address] Care Team Providers Care Bar Catcher Name Role Phone Nicolás Bustos Primary Care Provider [phone] Allergies Allergen (clinical drug ingredient) Drug/Non Drug Allergy documented on EMR Reaction Allergy Type Onset Date Status Adhesive rash Allergy Active povidone-iodine Betadine Rash Drug Allergy A ctive amoxicillin Amoxicillin Rash Drug Allergy Act jocelin Results Component Value Reference Range Notes Routine Culture Reviewed date:10/09/2023 08:58:18 PM Interpretation: Performing Lab:[facility], [address] [place] [phone] Notes/Report: Routine Culture No growth after 2 days Routine Culture Reviewed date:01/03/2024 08:39:28 AM Interpretation: Performing Lab:[facility], [address] [place] [phone] Notes/Report: Routine Culture Report - external Routine Culture 1+ SKIN DANIELLA O:STRAGA Strep agalactiae (Grp B) Routine Culture Quant Org ID Routine Culture 1+ Routine Culture Susc N/A Routine Culture Susceptibility not routinely performed on this isolate. URINE DIP STICK Reviewed date:05/04/2024 10:10:08 AM Interpretation: Performing Lab: Notes/Report: SG 1.010 1.005 - 1.025 pH 6.5 5.0 - 9.0 NATACHA Negative Negative - NIT Negative Negative - PRO 15 Negative - Trace GLU Negative Negative - KET Negative Negative - UBG 0.2 0.1 - 1.8 OMKAR Negative 0.2 - 1.3 BLD Negative Negative - Complete Blood Count Auto Di ff Reviewed date:07/21/2023 04:18:28 PM Interpretation: Performing Lab:[facility], [address] [place] [phone] Notes/Report: White Blood Count 8.0 4.8-10.8 X10*3/uL [...] NRBC Abs Auto 0.000 0.0-0.012 X10*3/uL Comprehensive [place]. Panel Fa st Reviewed date:07/21/2023 04:18:28 PM Interpretation: Performing Lab:[facility], [address] [place] [address] Notes/Report: Sodium 141 135-145 mmol/L Potassium 4.3 3.3-5.1 mmol/L Chloride 106 96-108 mmol/L Carbon Dioxide 26 22-29 mmol/L Anion Gap 13 12-20 Blood Urea Nitrogen 16 9-16 mg/dL Creatinine 0.89 0.5-1.4 mg/dL Estimated Glomerular Filt Rate > 60 NOTE: For -Chadian individuals, multiply the result by 1.210. Chronic [...] Panel Reviewed date:07/21/2023 04:18:28 PM Interpretation: Performing Lab:[facility], [address] [place] [phone] Notes/Report: Triglycerides 99 <150 mg/dL Desirable Triglyceride: [...] Antigen Reviewed date:07/21/2023 04:18:28 PM Interpretation: Performing Lab:[facility], [address] [place] [address] Notes/Report: Prostate Specific Antigen 3.51 <0.05-4.0 ng/mL PSA methodology: Bryan Alinity i Chemiluminescent Microparticle Immunoassay (CMIA) Beta-2 Microglobulin, Serum Reviewed date:07/26/2023 07:24:28 AM Interpretation: Performing Lab:[facility], [address] [place] [address] Notes/Report: Beta-2 Microglobulin, Serum 2.14 < OR = 2.51 mg/L THIS TEST WAS PERFORMED AT: [facility] [address] [place] [address] KRYSTAL URBINA MD Protein Electrophoresis, Ser um Reviewed date:07/29/2023 10:36:45 AM Interpretation: Performing Lab:[facility], [address] [place] [phone] Notes/Report: Prot Elec - Total Protein 5.6 [...] be considered. THIS TEST WAS PERFORMED AT: [facility] [address] [place] [phone] KRYSTAL URBINA MD Immunofixation Pnl, Serum Reviewed date:07/29/2023 10:36:45 AM Interpretation: Performing Lab:[facility], [address] [place] [phone] Notes/Report: IgG 523 095-7194 mg/dL IgA 12 70-320 mg/dL IgM 161 50-300 mg/dL THIS TEST WAS PERFORMED AT: [facility] [address] [place] [address] KRYSTAL URBINA MD Immunofixation Interpretation SEE NOTE Faint IgM kappa monoclonal band present. Gram stain Reviewed date:10/09/2023 08:58:18 PM Interpretation: Performing Lab:[facility], [address] [place] [phone] Notes/Report: Gram stain Gram stain results: Gram stain No polys Gram stain No organisms seen US venous duplex LE LT Reviewed date:10/07/2023 12:55:50 PM Interpretation: Performing Lab: Notes/Report: [address] [address] Ultrasound Report Signed Patient: Jose Powers MR#: [id number] : 1950 Acct:[id number] Age/Sex: 73 / M ADM Date: 10/07/23 Loc: .US Attending Dr: Nicolás Bustos MD Ordering Physician: Nicolás Bustos MD Date of Service: 10/07/23 Procedure(s): US venous duplex LE LT Accession Number(s): [id number] cc: Nicolás Bustos MD EXAMINATION: US VENOUS [...] in OV> 10/07/23 1127 DD/ 1030 TD/TT: Signal System Testing Maintainer: [address] [address] Ultrasound Report Signed Patient: Jose Powers MR#: [id number] : 1950 Acct:[id number] Age/Sex: 73 / M ADM Date: 10/07/23 Loc: HO.US Attending Dr: Nicolás Bustos MD Ordering Physician: Nicolás Bustos MD Date of Service: 10/07/23 Procedure(s): US cris ous duplex LE LT Accession Number(s): [id number] cc: Nicolás Bustos MD EXAMINATION: US VENOUS [...] in OV> 10/07/23 1127 DD/ 1030 TD/TT: Industrial Automation Specialist ist: PD Complete Blood Count Auto Di ff Reviewed date:10/28/2023 10:22:37 AM Interpretation: Performing Lab:[facility], [address] [place] [phone] Notes/Report: White Blood Count 7.1 4.8-10.8 X10*3/uL [...] NRBC Abs Auto 0.000 0.0-0.012 X10*3/uL Comprehensive [place]. Panel Fa st Reviewed date:10/28/2023 10:22:37 AM Interpretation: Performing Lab:[facility], [address] [place] [phone] Notes/Report: Sodium 140 135-145 mmol/L Potassium 4.5 3.3-5.1 mmol/L Chloride 103 96-108 mmol/L Carbon Dioxide 27 22-29 mmol/L Anion Gap 15 12-20 Blood Urea Nitrogen 13 9-16 mg/dL Creatinine 0.99 0.5-1.4 mg/dL Estimated Glomerular Filt Rate > 60 NOTE: For -Chadian individuals, multiply the result by 1.210. Chronic [...] Panel Reviewed date:10/28/2023 10:22:37 AM Interpretation: Performing Lab:[facility], [address] [place] [phone] Notes/Report: Triglycerides 84 <150 mg/dL Desirable Triglyceride: [...] Antigen Reviewed date:10/28/2023 10:22:37 AM Interpretation: Performing Lab:[facility], [address] [place] [address] Notes/Report: Prostate Specific Antigen 5.67 <0.05-4.0 ng/mL PSA methodology: Bryan Alinity i Chemiluminescent Microparticle Immunoassay (CMIA) Protein Electrophoresis, Ser um Reviewed date:10/28/2023 10:22:37 AM Interpretation: Performing Lab:[facility], [address] [place] [phone] Notes/Report: Prot Elec - Total Protein 5.2 [...] be considered. THIS TEST WAS PERFORMED AT: [facility] [address] [place] [phone] KRYSTAL URBINA MD Immunofixation Pnl, Serum Reviewed date:10/28/2023 10:22:37 AM Interpretation: Performing Lab:[address] [address] Notes/Report: IgG 91 600-1540 mg/dL Verified by r epeat analysis. IgA 11 70-320 mg/dL IgM 136 50-300 mg/dL THIS TEST WAS PERFORMED AT: [facility] [address] [place] [phone] KRYSTAL URBINA MD Immunofixation Interpretation SEE NOTE Faint IgM kappa monoclonal band present. PSA Free and Total Reviewed date:11/01/2023 07:00:19 AM Interpretation: Performing Lab:[address] [address] Notes/Report: Prostate Specific Ag Total 4.7 < OR = 4.0 ng/mL Percent Free Prostate Spec Ag 11 >25 % (calc) PSA(ng/mL) Free PSA(%) Estimated(x) Probability of Cancer(as%) 0-2.5 (*) Approx. 1 2.6-4.0(1) 0-27(2) 24(3) 4.1-10(4) 0-10 56 11-15 28 16-20 20 21-25 16 >or =26 8 >10(+) N/A >50 References:(1)Catalon a et al.:Urology 60: 469-474 (2002) (2)Fatmata et al.:J.Urol 168: 922-925 (2001) Free PSA(%) Sensitivity(%) Specificity(%) < or = 25 85 19 < or = 30 93 9 (3)Fatmata et al.:PAULO 277: 4770-5487 (1996) (4)Catalona et al.:PAULO 279: 8578-5608 (1997) (x)These estimates vary with age, ethnicity, [...] mind. PSA was performed using the Bowen [place] Immunoassay method. Values obtained from different assay methods cannot be used interchangeably. PSA levels, regardless of value, should not be interpreted as absolute evidence of the presence or absence of disease. THIS TEST WAS PERFORMED AT: [facility] [address] [address] KRYSTAL URBINA MD Free Prostate Spec Ag 0.5 XR chest 2V Reviewed date:11/01/2023 07:00:20 AM Interpretation: Performing Lab: Notes/Report: [address] [address] XRay Report Signed Patient: Jose Powers MR#: [id number] : 1950 Acct:[id number] Age/Sex: 73 / M ADM Date: 10/28/23 Loc: HO.10HDL Attending Dr: Nicolás Bustos MD Ordering Physician: Nicolás Bustos MD Date of Service: 10/28/23 Procedure(s): XR chest 2V Accession Number(s): [id number] cc: Nicolás Bustos MD EXAMINATION: XR CHEST [...] in OV> 10/28/23 1249 DD/ 1118 TD/TT: Signal System Testing Maintainer: [address] [address] XRay Report Signed Patient: Jose Powers MR#: [id number] : 1950 Acct:[id number] Age/Sex: 73 / M ADM Date: 10/28/23 Loc: HO.10HDL Attending Dr: Nicolás Bustos MD Ordering Physician: Nicolás Bustos MD Date of Service: 10/28/23 Procedure(s): XR prabha st 2V Accession Number(s): [id number] cc: Nicolás Bustos MD EXAMINATION: XR CHEST [...] in OV> 10/28/23 1249 DD/ 1118 TD/TT: Signal System Testing Maintainer: CT abdomen pelvis w con Reviewed date:11/11/2023 11:21:50 AM Interpretation: Performing Lab: Notes/Report: [address] [address] [address] Scan Report Signed Patient: Jose Powers MR#: [id number] : 1950 Acct:[id number] Age/Sex: 73 / M ADM Date: 11/02/23 Loc: HO.CT Attending Dr: Nicolás Bustos MD Ordering Physician: Nicolás Bustos MD Date of Service: 11/02/23 Procedure(s): CT abdomen pelvis w IV con Accession Number(s): [id number] cc: Nicolás Bustos MD EXAMINATION: CT ABDOMEN [...] lesion compressing iliac vessels. Dictated By: Dino aGllegos MD Signed By: <Electronically signed by Dino Gallegos MD in OV> 11/02/23 1548 DD/ 1419 TD/TT: Signal System Testing Maintainer: [place] [address] CT Scan Report Signed Patient: Jose Powers MR#: [id number] : 1950 Acct:[id number] Age/Sex: 73 / M ADM Date: 11/02/23 Loc: HO.CT Attending Dr: Nicolás Bustos MD Ordering Physician: Nicolás Bustos MD Date of Service: 11/02/23 Procedure(s): CT abd omen pelvis w IV con Accession Number(s): [id number] cc: Nicolás Bustos MD EXAMINATION: CT ABDOMEN [...] in OV> 11/02/23 1548 DD/ 1419 TD/TT: Industrial Automation Specialist ist: PD Gram stain Reviewed date:01/03/2024 08:39:28 AM Interpretation: Performing Lab:[facility], [address] [place] [phone] Notes/Report: Gram stain Gram stain results: Gram stain No polys Gram stain 2+ epithelial cells Gram stain No organisms seen MR shoulder RT wo con Reviewed date:01/11/2024 09:22:44 AM Interpretation: Performing Lab: Notes/Report: [address] [place] [address] Magnetic Resonance Report Signed Patient: Jose Powers MR#: [id number] : 1950 Acct:[id number] Age/Sex: 73 / M ADM Date: 01/01/24 Loc: HO.MRI Attending Dr: Sergio Davila MD Ordering Physician: Sergio Davila MD Date of Service: 01/01/24 Procedure(s): MR shoulder RT wo con Accession Number(s): [id number] cc: Nicolás Bustos MD; Sergio Davila MD [...] related to the rotator cuff tendon tears. Svek-bc-ujzrxglf glenohumeral osteoarthritis. Small joint effusion with mild synovitis. Electronically signed by: Munir Pardo MD 01/10/2024 03:35 PM EDT Dictated By: Munir Pardo MD Signed By: <Electronically signed by Munir Pardo MD in OV> 01/10/24 1535 DD/ 0800 TD/TT: 01/01/24 0839 Signal System Testing Maintainer: [place] [address] Magnetic Resonance Report Signed Patient: Jose Powers MR#: [id number] : 1950 Acct:[id number] Age/Sex: 73 / M ADM Date: 01/01/24 Loc: HO.MRI Attending Dr: Sergio Davila MD Ordering Physician: Sergio Davila MD Date of Service: 01/01/24 Procedure(s): MR shoulder RT wo con Accession Number(s): [id number] cc: Nicolás Bustos MD; Sergio Davila MD [...] related to the rotator cuff tendon tears. Dcuw-un-ccfcykfp glenohumeral osteoarthritis. Smal l joint effusion with mild synovitis. Electronically martha d by: Munir Pardo MD 01/10/2024 03:35 PM EDT Dictated By: Munir Pardo MD Signed By: <Electronically signed by Munir Pardo MD in OV> 01/10/24 1535 DD/ 0800 TD/TT: 01/01/24 0839 Signal System Testing Maintainer: CT shoulder RT wo con Reviewed date:01/11/2024 09:22:44 AM Interpretation: Performing Lab: Notes/Report: [address] [address] [address] Scan Report Signed Patient: Jose Powers MR#: [id number] : 1950 Acct:[id number] Age/Sex: 73 / M ADM Date: 01/08/24 Loc: HO.CT Attending Dr: Sergio Davila MD Ordering Physician: Sergio Davila MD Date of Service: 01/08/24 Procedure(s): CT shoulder RT wo IV con Accession Number(s): [id number] cc: Nicolás Bustos MD; Sergio Davila MD [...] Glenohumeral joint space narrowing with marginal osteophytes. Zudskgln-ce-jwxpil acromioclavicular osteoarthritis. No concerning lytic or blastic [...] tendon tear. 3. Moderate glenohumeral osteoarthritis and mgujkerl-xr-aglwzm acromioclavicular osteoarthritis. Electronically signed by: Munir Pardo MD 01/10/2024 03:49 PM EDT RP Workstation: [id number] Dictated By: Munir Pardo MD Signed By: <Electronically signed by Munir Pardo MD in OV> 01/10/24 1549 DD/ 1341 TD/TT: 01/08/24 1400 Signal System Testing Maintainer: [place] [address] CT Scan Report Signed Patient: Jose Powers MR#: [id number] : 1950 Acct:[id number] Age/Sex: 73 / M ADM Date: 01/08/24 Loc: .CT Attending Dr: Sergio Davila MD Ordering Physician: Sergio Davila MD Date of Service: 01/08/24 Procedure(s): CT shoulder RT wo IV con Accession Number(s): [id number] cc: Nicolás Bustos MD; Sergio Davila MD [...] joint space narrowin g with marginal osteophytes. Aginvjmu-yt-pbyaaz acromioclavicular osteoarthritis. No concerning lytic or blastic [...] tear. 3. Moderate glenohum eral osteoarthritis and pkgmbazf-eo-mtuuqu acromioclavicular osteoarthritis. Electronically martha d by: Munir Pardo MD 01/10/2024 03:49 PM EDT Dictated By: Munir Pardo MD Signed By: <Electronically signed by Munir Pardo MD in OV> 01/10/24 1549 DD/ 1341 TD/TT: 01/08/24 1400 Signal System Testing Maintainer: Complete Blood Count Auto Di ff Reviewed date:04/17/2024 09:03:36 AM Interpretation: Performing Lab:[facility], [address] [place] [address] Notes/Report: White Blood Count 8.7 4.8-10.8 X10*3/uL Red Blood Count 4.99 4.60-5.80 X10*6/uL Hemoglobin 14.6 14.0-18.0 g/dl Hematocrit 42.8 42.0-52.0 % Mean Corpuscular Volume 85.8 80.0-98.0 fL Mean Corpuscular Hemoglobin 29.3 27.0-33.0 pg Mean Corpuscular HGB Conc 34.1 31.0-36.0 g/dl Red Cell Distribution Width 13.5 11.0-16.0 % Platelet Count 228 160-400 X10*3/uL Mean Platelet Volume 11.5 9.4-12.4 fL Neutrophils Percent Auto 54.3 45-73 % Imm Gran Pct Auto 0.6 0.0-0.4 % Lymphocytes Percent Auto 33.4 20-40 % Monocytes Percent Auto 9.3 2-11 % Eosinophils Percent Auto 1.8 0-4 % Basophils Percent Auto 0.6 0-2 % NRBC Pct Auto 0.0 0.0-0.2 /100WBC Neutrophils Absolute Auto 4.7 2.0-8.3 x10*3/uL Imm Gran Abs Auto 0.05 0.00-0.03 X10*3/uL Lymphocytes Absolute Auto 2.9 1.2-4.9 X10*3/uL Monocytes Absolute Auto 0.8 0.1-1.2 X10*3/uL Eosinophils Absolute Auto 0.2 0.0-0.4 X10*3/uL Basophils Absolute Auto 0.1 0.0-0.2 X10*3/uL NRBC Abs Auto 0.000 0.0-0.012 X10*3/uL Comprehensive [place]. Panel Fa st Reviewed date:04/17/2024 09:03:36 AM Interpretation: Performing Lab:[facility], [address] [place] [address] Notes/Report: Sodium 136 135-145 mmol/L Potassium 4.4 3.3-5.1 mmol/L Chloride 103 96-108 mmol/L Carbon Dioxide 27 22-29 mmol/L Anion Gap 10 12-20 Blood Urea Nitrogen 20 9-16 mg/dL Creatinine 0.83 0.5-1.4 mg/dL Estimated Glomerular Filt Rate > 60 Chronic Kidney Disease: Estimated GFR < 60 mL/min/1.73m2 Severe Kidney Disease: Estimated GFR < 15 mL/min/1.73m2 Glucose Fasting 77 60-99 mg/dL Calcium 8.7 8.4-10.2 mg/dL Bilirubin Total 0.7 0.0-1.0 mg/dL Aspartate Amino Transferase 35 5-37 U/L Alanine Aminotransferase 33 0-40 U/L Total Protein 6.0 6.5-8.0 g/dL Albumin Level 4.0 3.5-5.0 g/dL Alkaline Phosphatase 112 39-117 U/L Lipid Panel Reviewed date:04/17/2024 09:03:36 AM Interpretation: Performing Lab:[address] [address] Notes/Report: Triglycerides 97 <150 mg/dL Desirable Triglyceride: less than 150 mg/dL Borderline High Triglyceride 150-199 mg/dL High Triglyceride: 200-499 mg/dL Very High Triglyceride: greater than or equal to 5OO mg/dL Cholesterol 250 <200 mg/dL Desirable Cholesterol: less than 200 mg/dL Borderline High Cholesterol: 200-239 mg/dL High Cholesterol: greater than 239 mg/dL LDL Cholesterol Calculated 158 <100 mg/dL Desirable LDL: less than 100 mg/dL Near Optimal/Above Optimal LDL: 110-129 mg/dL Borderline High LDL: 130-159 mg/dL High LDL: 160-189 mg/dL Very High LDL: greater than or equal to 190 mg/dL HDL Cholesterol 73 >40 mg/dL Desirable HDL: greater than 40 mg/dL Note: This HDL assay may give artificially low results in patients with liver disease. PSA Free and Total Reviewed date:04/17/2024 09:03:36 AM Interpretation: Performing Lab:[address] [address] Notes/Report: Prostate Specific Ag Total 4.8 < OR = 4.0 ng/mL Percent Free Prostate Spec Ag 15 >25 % (calc) PSA(ng/mL) Free PSA(%) Estimated(x) Probability of Cancer(as%) 0-2.5 (*) Approx. 1 2.6-4.0(1) 0-27(2) 24(3) 4.1-10(4) 0-10 56 11-15 28 16-20 20 21-25 16 >or =26 8 >10(+) N/A >50 References:(1)Lesyl blue et al.:Urology 60: 469-474 (2002) (2)Fatmata et al.:J.Urol 168: 922-925 (2001) Free PSA(%) Sensitivity(%) Specificity(%) < or = 25 85 19 < or = 30 93 9 (3)Fatmata et al.:PAULO 277: 4298-1466 (1996) (4)Catalona et al.:PAULO 279: 7045-9979 (1997) (x)These estimates vary with age, ethnicity, [...] mind. PSA was performed using the Bowen [place] Immunoassay method. Values obtained from different assay methods cannot be used interchangeably. PSA levels, regardless of value, should not be interpreted as absolute evidence of the presence or absence of disease. THIS TEST WAS PERFORMED AT: [facility] [address] [place] [address] KRYSTAL URBINA MD Free Prostate Spec Ag 0.7 PSA,Total (Free>4and<10) Reviewed date:04/17/2024 09:03:36 AM Interpretation: Performing Lab:[address] [address] Notes/Report: PSA,Total (Free>4and<10) 4.63 0.00-4.00 ng/mL PSA methodology: Bryan Alinity i Chemiluminescent Microparticle Immunoassay (CMIA) Beta-2 Microglobulin, Serum Reviewed date:04/17/2024 09:03:36 AM Interpretation: Performing Lab:[address] [address] Notes/Report: Beta-2 Microglobulin, Serum 2.26 < OR = 2.51 mg/L THIS TEST WAS PERFORMED AT: [facility] [address] [place] [address] KRYSTAL URBINA MD Protein Electrophoresis, Ser um Reviewed date:04/17/2024 09:03:36 AM Interpretation: Performing Lab:[facility], [address] [place] [address] Notes/Report: Prot Elec - Total Protein 5.6 6.1-8.1 g/dL Prot Elec - Albumin 4.1 3.8-4.8 g/dL Prot Elec - Alpha1 0.2 [...] be considered. THIS TEST WAS PERFORMED AT: [facility] [address] [place] [address] KRYSTAL URBINA MD Immunofixation Pnl, Serum Reviewed date:04/17/2024 09:03:36 AM Interpretation: Performing Lab:[facility], [address] [place] [address] Notes/Report: IgG 523 504-2617 mg/dL Results verif ied by repeat analysis on dilution. IgA 11 70-320 mg/dL Results verifie d by repeat analysis on dilution. IgM 155 50-300 mg/dL THIS TEST WAS PERFORMED AT: [facility] [address] [place] [address] KRYSTAL URBINA MD Immunofixation Interpretation SEE NOTE Faint IgM kappa monoclonal band present. Viscosity Reviewed date:04/17/2024 09:03:36 AM Interpretation: Performing Lab:[facility], [address] [place] [address] Notes/Report: Viscosity 1.5 1.5-1.9 rel to H2O Units = Relative to Water THIS TEST WAS PERFORMED AT: [facility] [id number] [place] [address] MIRELLA ODELL MD,PHD US retroperitoneal comp Reviewed date:04/17/2024 09:03:37 AM Interpretation: Performing Lab: Notes/Report: [address] [address] Ultrasound Report Signed Patient: Jose Powers MR#: [id number] : 1950 Acct:[id number] Age/Sex: 74 / M ADM Date: 04/04/24 Loc: HO.US Attending Dr: [facility] Ordering Physician: Taylor Strong Date of Service: 04/04/24 Procedure(s): US retroperitoneal comp Accession Number(s): [id number] cc: Nicolás Bustos MD; Taylor Strong 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 Left kidney normal size and echotexture, 12.1 cm length. Mild left hydronephrosis. No right hydronephrosis. No bladder over distention with left ureteral jet visualized. No imaging after voiding. Normal color Doppler. Urinary bladder is unremarkable. Prevoid volume 209 mL. Postvoid volume 51 mL. Bilateral ureteral jets are visualized. Enlarged prostate at 4.6 x 3.8 x 4.5 cm with volume calculated 40 mL. IMPRESSION: Mild left hydronephrosis, possibly related to degree of bladder distention. Suggest short-term follow-up ultrasound to reassess into include imaging of the kidney after voiding. Otherwise normal-appearing kidneys and urinary bladder. Enlarged prostate. This document has been electronically signed by: Catrachito Shah MD on 04/04/2024 12:01:25 Dictated By: Catrachito Shah MD Signed By: <Electronically signed by Catrachito Shah MD in OV> 04/04/24 1203 DD/ 1201 TD/TT: 04/04/24 1201 Signal System Testing Maintainer: [address] [address] Ultrasound Report Signed Patient: Jose Powers MR#: [id number] : 1950 Acct:[id number] Age/Sex: 74 / M ADM Date: 04/04/24 Loc: HO.US Attending Dr: Taylor antonio [facility] [place] Ordering Physician: Taylor Strong [facility] [place] Date of Service: 04/04/24 Procedure(s): US retroperitoneal comp Accession Number(s): [id number] cc: Nicolás Bustos MD; Taylor Strong [facility] [place] CLINICAL HISTORY: N4 1.9 - Inflammatory disease of prostate, unspecified US Renal Comparison: None Findings: Right kidney normal size and echotexture, 11 cm length. Left kidney normal s ize and echotexture, 12.1 cm length. Mild left hydronephrosis. No right hydronephrosis. No bladder over distention with left ureteral jet visualized. No imaging after voiding. Normal color Doppler. Urinary bladder is unremarkable. Prevoid volume 209 mL. Postvoid volume 51 mL. Bilateral ureteral j ets are visualized. Enlarged prostate at 4.6 x 3.8 x 4.5 cm with volume calculated 40 mL. IMPRESSION: Mild left hydronephrosis, possibly related to degree of bladder distention. Suggest short-term follow-up ultrasound to reassess into include imaging of t he kidney after voiding. Otherwise normal-appearing kidneys and urinary bladder. Enlarged prostate. This document has be en electronically signed by: Catrachito Shah MD on 04/04/2024 12:01:25 Dictated By: Catrachito Shah MD Signed By: <Electronically signed by Catrachito Shah MD in OV> 04/04/24 1203 DD/ 1201 TD/TT: 04/04/24 1201 Signal System Testing Maintainer: Reason For Referral Reason left swollen leg neg ative for DVT evaluate and treat Diagnosis 1 Peripheral neuropath y (G62.9) Diagnosis 2 Left leg swelling (M 79.89) Referral Organization Nicolás Bustos III, MD Referring Provider First Name Nicolás Referring Provider Last Name Juli Referring Provider Speciality Internal M edicine Referred Organization [facility] Referred Provider Dillon White Referred Address [address] [place] [address],[place], [place],[id number],[place] Referred Provider Specialty Vascular Chang juice General Notes Trina Nguyen CM 11/11/2023 02:07:41 PM EDT > ref/demo/progress [...] Referring Provider Speciality Internal edicine Referred Provider [facility] er, Urology Referred Provider Specialty Urology General Notes Trina Nguyen CM A 11/11/2023 02:05:52 PM EDT > ref/demo/progress note/labs faxed to [facility] urology office , Margarita Davidson 11/19/2023 02:18:27 PM EDT >ref/demo/progress note/labs faxed to [facility] urology office ., Margarita Davidson 11/24/2023 02:26:00 [...] Referring Provider Speciality Internal edicine Referred Provider SERGIO DAVILA Referred Provider [...] Referring Provider Speciality Internal edicine Referred Provider [facility] [place] Referred Provider Specialty Unknown General Notes Trina Bueno CMA 01/11 10:37:56 AM > ref/demo/progress notes faxed to [facility] wound clinic, Margarita Betancourt 01/15/2024 02:23:06 PM > [facility] calling stated they did not receive the referral and would like for us to refax it so they are able to schedule the patient. Referral faxed, Trina Bueno GABE 01/21/2024 02:27:41 PM >Spoke to wound center pt does not have appt as of yet they will be calling pt for appt, Trina Bueno LOG PEELER 01/28/2024 01:21:02 PM > called wound center at pt has appt on 01/03/24 at 8:30am Referral Priority Routine Referral Appointment Date 02/03/2024 Reason Consult and Treat Severe Left Knee Pain Diagnosis 1 Pain in left knee (M 25.562) Referral Organization Nicolás Bustos III, MD Referring Provider First Name Nicolás Referring Provider Last Name Juli Referring Provider Speciality Internal M edicine Referred Provider SERGIO DAVILA Referred Provider Specialty Orthopedic S urgery General Notes Margarita Betancourt 06/21/2024 09:22:57 AM > was able to schedule appointment for 08/15/24 @ 11am they will also place the patient on a cancellation list. Patient was called and notified Referral Priority Routine Referral Appointment Date 08/15/2024 Medications Medication SIG (Take, Route, Frequency, Duration) [...] even ing Orally Once a day Active Cyclobenzaprine HCl 10 MG one tablet Ora lly three times a day for 7 days 06/14/2024 08/01/2024 Active dexAMETHasone 2 MG 1 tablet Orally twic e a day 06/14/2024 Active Nabumetone 500 MG 1 tablet Orally Twic e a day Active Multivitamin/Minerals 1 Tablet Orally On ce a day Active Flecainide Acetate 150 MG as directed Orally Active Imbruvica 140 MG 2 tablet Orally Once a day 04/06/2023 Active Immunizations Vaccine Route Administration Date Status [...] Problem Status W/U Status Risk Notes Problem 1503445 Former smoker (Z87.891) Active confirmed He is motivated not to smoke and we discussed maintenance of abstinence. Problem 870006128 Overweight (E66.3) Active confirmed We have discussed his diet and nutrition today. We reviewed his weight loss strategy. We made a plan to lose weight at a rate of one half of a pound per week through a diet restricted in calories. Problem 894183671911913 Obesity (BMI 30.0-34.9) (E66.9) Active confirmed His weight has been stable with a body mass index of 31. We have discussed his diet and nutrition at length. We have formulated a weight loss strategy. Problem 781653215 Lumbar radiculopathy (M54.16) Active confirmed He continues to have mild to moderate intermittent low back pain that radiates down both legs. Problem 216766903 Waldenstrom macroglobulinemi a (C88.0) Active confirmed His IgM level and viscosity are stable. He does not require additional treatment at this time.A repeat viscosity has been ordered Problem 428527535 Other obesity due to excess calories (E66.09) Active confirmed Problem 30318467 Other chronic pain (G89.29) Active confirmed Problem Atelectasis (40326728) Atelectasis (J98.11) Active confirmed His most recent chest x-ray failed to show any atelectasis. Problem [id number] Lumbago with sciatica, right side (M54.41) Active confirmed He continues to have intermittent chronic mild low back pain. Problem 851138889 Lumbago with sciatica, left side (M54.42) Active confirmed This appears to be nerve impingement in the lumbar spine. He was given dexamethasone and cyclobenzaprin e. He will rest as much as possible in the position and use heat. Problem 22702937 Essential hypertension (I10) Active confirmed His pressure is slightly high, today, but he is in pain and excited. It will be rechecked in the near future. Problem Peripheral neuropathy (627193333) Peripheral neuropathy (G62.9) Active confirmed His symptoms of tingling and numbness in the lower extremities are unchanged. He is stable in this respect and no additional treatment is needed. Problem 15501079 Penicillin allergy (Z88.0) Active confirmed Problem Atrial fibrillation (65655884) Atrial fibrillation (I48.91) Active confirmed He is in a normal sinus rhythm today. His rate is controlled. 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 He will be observed carefully. His viscosity is 1.4. The abnormal IgM protein is not detectable. The IgM level is in the normal range. His CBC is unremarkable. Problem 6776816 Atrial flutter (I48.92) Active confirmed He is in sinus rhythm today. He is taking metoprolol and flecainide. Problem Hoarseness (03921714) Hoarseness (R49.0) Active confirmed I have ordered thyroid function tests to see if he is hypothyroid. This he is not he will be referred to ENT. Problem Acquired diverticulum of esophagus (87927011) Esophageal diverticulum, acquired (K22.5) Active confirmed He has a Zenker's diverticulum in the upper esophagus which is likely the cause of his dysphagia. He was referred to a gastroenterolo gist. Problem 63174957 Dysphagia, unspecified type (R13.10) Active confirmed This has resolved. Problem Pure hypercholesterolem ia (059950075) Hyperlipidemia type II (E78.01) Active confirmed His fasting lipid profile has been ordered. No change in his regimen as needed. Problem 275055460 Elevated PSA (R97.20) Active confirmed The PSA was 5.67, but when it was repeated with a free PSA it was 4.7 with a free PSA of 11%. I have asked urology to evaluate him. Problem 128663251316221 Sciatica of left side (M54.32) Active confirmed He is significantly improved. I cautioned him about doing too much activity too quickly. He will avoid heavy lifting and gradually resumed the activities of daily living. Problem 076061626 Pure hypercholesterol emia (E78.00) Active confirmed Problem 225300481 Benign prostatic hyperplasia, unspecified whether lower urinary tract symptoms present (N40.0) Active confirmed He rises from sleep once a night to urinate. We have discussed lifestyle modifications he could make to reduce nocturia. Problem 52909982 Right anterior shoulder pain (M25.511) Active confirmed He has a full-thickness tear of the infraspinatus and supraspinatus tendons. He does not know how this happened. He will go back to the orthopedic clinic to discuss treatment. Problem Bilateral carpal tunnel syndrome (77180207360354829 ) Bilateral carpal tunnel syndrome (G56.03) Active confirmed His symptoms are mild and he tolerates. No change in his regimen as needed today. Problem Dyspnea on exertion (17448455) Dyspnea on exertion (R06.00) Active confirmed He has been expperiencing worsening shortness of breath with exertion such as climbing a flight of stairs. He is a former smoker but has been abstinent for many years. The recent the medical center catheterrizati on was unremarkable. Pulmonary function tests have been ordered. This will be followed by a commode a consultation and a repeat office visit. Problem 925164471 Body mass index [BMI] 30.0-30.9, adult (Z68.30) Active confirmed Problem 743752337 Lumbar back pain (M54.50) Active confirmed He is substantially improved since presentation. He was continued on current medication. He will begin to resume the activities of daily living slowly. He has had no falls or incontinence. Problem 893316083 Obesity, class 1 (E66.811) Active confirmed Vital Signs Heart Rate 82 /min 06/14/2024 Temperature 97.3 degrees Fahrenheit 06/14/2024 Blood pressure diastolic 78 mm Hg 06/14/2024 Height 69 in 06/24/2024 Blood pressure systolic 140 mm Hg 06/14/2024 Weight 209 lbs 06/24/2024 BMI 30.86 kg/m2 06/24/2024 Encounters Encounter Location Date Provider Diagnosis Nicolás Bustos III, MD [address] [place] [address] [place] [address] 07/29/2023 Nicolás Bustos 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 ; Waldenstrom macroglobulinemia C88.0 ; Essential hypertension I10 ; Former smoker Z87.891 ; Bilateral carpal tunnel syndrome G56.03 ; Peripheral neuropathy G62.9 ; Dysphagia, unspecified type R13.10 ; Benign prostatic hyperplasia, unspecified whether lower urinary tract symptoms present N40.0 and Atrial fibrillation I48.91 Nicolás Bustos III, MD [address] [place] [address] [place] [address] 09/28/2023 Nicolás Bustos 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 ; Cellulitis of left lower extremity L03.116 ; Waldenstrom macroglobulinemia C88.0 ; Essential hypertension I10 ; Former smoker Z87.891 and Overweight E66.3 Nicolás Bustos III, MD [address] [place] [address] [place] [address] 10/07/2023 Nicolás Bustos 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 ; Leg swelling M79.89 ; Essential hypertension I10 ; Former smoker Z87.891 ; Lumbar radiculopathy M54.16 and Obesity (BMI 30.0-34.9) E66.9 Nicolás Bustos III, MD [address] [place] [address] [place] [address] 10/28/2023 Nicolás Bustos Benign prostatic hyperplasia, unspecified whether lower urinary tract symptoms present N40.0 ; 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 ; Edema of left lower extremity R60.0 ; Waldenstrom macroglobulinemia C88.0 ; Former smoker Z87.891 ; Essential hypertension I10 ; Overweight E66.3 ; Lumbar radiculopathy M54.16 ; Atrial fibrillation I48.91 and Elevated PSA R97.20 Nicolás Bustos III, MD [address] [place] [address] [place] [address] 11/11/2023 Nicolás Bustos 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 ; Benign prostatic hyperplasia, unspecified whether lower urinary tract symptoms present N40.0 ; Essential hypertension I10 ; Former smoker Z87.891 ; Atrial flutter I48.92 ; Hyperlipidemia type II E78.01 ; Elevated PSA R97.20 ; Right anterior shoulder pain M25.511 and Obesity (BMI 30-39.9) E66.9 Nicolás Bustos III, MD [address] [place] [address] [place] [address] 11/25/2023 Nicolás Bustos 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 ; Benign prostatic hyperplasia, unspecified whether lower urinary tract symptoms present N40.0 ; Essential hypertension I10 ; Former smoker Z87.891 ; Lumbar radiculopathy M54.16 ; Overweight E66.3 ; Atrial flutter I48.92 ; Elevated PSA R97.20 ; Obesity (BMI 30.0-34.9) E66.9 and Edema of left lower extremity R60.0 Nicolás Bustos III, MD [address] [place] [address] [place] [address] 12/29/2023 Nicolás Bustos 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 ; Benign prostatic hyperplasia, unspecified whether lower urinary tract symptoms present N40.0 ; Wound of left lower extremity, initial encounter S81.802A ; Former smoker Z87.891 ; Waldenstrom macroglobulinemia C88.0 ; Essential hypertension I10 and Obesity (BMI 30-39.9) E66.9 Nicolás Bustos III, MD [address] [place] [address] [place] [address] 01/12/2024 Nicolás Bustos 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 ; Benign prostatic hyperplasia, unspecified whether lower urinary tract symptoms present N40.0 ; Former smoker Z87.891 ; Elevated PSA R97.20 ; Atrial fibrillation I48.91 ; Essential hypertension I10 ; Right anterior shoulder pain M25.511 and Obesity (BMI 30-39.9) E66.9 Nicolás Bustos III, MD [address] [place] [address] [place] [address] 02/08/2024 Nicolás Bustos 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 ; Benign prostatic hyperplasia, unspecified whether lower urinary tract symptoms present N40.0 ; Essential hypertension I10 ; Hyperlipidemia type II E78.01 ; Obesity (BMI 30.0-34.9) E66.9 ; Atrial flutter I48.92 ; Former smoker Z87.891 and Wound of left lower extremity, initial encounter S81.802A Nicolás Bustos III, MD [address] [place] [address] [place] [address] 05/04/2024 Nicolás Bustos 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 ; Benign prostatic hyperplasia, unspecified whether lower urinary tract symptoms present N40.0 ; Hoarseness R49.0 ; Essential hypertension I10 ; Atrial flutter I48.92 ; Former smoker Z87.891 and Overweight E66.3 Nicolás Bustos III, MD [address] [place] [address] [place] [address] 06/14/2024 Nicolás Bustos 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 ; Lumbago with sciatica, left side M54.42 ; Benign prostatic hyperplasia, unspecified whether lower urinary tract symptoms present N40.0 ; Former smoker Z87.891 ; Essential hypertension I10 ; Waldenstrom macroglobulinemia C88.0 ; Hyperlipidemia type II E78.01 ; Esophageal diverticulum, acquired K22.5 ; Dysphagia, unspecified type R13.10 and Atrial fibrillation I48.91 Nicolás Bustos III, MD [address] [place] [address] [place] [address] 06/21/2024 Nicolás Bustos 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 ; Benign prostatic hyperplasia, unspecified whether lower urinary tract symptoms present N40.0 ; Former smoker Z87.891 ; Overweight E66.3 and Sciatica of left side M54.32 Nicolás Bustos III, MD [address] [place] [address] [place] [address] 06/24/2024 Nicolás Bustos 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 ; Lumbar back pain M54.50 ; Benign prostatic hyperplasia, unspecified whether lower urinary tract symptoms present N40.0 ; Former smoker Z87.891 ; Essential hypertension I10 ; Atrial fibrillation I48.91 ; Right anterior shoulder pain M25.511 ; Other obesity due to excess calories E66.09 ; Body mass index [BMI] 30.0-30.9, adult Z68.30 and Obesity, class 1 E66.811 Nicolás Bustos III, MD [address] [place] [address] [place] [address] 10/02/2023 Nicolás Bustos III, MD [address] [place] [address] [place] [address] 10/05/2023 Nicolás Bustos III, MD [address] [place] [address] [place] [address] 10/06/2023 Nicolás Bustos III, MD [address] [place] [address] [place] [address] 10/12/2023 Nicolás Bustos III, MD [address] [place] [address] [place] [address] 11/23/2023 Nicolás Bustos III, MD [address] [place] [address] [place] [address] 11/24/2023 Nicolás Bustos III, MD [address] [place] [address] [place] [address] 12/07/2023 Nicolás Bustos III, MD [address] [place] [address] [place] [address] 12/29/2023 Nicolás Bustos III, MD [address] [place] [address] [place] [address] 06/27/2024 Nicolás Bustos III, MD [address] [place] [address] [place] [address] 07/04/2024 Nicolás Bustos 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 Assessments Encounter Date Diagnosis (ICD Code) Assessment Notes T reatment Notes Treatment Clinical Notes 07/29/2023 Waldenstrom macroglobulinemia (ICD-10 - C88.0) His [...] he could make to reduce nocturia. 05/04/2024 Malignant lymphoplasmacytic lymphoma (ICD-10 - C83.00) [...] he could make to reduce nocturia. 06/14/2024 Lumbago with sciatic a, left side (ICD-10 - M54.42) This appears to be nerve impingement in the lumbar spine. He was given dexamethasone and cyclobenzaprine. He will rest as much as possible in the position and use heat. 06/14/2024 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 He will be observed carefully. His viscosity is 1.4. The abnormal IgM protein is not detectable. The IgM level is in the normal range. His CBC is unremarkable. 06/21/2024 Malignant lymphoplasmacytic lymphoma (ICD-10 - C83.00) [...] he could make to reduce nocturia. 06/24/2024 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 He will be observed carefully. His viscosity is 1.4. The abnormal IgM protein is not detectable. The IgM level is in the normal range. His CBC is unremarkable. 07/29/2023 Essential hypertensi on (ICD-10 - I10) [...] change in his regimen was made. 05/04/2024 Hoarseness (ICD-10 - R49.0) I have ordered thyroid function tests to see if he is hypothyroid. This he is not he will be referred to ENT. 06/14/2024 Benign prostatic hyperplasia, unspecified whether lower urinary tract symptoms present (ICD-10 - N40.0) He rises from sleep once a night to urinate. We have discussed lifestyle modifications he could make to reduce nocturia. 06/21/2024 Former smoker (ICD-1 0 - Z87.891) He is motivated not to smoke and we discussed maintenance of abstinence. 06/24/2024 Benign prostatic hyperplasia, unspecified whether lower urinary tract symptoms present (ICD-10 - N40.0) He rises from sleep once a night to urinate. We have discussed lifestyle modifications he could make to reduce nocturia. 07/29/2023 Former smoker (ICD-1 0 - Z87.891) [...] No change in his regimen as needed. 05/04/2024 Essential hypertensi on (ICD-10 - I10) His blood pressure remained stable. No change in his regimen was made. 06/14/2024 Former smoker (ICD-1 0 - Z87.891) He is motivated not to smoke and we discussed maintenance of abstinence. 06/21/2024 Overweight (ICD-10 - E66.3) We have discussed his diet and nutrition today. We reviewed his weight loss strategy. We made a plan to lose weight at a rate of one half of a pound per week through a diet restricted in calories. 06/24/2024 Former smoker (ICD-1 0 - Z87.891) He is motivated not to smoke and we discussed maintenance of abstinence. 07/29/2023 Bilateral carpal eyad jaquelin syndrome (ICD-10 [...] We have formulated a weight loss strategy. 05/04/2024 Atrial flutter (ICD- 10 - I48.92) He is in sinus rhythm today. He is taking metoprolol and flecainide. 06/14/2024 Essential hypertensi on (ICD-10 - I10) His pressure is slightly high, today, but he is in pain and excited. It will be rechecked in the near future. 06/21/2024 Sciatica of left sophia e (ICD-10 - M54.32) He is significantly improved. I cautioned him about doing too much activity too quickly. He will avoid heavy lifting and gradually resumed the activities of daily living. 06/24/2024 Essential hypertensi on (ICD-10 - I10) His pressure is slightly high, today, but he is in pain and excited. It will be rechecked in the near future. 07/29/2023 Peripheral neuropath y (ICD-10 - G62.9) [...] and we discussed maintenance of abstinence. 06/14/2024 Waldenstrom macroglobulinemia (ICD-10 - C88.0) His IgM level and viscosity are stable. He does not require additional treatment at this time.A repeat viscosity has been ordered 06/24/2024 Atrial fibrillation (ICD-10 - I48.91) He is in a normal sinus rhythm today. His rate is controlled. 07/29/2023 Dysphagia, unspecifi ed type (ICD-10 - [...] week through a diet restricted in calories. 06/14/2024 Hyperlipidemia type II (ICD-10 - E78.01) His fasting lipid profile has been ordered. No change in his regimen as needed. 06/24/2024 Right anterior shoul serenity pain (ICD-10 - M25.511) He has a full-thickness tear of the infraspinatus and supraspinatus tendons. He does not know how this happened. He will go back to the orthopedic clinic to discuss treatment. 07/29/2023 Benign prostatic hyperplasia, unspecified whether lower [...] healed in the peripheral edema has resolved. 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 He was referred to a safety trainer. 06/24/2024 Other obesity due to excess calories (ICD-10 - E66.09) 07/29/2023 Atrial fibrillation (ICD-10 - I48.91) He [...] diet low in animal fat and calories. 06/14/2024 Dysphagia, unspecifi ed type (ICD-10 - R13.10) This has resolved. 06/24/2024 Body mass index [BMI ] 30.0-30.9, adult (ICD-10 - Z68.30) 10/28/2023 Elevated PSA (ICD-10 - R97.20) His [...] in the leg or abdomen or pelvis. [place] of the edema remains unclear. 06/14/2024 Atrial fibrillation (ICD-10 - I48.91) He is in a normal sinus rhythm today. His rate is controlled. 06/24/2024 Obesity, class 1 (ICD-10 - E66.811) Plan Of Treatment Pending Test Test Name Order Date PROFILE, FASTING (COMPREHENSIVE METABOLI C) 07/17/2022 PROFILE, FASTING (COMPREHENSIVE METABOLI C) 10/10/2020 PROFILE, FASTING (COMPREHENSIVE METABOLI C) 02/08/2024 PROFILE, FASTING (COMPREHENSIVE METABOLI C) 09/26/2021 PROFILE, FASTING (COMPREHENSIVE METABOLI C) 01/07/2023 PROFILE, FASTING (COMPREHENSIVE METABOLI C) 05/01/2023 PROFILE, FASTING (COMPREHENSIVE METABOLI C) 05/04/2024 PROFILE, RANDOM (COMPREHENSIVE METABOLIC ) 01/08/2022 PROFILE, RANDOM (COMPREHENSIVE METABOLIC ) 06/08/2020 PROFILE, RANDOM (COMPREHENSIVE METABOLIC ) 06/14/2018 PROFILE, RANDOM (COMPREHENSIVE METABOLIC ) 04/28/2022 PROFILE, RANDOM (COMPREHENSIVE METABOLIC ) 10/07/2022 PROFILE, RANDOM (COMPREHENSIVE METABOLIC ) 01/16/2021 PROFILE, RANDOM (COMPREHENSIVE METABOLIC ) 07/26/2018 PROFILE, RANDOM (COMPREHENSIVE METABOLIC ) 08/08/2020 PROFILE, RANDOM (COMPREHENSIVE METABOLIC ) 03/26/2021 LIPID PANEL 07/17/2022 LIPID PANEL 10/10/2020 LDH 07/17/2022 LDH 10/07/2022 TSH (THYROID STIMULATING HORMONE) 2024 FERRITIN 01/08/2022 FERRITIN 07/26/2018 FERRITIN 10/10/2020 PSA, TOTAL 05/01/2023 PSA, TOTAL 09/26/2021 CBC w DIFF 03/26/2021 CBC w DIFF 10/07/2022 CBC w DIFF 08/08/2020 CBC w DIFF 09/26/2021 CBC w DIFF 07/26/2018 CBC w DIFF 10/10/2020 CBC w DIFF 06/08/2020 CBC w DIFF 06/14/2018 CBC w DIFF 01/08/2022 CBC w DIFF 04/28/2022 CBC w DIFF 07/17/2022 CBC w DIFF 01/16/2021 SED RATE (ESR) 03/26/2021 SED RATE (ESR) 07/26/2018 IMMUNOFIXATION PANEL, SERUM (IEP) 2022 IMMUNOFIXATION PANEL, SERUM (IEP) 2020 IMMUNOFIXATION PANEL, SERUM (IEP) 2022 IMMUNOFIXATION PANEL, SERUM (IEP) 2020 IMMUNOFIXATION PANEL, SERUM (IEP) 2023 IMMUNOFIXATION PANEL, SERUM (IEP) 2021 IMMUNOFIXATION PANEL, SERUM (IEP) 2024 IMMUNOFIXATION PANEL, SERUM (IEP) 2020 IMMUNOFIXATION PANEL, SERUM (IEP) 2021 IMMUNOFIXATION PANEL, SERUM (IEP) 2020 IMMUNOFIXATION PANEL, SERUM (IEP) 2018 IMMUNOFIXATION PANEL, SERUM (IEP) 2018 IMMUNOFIXATION PANEL, SERUM (IEP) 2021 IMMUNOFIXATION PANEL, SERUM (IEP) 2020 IMMUNOFIXATION PANEL, SERUM (IEP) 2022 IMMUNOFIXATION PANEL, SERUM (IEP) 2023 IMMUNOFIXATION PANEL, SERUM (IEP) 2022 PROTEIN ELECTROPHORESIS, SERUM 4 PROTEIN ELECTROPHORESIS, SERUM 3 PROTEIN ELECTROPHORESIS, SERUM 3 PROTEIN ELECTROPHORESIS, SERUM 1 PROTEIN ELECTROPHORESIS, SERUM 1 PROTEIN ELECTROPHORESIS, SERUM 4 PROTEIN ELECTROPHORESIS, SERUM 5 PROTEIN ELECTROPHORESIS, SERUM 1 PROTEIN ELECTROPHORESIS, SERUM 2 PROTEIN ELECTROPHORESIS, SERUM 1 PROTEIN ELECTROPHORESIS, SERUM 2 PROTEIN ELECTROPHORESIS, SERUM 1 PROTEIN ELECTROPHORESIS, SERUM 3 VISCOSITY 01/08/2022 VISCOSITY 02/08/2024 VISCOSITY 10/07/2022 VISCOSITY 07/17/2022 VISCOSITY 01/16/2021 VISCOSITY 05/04/2024 BETA-2 MICROGLOBULIN, SERUM 04/28/2022 BETA-2 MICROGLOBULIN, SERUM 01/08/2022 BETA-2 MICROGLOBULIN, SERUM 10/07/2022 BETA-2 MICROGLOBULIN, SERUM 05/01/2023 BETA-2 MICROGLOBULIN, SERUM 01/16/2021 CBC WITH AUTO DIFF 01/07/2023 CBC WITH AUTO DIFF 02/08/2024 CBC WITH AUTO DIFF 05/01/2023 CBC WITH AUTO DIFF 05/04/2024 Lipid Panel 05/04/2024 Lipid Panel 05/01/2023 Lipid Panel 09/26/2021 Lipid Panel 01/07/2023 Lipid Panel 02/08/2024 PSA Free and Total 05/04/2024 Free T4 (Free Thyroxine) 05/04/2024 Beta-2 Microglobulin, Serum 09/26/2021 Beta-2 Microglobulin, Serum 01/07/2023 Beta-2 Microglobulin, Serum 02/08/2024 Protein Electrophoresis, Serum 2 NE electromyogram (EMG) 08/14/2020 RT pulmonary function test 05/01/2023 Next Appt Details Provider Name:Nicolás Bustos, 09/02/2024 09:00:00 AM, [address] [facility] [address], [place], [address], Provider Name:Nicolás Bustos, 05/05/2025 10:00:00 AM, [address] [facility] [address], [place], [address], Insurance Providers Payer Name Payer Address Payer Phone Subscriber Number Group Number Insured Name Patient Relationship to Insured Coverage Start Date Coverage End Date MEDICARE NGS [address] [place] [address] [id number] Jose Powers Self - patient is the insured MEDICAID [place] [address] [place] [id number] [phone] [id number] Jose Powers Self - patient is the insured Medical (General) History Medical History History ICD Code Hyperlipidemia 272.4 Deformity of toe of right foot 735.9 Hyperkalemia 276.7 HTN (hypertension) 401.9 Gastritis 535.50 Anemia 285.9 obesity former smoker lymphoplasmacytic lymphoma monoclonal gammopathy IgM atrial flutter penicillin allergy Pericardial tamponade February 2021 Lymphoma Chronic Lymphoma, Torn Tendons in Should er Surgical History Surgery Date(Month/Year) No history Diverticulum, Esophagus 03/2022,09/30/19 Pericardiocentesis and pericardial windo w 02/2021 Extract wisdom teeth at [facility] 1975 Remove cyst from chest- Dr. Castillo 19 77 Remove cyst from rectum at [facility] 1986 Exploritory surgery Rt. ear- Dr. Washington at [facility] 12-30-2002 Remove external hemorrhoid at [facility] 05-10-2004 Remove cyst right wrist at [facility] 12-31-2004 Remove cyst from back- Dr. Willoughby at [facility] 05-09-2009 A flutter s/p cardioversion- [facility]. Xiao a [facility] 07-01-2011 Radiofrequency catheter ablation- Dr. Restrepo at [facility] 07-15-2011 Laser stapedotomy w/ vein gr aft- Dr. Odell at [facility] 12-24-2011 Sleep Study- Dr. Xiao at [facility] 3 Left wrist tendon surgery ag e 30's- Dr. Cl Woody at [facility] 1992 Tonsillectomy child 1954 Hospitalization History Reason Date(Month/Year) No history
--- OUTSIDE RECORDS SUMMARY | 2024-07-18 09:03 | XMS_ITS ---
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 Refill Cyclobenzaprine HCl Tablet, 10 MG, Orally, 21, one tablet, three times a day, 7 days, Refills=3 * true * Date:? Generated for Michelle pierson/Mikel/Mikeitting on:?07/18/2024 09:02 AM EDT
[2024-07-18 10:17] LABS: Blood Urea Nitrogen 18 mg/dL (9-16); Estimated Glomerular Filt Rate > 60
[2024-07-18 10:38] LABS: Prostate Specific Antigen 4.36 ng/mL (<0.05-4.0)
== END 2024-07-18 08:41 | disposition home or self-care (01) ==
LOC: HO.10HDL 08:40
PROVIDERS: Visit Provider Nurse Practitioner Family
DX: Z12.5 Encounter for screening for malignant neoplasm of prostate (principal); R39.15 Urgency of urination; R97.20 Elevated prostate specific antigen [PSA]
CPT/HCPCS: 36415; 82565; 84153; 84520

== ENCOUNTER 2024-07-26 07:38 | Outpatient (AMB) | payer MEDICARE, MEDICAID, SELFPAY ==
--- OUTSIDE RECORDS SUMMARY | 2024-07-26 07:41 | XMS_ITS | Patient Health Record ---
Author Organization [facility] Address [address] [place] [address] Care Team Providers Care Casino Porter Name Role Phone Nicolás Bustos MD Primary Care Provider Unavailab Nicolás Schwartz Unavailable [phone] Allergies Allergen (clinical drug ingredient) Drug/Non Drug [...] Omeprazole 40 MG TAKE 1 CAPSULE BY [facility] EVERY MORNING for 30 Active Metoprolol [...] Status Risk Notes Problem Colon cancer screening (874310016) Colon cancer screening (Z12.11) Active confirmed Problem 39555769 Pharyngoesophage al dysphagia (R13.14) Active confirmed Problem 507205335 Other specified postprocedural states (Z98.890) Active confirmed Problem Acquired diverticulum of esophagus (18664900) 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 Encounters Encounter Location Date Provider Diagnosis [facility] [address] [place] [address] 11/11/2023 Nicolás Murguia Plan Of Treatment Pending [...] OF [place] [address] [place] [id number] CALEB RAMIREZ Self - patient is the insured MEDICAID OF [facility] [address] [place] [address] [id number] CALEB RAMIREZ Self - patient is the insured Medical (General) History Medical History History ICD Code HTN Denies AK,DM,CVA,Lung disease,renal dise ase Screening colonoscopies in 2 000 in [place] and 2010 in [place]--both negative Atrial fibrillation--s/p abl ation in 2011--was [...] removal-back,wrist,rectum and chest Hemorrhoidectomy Tendon repair-left wrist Ubly teeth extraction Tonsillectomy Stapedectomy Surgery for a Zenker's diverticulum with Dr. Anil barger ENT 04/07/2022
--- OUTSIDE RECORDS SUMMARY | 2024-07-26 07:41 | XMS_ITS | Patient Health Record ---
Author Organization Nicolás Bustos III, MD Address [address] [address] Care Team Providers Care Senior Scheduler Name Role Phone Nicolás Bustos Primary Care Provider [phone] Allergies Allergen (clinical drug ingredient) Drug/Non Drug Allergy documented on EMR Reaction Allergy Type Onset Date Status Adhesive rash Allergy Active povidone-iodine Betadine Rash Drug Allergy A ctive amoxicillin Amoxicillin Rash Drug Allergy Act jocelin Results Component Value Reference Range Notes Routine Culture Reviewed date:10/09/2023 08:58:18 PM Interpretation: Performing Lab:[facility], [address] [place] [phone] Notes/Report: Routine Culture No growth after 2 days Routine Culture Reviewed date:01/03/2024 08:39:28 AM Interpretation: Performing Lab:[facility], [address] [place] [phone] Notes/Report: Routine Culture Report - external Routine Culture 1+ SKIN DANIELLA O:STRAGA Strep agalactiae (Grp B) Routine Culture Quant Org ID Routine Culture 1+ Routine Culture Susc N/A Routine Culture Susceptibility not routinely performed on this isolate. URINE DIP STICK Reviewed date:05/04/2024 10:10:08 AM Interpretation: Performing Lab: Notes/Report: SG 1.010 1.005 - 1.025 pH 6.5 5.0 - 9.0 NTAACHA Negative Negative - NIT Negative Negative - PRO 15 Negative - Trace GLU Negative Negative - KET Negative Negative - UBG 0.2 0.1 - 1.8 OMKAR Negative 0.2 - 1.3 BLD Negative Negative - Gram stain Reviewed date:10/09/2023 08:58:18 PM Interpretation: Performing Lab:[facility], [address] [place] [phone] Notes/Report: Gram stain Gram stain results: Gram stain No polys Gram stain No organisms seen US venous duplex LE LT Reviewed date:10/07/2023 12:55:50 PM Interpretation: Performing Lab: Notes/Report: [address] [address] Ultrasound Report Signed Patient: Jose Powers MR#: [id number] : 1950 Acct:[id number] Age/Sex: 73 / M ADM Date: 10/07/23 Loc: HO.US Attending Dr: Nicolás Bustos MD Ordering Physician: Nicolás Bustos MD Date of Service: 10/07/23 Procedure(s): US venous duplex LE LT Accession Number(s): [id number] cc: Nicolás Bustos MD EXAMINATION: US VENOUS [...] in OV> 10/07/23 1127 DD/ 1030 TD/TT: Strong Nitric Operator: [address] [address] Ultrasound Report Signed Patient: Jose Powers MR#: [id number] : 1950 Acct:[id number] Age/Sex: 73 / M ADM Date: 10/07/23 Loc: HO.US Attending Dr: Nicolás Bustos MD Ordering Physician: Nicolás Bustos MD Date of Service: 10/07/23 Procedure(s): US cris ous duplex LE LT Accession Number(s): [id number] cc: Nicolás Bustos MD EXAMINATION: US VENOUS [...] in OV> 10/07/23 1127 DD/ 1030 TD/TT: Property Utilization Manager ist: PD Complete Blood Count Auto Di ff Reviewed date:10/28/2023 10:22:37 AM Interpretation: Performing Lab:[facility], [address] [place] [phone] Notes/Report: White Blood Count 7.1 4.8-10.8 X10*3/uL [...] NRBC Abs Auto 0.000 0.0-0.012 X10*3/uL Comprehensive Temple. Panel Fa st Reviewed date:10/28/2023 10:22:37 AM Interpretation: Performing Lab:[facility], [address] [place] [phone] Notes/Report: Sodium 140 135-145 mmol/L Potassium 4.5 3.3-5.1 mmol/L Chloride 103 96-108 mmol/L Carbon Dioxide 27 22-29 mmol/L Anion Gap 15 12-20 Blood Urea Nitrogen 13 9-16 mg/dL Creatinine 0.99 0.5-1.4 mg/dL Estimated Glomerular Filt Rate > 60 NOTE: For -[place]er individuals, multiply the result by 1.210. [...] Panel Reviewed date:10/28/2023 10:22:37 AM Interpretation: Performing Lab:[address] [address] Notes/Report: Triglycerides 84 <150 mg/dL Desirable Triglyceride: [...] Antigen Reviewed date:10/28/2023 10:22:37 AM Interpretation: Performing Lab:[address] [address] Notes/Report: Prostate Specific Antigen 5.67 <0.05-4.0 ng/mL PSA methodology: Bryan Alinity i Chemiluminescent Microparticle Immunoassay (CMIA) Protein Electrophoresis, Ser um Reviewed date:10/28/2023 10:22:37 AM Interpretation: Performing Lab:[address] [address] Notes/Report: Prot Elec - Total Protein 5.2 [...] be considered. THIS TEST WAS PERFORMED AT: [facility] [address] [place] [phone] KRYSTAL URBINA MD Immunofixation Pnl, Serum Reviewed date:10/28/2023 10:22:37 AM Interpretation: Performing Lab:[facility], [address] [place] [phone] Notes/Report: IgG 91 600-1540 mg/dL Verified by r epeat analysis. IgA 11 70-320 mg/dL IgM 136 50-300 mg/dL THIS TEST WAS PERFORMED AT: [facility] [address] [place] [phone] KRYSTAL URBINA MD Immunofixation Interpretation SEE NOTE Faint IgM kappa monoclonal band present. PSA Free and Total Reviewed date:11/01/2023 07:00:19 AM Interpretation: Performing Lab:[facility], [address] [place] [phone] Notes/Report: Prostate Specific Ag Total 4.7 < OR = 4.0 ng/mL Percent Free Prostate Spec Ag 11 >25 % (calc) PSA(ng/mL) Free PSA(%) Estimated(x) Probability of Cancer(as%) 0-2.5 (*) Approx. 1 2.6-4.0(1) 0-27(2) 24(3) 4.1-10(4) 0-10 56 11-15 28 16-20 20 21-25 16 >or =26 8 >10(+) N/A >50 References:(1)Lesly a et al.:Urology 60: 469-474 (2002) (2)Kristinaona et al.:J.Urol 168: 922-925 (2001) Free PSA(%) Sensitivity(%) Specificity(%) < or = 25 85 19 < or = 30 93 9 (3)Fatmata et al.:PAULO 277: 3610-1644 (1996) (4)Catalona et al.:PAULO 279: 5555-4129 (1997) (x)These estimates vary with age, ethnicity, [...] of disease. THIS TEST WAS PERFORMED AT: [facility] [address] [place] [phone] KRYSTAL URBINA MD Free Prostate Spec Ag 0.5 XR chest 2V Reviewed date:11/01/2023 07:00:20 AM Interpretation: Performing Lab: Notes/Report: [address] [address] XRay Report Signed Patient: Jose Powers MR#: [id number] : 1950 Acct:[id number] Age/Sex: 73 / M ADM Date: 10/28/23 Loc: HO.10HDL Attending Dr: Nicolás Bustos MD Ordering Physician: Nicolás Bustos MD Date of Service: 10/28/23 Procedure(s): XR chest 2V Accession Number(s): [id number] cc: Nicolás Bustos MD EXAMINATION: XR CHEST [...] in OV> 10/28/23 1249 DD/ 1118 TD/TT: Strong Nitric Operator: [address] [address] XRay Report Signed Patient: Jose Powers MR#: [id number] : 1950 Acct:[id number] Age/Sex: 73 / M ADM Date: 10/28/23 Loc: HO.10HDL Attending Dr: Nicolás Bustos MD Ordering Physician: Nicolás Bustos MD Date of Service: 10/28/23 Procedure(s): XR prabha st 2V Accession Number(s): [id number] cc: Nicolás Bustos MD EXAMINATION: XR CHEST [...] in OV> 10/28/23 1249 DD/ 1118 TD/TT: Strong Nitric Operator: CT abdomen pelvis w con Reviewed date:11/11/2023 11:21:50 AM Interpretation: Performing Lab: Notes/Report: [address] [address] [address] Scan Report Signed Patient: Jose Powers MR#: [id number] : 1950 Acct:[id number] Age/Sex: 73 / M ADM Date: 11/02/23 Loc: HO.CT Attending Dr: Nicolás Bustos MD Ordering Physician: Nicolás Bustos MD Date of Service: 11/02/23 Procedure(s): CT abdomen pelvis w IV con Accession Number(s): [id number] cc: Nicolás Bustos MD EXAMINATION: CT ABDOMEN [...] in OV> 11/02/23 1548 DD/ 1419 TD/TT: Strong Nitric Operator: [place] [address] [address] Scan Report Signed Patient: Jose Powers MR#: [id number] : 1950 Acct:[id number] Age/Sex: 73 / M ADM Date: 11/02/23 Loc: HO.CT Attending Dr: Nicolás Bustos MD Ordering Physician: Nicolás Bustos MD Date of Service: 11/02/23 Procedure(s): CT abd omen pelvis w IV con Accession Number(s): [id number] cc: Nicolás Bustos MD EXAMINATION: CT ABDOMEN [...] in OV> 11/02/23 1548 DD/ 1419 TD/TT: Property Utilization Manager ist: PD Gram stain Reviewed date:01/03/2024 08:39:28 AM Interpretation: Performing Lab:[facility], [facility] [place] [address] Notes/Report: Gram stain Gram stain results: Gram stain No polys Gram stain 2+ epithelial cells Gram stain No organisms seen MR shoulder RT wo con Reviewed date:01/11/2024 09:22:44 AM Interpretation: Performing Lab: Notes/Report: [address] [place] [address] Magnetic Resonance Report Signed Patient: Jose Powers MR#: [id number] : 1950 Acct:[id number] Age/Sex: 73 / M ADM Date: 01/01/24 Loc: HO.MRI Attending Dr: Sergio Davila MD Ordering Physician: Sergio Davila MD Date of Service: 01/01/24 Procedure(s): MR shoulder RT wo con Accession Number(s): [id number] cc: Nicolás Bustos MD; Sergio Davila MD [...] related to the rotator cuff tendon tears. Lznu-xb-hnspdgbv glenohumeral osteoarthritis. Small joint effusion with mild synovitis. Electronically signed by: Munir Pardo MD 01/10/2024 03:35 PM EDT Dictated By: Munir Pardo MD Signed By: <Electronically signed by Munir Pardo MD in OV> 01/10/24 1535 DD/ 0800 TD/TT: 01/01/24 0839 Strong Nitric Operator: [place] [address] Magnetic Resonance Report Signed Patient: Jose Powers MR#: [id number] : 1950 Acct:[id number] Age/Sex: 73 / M ADM Date: 01/01/24 Loc: HO.MRI Attending Dr: Sergio Davila MD Ordering Physician: Sergio Davila MD Date of Service: 01/01/24 Procedure(s): MR shoulder RT wo con Accession Number(s): [id number] cc: Nicolás Bustos MD; Sergio Davila MD [...] related to the rotator cuff tendon tears. Qttk-tc-zctsutbh glenohumeral osteoarthritis. Smal l joint effusion with mild synovitis. Electronically martha d by: Munir Pardo MD 01/10/2024 03:35 PM EDT RP Dictated By: Munir Pardo MD Signed By: <Electronically signed by Munir Pardo MD in OV> 01/10/24 1535 DD/ 0800 TD/TT: 01/01/24 0839 Strong Nitric Operator: CT shoulder RT wo con Reviewed date:01/11/2024 09:22:44 AM Interpretation: Performing Lab: Notes/Report: [address] [address] [address] Scan Report Signed Patient: Jose Powers MR#: [id number] : 1950 Acct:[id number] Age/Sex: 73 / M ADM Date: 01/08/24 Loc: HO.CT Attending Dr: Sergio Davila MD Ordering Physician: Sergio Davila MD Date of Service: 01/08/24 Procedure(s): CT shoulder RT wo IV con Accession Number(s): [id number] cc: Nicolás Bustos MD; Sergio Davila MD [...] Glenohumeral joint space narrowing with marginal osteophytes. Swuynsbl-qg-tyrogi acromioclavicular osteoarthritis. No concerning lytic or blastic [...] tendon tear. 3. Moderate glenohumeral osteoarthritis and kouwybef-qm-gdmqgf acromioclavicular osteoarthritis. Electronically signed by: Munir Pardo MD 01/10/2024 03:49 PM EDT RP Dictated By: Munir Pardo MD Signed By: <Electronically signed by Munir Pardo MD in OV> 01/10/24 1549 DD/ 1341 TD/TT: 01/08/24 1400 Strong Nitric Operator: [place] [address] CT Scan Report Signed Patient: Jose Powers MR#: [id number] : 1950 Acct:[id number] Age/Sex: 73 / M ADM Date: 01/08/24 Loc: .CT Attending Dr: Sergio Dvaila MD Ordering Physician: Sergio Davila MD Date of Service: 01/08/24 Procedure(s): CT shoulder RT wo IV con Accession Number(s): [id number] cc: Nicolás Bustos MD; Sergio Davila MD [...] joint space narrowin g with marginal osteophytes. Yfhzjybl-od-niwydv acromioclavicular osteoarthritis. No concerning lytic or blastic [...] tear. 3. Moderate glenohum eral osteoarthritis and gfcggzdq-zo-ozjcen acromioclavicular osteoarthritis. Electronically martha d by: Munir Pardo MD 01/10/2024 03:49 PM EDT Dictated By: Munir Pardo MD Signed By: <Electronically signed by Munir Pardo MD in OV> 01/10/24 1549 DD/ 1341 TD/TT: 01/08/24 1400 Strong Nitric Operator: Complete Blood Count Auto Di ff Reviewed date:04/17/2024 09:03:36 AM Interpretation: Performing Lab:[facility], [address] [place] [phone] Notes/Report: White Blood Count 8.7 4.8-10.8 X10*3/uL [...] NRBC Abs Auto 0.000 0.0-0.012 X10*3/uL Comprehensive Temple. Panel Fa st Reviewed date:04/17/2024 09:03:36 AM Interpretation: Performing Lab:[facility], [address] [place] [phone] Notes/Report: Sodium 136 135-145 mmol/L Potassium 4.4 [...] Panel Reviewed date:04/17/2024 09:03:36 AM Interpretation: Performing Lab:[address] [address] Notes/Report: Triglycerides 97 <150 mg/dL Desirable Triglyceride: [...] Total Reviewed date:04/17/2024 09:03:36 AM Interpretation: Performing Lab:[address] [address] Notes/Report: Prostate Specific Ag Total 4.8 < [...] 30 93 9 (3)Catalona et al.:PAULO 277: 1175-4336 (1996) (4)Catalona et al.:PAULO 279: 5805-4472 (1997) (x)These estimates vary with age, ethnicity, [...] mind. PSA was performed using the Bowen [place] Immunoassay method. Values obtained from different assay methods cannot be used interchangeably. PSA levels, regardless of value, should not be interpreted as absolute evidence of the presence or absence of disease. THIS TEST WAS PERFORMED AT: [facility] [address] [place] [phone] KRYSTAL URBINA MD Free Prostate Spec Ag 0.7 PSA,Total (Free>4and<10) Reviewed date:04/17/2024 09:03:36 AM Interpretation: Performing Lab:[address] [address] Notes/Report: PSA,Total (Free>4and<10) 4.63 0.00-4.00 ng/mL PSA methodology: Bryan Alinity i Chemiluminescent Microparticle Immunoassay (CMIA) Beta-2 Microglobulin, Serum Reviewed date:04/17/2024 09:03:36 AM Interpretation: Performing Lab:[address] [address] Notes/Report: Beta-2 Microglobulin, Serum 2.26 < OR = 2.51 mg/L THIS TEST WAS PERFORMED AT: [facility] [address] [place] [phone] KRYSTAL URBINA MD Protein Electrophoresis, Ser um Reviewed date:04/17/2024 09:03:36 AM Interpretation: Performing Lab:[facility], [address] [place] [address] Notes/Report: Prot Elec - Total Protein 5.6 [...] be considered. THIS TEST WAS PERFORMED AT: [facility] [address] [place] [phone] KRYSTAL URBINA MD Immunofixation Pnl, Serum Reviewed date:04/17/2024 09:03:36 AM Interpretation: Performing Lab:[facility], [address] [place] [address] Notes/Report: IgG 920 932-3186 mg/dL Results verif ied by repeat analysis on dilution. IgA 11 70-320 mg/dL Results verifie d by repeat analysis on dilution. IgM 155 50-300 mg/dL THIS TEST WAS PERFORMED AT: [facility] [address] [place] [phone] KRYSTAL URBINA MD Immunofixation Interpretation SEE NOTE Faint IgM kappa monoclonal band present. Viscosity Reviewed date:04/17/2024 09:03:36 AM Interpretation: Performing Lab:[facility], [address] [place] [address] Notes/Report: Viscosity 1.5 1.5-1.9 rel to H2O Units = Relative to Water THIS TEST WAS PERFORMED AT: [employer] [employer] [address] [place] [address] MIRELLA DOELL MD,PHD US retroperitoneal comp Reviewed date:04/17/2024 09:03:37 AM Interpretation: Performing Lab: Notes/Report: [address] [address] Ultrasound Report Signed Patient: Jose Powers MR#: [id number] : 1950 Acct:[id number] Age/Sex: 74 / M ADM Date: 04/04/24 Loc: HO.US Attending Dr: Taylor Strong [facility] Ordering Physician: Taylor StrongNAINA Date of Service: 04/04/24 Procedure(s): US retroperitoneal comp Accession Number(s): [id number] cc: Nicolás Bustos MD; Taylor Strong [facility] CLINICAL HISTORY: N41.9 - Inflammatory disease of [...] OV> 04/04/24 1203 DD/ 1201 TD/TT: 04/04/24 120 Strong Nitric Operator: [address] [address] Ultrasound Report Signed Patient: Jose Powers MR#: [id number] : 1950 Acct:[id number] Age/Sex: 74 / M ADM Date: 04/04/24 Loc: HO.US Attending Dr: Taylor antonio [facility] Ordering Physician: Taylor Strong Date of Service: 04/04/24 Procedure(s): US retroperitoneal comp Accession Number(s): [id number] cc: Nicolás Bustos MD; Taylor Strong [facility] CLINICAL HISTORY: N4 1.9 - Inflammatory disease [...] 04/04/24 1203 DD/ 1201 TD/TT: 04/04/24 1201 Strong Nitric Operator: Reason For Referral Reason left swollen leg neg ative for DVT evaluate and treat Diagnosis 1 Peripheral neuropath y (G62.9) Diagnosis 2 Left leg swelling (M 79.89) Referral Organization Nicolás Bustos III, MD Referring Provider First Name Nicolás Referring Provider Last Name Juli Referring Provider Speciality Internal M edicine Referred Organization [facility] nter Referred Provider Dillon White Referred Address [address] [place] [address],[place], [place],[id number],[place] Referred Provider Specialty Vascular Chang juice General Notes Trina Nguyen CM 11/11/2023 02:07:41 PM EDT > ref/demo/progress note/labs/x rays faxed to Dr White office, WalkerMargarita 11/24/2023 02:23:28 PM > Patient will be [...] Referring Provider Speciality Internal edicine Referred Provider [facility] er, Urology Referred Provider Specialty Urology General Notes Trina Nguyen CM 11/11/2023 02:05:52 PM EDT > ref/demo/progress note/labs faxed to [facility] urology office , WalkerMargarita 11/19/2023 02:18:27 PM EDT >ref/demo/progress note/labs faxed to [facility] urology office ., WalkerMargarita 11/24/2023 02:26:00 PM > Patient will be seen by the Nurse practioner on 01/18/24 @ 8am Referral Priority Routine Referral Appointment Date 01/18/2024 Reason severe right shoulde r pain Diagnosis 1 Acute pain of right shoulder (M25.511) Referral Organization Nicolás Bustos III, MD Referring Provider First Name Nioclás Referring Provider Last Name Bustos Referring Provider [...] Referring Provider Speciality Internal edicine Referred Provider [facility] Referred Provider Specialty Unknown General Notes Trina Bueno CMA 01/11 10:37:56 AM > ref/demo/progress notes faxed to [facility] wound clinic, Margarita Betancourt 01/15/2024 02:23:06 PM > [facility] calling stated they did not receive the referral and would like for us to refax it so they are able to schedule the patient. Referral faxed, Ximena Trinajeremias BERNAL 01/21/2024 02:27:41 PM >Spoke to wound center [...] Problem Status W/U Status Risk Notes Problem 7191741 Former smoker (Z87.891) Active confirmed He is motivated not to smoke and we discussed maintenance of abstinence. Problem 356598552 Overweight (E66.3) Active confirmed We have discussed his diet and nutrition today. We reviewed his weight loss strategy. We made a plan to lose weight at a rate of one half of a pound per week through a diet restricted in calories. Problem 454755278174074 Obesity (BMI 30.0-34.9) (E66.9) Active confirmed His weight has been stable with a body mass index of 31. We have discussed his diet and nutrition at length. We have formulated a weight loss strategy. Problem 510091542 Lumbar radiculopathy (M54.16) Active confirmed He continues to have mild to moderate intermittent low back pain that radiates down both legs. Problem 081921272 Waldenstrom macroglobulinemi a (C88.0) Active confirmed His IgM level and viscosity are stable. He does not require additional treatment at this time.A repeat viscosity has been ordered Problem 528578072 Other obesity due to excess calories (E66.09) Active confirmed Problem 74747529 Other chronic pain (G89.29) Active confirmed Problem Atelectasis (39053690) Atelectasis (J98.11) Active confirmed His most recent chest x-ray failed to show any atelectasis. Problem 711318535008132 Lumbago with sciatica, right side (M54.41) Active confirmed He continues to have intermittent chronic mild low back pain. Problem 556713551 Lumbago with sciatica, left side (M54.42) Active confirmed This appears to be nerve impingement in the lumbar spine. He was given dexamethasone and cyclobenzaprin e. He will rest as much as possible in the position and use heat. Problem 26947750 Essential hypertension (I10) Active confirmed His pressure is slightly high, today, but he is in pain and excited. It will be rechecked in the near future. Problem Peripheral neuropathy (545335819) Peripheral neuropathy (G62.9) Active confirmed His symptoms of tingling and numbness in the lower extremities are unchanged. He is stable in this respect and no additional treatment is needed. Problem 15788216 Penicillin allergy (Z88.0) Active confirmed Problem Atrial fibrillation (31219255) Atrial fibrillation (I48.91) Active confirmed He is in a normal sinus rhythm today. His rate is controlled. 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 He will be observed carefully. His viscosity is 1.4. The abnormal IgM protein is not detectable. The IgM level is in the normal range. His CBC is unremarkable. Problem 3094046 Atrial flutter (I48.92) Active confirmed He is in sinus rhythm today. He is taking metoprolol and flecainide. Problem Hoarseness (63059840) Hoarseness (R49.0) Active confirmed I have ordered thyroid function tests to see if he is hypothyroid. This he is not he will be referred to ENT. 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 He was referred to a gastroenterolo gist. Problem 31291178 Dysphagia, unspecified type (R13.10) Active confirmed This has resolved. Problem Pure hypercholesterolem ia (200447538) Hyperlipidemia type II (E78.01) Active confirmed His fasting lipid profile has been ordered. No change in his regimen as needed. Problem 991941140 Elevated PSA (R97.20) Active confirmed The PSA was 5.67, but when it was repeated with a free PSA it was 4.7 with a free PSA of 11%. I have asked urology to evaluate him. Problem 823330171704399 Sciatica of left side (M54.32) Active confirmed He is significantly improved. I cautioned him about doing too much activity too quickly. He will avoid heavy lifting and gradually resumed the activities of daily living. Problem 037802362 Pure hypercholesterol emia (E78.00) Active confirmed Problem 244458790 Benign prostatic hyperplasia, unspecified whether lower urinary tract symptoms present (N40.0) Active confirmed He rises from sleep once a night to urinate. We have discussed lifestyle modifications he could make to reduce nocturia. Problem 12528057 Right anterior shoulder pain (M25.511) Active confirmed He has a full-thickness tear of the infraspinatus and supraspinatus tendons. He does not know how this happened. He will go back to the orthopedic clinic to discuss treatment. Problem Bilateral carpal tunnel syndrome (53176777507534185 ) Bilateral carpal tunnel syndrome (G56.03) Active confirmed His symptoms are mild and he tolerates. No change in his regimen as needed today. Problem Dyspnea on exertion (94076812) Dyspnea on exertion (R06.00) Active confirmed He has been expperiencing worsening shortness of breath with exertion such as climbing a flight of stairs. He is a former smoker but has been abstinent for many years. The recent psychiatric catheterrizati on was unremarkable. Pulmonary function tests have been ordered. This will be followed by a commode a consultation and a repeat office visit. Problem 138595561 Body mass index [BMI] 30.0-30.9, adult (Z68.30) Active confirmed Problem 652095893 Lumbar back pain (M54.50) Active confirmed He is substantially improved since presentation. He was continued on current medication. He will begin to resume the activities of daily living slowly. He has had no falls or incontinence. 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 ; Waldenstrom macroglobulinemia C88.0 ; Essential hypertension I10 ; Former smoker Z87.891 ; Bilateral carpal tunnel syndrome G56.03 ; Peripheral neuropathy G62.9 ; Dysphagia, unspecified type R13.10 ; Benign prostatic hyperplasia, unspecified whether lower urinary tract symptoms present N40.0 and Atrial fibrillation I48.91 Nicolás Bustos III, MD [address] [place] [address] [place] [phone] 09/28/2023 Nicolás Bustos 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 ; Cellulitis of left lower extremity L03.116 ; Waldenstrom macroglobulinemia C88.0 ; Essential hypertension I10 ; Former smoker Z87.891 and Overweight E66.3 Nicolás Bustos III, MD [address] [place] [address] [place] [address] 10/07/2023 Nicolás Bustos 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 ; Leg swelling M79.89 ; Essential hypertension I10 ; Former smoker Z87.891 ; Lumbar radiculopathy M54.16 and Obesity (BMI 30.0-34.9) E66.9 Nicolás Bustos III, MD [address] [place] [address] [place] [address] 10/28/2023 Nicolás Bustos Benign prostatic hyperplasia, unspecified whether lower urinary tract symptoms present N40.0 ; 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 ; Edema of left lower extremity R60.0 ; Waldenstrom macroglobulinemia C88.0 ; Former smoker Z87.891 ; Essential hypertension I10 ; Overweight E66.3 ; Lumbar radiculopathy M54.16 ; Atrial fibrillation I48.91 and Elevated PSA R97.20 Nicolás Bustos III, MD [address] [place] [address] [place] [address] 11/11/2023 Nicolás Busots 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 ; Benign prostatic hyperplasia, unspecified whether lower urinary tract symptoms present N40.0 ; Essential hypertension I10 ; Former smoker Z87.891 ; Atrial flutter I48.92 ; Hyperlipidemia type II E78.01 ; Elevated PSA R97.20 ; Right anterior shoulder pain M25.511 and Obesity (BMI 30-39.9) E66.9 Nicolás Bustos III, MD [address] [place] [address] [place] [address] 11/25/2023 Nicolás Bustos 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 ; Benign prostatic hyperplasia, unspecified whether lower urinary tract symptoms present N40.0 ; Essential hypertension I10 ; Former smoker Z87.891 ; Lumbar radiculopathy M54.16 ; Overweight E66.3 ; Atrial flutter I48.92 ; Elevated PSA R97.20 ; Obesity (BMI 30.0-34.9) E66.9 and Edema of left lower extremity R60.0 Nicolás Bustos III, MD [address] [place] [address] [place] [address] 12/29/2023 Nicolás Bustos 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 ; Benign prostatic hyperplasia, unspecified whether lower urinary tract symptoms present N40.0 ; Wound of left lower extremity, initial encounter S81.802A ; Former smoker Z87.891 ; Waldenstrom macroglobulinemia C88.0 ; Essential hypertension I10 and Obesity (BMI 30-39.9) E66.9 Nicolás Bustos III, MD [address] [place] [address] [place] [address] 01/12/2024 Nicolás Bustos 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 ; Benign prostatic hyperplasia, unspecified whether lower urinary tract symptoms present N40.0 ; Former smoker Z87.891 ; Elevated PSA R97.20 ; Atrial fibrillation I48.91 ; Essential hypertension I10 ; Right anterior shoulder pain M25.511 and Obesity (BMI 30-39.9) E66.9 Nicolás Bustos III, MD [address] [place] [address] [place] [address] 02/08/2024 Nicolás Bustos 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 ; Benign prostatic hyperplasia, unspecified whether lower urinary tract symptoms present N40.0 ; Essential hypertension I10 ; Hyperlipidemia type II E78.01 ; Obesity (BMI 30.0-34.9) E66.9 ; Atrial flutter I48.92 ; Former smoker Z87.891 and Wound of left lower extremity, initial encounter S81.802A Nicolás Bustos III, MD [address] [place] [address] [place] [address] 05/04/2024 Nicolás Bustos 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 ; Benign prostatic hyperplasia, unspecified whether lower urinary tract symptoms present N40.0 ; Hoarseness R49.0 ; Essential hypertension I10 ; Atrial flutter I48.92 ; Former smoker Z87.891 and Overweight E66.3 Nicolás Bustos III, MD [address] [place] [address] [place] [address] 06/14/2024 Nicolás Bustos 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 ; Lumbago with sciatica, left side M54.42 ; Benign prostatic hyperplasia, unspecified whether lower urinary tract symptoms present N40.0 ; Former smoker Z87.891 ; Essential hypertension I10 ; Waldenstrom macroglobulinemia C88.0 ; Hyperlipidemia type II E78.01 ; Esophageal diverticulum, acquired K22.5 ; Dysphagia, unspecified type R13.10 and Atrial fibrillation I48.91 Nicolás Bustos III, MD [address] [place] [address] [place] [address] 06/21/2024 Nicolás Bustos 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 ; Benign prostatic hyperplasia, unspecified whether lower urinary tract symptoms present N40.0 ; Former smoker Z87.891 ; Overweight E66.3 and Sciatica of left side M54.32 Nicolás Bustos III, MD [address] [place] [address] [place] [address] 06/24/2024 Nicolás Bustos 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 [...] class 1 E66.811 Nicolás Bustos III, MD [address] [place] [address] [place] [address] 10/02/2023 Nicolás Bustos III, MD [address] [place] [address] [place] [address] 10/05/2023 Nicolás Bustos III, MD [address] [place] [address] [place] [address] 10/06/2023 Nicolás Bustos III, MD [address] [place] [address] [place] [address] 10/12/2023 Nicolás Bustos III, MD [address] [place] [address] [place] [address] 11/23/2023 Nicolás Bustos III, MD [address] [place] [address] [place] [address] 11/24/2023 Nicolás Bustos III, MD [address] [place] [address] [place] [address] 12/07/2023 Nicolás Bustos III, MD [address] [place] [address] [place] [address] 12/29/2023 Nicolás Bustos III, MD [address] [place] [address] [place] [address] 06/27/2024 Nicolás Bustos III, MD [address] [place] [address] [place] [address] 07/04/2024 Nicolás Bustos 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 He was referred to a life enrichment specialist. 06/24/2024 Other obesity due to excess calories [...] in the leg or abdomen or pelvis. [place] of the edema remains unclear. 06/14/2024 Atrial [...] C) 01/07/2023 PROFILE, FASTING (COMPREHENSIVE METABOLI C) 05/04/2024 PROFILE, FASTING (COMPREHENSIVE METABOLI C) 05/01/2023 PROFILE, RANDOM (COMPREHENSIVE METABOLIC ) 01/08/2022 PROFILE, RANDOM (COMPREHENSIVE METABOLIC ) 06/08/2020 PROFILE, RANDOM (COMPREHENSIVE METABOLIC ) 06/14/2018 PROFILE, RANDOM (COMPREHENSIVE METABOLIC ) 04/28/2022 PROFILE, RANDOM (COMPREHENSIVE METABOLIC ) 10/07/2022 PROFILE, RANDOM (COMPREHENSIVE METABOLIC ) 01/16/2021 PROFILE, RANDOM (COMPREHENSIVE METABOLIC ) 07/26/2018 PROFILE, RANDOM (COMPREHENSIVE METABOLIC ) 03/26/2021 PROFILE, RANDOM (COMPREHENSIVE METABOLIC ) 08/08/2020 LIPID PANEL 07/17/2022 LIPID PANEL 10/10/2020 LDH [...] SERUM (IEP) 2020 IMMUNOFIXATION PANEL, SERUM (IEP) 2024 IMMUNOFIXATION PANEL, SERUM (IEP) 2023 IMMUNOFIXATION PANEL, SERUM (IEP) 2021 IMMUNOFIXATION PANEL, SERUM (IEP) 2020 IMMUNOFIXATION PANEL, SERUM (IEP) 2021 IMMUNOFIXATION PANEL, SERUM (IEP) 2020 IMMUNOFIXATION PANEL, SERUM (IEP) 2018 IMMUNOFIXATION PANEL, SERUM (IEP) 2018 IMMUNOFIXATION PANEL, SERUM (IEP) 2021 IMMUNOFIXATION PANEL, SERUM (IEP) 2020 IMMUNOFIXATION PANEL, SERUM (IEP) 2022 IMMUNOFIXATION PANEL, SERUM (IEP) 2023 IMMUNOFIXATION PANEL, SERUM (IEP) 2022 PROTEIN ELECTROPHORESIS, SERUM 3 PROTEIN ELECTROPHORESIS, SERUM 3 PROTEIN ELECTROPHORESIS, SERUM 1 PROTEIN ELECTROPHORESIS, SERUM 1 PROTEIN ELECTROPHORESIS, SERUM 5 PROTEIN ELECTROPHORESIS, SERUM 4 PROTEIN ELECTROPHORESIS, SERUM 1 PROTEIN ELECTROPHORESIS, SERUM 2 PROTEIN ELECTROPHORESIS, SERUM 1 PROTEIN ELECTROPHORESIS, SERUM 2 PROTEIN ELECTROPHORESIS, SERUM 1 PROTEIN ELECTROPHORESIS, SERUM 3 PROTEIN ELECTROPHORESIS, SERUM 4 VISCOSITY 01/08/2022 VISCOSITY 02/08/2024 VISCOSITY 10/07/2022 VISCOSITY 01/16/2021 VISCOSITY 07/17/2022 VISCOSITY 05/04/2024 BETA-2 MICROGLOBULIN, SERUM 04/28/2022 BETA-2 MICROGLOBULIN, SERUM 01/08/2022 BETA-2 MICROGLOBULIN, SERUM 10/07/2022 BETA-2 MICROGLOBULIN, SERUM 01/16/2021 BETA-2 MICROGLOBULIN, SERUM 05/01/2023 CBC WITH AUTO DIFF 01/07/2023 CBC WITH [...] Details Provider Name:Nicolás Bustos, 09/02/2024 09:00:00 AM, [address] [place] [address] [address], [place], [address], Provider Name:Nicolás Bustos, 05/05/2025 10:00:00 AM, [address] [place] [address] [address], [place], [address], Insurance Providers Payer Name Payer Address Payer Phone Subscriber Number Group Number Insured Name Patient Relationship to Insured Coverage Start Date Coverage End Date MEDICARE NGS [address] [place] [address] [id number] Jose Powers Self - patient is the insured MED[place] [address] [place], [place] [id number] Jose Powers Self - patient is the [...] Surgery Date(Month/Year) No history Diverticulum, Esophagus 03/2022,09/30/19 23 Pericardiocentesis and pericardial windo w 02/2021 Extract wisdom teeth at [facility] 1975 Remove cyst from chest- Dr. Castillo 19 77 Remove cyst from rectum at [facility] 1986 Exploritory surgery Rt. ear- Dr. Washington at [facility] 12-30-2002 Remove external hemorrhoid at [facility] 05-10-2004 Remove cyst right wrist at [facility] 12-31-2004 Remove cyst from back- Dr. Willoughby at [facility] 05-09-2009 A flutter s/p cardioversion- Dr. Xiao a [facility] 07-01-2011 Radiofrequency catheter ablation- Dr. Restrepo at [facility] 07-15-2011 Laser stapedotomy w/ vein gr aft- Dr. Odell at [facility] 12-24-2011 Sleep Study- Dr. Xiao at [facility] 3 Left wrist tendon surgery ag e 32's- Dr. Cl Woody at [facility] 1992 Tonsillectomy child 1956 Hospitalization History Reason Date(Month/Year) No history
--- OUTSIDE RECORDS SUMMARY | 2024-07-26 07:41 | XMS_ITS ---
Author Organization Nicolás Bustos III, MD Address [address] [place] [address] Care Team Providers Care Hand Miter Operator Name Role Phone Nicolás Bustos Primary [...] Problem Status W/U Status Risk Notes Problem 808085160 Other obesity due to excess calories (E66.09) Active confirmed Problem 487549359 Body mass index [BMI] 30.0-30.9, adult (Z68.30) Active confirmed Problem 192327168 Obesity, class 1 (E66.811) Active confirmed Problem 094143152 Lumbar back pain (M54.50) Active confirmed He is substantially improved since presentation. He was continued on current medication. He will begin to resume the activities of daily living slowly. He has had no falls or incontinence. 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 [...] up Provider Name:Nicolás Bustos, 09/02/2024 09:00:00 AM, [address] [place] [address] K[place] REYNOLDS, [place], [address], Provider Name:Nicolás Bustos, 05/05/2025 10:00:00 AM, [address] [place] [address] [place] RE[place], [place], [address], Progress Notes * Jose POWERSDOB:1950 ([age] yo M)Acc No.[id number]:06/24/2024 Patient:?Jose POWERS Provider:?Nicolás Bustos MD :1950???Age:74 Y???Sex:Male Glen e:06/24/2024 Address:[address] [place] [address] [address] Subjective: * Chief Complaints: * ???Telehealth * [...] rendering services:?{...} [address] [facility] [address] ?Location of patient:?address listed in demographics for [...] surgery age 32's- Dr. Cl Woody at [facility] 1992Sleep Study- Dr. Xiao at [facility] [id number] stapedotomy w/ vein graft- Dr. Chin at [facility] 22-70-8291Pjmmshzdeeankr catheter ablation- Dr. Vance at [facility] 07-15-2011 flutter s/p cardioversion- Dr. Xiao at [facility] 36-78-8320Cdbjbz cyst from back- Dr. Willoughby at [facility] 45-85-6714Pjcuim cyst right wrist at [facility] 56-02-4859Egpszy external hemorrhoid at [facility] 65-66-7649Lcrasptmsdo surgery Rt. ear- Dr. Washington at [facility] 91-34-4774Yqknmw cyst from rectum at [facility] 1986Remove cyst from chest- Dr. Castillo 1976Extract wisdom teeth at [facility] 1976Pericardiocentesis and pericardial window iverticulum, Esophagus [...] does not drink alcohol. He lives in [facility]. He has two daughters Bernice [...] tablet, Orally, Twice a day.?? * Procedure Codes:?64087 SYNCH AUDIO-ONLY EST SF 10 * Preventive [...] Bustos MD Date:?06/14 Generated for Michelle pierson/Mikel/eTkareemsmitting on:?07/26/2024 07:40 AM EDT History and Physical Notes * HPI (History of Present Illness) Category Sub-Category Detail Notes Telehealth Location of [facility]:: {...} [address] [facility] [address] Location of patient:: address listed in demographics [...]
--- OUTSIDE RECORDS SUMMARY | 2024-07-26 07:41 | XMS_ITS ---
Author Organization [facility] Address [address] [place] [address] Care Team Providers Care Beam Racker Name Role Phone Nicolás Bustos MD Primary Care Provider Unavailab Nicolás Schwartz Unavailable [phone] REASON FOR VISIT looking to refill patient's omeprazole Encounters Encounter Location Date Provider Diagnosis [facility] [address] [place] [address] 11/11/2023 Nicolás Murguia Plan Of Treatment No Information Progress Notes * CALEB RAMIREZDOB:1950 ([age] yo M)Acc No.[id number]:11/11/2023 Patient:?CALEB RAMIREZ :1950???Age:73 Y???Sex:Male Address:[address] , , [place], [address] * true * Date:? Generated for Michelle pierson/Mikel/eTransmitting on:?07/26/2024 07:40 AM EDT
--- OUTSIDE RECORDS SUMMARY | 2024-07-26 07:41 | XMS_ITS ---
Author Organization Nicolás Bustos III, MD Address [address] [place] [address] [place] [address] Care Team Providers Care Forming Machine Upkeep Mechanic Name Role Phone Nicolás Bustos Primary Care Provider [phone] REASON FOR VISIT told patient to call Medications Medication SIG (Take, Route, Frequency, Duration) Notes Start Date End Date Status Cyclobenzaprine HCl 10 MG one tablet Ora lly three times a day for 7 days 06/14/2024 08/01/2024 Active Social History Sex Assigned At : Social History Observation Description Sex Assigned At Male Encounters Encounter Location Date Provider Diagnosis Nicolás Bustos III, MD [address] [place] [address] [place] [address] 07/04/2024 Nicolás Bustos 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 Refill Cyclobenzaprine HCl Tablet, 10 MG, Orally, 21, one tablet, three times a day, 7 days, Refills=3 * true * Date:? Generated for Michelle pierson/Mikel/Mikeitting on:?07/26/2024 07:41 AM EDT
--- OUTSIDE RECORDS SUMMARY | 2024-07-26 07:41 | XMS_ITS ---
Author Organization Nicolás Bustos III, MD Address [address] [place] [address] [place] [address] Care Team Providers Care Loan Funder Name Role Phone Nicolás Bustos Primary Care Provider [phone] REASON FOR VISIT Needs call back from Social History Sex Assigned At : Social History Observation Description Sex Assigned At Male Encounters Encounter Location Date Provider Diagnosis Nicolás Bustos III, MD [address] [place] [address] [place] [address] 06/27/2024 Nicolás Bustos Plan Of Treatment Next Appt Details Provider Name:Nicolás Bustos, 09/02/2024 09:00:00 AM, [address] [place] [address] [place], [address], Provider Name:Nicolás Bustos, 05/05/2025 10:00:00 AM, [address] [place] [address] [place], [address], Progress Notes * GIOJoseDOB:1950 ([age] yo M)Acc No.[id number]:06/27/2024 Patient:?Jose POWERS :1950???Age:74 Y???Sex:Male Address:[address], [place], [address] * true * Date:? Generated for Printi ng/Faxing/eTransmitting on:?07/26/2024 07:40 AM EDT
--- NOTE | 2024-07-26 07:48 | A.OFFVIS_ITS ---
Intake Visit Reasons: 4m/PSA(set) Intake Note: Patient presents today for follow up visit on: elevated psa, prostatitis, and lab results * PSA: 4.36 * BUN: 18; Creatinine: 0.83 Urology Medications: tamsulosin, finasteride Blood Thinner: Apixaban PVR: 84ml's Petroleum Inspector Required: No Senior Qc Technician: Senior Qc Technician offered & declined Accompanied by: Self / Same As Patient Allergies amoxicillin [AMOXICILLIN] Allergy (Intermediate, Verified 07/26/24 08:31) RASH adhesive Allergy (Mild, Verified 07/26/24 08:31) Rash soap [Betadine] Allergy (Unknown, Verified 07/26/24 08:31) Rash povidone-iodine [From BETADINE] Adverse Reaction (Intermediate, Verified 07/26/24 08:31) RASH (IF ON SKIN FOR PROLONGED TIME) Medication List - Last Reconciled 07/26/24 by MIKE Abbasi- apixaban (Eliquis) 5 mg PO BID atorvastatin 20 mg PO DAILY cyclobenzaprine 10 mg PO TID finasteride 5 mg PO DAILY 90 days flecainide 150 mg PO Q12H ibrutinib (Imbruvica) mg PO metoprolol tartrate 50 mg PO BID metronidazole 0.75% 1 appl topical BEDTIME multivitamin (Multiple Vitamins tablet) 1 tab PO DAILY naproxen 500 mg PO BID omeprazole 40 mg PO QAM tamsulosin 0.8 mg (2 x 0.4 mg) PO BEDTIME 90 days HPI Comments Details: Jose is a very pleasant 74-year-old male patient of . He has a past medical history of pericardial effusion, hypertension, enlarged right ventricle, and paroxysmal AFib/a flutter. He presents to the office today for follow-up of his elevated PSA. In discussion with the patient today he reports having had no bothersome urinary issues since his last office visit here. He does report compliance with finasteride and Flomax as prescribed. Recent PSA results were reviewed with the patient today as noted and trended below. Previous workup has included a retroperitoneal ultrasound 04/09 notes mild left hydro, no right hydronephrosis. No bladder over distention. The urinary bladder is unremarkable. Pre void bladder volume is approximately 210 mL. Postvoid bladder volume is approximately 50 mL. Prostate volume is calculated at approximately 40 mL. PSAs are as follows: 10/04 2.3, 01/04 2.5, 08/06 3.5, 11/06 4.7, 11/06 5.7 % free PSA 11%, 04/08 4.8 % free PSA 15%, 08/07 4.4 BUN: 10/05 20, 01/05 22, 05/09 19, 08/06 16, 11/06 13, 04/09 20, 08/07 18 Creatinine: 10/05 0.84, 01/05 0.88, 05/09 0.94, 08/06 0.89, 11/06 0.99, 04/09 0.83, 08/07 0.83 We discussed at length potential causes of elevated PSA as well as further treatment options. We discussed decrease in PSA. All questions were answered. He denies hematuria, dysuria, foul smelling urine, changes to urinary stream, flank pain, fever, and or chills. In office urinalysis results reviewed with the patient today. PVR 83 mL. He otherwise offers no other issues or concerns at this time. [facility] Medical History Pericardial effusion HTN (hypertension) Enlarged RV (right ventricle) Paroxysmal atrial flutter Paroxysmal atrial fibrillation Persistent atrial fibrillation Surgical History Status post creation of pericardial window Hx of wisdom tooth extraction History of surgery on wrist Hx of tonsillectomy History of stapedectomy Hx of transesophageal echocardiography (ANUSHKA) for monitoring Hx of hemorrhoidectomy History of bone marrow biopsy History of cardiac radiofrequency ablation (RFA) History of ear surgery Family History Father CVD (cardiovascular disease) Mother Cancer Social History Alcohol intake: current Alcohol intake frequency: holidays/special occasions only Patient Tobacco Use Status: Never used Tobacco 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al status: retired 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 Review of Systems Const All systems reviewed & are unremarkable except as noted in HPI and below Physical Exam Const General: cooperative, healthy appearing, comfortable, no acute distress, well developed, alert and awake Orientation/consciousness: patient oriented x3 Limitations: no limitations HEENT Head: Yes normal to inspection, Yes normocephalic and Yes atraumatic Ears: hearing grossly normal bilaterally Eyes General: appearance normal, both eyes and all related structures Neck Neck: Yes normal visual inspection and Yes trachea midline Chest Chest palpation & inspection: normal inspection of the chest Resp Effort & Inspection: normal respiratory effort and able to speak in complete sentences Cardio Rate: regular rate GI Inspection: Yes normal to inspection General: Yes no CVA tenderness Back/Spine/Pelvis Back: no CVA tenderness Skin General skin exam: no rashes or lesions noted Neuro General: patient oriented x3 Extrem General: Yes normal to inspection Psych Appearance: grossly normal and well kempt Mental Status: mental status grossly normal Speech and movement: Normal speech and movement present and Clear speech present Affect: normal affect Attitude: cooperative Thought process: Normal thought process present Thought content: Normal thought content present Insight: Fair insight present (Psych) Judgement: Fair judgement present (Psych) Office Procedures Post Void Residual Post Residual Void Post Void Residual (PVR): 84 [id number] Void Residual by ultrasound Results AMB Urinalysis, Automated UA Leukoctes 0 Marino/uL Last Edit by [employer] on 07/26/24 08:43 UA Nitrite Last Edit by [employer] Noam on 07/26/24 08:43 UA Urobilinogen 0.2 mg/dL Last Edit by [employer] on 07/26/24 08:43 UA Protein 0 mg/dL Last Edit by [employer] on 07/26/24 08:43 UA pH 6.5 Last Edit by [employer] on 07/26/24 08:43 UA Blood 0 Mahesh/uL Last Edit by [employer] on 07/26/24 08:43 UA Specific [place] 1.010 Last Edit by [employer] on 07/26/24 08:43 UA Ketone Last Edit by [employer] on 07/26/24 08:43 UA Bilirubin 0 mg/dL Last Edit by Dimitris Santacruz on 07/26/24 08:43 UA Glucose 0 mg/dL Last Edit by Dimitris Santacruz on 07/26/24 08:43 Results Reviewed Results Reviewed: Laboratory Last Values Urine pH (Auto) 6.5 07/26/24 08:11 Specific [place] (Auto) 1.010 07/26/24 08:11 Urine Protein (Auto) 0 mg/dL 07/26/24 08:11 Glucose (UA)(Auto) 0 mg/dL 07/26/24 08:11 Urine Blood (Auto) 0 Mahesh/uL 07/26/24 08:11 Urine Bilirubin (Auto) 0 mg/dL 07/26/24 08:11 Urine Urobilinogen (Auto) 0.2 mg/dL 07/26/24 08:11 Leukocyte Esterase (Auto) 0 Marino/uL 07/26/24 08:11 Assessment & Plan Assessment & Plan (1) Elevated PSA: Code(s): R97.20 - Elevated prostate specific antigen [PSA] Category: Medical Plan In office urinalysis results with the patient today; as noted above. PVR 83 mL. Continue finasteride and Flomax as prescribed. He currently denies any bothersome urinary issues or concerns. He reports be happy with current voiding parameters. Will continue with surveillance monitoring. Will obtain PSA Follow-up in 4-6 months with PSA and PVR; or sooner with any issues, concerns, and or questions. Orders: Orders AMB Post Void Residual by ultrasound Today R39.12 - Poor urinary stream Prostate Specific Antigen 4 Months R97.20 - Elevated prostate specific antigen [PSA] AMB Urinalysis Automated Today Z13.9 - Encounter for screening, unspecified Patient Instructions: The patient had an opportunity to ask questions regarding the treatment plan. All questions were answered. Physical exam, labs, and imaging were discussed and reviewed in detail. As well as risks, benefits, and discussion of treatment choices. No major barriers to understanding were identified. The patient expressed understanding and agreement with the above treatment plan. The patient was made aware they should contact our office by phone for worsening of their current condition, the appearance of new symptoms, or with any questions or concerns. Compliance is encouraged with any medications and follow up testing that is ordered. It is a privilege to be allowed the opportunity to participate in? your urological care.? Again, if you have any questions or concerns If you have any questions or concerns please do not hesitate to contact me. The office is [phone]. This note is constructed using voice recognition software. While every effort has been made to ensure accuracy cleaner wall errors may have been included. Yours sincerely, MARY Abbasi Coding Level of Care Code Est Pt Level 3 (96753) Complex EM visit Add On G2211 Diagnoses Elevated PSA R97.20 CPT Codes Post Residual Void - PVR CPT Code: 27326-Svpj Void Residual by ultrasound ([id number])
== END 2024-07-26 08:30 | disposition home or self-care (01) ==
LOC: HO.HUSH 07:38
PROVIDERS: PCP Internal Medicine Medical Oncology; Visit Provider Nurse Practitioner Family
DX: R97.20 Elevated prostate specific antigen [PSA] (principal); Z13.9 Encounter for screening, unspecified
CPT/HCPCS: 99213; G2211

== ENCOUNTER → 2024-07-26 07:38 | Outpatient (BNVA) | payer MEDICARE, MEDICAID, SELFPAY | PROVIDERS: PCP Internal Medicine Medical Oncology; Visit Provider Nurse Practitioner Family | DX: R97.20 Elevated prostate specific antigen [PSA] (principal) | CPT/HCPCS: 51798; 81003; 99212 ==

== ENCOUNTER 2024-08-04 08:35 | Outpatient (AMB) | payer MEDICARE, MEDICAID, SELFPAY ==
[2024-08-04 08:46] VITALS: BP 140/84; PULSE 76; BMI 31.6
--- NOTE | 2024-08-04 08:46 | MHC.OFFVIS ---
Vital Signs 08/04/24 08:46 Height 5 ft 9 in Weight 213 lb 13.574 oz BMI 31.6 BP 140/84 H Blood Pressure Location Lt brachial Position Sitting Pulse 76 Intake Visit Reasons: 1 yr follow up/clear for Giovanni/ortho surgery Intake Note: 1 year follow-up with ekg and cardiac clearance for shoulder replacment Patient Financial Services Specialist Required: No Allergies amoxicillin [AMOXICILLIN] Allergy (Intermediate, Verified 07/26/24 08:31) RASH adhesive Allergy (Mild, Verified 07/26/24 08:31) Rash soap [Betadine] Allergy (Unknown, Verified 07/26/24 08:31) Rash povidone-iodine [From BETADINE] Adverse Reaction (Intermediate, Verified 07/26/24 08:31) RASH (IF ON SKIN FOR PROLONGED TIME) Medication List - Last Reconciled 08/04/24 by Yvan Xiao MD apixaban (Eliquis) 5 mg PO BID atorvastatin 20 mg PO DAILY cyclobenzaprine 10 mg PO ONCE PRN finasteride 5 mg PO DAILY 90 days flecainide 150 mg PO Q12H ibrutinib (Imbruvica) mg PO melatonin 5 mg PO PRN metoprolol tartrate 50 mg PO BID metronidazole 0.75% 1 appl topical BEDTIME multivitamin (Multiple Vitamins tablet) 1 tab PO DAILY naproxen 500 mg PO BID omeprazole 40 mg PO QAM tamsulosin 0.8 mg (2 x 0.4 mg) PO BEDTIME 90 days HPI Comments Details: Sidney comes for follow-up. He is still contemplating whether he should undergo right shoulder replacement surgery. He is recommended to undergo this. However he says he is not sure as to if this will improve overall his quality of life and functionality. He has no new cardiac symptoms. He remains limited in activity level with exertional shortness of breath. He denies exertional chest pain. Denies any orthopnea, PND, leg edema. He has not had any recurrent episodes of atrial fibrillation or flutter. No bleeding issues or neurologic events. He said he gets short of breath walking short distances if he is carrying grocery and he said his left leg is very weak and he feels like it will give out on him if he goes for long walks. Denies any syncopal episodes. [facility] Medical History (Updated 08/04/24 @ 09:11 by Yvan Xiao MD) CAD (coronary artery disease) Pericardial effusion HTN (hypertension) Enlarged RV (right ventricle) Paroxysmal atrial flutter Paroxysmal atrial fibrillation Persistent atrial fibrillation Surgical History Status post creation of pericardial window Hx of wisdom tooth extraction History of surgery on wrist Hx of tonsillectomy History of stapedectomy Hx of transesophageal echocardiography (ANUSHKA) for monitoring Hx of hemorrhoidectomy History of bone marrow biopsy History of cardiac radiofrequency ablation (RFA) History of ear surgery Family History Father CVD (cardiovascular disease) Mother Cancer Social History Alcohol intake: current Alcohol intake frequency: holidays/special occasions only Patient Tobacco Use Status: Never used Tobacco 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al status: retired 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 Review of Systems Const Denies chills, Denies fatigue, Denies fever(s), Denies frequent falls, Denies weakness, Denies weight gain and Denies weight loss ENT Denies dizziness Card Denies chest pain, Denies leg edema, Denies lightheadedness, Denies palpitations, Denies dyspnea, Denies dyspnea on exertion, Denies orthopnea and Denies other (loss of consciousness) Resp Denies cough, Denies dyspnea and Denies dyspnea on exertion GI Denies hematochezia and Denies change in stool character Musc Denies abnormal gait, Denies muscle weakness, Denies numbness, Denies radiating pain into limb and Denies tingling Neuro Denies abnormal gait, Denies dizziness, Denies frequent falls, Denies numbness, Denies tingling and Denies weakness Endo Denies fatigue and Denies palpitations Physical Exam Vital Signs: Last Vital Signs Pulse 76 08/04/24 08:46 BP 140/84 H 08/04/24 08:46 BMI result Body Mass Index 31.6 Const General: cooperative, comfortable, alert and awake Nutritional Appearance: overweight Orientation/consciousness: patient oriented x3 Limitations: no limitations Neck Neck: Yes trachea midline, Yes supple and Yes no JVD Resp Effort & Inspection: normal respiratory effort Auscultation: clear to auscultation bilaterally Cardio Jugular venous distension: no JVD Palpation: normal PMI Rate: regular rate Rhythm: abnormal rhythm with ectopic beats Heart sounds: S1 normal heart sound present GI Auscultation: normal bowel sounds Skin General skin exam: no rashes or lesions noted Neuro General: patient oriented x3 and no focal motor deficits Extrem General: Yes no clubbing, cyanosis or edema Psych Appearance: grossly normal Office Procedures EKG Details: EKG shows normal sinus rhythm with first-degree AV block with nonspecific ST-T abnormality 41394-Xxwszuntbvsgcwopo, Complete Assessment & Plan Assessment & Plan (1) Paroxysmal atrial fibrillation: Code(s): I48.0 - Paroxysmal atrial fibrillation Category: Medical Plan: Paroxysmal atrial fibrillation which has remained suppressed on therapy with flecainide and concomitant metoprolol use. He has been doing well with maintenance rhythm. Continue pursue rhythm control approach. Continue flecainide therapy. Will need EKGs every 6 months. Continue full oral anticoagulation, currently on Eliquis 5 mg b.i.d.. Semi annual renal function test should be pursued. EKGs every 6 months to be pursued. (2) HTN (hypertension): Code(s): I10 - Essential (primary) hypertension Category: Medical Plan: Hypertension which is currently well optimized. Continue current therapy. Importance of good blood pressure control was discussed. No signs or symptoms of heart failure. Advised to monitor blood pressure at home maintain a log. Goal blood pressure less than 130/84. (3) Enlarged RV (right ventricle): Code(s): I51.7 - Cardiomegaly Category: Medical Plan: Enlarged right ventricular of unclear etiology although without any signs or symptoms of heart failure. At this point time no change in therapy. Continue rhythm control approach. (4) CAD (coronary artery disease): Comment: Nonobstructive by coronary CTA, August 2022 Code(s): I25.10 - Atherosclerotic heart disease of [place] coronary artery without angina pectoris Category: Medical Plan: Nonobstructive CAD by coronary CTA. He continues to have exertional shortness of breath which is related most likely related to his weight and deconditioning. Not sure if RV enlargement is contributing to it. He has no signs of heart failure. He is encouraged to increase activity level as tolerated. Currently on full oral anticoagulation with apixaban and that will be continued. Avoid aspirin therapy. Continue statin therapy with target goal LDL less than 70 mg/dL. (5) Preop cardiovascular exam: Code(s): Z01.810 - Encounter for preprocedural cardiovascular examination Plan: Preoperative cardiovascular exam for intermediate risk surgery with shoulder replacement surgery. He has continued symptoms exertional shortness of breath without any evidence of progressive myocardial ischemia and/or congestive heart failure. He is currently optimized to undergo this surgery with low to intermediate risk for perioperative cardiovascular morbidity mortality. I would continue his flecainide and metoprolol in the perioperative period along with statins. Eliquis can be withheld for 3 days prior to the procedure and resumed as soon as possible after the surgery. Will follow up in the clinic in 6 months for EKG in 1 year with me. Thank you for allowing me to partake in his care Coding Level of Care Code Est Pt Level 4 (79327) Complex EM visit Add On G2211 Diagnoses Paroxysmal atrial fibrillation I48.0 HTN (hypertension) I10 Enlarged RV (right ventricle) I51.7 CAD (coronary artery disease) I25.10 Preop cardiovascular exam Z01.810 CPT Codes EKG - CPT: 74199-Njvtenbhbjklvknph, Complete ([id number])
--- OUTSIDE RECORDS SUMMARY | 2024-08-04 08:47 | XMS_ITS ---
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 Refill Cyclobenzaprine HCl Tablet, 10 MG, Orally, 21, one tablet, three times a day, 7 days, Refills=3 * true * Date:? Generated for Michelle pierson/Mikel/Mikeitting on:?08/04/2024 08:47 AM EDT
--- OUTSIDE RECORDS SUMMARY | 2024-08-04 08:47 | XMS_ITS | Patient Health Record ---
Author Organization [facility] Address [address] [place] [address] Care Team Providers Care Heel Painter Name Role Phone Nicolás Bustos MD Primary Care Provider Unavailab Nicolás Schwartz Unavailable [phone] Allergies Allergen (clinical drug ingredient) Drug/Non Drug [...] Omeprazole 40 MG TAKE 1 CAPSULE BY [facility] EVERY MORNING for 30 Active Metoprolol Tartrate [...] Status Risk Notes Problem Colon cancer screening (094839697) Colon cancer screening (Z12.11) Active confirmed Problem 66151947 Pharyngoesophage al dysphagia (R13.14) Active confirmed Problem 881706640 Other specified postprocedural states (Z98.890) Active confirmed Problem Acquired diverticulum of esophagus (14894786) 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 Encounters Encounter Location Date Provider Diagnosis [facility] [address] [place] [address] 11/11/2023 Nicolás Murguia Plan Of Treatment Pending [...] OF [place] [address] [place] [address] [id number] CALEB RAMIREZ Self - patient is the insured MEDICAID OF [facility] [address] [place] [address] [id number] CALEB RAMIREZ Self - patient is the insured Medical (General) History Medical History History ICD Code HTN Denies [place],DM,CVA,Lung disease,renal dise ase Screening colonoscopies in 2 000 in [place] and 2010 in [place]--both negative Atrial fibrillation--s/p abl ation in 2011--was [...] removal-back,wrist,rectum and chest Hemorrhoidectomy Tendon repair-left wrist [place] teeth extraction Tonsillectomy Stapedectomy Surgery for a Zenker's diverticulum with Dr. Anil barger ENT 04/07/2022
--- OUTSIDE RECORDS SUMMARY | 2024-08-04 08:47 | XMS_ITS ---
Author Organization Nicolás Bustos III, MD Address [address] [place] [address] Care Team Providers Care General Inspector Name Role Phone Nicolás Bustos Primary Care [...] Problem Status W/U Status Risk Notes Problem 926256354 Other obesity due to excess calories (E66.09) Active confirmed Problem 440321491 Body mass index [BMI] 30.0-30.9, adult (Z68.30) Active confirmed Problem 712234746 Obesity, class 1 (E66.811) Active confirmed Problem 018200492 Lumbar back pain (M54.50) Active confirmed He is substantially improved since presentation. He was continued on current medication. He will begin to resume the activities of daily living slowly. He has had no falls or incontinence. 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 [...] up Provider Name:Nicolás Bustos, 09/02/2024 09:00:00 AM, [address] [place] [address] [place], [place], [address], Provider Name:Nicolás Bustos, 05/05/2025 10:00:00 AM, [address] [place] [address] [place], [place], [address], Progress Notes * Jose POWERSDOB:1950 ([age] yo M)Acc No.[id number]:06/24/2024 Patient:?Jose POWERS Provider:?Nicolás Bustos MD :1950???Age:74 Y???Sex:Male Glen e:06/24/2024 Address:[address] [place] [address] [phone] Subjective: * Chief Complaints: * ???Telehealth * [...] rendering services:?{...} [address] [facility] [address] ?Location of patient:?address listed in demographics for [...] surgery age 32's- Dr. Cl Woody at [facility] 1992Sleep Study- Dr. Xiao at [facility] 88-04-3097Saana stapedotomy w/ vein graft- Dr. Chin at [facility] 08-91-8593Dnaydfpmxzuwqg catheter ablation- Dr. Vance at [facility] 07-15-2011 flutter s/p cardioversion- Dr. Xiao at [facility] 61-54-2966Aizfdp cyst from back- Dr. Willoughby at [facility] 23-47-0015Dmkfly cyst right wrist at [facility] 74-21-7186Tcclgw external hemorrhoid at [facility] 31-27-3721Fpgtnrjicah surgery Rt. ear- Dr. Washington at [facility] 61-34-9544Ndkgca cyst from rectum at [facility] 1986Remove cyst from chest- Dr. Castillo 1976Extract wisdom teeth at [facility] 1976Pericardiocentesis and pericardial window iverticulum, Esophagus [...] does not drink alcohol. He lives in [facility]. He has two daughters Bernice and [...] tablet, Orally, Twice a day.?? * Procedure Codes:?71564 SYNCH AUDIO-ONLY EST SF 10 * Preventive [...] Bustos MD Date:?06/14 Generated for Michelle pierson/Mikel/eTkareemsmitting on:?08/04/2024 08:46 AM EDT History and Physical Notes * HPI (History of Present Illness) Category Sub-Category Detail Notes Telehealth Location of [facility] rendering services:: {...} [address] [facility] [address] Location of patient:: address listed in demographics [...]
--- OUTSIDE RECORDS SUMMARY | 2024-08-04 08:47 | XMS_ITS | Patient Health Record ---
Author Organization Nicolás Bustos III, MD Address [address] [address] Care Team Providers Care Waste Recycler Name Role Phone Nicolás Bustos Primary Care Provider [phone] Allergies Allergen (clinical drug ingredient) Drug/Non Drug Allergy documented on EMR Reaction Allergy Type Onset Date Status Adhesive rash Allergy Active povidone-iodine Betadine Rash Drug Allergy A ctive amoxicillin Amoxicillin Rash Drug Allergy Act jocelin Results Component Value Reference Range Notes Routine Culture Reviewed date:10/09/2023 08:58:18 PM Interpretation: Performing Lab:[facility], [address] [place] [phone] Notes/Report: Routine Culture No growth after 2 days Routine Culture Reviewed date:01/03/2024 08:39:28 AM Interpretation: Performing Lab:[facility], [address] [place] [address] Notes/Report: Routine Culture Report - external Routine [...] stain Reviewed date:10/09/2023 08:58:18 PM Interpretation: Performing Lab:[facility], [address] [place] [phone] Notes/Report: Gram stain Gram stain results: Gram stain No polys Gram stain No organisms seen US venous duplex LE LT Reviewed date:10/07/2023 12:55:50 PM Interpretation: Performing Lab: Notes/Report: [address] [address] Ultrasound Report Signed Patient: oJse Powers MR#: [id number] : 1950 Acct:[id number] Age/Sex: 73 / M ADM Date: 10/07/23 Loc: HO.US Attending Dr: Nicolás Bustos MD Ordering Physician: Nicolás Bustos MD Date of Service: 10/07/23 Procedure(s): US venous duplex LE LT Accession Number(s): [id number] cc: Nicolás Bustos MD EXAMINATION: US VENOUS [...] in OV> 10/07/23 1127 DD/ 1030 TD/TT: Coke Crane Operator: [address] [address] Ultrasound Report Signed Patient: Jose Powers MR#: [id number] : 1950 Acct:[id number] Age/Sex: 73 / M ADM Date: 10/07/23 Loc: HO.US Attending Dr: Nicolás Bustos MD Ordering Physician: Nicolás Bustos MD Date of Service: 10/07/23 Procedure(s): US cris ous duplex LE LT Accession Number(s): [id number] cc: Nicolás Bustos MD EXAMINATION: US VENOUS [...] in OV> 10/07/23 1127 DD/ 1030 TD/TT: Stoker Erector And Servicer ist: PD Complete Blood Count Auto Di ff Reviewed date:10/28/2023 10:22:37 AM Interpretation: Performing Lab:[facility], [address] [place] [phone] Notes/Report: White Blood Count 7.1 4.8-10.8 X10*3/uL [...] NRBC Abs Auto 0.000 0.0-0.012 X10*3/uL Comprehensive Coffey. Panel Fa st Reviewed date:10/28/2023 10:22:37 AM Interpretation: Performing Lab:[facility], [address] [place] [address] Notes/Report: Sodium 140 135-145 mmol/L Potassium 4.5 3.3-5.1 mmol/L Chloride 103 96-108 mmol/L Carbon Dioxide 27 22-29 mmol/L Anion Gap 15 12-20 Blood Urea Nitrogen 13 9-16 mg/dL Creatinine 0.99 0.5-1.4 mg/dL Estimated Glomerular Filt Rate > 60 NOTE: For -Citizen Of [place] individuals, multiply the result by 1.210. Chronic [...] Panel Reviewed date:10/28/2023 10:22:37 AM Interpretation: Performing Lab:[address] [address] Notes/Report: Triglycerides 84 <150 mg/dL Desirable Triglyceride: [...] Antigen Reviewed date:10/28/2023 10:22:37 AM Interpretation: Performing Lab:[address] [address] Notes/Report: Prostate Specific Antigen 5.67 <0.05-4.0 ng/mL PSA methodology: Bryan Alinity i Chemiluminescent Microparticle Immunoassay (CMIA) Protein Electrophoresis, Ser um Reviewed date:10/28/2023 10:22:37 AM Interpretation: Performing Lab:[address] [address] Notes/Report: Prot Elec - Total Protein 5.2 [...] be considered. THIS TEST WAS PERFORMED AT: [facility] [address] [place] [phone] KRYSTAL URBINA MD Immunofixation Pnl, Serum Reviewed date:10/28/2023 10:22:37 AM Interpretation: Performing Lab:[facility], [address] [place] [phone] Notes/Report: IgG 91 600-1540 mg/dL Verified by r epeat analysis. IgA 11 70-320 mg/dL IgM 136 50-300 mg/dL THIS TEST WAS PERFORMED AT: [facility] [address] [place] [phone] KRYSTAL URBINA MD Immunofixation Interpretation SEE NOTE Faint IgM kappa monoclonal band present. PSA Free and Total Reviewed date:11/01/2023 07:00:19 AM Interpretation: Performing Lab:[facility], [address] [place] [phone] Notes/Report: Prostate Specific Ag Total 4.7 < [...] 30 93 9 (3)Fatmata et al.:PAULO 277: 3498-3856 (1996) (4)Catalona et al.:PAULO 279: 6892-0159 (1997) (x)These estimates vary with age, ethnicity, [...] of disease. THIS TEST WAS PERFORMED AT: [facility] [address] [place] [phone] KRYSTAL URBINA MD Free Prostate Spec Ag 0.5 XR chest 2V Reviewed date:11/01/2023 07:00:20 AM Interpretation: Performing Lab: Notes/Report: [address] [address] XRay Report Signed Patient: Jose Powers MR#: [id number] : 1950 Acct:[id number] Age/Sex: 73 / M ADM Date: 10/28/23 Loc: HO.10HDL Attending Dr: Nicolás Bustos MD Ordering Physician: Nicolás Busots MD Date of Service: 10/28/23 Procedure(s): XR chest 2V Accession Number(s): [id number] cc: Nicolás Bustos MD EXAMINATION: XR CHEST [...] in OV> 10/28/23 1249 DD/ 1118 TD/TT: Coke Crane Operator: [address] [address] XRay Report Signed Patient: Jose Powers MR#: [id number] : 1950 Acct:[id number] Age/Sex: 73 / M ADM Date: 10/28/23 Loc: HO.10HDL Attending Dr: Nicolás Bustos MD Ordering Physician: Nicolás Bustos MD Date of Service: 10/28/23 Procedure(s): XR prabha st 2V Accession Number(s): [id number] cc: Nicolás Bustos MD EXAMINATION: XR CHEST [...] in OV> 10/28/23 1249 DD/ 1118 TD/TT: Coke Crane Operator: CT abdomen pelvis w con Reviewed date:11/11/2023 11:21:50 AM Interpretation: Performing Lab: Notes/Report: [address] [address] [address] Scan Report Signed Patient: Jose Powers MR#: [id number] : 1950 Acct:[id number] Age/Sex: 73 / M ADM Date: 11/02/23 Loc: HO.CT Attending Dr: Nicolás Bustos MD Ordering Physician: Nicolás Bustos MD Date of Service: 11/02/23 Procedure(s): CT abdomen pelvis w IV con Accession Number(s): [id number] cc: Nicolás Bustos MD EXAMINATION: CT ABDOMEN [...] in OV> 11/02/23 1548 DD/ 1419 TD/TT: Coke Crane Operator: [place] [address] CT Scan Report Signed Patient: Jose Powers MR#: [id number] : 1950 Acct:[id number] Age/Sex: 73 / M ADM Date: 11/02/23 Loc: HO.CT Attending Dr: Nicolás Bustos MD Ordering Physician: Nicolás Bustos MD Date of Service: 11/02/23 Procedure(s): CT abd omen pelvis w IV con Accession Number(s): [id number] cc: Nicolás Bustos MD EXAMINATION: CT ABDOMEN [...] in OV> 11/02/23 1548 DD/ 1419 TD/TT: Stoker Erector And Servicer ist: PD Gram stain Reviewed date:01/03/2024 08:39:28 AM Interpretation: Performing Lab:[facility], [facility] [place] [address] Notes/Report: Gram stain Gram stain results: Gram stain No polys Gram stain 2+ epithelial cells Gram stain No organisms seen MR shoulder RT wo con Reviewed date:01/11/2024 09:22:44 AM Interpretation: Performing Lab: Notes/Report: [address] [place] [address] Magnetic Resonance Report Signed Patient: Jose Powers MR#: [id number] : 1950 Acct:[id number] Age/Sex: 73 / M ADM Date: 01/01/24 Loc: HO.MRI Attending Dr: Sergio Davila MD Ordering Physician: Sergio Davila MD Date of Service: 01/01/24 Procedure(s): MR shoulder RT wo con Accession Number(s): [id number] cc: Nicolás Bustos MD; Sergio Davila MD [...] related to the rotator cuff tendon tears. Uxao-dg-vqfgerfz glenohumeral osteoarthritis. Small joint effusion with mild synovitis. Electronically signed by: Munir Pardo MD 01/10/2024 03:35 PM EDT Dictated By: Munir Pardo MD Signed By: <Electronically signed by Munir Pardo MD in OV> 01/10/24 1535 DD/ 0800 TD/TT: 01/01/24 0839 Coke Crane Operator: [place] [address] Magnetic Resonance Report Signed Patient: Jose Powers MR#: [id number] : 1950 Acct:[id number] Age/Sex: 73 / M ADM Date: 01/01/24 Loc: HO.MRI Attending Dr: Sergio Davila MD Ordering Physician: Sergio Davila MD Date of Service: 01/01/24 Procedure(s): MR shoulder RT wo con Accession Number(s): [id number] cc: Nicolás Bustos MD; Sergio Davila MD [...] related to the rotator cuff tendon tears. Wgbm-pc-phuqcsbg glenohumeral osteoarthritis. Smal l joint effusion with mild synovitis. Electronically martha d by: Munir Pardo MD 01/10/2024 03:35 PM EDT RP Dictated By: Munir Pardo MD Signed By: <Electronically signed by Munir Pardo MD in OV> 01/10/24 1535 DD/ 0800 TD/TT: 01/01/24 0839 Coke Crane Operator: CT shoulder RT wo con Reviewed date:01/11/2024 09:22:44 AM Interpretation: Performing Lab: Notes/Report: [address] [address] [address] Scan Report Signed Patient: Jose Powers MR#: [id number] : 1950 Acct:[id number] Age/Sex: 73 / M ADM Date: 01/08/24 Loc: HO.CT Attending Dr: Sergio Davila MD Ordering Physician: Sergio Davila MD Date of Service: 01/08/24 Procedure(s): CT shoulder RT wo IV con Accession Number(s): [id number] cc: Nicolás Bustos MD; Sergio Davila MD [...] Glenohumeral joint space narrowing with marginal osteophytes. Qrmismvm-pc-zdfren acromioclavicular osteoarthritis. No concerning lytic or blastic [...] tendon tear. 3. Moderate glenohumeral osteoarthritis and ktbidazq-vh-fefnav acromioclavicular osteoarthritis. Electronically signed by: Munir Pardo MD 01/10/2024 03:49 PM EDT RP Dictated By: Munir Pardo MD Signed By: <Electronically signed by Munir Pardo MD in OV> 01/10/24 1549 DD/ 1341 TD/TT: 01/08/24 1400 Coke Crane Operator: [place] [address] CT Scan Report Signed Patient: Jose Powers MR#: [id number] : 1950 Acct:[id number] Age/Sex: 73 / M ADM Date: 01/08/24 Loc: .CT Attending Dr: Sergio Davila MD Ordering Physician: Sergio Davila MD Date of Service: 01/08/24 Procedure(s): CT shoulder RT wo IV con Accession Number(s): [id number] cc: Nicolás Bustos MD; Sergio Davila MD [...] joint space narrowin g with marginal osteophytes. Qdlblqaw-vx-iygxfc acromioclavicular osteoarthritis. No concerning lytic or blastic [...] tear. 3. Moderate glenohum eral osteoarthritis and xazladid-hj-iagesg acromioclavicular osteoarthritis. Electronically martha d by: Munir Pardo MD 01/10/2024 03:49 PM EDT Dictated By: Munir Pardo MD Signed By: <Electronically signed by Munir Pardo MD in OV> 01/10/24 1549 DD/ 1341 TD/TT: 01/08/24 1400 Coke Crane Operator: Complete Blood Count Auto Di ff Reviewed date:04/17/2024 09:03:36 AM Interpretation: Performing Lab:[facility], [address] [place] [phone] Notes/Report: White Blood Count 8.7 4.8-10.8 X10*3/uL [...] NRBC Abs Auto 0.000 0.0-0.012 X10*3/uL Comprehensive Coffey. Panel Fa st Reviewed date:04/17/2024 09:03:36 AM Interpretation: Performing Lab:[facility], [address] [place] [phone] Notes/Report: Sodium 136 135-145 mmol/L Potassium 4.4 [...] Panel Reviewed date:04/17/2024 09:03:36 AM Interpretation: Performing Lab:[address] [address] Notes/Report: Triglycerides 97 <150 mg/dL Desirable Triglyceride: [...] Total Reviewed date:04/17/2024 09:03:36 AM Interpretation: Performing Lab:[address] [address] Notes/Report: Prostate Specific Ag Total 4.8 < [...] 30 93 9 (3)Catalona et al.:PAULO 277: 6696-6341 (1996) (4)Catalona et al.:PAULO 279: 9704-1459 (1997) (x)These estimates vary with age, ethnicity, [...] mind. PSA was performed using the Bowen [place] Immunoassay method. Values obtained from different assay methods cannot be used interchangeably. PSA levels, regardless of value, should not be interpreted as absolute evidence of the presence or absence of disease. THIS TEST WAS PERFORMED AT: [facility] [address] [place] [phone] KRYSTAL URBINA MD Free Prostate Spec Ag 0.7 PSA,Total (Free>4and<10) Reviewed date:04/17/2024 09:03:36 AM Interpretation: Performing Lab:[address] [address] Notes/Report: PSA,Total (Free>4and<10) 4.63 0.00-4.00 ng/mL PSA methodology: Bryan Alinity i Chemiluminescent Microparticle Immunoassay (CMIA) Beta-2 Microglobulin, Serum Reviewed date:04/17/2024 09:03:36 AM Interpretation: Performing Lab:[address] [address] Notes/Report: Beta-2 Microglobulin, Serum 2.26 < OR = 2.51 mg/L THIS TEST WAS PERFORMED AT: [facility] [address] [place] [phone] KRYSTAL URBINA MD Protein Electrophoresis, Ser um Reviewed date:04/17/2024 09:03:36 AM Interpretation: Performing Lab:[facility], [address] [place] [address] Notes/Report: Prot Elec - Total Protein 5.6 [...] be considered. THIS TEST WAS PERFORMED AT: [facility] [address] [place] [phone] KRYSTAL URBINA MD Immunofixation Pnl, Serum Reviewed date:04/17/2024 09:03:36 AM Interpretation: Performing Lab:[facility], [address] [place] [address] Notes/Report: IgG 938 857-9051 mg/dL Results verif ied by repeat analysis on dilution. IgA 11 70-320 mg/dL Results verifie d by repeat analysis on dilution. IgM 155 50-300 mg/dL THIS TEST WAS PERFORMED AT: [facility] [address] [place] [phone] KRYSTAL URBINA MD Immunofixation Interpretation SEE NOTE Faint IgM kappa monoclonal band present. Viscosity Reviewed date:04/17/2024 09:03:36 AM Interpretation: Performing Lab:[facility], [address] [place] [phone] Notes/Report: Viscosity 1.5 1.5-1.9 rel to H2O Units = Relative to Water THIS TEST WAS PERFORMED AT: [facility] [address] [place] [address] MIRELLA ODELL MD,PHD US retroperitoneal comp Reviewed date:04/17/2024 09:03:37 AM Interpretation: Performing Lab: Notes/Report: [address] [address] Ultrasound Report Signed Patient: Jose Powers MR#: [id number] : 1950 Acct:[id number] Age/Sex: 74 / M ADM Date: 04/04/24 Loc: HO.US Attending Dr: Taylor Strong [facility] Ordering Physician: Taylor StrongNAINA Date of Service: 04/04/24 Procedure(s): US retroperitoneal comp Accession Number(s): [id number] cc: Nicolás Bustos MD; Taylor Strong [facility] CLINICAL HISTORY: N41.9 - Inflammatory disease of [...] 04/04/24 1203 DD/ 1201 TD/TT: 04/04/24 120 Coke Crane Operator: [address] [address] Ultrasound Report Signed Patient: Jose Powers MR#: [id number] : 1950 Acct:[id number] Age/Sex: 74 / M ADM Date: 04/04/24 Loc: HO.US Attending Dr: Taylor antonio [facility] Ordering Physician: Taylor Strong Date of Service: 04/04/24 Procedure(s): US retroperitoneal comp Accession Number(s): [id number] cc: Nicolás Bustos MD; Taylor Strong [facility] CLINICAL HISTORY: N4 1.9 - Inflammatory disease [...] 04/04/24 1203 DD/ 1201 TD/TT: 04/04/24 1201 Coke Crane Operator: Reason For Referral Reason left swollen leg neg ative for DVT evaluate and treat Diagnosis 1 Peripheral neuropath y (G62.9) Diagnosis 2 Left leg swelling (M 79.89) Referral Organization Nicolás Bustos III, MD Referring Provider First Name Nicolás Referring Provider Last Name Juli Referring Provider Speciality Internal M edicine Referred Organization [facility] nter Referred Provider Dillon White Referred Address [address] [place] [address],[place], [place],[id number],[place] Referred Provider Specialty Vascular Chang juice General Notes Trina Nguyen CM 11/11/2023 02:07:41 PM EDT > ref/demo/progress note/labs/x rays fax[place] to Dr White [place], [place] 11/24/2023 02:23:28 PM > Patient will be [...] Referring Provider Speciality Internal edicine Referred Provider [facility] er, Urology Referred Provider Specialty Urology General Notes Trina Nguyen CM 11/11/2023 02:05:52 PM EDT > ref/demo/progress note/labs faxed to [facility] urology office , [place] 11/19/2023 02:18:27 PM EDT >ref/demo/progress note/labs faxed to [facility] urology office ., [place] 11/24/2023 02:26:00 PM > Patient will be [...] Referring Provider Speciality Internal edicine Referred Provider [facility] Referred Provider Specialty Unknown General Notes Trina Bueno CMA 01/11 10:37:56 AM > ref/demo/progress notes faxed to [facility] wound clinic, [place] 01/15/2024 02:23:06 PM > [facility] [place] stated they did not [...] even ing Orally Once a day Active dexAMETHasone 2 MG 1 tablet Orally twic e a day 06/14/2024 Active Nabumetone 500 MG 1 tablet Orally Twic e a day Active Multivitamin/Minerals 1 Tablet Orally Once a day Active Flecainide Acetate 150 MG as directed Orally Active Imbruvica 140 MG 2 tablet Orally Once a day 2023 Active Immunizations Vaccine Route Administration Date Status [...] Problem Status W/U Status Risk Notes Problem 8219064 Former smoker (Z87.891) Active confirmed He is motivated not to smoke and we discussed maintenance of abstinence. Problem 849675966 Overweight (E66.3) Active confirmed We have discussed his diet and nutrition today. We reviewed his weight loss strategy. We made a plan to lose weight at a rate of one half of a pound per week through a diet restricted in calories. Problem 036692537468087 Obesity (BMI 30.0-34.9) (E66.9) Active confirmed His weight has been stable with a body mass index of 31. We have discussed his diet and nutrition at length. We have formulated a weight loss strategy. Problem 650585026 Lumbar radiculopathy (M54.16) Active confirmed He continues to have mild to moderate intermittent low back pain that radiates down both legs. Problem 804475412 Waldenstrom macroglobulinemi a (C88.0) Active confirmed His IgM level and viscosity are stable. He does not require additional treatment at this time.A repeat viscosity has been ordered Problem 366583663 Other obesity due to excess calories (E66.09) Active confirmed Problem 83490678 Other chronic pain (G89.29) Active confirmed Problem Atelectasis (06103701) Atelectasis (J98.11) Active confirmed His most recent chest x-ray failed to show any atelectasis. Problem 467427205775790 Lumbago with sciatica, right side (M54.41) Active confirmed He continues to have intermittent chronic mild low back pain. Problem 068702797 Lumbago with sciatica, left side (M54.42) Active confirmed This appears to be nerve impingement in the lumbar spine. He was given dexamethasone and cyclobenzaprin e. He will rest as much as possible in the position and use heat. Problem 93216872 Essential hypertension (I10) Active confirmed His pressure is slightly high, today, but he is in pain and excited. It will be rechecked in the near future. Problem Peripheral neuropathy (952556309) Peripheral neuropathy (G62.9) Active confirmed His symptoms of tingling and numbness in the lower extremities are unchanged. He is stable in this respect and no additional treatment is needed. Problem 92841315 Penicillin allergy (Z88.0) Active confirmed Problem Atrial fibrillation (87726164) Atrial fibrillation (I48.91) Active confirmed He is in a normal sinus rhythm today. His rate is controlled. 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 He will be observed carefully. His viscosity is 1.4. The abnormal IgM protein is not detectable. The IgM level is in the normal range. His CBC is unremarkable. Problem 2165029 Atrial flutter (I48.92) Active confirmed He is in sinus rhythm today. He is taking metoprolol and flecainide. Problem Hoarseness (72438204) Hoarseness (R49.0) Active confirmed I have ordered thyroid function tests to see if he is hypothyroid. This he is not he will be referred to ENT. 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 He was referred to a gastroenterolo gist. Problem 11520287 Dysphagia, unspecified type (R13.10) Active confirmed This has resolved. Problem Pure hypercholesterolem ia (690832811) Hyperlipidemia type II (E78.01) Active confirmed His fasting lipid profile has been ordered. No change in his regimen as needed. Problem 872789670 Elevated PSA (R97.20) Active confirmed The PSA was 5.67, but when it was repeated with a free PSA it was 4.7 with a free PSA of 11%. I have asked urology to evaluate him. Problem 156555619305045 Sciatica of left side (M54.32) Active confirmed He is significantly improved. I cautioned him about doing too much activity too quickly. He will avoid heavy lifting and gradually resumed the activities of daily living. Problem 891692492 Pure hypercholesterol emia (E78.00) Active confirmed Problem 056019774 Benign prostatic hyperplasia, unspecified whether lower urinary tract symptoms present (N40.0) Active confirmed He rises from sleep once a night to urinate. We have discussed lifestyle modifications he could make to reduce nocturia. Problem 95147898 Right anterior shoulder pain (M25.511) Active confirmed He has a full-thickness tear of the infraspinatus and supraspinatus tendons. He does not know how this happened. He will go back to the orthopedic clinic to discuss treatment. Problem Bilateral carpal tunnel syndrome (86632804582774663 ) Bilateral carpal tunnel syndrome (G56.03) Active confirmed His symptoms are mild and he tolerates. No change in his regimen as needed today. Problem Dyspnea on exertion (85146277) Dyspnea on exertion (R06.00) Active confirmed He has been expperiencing worsening shortness of breath with exertion such as climbing a flight of stairs. He is a former smoker but has been abstinent for many years. The recent [facility] catheterrizati on was unremarkable. Pulmonary function tests have been ordered. This will be followed by a commode a consultation and a repeat office visit. Problem 548257609 Body mass index [BMI] 30.0-30.9, adult (Z68.30) Active confirmed Problem 037662991 Lumbar back pain (M54.50) Active confirmed He is substantially improved since presentation. He was continued on current medication. He will begin to resume the activities of daily living slowly. He has had no falls or incontinence. 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 ; Cellulitis of left lower extremity L03.116 ; Waldenstrom macroglobulinemia C88.0 ; Essential hypertension I10 ; Former smoker Z87.891 and Overweight E66.3 Nicolás Bustos III, MD [address] [place] [address] [place] [address] 10/07/2023 Nicolás Bustos 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 ; Leg swelling M79.89 ; Essential hypertension I10 ; Former smoker Z87.891 ; Lumbar radiculopathy M54.16 and Obesity (BMI 30.0-34.9) E66.9 Nicolás Bustos III, MD [address] [place] [address] [place] [address] 10/28/2023 Nicolás Bustos Benign prostatic hyperplasia, unspecified whether lower urinary tract symptoms present N40.0 ; 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 ; Edema of left lower extremity R60.0 ; Waldenstrom macroglobulinemia C88.0 ; Former smoker Z87.891 ; Essential hypertension I10 ; Overweight E66.3 ; Lumbar radiculopathy M54.16 ; Atrial fibrillation I48.91 and Elevated PSA R97.20 Nicolás Bustos III, MD [address] [place] [address] [place] [address] 11/11/2023 Nicolás Bustos 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 ; Benign prostatic hyperplasia, unspecified whether lower urinary tract symptoms present N40.0 ; Essential hypertension I10 ; Former smoker Z87.891 ; Atrial flutter I48.92 ; Hyperlipidemia type II E78.01 ; Elevated PSA R97.20 ; Right anterior shoulder pain M25.511 and Obesity (BMI 30-39.9) E66.9 Nicolás Bustos III, MD [address] [place] [address] [place] [address] 11/25/2023 Nicolás Bustos 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 ; Benign prostatic hyperplasia, unspecified whether lower urinary tract symptoms present N40.0 ; Essential hypertension I10 ; Former smoker Z87.891 ; Lumbar radiculopathy M54.16 ; Overweight E66.3 ; Atrial flutter I48.92 ; Elevated PSA R97.20 ; Obesity (BMI 30.0-34.9) E66.9 and Edema of left lower extremity R60.0 Nicolás Bustos III, MD [address] [place] [address] [place] [address] 12/29/2023 Nicolás Bustos 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91 ; Essential hypertension I10 ; Right anterior shoulder pain M25.511 and Obesity (BMI 30-39.9) E66.9 Nicolás Bustos III, MD [address] [place] [address] [place] [address] 02/08/2024 Nicolás Bustos 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 ; Benign prostatic hyperplasia, unspecified whether lower urinary tract symptoms present N40.0 ; Essential hypertension I10 ; Hyperlipidemia type II E78.01 ; Obesity (BMI 30.0-34.9) E66.9 ; Atrial flutter I48.92 ; Former smoker Z87.891 and Wound of left lower extremity, initial encounter S81.802A Nicolás Bustos III, MD [address] [place] [address] [place] [address] 05/04/2024 Nicolás Bustos 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 ; Benign prostatic hyperplasia, unspecified whether lower urinary tract symptoms present N40.0 ; Hoarseness R49.0 ; Essential hypertension I10 ; Atrial flutter I48.92 ; Former smoker Z87.891 and Overweight E66.3 Nicolás Bustos III, MD [address] [place] [address] [place] [address] 06/14/2024 Nicolás Bustos 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 ; Lumbago with sciatica, left side M54.42 ; Benign prostatic hyperplasia, unspecified whether lower urinary tract symptoms present N40.0 ; Former smoker Z87.891 ; Essential hypertension I10 ; Waldenstrom macroglobulinemia C88.0 ; Hyperlipidemia type II E78.01 ; Esophageal diverticulum, acquired K22.5 ; Dysphagia, unspecified type R13.10 and Atrial fibrillation I48.91 Nicolás Bustos III, MD [address] [place] [address] [place] [address] 06/21/2024 Nicolás Bustos 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 ; Benign prostatic hyperplasia, unspecified whether lower urinary tract symptoms present N40.0 ; Former smoker Z87.891 ; Overweight E66.3 and Sciatica of left side M54.32 Nicolás Bustos III, MD [address] [place] [address] [place] [address] 06/24/2024 Nicolás Bustos 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 [...] class 1 E66.811 Nicolás Bustos III, MD [address] [place] [address] [place] [address] 10/02/2023 Nicolás Bustos III, MD [address] [place] [address] [place] [address] 10/05/2023 Nicolás Bustos III, MD [address] [place] [address] [place] [address] 10/06/2023 Nicolás Bustos III, MD [address] [place] [address] [place] [address] 10/12/2023 Nicolás Bustos III, MD [address] [place] [address] [place] [address] 11/23/2023 Nicolás Bustos III, MD [address] [place] [address] [place] [address] 11/24/2023 Nicolás Bustos III, MD [address] [place] [address] [place] [address] 12/07/2023 Nicolás Bustos III, MD [address] [place] [address] [place] [address] 12/29/2023 Nicolás Bustos III, MD [address] [place] [address] [place] [address] 06/27/2024 Nicolás Bustos III, MD [address] [place] [address] [place] [address] 07/04/2024 Nicolás Bustos 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 His CBC is unremarkable. 09/28/2023 Waldenstrom macroglobulinemia (ICD-10 - C88.0) His [...] modifications he could make to reduce nocturia. 09/28/2023 Essential hypertensi on (ICD-10 - I10) [...] and we discussed maintenance of abstinence. 09/28/2023 Former smoker (ICD-1 0 - Z87.891) [...] will be rechecked in the near future. 09/28/2023 Overweight (ICD-10 - E66.3) We have [...] rhythm today. His rate is controlled. 10/28/2023 Overweight (ICD-10 - E66.3) We have [...] to the orthopedic clinic to discuss treatment. 10/28/2023 Lumbar radiculopathy (ICD-10 - M54.16) He [...] his dysphagia. He was referred to a hat presser. 06/24/2024 Other obesity due to excess calories (ICD-10 - E66.09) 10/28/2023 Atrial fibrillation (ICD-10 - I48.91) He [...] in the leg or abdomen or pelvis. Ellen of the edema remains unclear. 06/14/2024 Atrial fibrillation (ICD-10 - I48.91) He is in a normal sinus rhythm today. His rate is controlled. 06/24/2024 Obesity, class 1 (ICD-10 - E66.811) Plan Of Treatment Pending Test Test Name Order Date PROFILE, FASTING (COMPREHENSIVE METABOLI C) 10/10/2020 PROFILE, FASTING (COMPREHENSIVE METABOLI C) 01/07/2023 PROFILE, FASTING (COMPREHENSIVE METABOLI C) 09/26/2021 PROFILE, FASTING (COMPREHENSIVE METABOLI C) 02/08/2024 PROFILE, FASTING (COMPREHENSIVE METABOLI C) 05/01/2023 PROFILE, FASTING (COMPREHENSIVE METABOLI C) 05/04/2024 PROFILE, FASTING (COMPREHENSIVE METABOLI C) 07/17/2022 PROFILE, RANDOM (COMPREHENSIVE METABOLIC ) 10/07/2022 PROFILE, RANDOM (COMPREHENSIVE METABOLIC ) 01/16/2021 PROFILE, RANDOM (COMPREHENSIVE METABOLIC ) 07/26/2018 PROFILE, RANDOM (COMPREHENSIVE METABOLIC ) 08/08/2020 PROFILE, RANDOM (COMPREHENSIVE METABOLIC ) 03/26/2021 PROFILE, RANDOM (COMPREHENSIVE METABOLIC ) 06/08/2020 PROFILE, RANDOM (COMPREHENSIVE METABOLIC ) 01/08/2022 PROFILE, RANDOM (COMPREHENSIVE METABOLIC ) 06/14/2018 PROFILE, RANDOM (COMPREHENSIVE METABOLIC ) 04/28/2022 LIPID PANEL 10/10/2020 LIPID PANEL 07/17/2022 LDH 07/17/2022 LDH 10/07/2022 TSH (THYROID STIMULATING HORMONE) 2024 FERRITIN 07/26/2018 FERRITIN 10/10/2020 FERRITIN 01/08/2022 PSA, TOTAL 09/26/2021 PSA, TOTAL 05/01/2023 CBC w DIFF 04/28/2022 CBC w DIFF 07/17/2022 CBC w DIFF 01/16/2021 CBC w DIFF 10/07/2022 CBC w DIFF 08/08/2020 CBC w DIFF 03/26/2021 CBC w DIFF 07/26/2018 CBC w DIFF 10/10/2020 CBC w DIFF 09/26/2021 CBC w DIFF 06/08/2020 CBC w DIFF 06/14/2018 CBC w DIFF 01/08/2022 SED RATE (ESR) 03/26/2021 SED RATE (ESR) 07/26/2018 IMMUNOFIXATION PANEL, SERUM (IEP) 2018 IMMUNOFIXATION PANEL, SERUM (IEP) 2021 IMMUNOFIXATION PANEL, SERUM (IEP) 2020 IMMUNOFIXATION PANEL, SERUM (IEP) 2022 IMMUNOFIXATION PANEL, SERUM (IEP) 2022 IMMUNOFIXATION PANEL, SERUM (IEP) 2023 IMMUNOFIXATION PANEL, SERUM (IEP) 2022 IMMUNOFIXATION PANEL, SERUM (IEP) 2020 IMMUNOFIXATION PANEL, SERUM (IEP) 2022 IMMUNOFIXATION PANEL, SERUM (IEP) 2020 IMMUNOFIXATION PANEL, SERUM (IEP) 2023 IMMUNOFIXATION PANEL, SERUM (IEP) 2020 IMMUNOFIXATION PANEL, SERUM (IEP) 2021 IMMUNOFIXATION PANEL, SERUM (IEP) 2021 IMMUNOFIXATION PANEL, SERUM (IEP) 2020 IMMUNOFIXATION PANEL, SERUM (IEP) 2024 IMMUNOFIXATION PANEL, SERUM (IEP) 2018 PROTEIN ELECTROPHORESIS, SERUM 2 PROTEIN ELECTROPHORESIS, SERUM 1 PROTEIN ELECTROPHORESIS, SERUM 5 PROTEIN ELECTROPHORESIS, SERUM 2 PROTEIN ELECTROPHORESIS, SERUM 1 PROTEIN ELECTROPHORESIS, SERUM 3 PROTEIN ELECTROPHORESIS, SERUM 3 PROTEIN ELECTROPHORESIS, SERUM 4 PROTEIN ELECTROPHORESIS, SERUM 3 PROTEIN ELECTROPHORESIS, SERUM 1 PROTEIN ELECTROPHORESIS, SERUM 1 PROTEIN ELECTROPHORESIS, SERUM 4 PROTEIN ELECTROPHORESIS, SERUM VISCOSITY 05/04/2024 VISCOSITY 01/08/2022 VISCOSITY 10/07/2022 VISCOSITY 02/08/2024 VISCOSITY 07/17/2022 VISCOSITY 01/16/2021 BETA-2 MICROGLOBULIN, SERUM 10/07/2022 BETA-2 MICROGLOBULIN, SERUM 05/01/2023 BETA-2 MICROGLOBULIN, SERUM 01/16/2021 BETA-2 MICROGLOBULIN, SERUM 04/28/2022 BETA-2 MICROGLOBULIN, SERUM 01/08/2022 CBC WITH AUTO DIFF 02/08/2024 CBC WITH AUTO DIFF 05/01/2023 CBC WITH AUTO DIFF 05/04/2024 CBC WITH AUTO DIFF 01/07/2023 Lipid Panel 02/08/2024 Lipid Panel 05/04/2024 Lipid Panel 05/01/2023 Lipid Panel 01/07/2023 Lipid Panel 09/26/2021 PSA Free and Total 05/04/2024 Free T4 (Free Thyroxine) 05/04/2024 Beta-2 Microglobulin, Serum 01/07/2023 Beta-2 Microglobulin, Serum 09/26/2021 Beta-2 Microglobulin, Serum 02/08/2024 Protein Electrophoresis, Serum NE electromyogram (EMG) 08/14/2020 RT pulmonary function test 05/01/2023 Next Appt Details Provider Name:Nicolás Bustos, 09/02/2024 09:00:00 AM, [address] [place] [address] [address], [place], [address], Provider Name:Nicolás Bustos, 05/05/2025 10:00:00 AM, [address] [place] [address] [address], [place], [address], Insurance Providers Payer Name Payer Address Payer Phone Subscriber Number Group Number Insured Name Patient Relationship to Insured Coverage Start Date Coverage End Date MEDICARE NGS [address] [place] [address] [id number] Gio Jose Self - patient is the insured [place] [address] [place] [id number] [phone] [id number] Jose Powers Self - patient is the [...] windo w 02/2021 Extract wisdom teeth at [facility] 1975 Remove cyst from chest- Dr. Castillo 77 Remove cyst from rectum at [facility] 1986 Exploritory surgery Rt. ear- Dr. Washington at [facility] 12-30-2002 Remove external hemorrhoid at [facility] 05-10-2004 Remove cyst right wrist at [facility] 12-31-2004 Remove cyst from back- Dr. Willoughby at [facility] 05-09-2009 A flutter s/p cardioversion- Dr. Xiao a [facility] 07-01-2011 Radiofrequency catheter ablation- Dr. Restrepo at [facility] 07-15-2011 Laser stapedotomy w/ vein gr aft- Dr. Odell at [facility] 12-24-2011 Sleep Study- Dr. Xiao at [facility] 3 Left wrist tendon surgery ag e 30's- Dr. Cl Woody at [facility] 1992 Tonsillectomy child 1956 Hospitalization History Reason Date(Month/Year) No history
--- OUTSIDE RECORDS SUMMARY | 2024-08-04 08:47 | XMS_ITS ---
Author Organization [facility] Address [address] [place] [address] Care Team Providers Care Transmission Rebuilder Name Role Phone Nicolás Bustos MD Primary Care Provider Unavailab Nicolás Schwartz Unavailable [phone] REASON FOR VISIT looking to refill patient's omeprazole Encounters Encounter Location Date Provider Diagnosis [facility] [address] [place] [address] 11/11/2023 Nicolás Murguia Plan Of Treatment No Information Progress Notes * CALEB RAMIREZDOB:1950 ([age] yo M)Acc No.[id number]:11/11/2023 Patient:?CALEB RAMIREZ :1950???Age:73 Y???Sex:Male Address:[address] , , [place], [address] * true * Date:? Generated for Michelle pierson/Mikel/eTransmitting on:?08/04/2024 08:46 AM EDT
--- OUTSIDE RECORDS SUMMARY | 2024-08-04 08:47 | XMS_ITS ---
Author Organization Nicolás Bustos III, MD Address [address] [place] [address] [place] [address] Care Team Providers Care Final Operations Technician Name Role Phone Nicolás Bustos Primary Care Provider REASON FOR VISIT Needs call back from Social History Sex Assigned At : Social History Observation Description Sex Assigned At Male Encounters Encounter Location Date Provider Diagnosis Nicolás Bustos III, MD [address] [place] [address] [place] [address] 06/27/2024 Nicolás Bustos Plan Of Treatment Next Appt Details Provider Name:Nicolás Bustos, 09/02/2024 09:00:00 AM, [address] [place] [address] [place], [address], Provider Name:Nicolás Bustos, 05/05/2025 10:00:00 AM, [address] [place] [address] [place], [address], Progress Notes * GIO JoseDOB:1950 ([age] yo M)Acc No.[id number]:06/27/2024 Patient:?Jose POWERS :1950???Age:74 Y???Sex:Male Address:[address], [place], [address] * true * Date:? Generated for Printi ng/Faxing/eTransmitting on:?08/04/2024 08:46 AM EDT
== END 2024-08-04 09:47 | disposition home or self-care (01) ==
LOC: HO.HCS 08:36
PROVIDERS: PCP Internal Medicine Medical Oncology; Visit Provider Internal Medicine Cardiovascular Disease
DX: I48.0 Paroxysmal atrial fibrillation (principal); I10 Essential (primary) hypertension; I51.7 Cardiomegaly; I25.10 Atherosclerotic heart disease of native coronary artery without angina pectoris; Z01.810 Encounter for preprocedural cardiovascular examination
CPT/HCPCS: 93010; 99214; G2211

== ENCOUNTER → 2024-08-04 08:35 | Outpatient (BNVA) | payer MEDICARE, MEDICAID, SELFPAY | PROVIDERS: PCP Internal Medicine Medical Oncology; Visit Provider Internal Medicine Cardiovascular Disease | DX: Z01.810 Encounter for preprocedural cardiovascular examination (principal); I48.0 Paroxysmal atrial fibrillation; I51.7 Cardiomegaly; I25.10 Atherosclerotic heart disease of native coronary artery without angina pectoris; I10 Essential (primary) hypertension; R94.31 Abnormal electrocardiogram [ECG] [EKG]; I44.0 Atrioventricular block, first degree | CPT/HCPCS: 93005; 99212 ==

== ENCOUNTER 2024-08-25 07:33 | Outpatient (REF) | payer MEDICARE, MEDICAID, SELFPAY ==
--- OUTSIDE RECORDS SUMMARY | 2024-08-25 07:36 | XMS_ITS ---
Author Organization [facility] Address [address] [place] [address] Care Team Providers Care Forest Fire Control Officer Name Role Phone Nicolás Bustos MD Primary Care Provider Unavailab Nicolás Schwartz Unavailable [phone] REASON FOR VISIT looking to refill patient's omeprazole Encounters Encounter Location Date Provider Diagnosis [facility] [address] [place] [address] 11/11/2023 Nicolás Murguia Plan Of Treatment No Information Progress Notes * CALEB RAMIREZDOB:1950 ([age] yo M)Acc No.[id number]:11/11/2023 Patient:?CALEB RAMIREZ :1950???Age:73 Y???Sex:Male Address:[address] , , [place], [address] * true * Date:? Generated for Michelle pierson/Mikel/eTransmitting on:?08/25/2024 07:36 AM EDT
[2024-08-25 09:47] LABS: MANUAL DIFF FLAG NO
[2024-08-25 10:00] LABS: Basophils Absolute Auto 0.1 X10*3/uL (0.0-0.2); Basophils Percent Auto 0.6 % (0-2); Eosinophils Absolute Auto 0.2 X10*3/uL (0.0-0.4); Eosinophils Percent Auto 2.6 % (0-4); Hematocrit 41.6 % (42.0-52.0); Hemoglobin 14.4 g/dl (14.0-18.0); Imm Gran Abs Auto 0.05 X10*3/uL (0.00-0.03); Imm Gran Pct Auto 0.6 % (0.0-0.4); Lymphocytes Absolute Auto 3.5 X10*3/uL (1.2-4.9); Mean Corpuscular HGB Conc 34.6 g/dl (31.0-36.0); Mean Corpuscular Hemoglobin 29.9 pg (27.0-33.0); Mean Corpuscular Volume 86.5 fL (80.0-98.0); Mean Platelet Volume 11.8 fL (9.4-12.4); Monocytes Absolute Auto 0.9 X10*3/uL (0.1-1.2); Monocytes Percent Auto 10.4 % (2-11); Neutrophils Absolute Auto 4.3 x10*3/uL (2.0-8.3); Neutrophils Percent Auto 46.8 % (45-73); Platelet Count 198 X10*3/uL (160-400); Red Blood Count 4.81 X10*6/uL (4.60-5.80); Red Cell Distribution Width 14.5 % (11.0-16.0); White Blood Count 9.1 X10*3/uL (4.8-10.8)
[2024-08-25 10:22] LABS: Alanine Aminotransferase 32 U/L (0-40); Alkaline Phosphatase 110 U/L (39-117); Anion Gap 13 (12-20); Aspartate Amino Transferase 37 U/L (5-37); Bilirubin Total 0.8 mg/dL (0.0-1.0); Blood Urea Nitrogen 16 mg/dL (9-16); Calcium 8.8 mg/dL (8.4-10.2); Carbon Dioxide 26 mmol/L (22-29); Chloride 105 mmol/L (96-108); Cholesterol 171 mg/dL (<200); Estimated Glomerular Filt Rate > 60; Glucose Fasting 97 mg/dL (60-99); Potassium 3.7 mmol/L (3.3-5.1); Sodium 140 mmol/L (135-145); Total Protein 5.4 g/dL (6.5-8.0); Triglycerides 84 mg/dL (<150)
[2024-08-25 10:37] LABS: HDL Cholesterol 81 mg/dL (>40); LDL Cholesterol Calculated 74 mg/dL (<100)
[2024-08-25 10:42] LABS: Free T4 (Free Thyroxine) 1.09 ng/dL (0.71-1.85); Thyroid Stimulating Hormone 2.23 uIU/mL (0.32-4.0)
[2024-08-26 12:59] LABS: Free Prostate Spec Ag 0.5 ng/mL; Percent Free Prostate Spec Ag 12 % (calc) (>25); Prostate Specific Ag Total 4.2 ng/mL (< OR = 4.0)
[2024-08-28 19:04] LABS: Viscosity 1.5 rel to H2O (1.5-1.9)
[2024-08-29 17:59] LABS: PES - Abn Protein Band 1 <0.2 g/dL (NONE DETECTED); Prot Elec - Albumin 3.8 g/dL (3.8-4.8); Prot Elec - Alpha1 0.2 g/dL (0.2-0.3); Prot Elec - Alpha2 0.5 g/dL (0.5-0.9); Prot Elec - Beta 1 0.4 g/dL (0.4-0.6); Prot Elec - Beta 2 0.2 g/dL (0.2-0.5); Prot Elec - Gamma 0.2 g/dL (0.8-1.7); Prot Elec - Total Protein 5.3 g/dL (6.1-8.1)
[2024-08-30 15:53] LABS: IgA 9 mg/dL (70-320); IgG 92 mg/dL (600-1540); IgM 129 mg/dL (50-300)
== END 2024-08-25 07:34 | disposition home or self-care (01) ==
LOC: HO.10HDL 07:33
PROVIDERS: Visit Provider Internal Medicine Medical Oncology
DX: Z00.00 Encounter for general adult medical examination without abnormal findings (principal); C83.00 Small cell B-cell lymphoma, unspecified site; N40.0 Benign prostatic hyperplasia without lower urinary tract symptoms; R49.0 Dysphonia
CPT/HCPCS: 36415; 80053; 80061; 82784; 84154; 84165; 84439; 84443; 85025; 85810; 86334

== ENCOUNTER 2024-11-24 07:11 | Outpatient (REF) | payer MEDICARE, MEDICAID, SELFPAY ==
--- OUTSIDE RECORDS SUMMARY | 2024-06-24 05:45 | XMS_ITS ---
Author Organization Nicolás Bustos III, MD Address [address] [address] Care Team Providers Care Crop Ranch Hand Name Role Phone Nicolás Bustos Primary Care [...] Problem Status W/U Status Risk Notes Problem 296723987 Other obesity due to excess calories (E66.09) Active confirmed Problem 087833194 Body mass index [BMI] 30.0-30.9, adult (Z68.30) Active confirmed Problem 742037758 Obesity, class 1 (E66.811) Active confirmed Problem 797303869 Lumbar back pain (M54.50) Active confirmed He is substantially improved since presentation. He was continued on current medication. He will begin to resume the activities of daily living slowly. He has had no falls or incontinence. 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 [...] 2 Months, Reason: Follow up Provider Name:Nicolás Bustos, 12/02/2024 09:00:00 AM, [address] [place] [address] [address], [place], [address], Provider Name:Nicolás Bustos, 05/05/2025 10:00:00 AM, [address] [place] [address] [address], [place], [address], Progress Notes * Jose POWERSDOB:1950 ([age] yo M)Acc No.[id number]:06/24/2024 Patient: Jose TRENT Provider: Earl Bustos MD :1950 A ge:74 Y S ex:Male Date:06/24/2024 Address:[address] [place] [address], [facility] [address], [place], [id number] Subjective: * Chief Complaints: * T elehealth [...] of provider rendering services: { ...} [address] [facility] [address] L ocation of patient: mirza ddress listed [...] surgery age 32's- Dr. Cl Woody at [facility] leep Study- Dr. Xiao at . 10-88-7489Tyoup stapedotomy w/ vein graft- Dr. Chin at [facility] 89-11-1931Zzpjzwjqzpiznv catheter [facility] flutter s/p cardioversion- Dr. Xiao at . 91-10-9337Xivufm cyst from back- Dr. Willoughby at [facility] 10-82-2933Hwutej cyst right wrist at [facility] 04-92-8229Ttebdb external hemorrhoid at [facility] 66-26-5321Ynmpqdlhzuk surgery Rt. ear- Dr. Washington at [facility] 69-69-6912Orjakr cyst from rectum at [facility] 1986Remove cyst from chest- Dr. Castillo 1976Extract wisdom teeth at [facility] 1975Pericardiocentesis and pericardial window iverticulum, Esophagus 03/2022,09/29/2022No history * Hospitalization/Major Diagno stic Procedure: N o history * Family History: F ather: , Heart disease, diagnosed with HTN. M other: 82 yrs, lung cancer, diagnosed with Cancer. P aternal Grand Father: , alzheimer. M [place] Grand [...] does not drink alcohol. He lives in [facility]. He has two daughters Bernice and [...] 0 06/24/2024 Generated for Michelle pierson/Mikel/Mikeitting on: 0 11/24/2024 07:16 AM EDT History and Physical Notes * HPI (History of Present Illness) Category Sub-Category Detail Notes Telehealth Location of [facility] rendering services:: {...} [address] [place] [address] Location of patient:: address listed in demographics [...]
--- OUTSIDE RECORDS SUMMARY | 2024-06-27 05:21 | XMS_ITS ---
Author Organization Nicolás Bustos III, MD Address [address] [place] [address] Care Team Providers Care Soa Integration Developer Name Role Phone Nicolás Bustos Primary Care Provider [phone] REASON FOR VISIT Needs call back from Social History Sex Assigned At : Social History Observation Description Sex Assigned At Male Encounters Encounter Location Date Provider Diagnosis Nicolás Bustos III, MD [address] [place] [address] [place] [address] 06/27/2024 Nicolás Bustos Plan Of Treatment Next Appt Details Provider Name:Nicolás Bustos, 12/02/2024 09:00:00 AM, [address] [place] [address] [place], [address], Provider Name:Nicolás Bustos, 05/05/2025 10:00:00 AM, [address] [place] [address] [place], [address], Progress Notes * ASHLEYJoseDOB:1950 ([age] yo M)Acc No.[id number]:06/27/2024 Patient: Jose TRENT :1950 A ge:74 Y S ex:Male Address:[address], [place], [address] * true * Date: Generated for Printi ng/Faxing/eTransmitting on: 0 11/24/2024 07:15 AM EDT
--- OUTSIDE RECORDS SUMMARY | 2024-07-04 07:54 | XMS_ITS ---
Author Organization Nicolás Bustos III, MD Address [address] [place] [address] [place] [address] Care Team Providers Care Informal Waiter/Waitress Name Role Phone Nicolás Bustos Primary Care Provider REASON FOR VISIT told patient to call Medications Medication SIG (Take, Route, Frequency, Duration) Notes Start Date End Date Status Cyclobenzaprine HCl 10 MG one tablet Ora lly three times a day for 7 days 06/14/2024 08/01/2024 Active Social History Sex Assigned At : Social History Observation Description Sex Assigned At Male Encounters Encounter Location Date Provider Diagnosis Nicolás Bustos III, MD [address] [place] [address] [place] [address] 07/04/2024 Nicolás Bustos 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 [...] 06/14/2024 08/01/2024 Next Appt Details Provider Name:Nicolás Bustos, 12/02/2024 09:00:00 AM, [address] [place] [address] [place], [address], Provider Name:Nicolás Bustos, 05/05/2025 10:00:00 AM, [address] [place] [address] DR, [address], [place], [address], Progress Notes * Jose POWERSDOB:1950 ([age] yo M)Acc No.[id number]:07/04/2024 Patient: Jose TRENT :1950 A ge:74 Y S ex:Male Address:[address] [place] [address], [place], [address] * Refills Refill Cyclobenzaprine HCl Tablet, 10 MG, Orally, 21, one tablet, three times a day, 7 days, Refills=3 * true * Date: Generated for Michelle pierson/Mikel/Mikeitting on: 0 11/24/2024 07:15 AM EDT
--- OUTSIDE RECORDS SUMMARY | 2024-09-02 05:00 | XMS_ITS ---
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 [...] Up: 3 Months, Reason: OV Provider Name:Nicolás Bustos, 12/02/2024 09:00:00 AM, [address] [place] [address] [address] [facility], [place], [address], Provider Name:Nicolás Bustos, 05/05/2025 10:00:00 AM, [address] [place] [address] [address], [place], [address], Progress Notes * Jose POWERSDOB:1950 ([age] yo M)Acc No.[id number]:09/02/2024 Progress Notes Patient: Jose TRENT Provider: Earl Bustos MD :1950 A ge:74 Y S ex:Male Date:09/02/2024 Address:[address] [place] [address] [address], [id number] Subjective: * Chief Complaints: * L ymphoplasmacytic lymphomaHypertensionLumbar radiculopathyBenign prostatic hypertrophyRight shoulder painElevated PSAAtrial fibrillation * HPI: C OVID-19 Screening: He returns for medical management.He recently saw his laser beam machine operator wants a stress test which is being [...] age 32's- Dr. Cl Woody at [facility] leep Study- Dr. Xiao at [facility] [id number] stapedotomy w/ vein graft- Dr. Chin at [facility] [id number] catheter ablation- Dr. Vance at [facility] 07-15-2011 flutter s/p cardioversion- Dr. Xiao at [facility] [id number] cyst from back- Dr. Willoughby at [facility] 64-03-4178Uxhkgc cyst right wrist at [facility] 27-23-2881Vyqfno external hemorrhoid at [facility] 64-07-0422Mtkqxesyilg surgery Rt. ear- Dr. Washington at [facility] 10-24-9095Vgtaxh cyst from rectum at [facility] 1986Remove cyst from chest- Dr. Castillo 1976Extract wisdom teeth at [facility] 1975Pericardiocentesis and pericardial window iverticulum, Esophagus [...] does not drink alcohol. He lives in [facility]. He has two daughters Bernice and [...] 0 09/02/2024 Generated for Printi ng/Farashmig/eTransmitting on: 0 11/24/2024 07:15 AM EDT History and Physical Notes * [...]
--- OUTSIDE RECORDS SUMMARY | 2024-09-23 09:30 | XMS_ITS ---
Author Organization Nicolás Bustos III, MD Address [address] [place] [address] Care Team Providers Care Chummer Name Role Phone Nicolás Bustos Primary Care [...] Problem Status W/U Status Risk Notes Problem Ingrown right big toenail (L60.0) Active confirmed The area may need to be debrided. He was referred to podiatry for definitive treatment. 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 [...] 09/23/2024 09/23/2024, right gr eat toe ingrown nailMILAD Next Appt Details Follow Up: as scheduled, Sandhya son: ov Provider Name:Nicolás Bustos, 12/02/2024 09:00:00 AM, [address] [place] [address] [address], [place], [address], Provider Name:Nicolás Bustos, 05/05/2025 10:00:00 AM, [address] [place] [address] [address], [place], [address], Progress Notes * Jose RAMIREZDOB:1950 ([age] yo M)Acc No.[id number]:09/23/2024 Patient: Jose TRENT Provider: Earl Bustos MD :1950 A ge:74 Y S ex:Male Date:09/23/2024 Address:[address] [place], [place] [address] Subjective: * Chief Complaints: * I nfection [...] Cl Woody at [facility] 1992Sleep Study- Dr. Xiao at . [id number] stapedotomy w/ vein graft- Dr. Chin at [facility] [id number] catheter ablation- Dr. Vance at [facility] 07-15-2011 flutter s/p cardioversion- Dr. Xiao at [facility] 45-02-3526Pzdxcu cyst from back- Dr. Willoughby at [facility] [id number] cyst right wrist at [facility] 20-04-5367Epstjq external hemorrhoid at [facility] 17-40-1724Bgavphfexhm surgery Rt. ear- Dr. Washington at [facility] 50-33-7116Pnfhri [facility] [...] does not drink alcohol. He lives in [facility]. He has two daughters Bernice and [...] Examination: G eneral Examination: GENERAL APPEARANCE: p margareth, well nourished, well developed, in no acute [...] MD Date: 0 09/23/2024 Generated for Michelle pierson/Mikel/Balwinder on: 0 11/24/2024 07:15 AM EDT History and Physical Notes * Examination Category [...] Date Referring Provider Referred Provider Not deanna 09/23/2024 Nicolás Bustos CHRISTOPHER right gre at toe ingrown nail
--- OUTSIDE RECORDS SUMMARY | 2024-11-24 07:15 | XMS_ITS | Clinical Summary ---
Author Organization [address] [facility] Address [address] [place] [address] Phone Care Team Providers Care Inspector Balance Bridge Name Role Phone Nicolás Bustos MD Primary Care Provider [phone] Allergies Active Allergy Reactions Criticality Noted Date Comments Adhesive Tape-Silicones Other Low 05/16/2022 Amoxicillin Rash Low 06/29/2020 Xshcswoqdc-Xgfqvzafo-Hfiisfj ne Rash Low 05/16/2022 Povidone-Iodine 04/23/2021 Other Reaction(s): rash if left on Medications Eliquis 5 mg tablet Take 1 tablet (5 mg total) by mouth 2 (two) times a day. Active atorvastatin (LIPITOR) 20 mg tablet Take 1 tablet (20 mg total) by mouth 1 (one) time each day. Active cyclobenzaprine (FLEXERIL) 10 mg tablet Take 1 tablet (10 mg total) by mouth. for 7 days 5 Active dexAMETHasone (DECADRON) 2 mg tablet Take 1 tablet (2 mg total) by mouth 2 (two) times a day. for 7 days 5 Active finasteride (PROSCAR) 5 mg tablet Take 1 tablet (5 mg total) by mouth 1 (one) time each day. 5 Active flecainide (TAMBOCOR) 150 mg tablet Take 1 tablet (150 mg total) by mouth every 12 (twelve) hours. Active ibrutinib (Imbruvica) 280 mg tablet Take by mouth Active Imbruvica 140 mg capsule 5 Active metoprolol tartrate (LOPRESSOR) 50 mg tablet Take 1 tablet (50 mg total) by mouth 2 (two) times a day. Active metroNIDAZOLE (METROGEL) 0.75 % gel APPLY THIN LAYER TOPICALLY TO FACE TWICE DAILY FOR ROSACEA 4 Active nabumetone (RELAFEN) 500 mg tablet Take 1 tablet (500 mg total) by mouth 2 (two) times a day. Active naproxen (NAPROSYN) 500 mg tablet TAKE 1 TABLET BY MOUTH TWICE DAILY WITH FOOD OR MILK NEEDED Active omeprazole (PriLOSEC) [address] capsule Take 1 capsule (40 mg total) by mouth 1 (one) time each day in the morning. 5 Active sulfamethoxazole- trimethoprim (BACTRIM DS,SEPTRA DS) 800-160 mg per tablet Take 1 tablet by mouth 2 (two) times a day. for 14 days 4 Active tamsulosin (FLOMAX) 0.4 mg 24 hr capsule Take 2 capsules (0.8 mg total) by mouth at bedtime. 5 Active silver sulfADIAZINE (SILVADENE, SSD) 1 % creamIndications: ingrown toenail Apply topically 1 (one) time each day for 10 days. Apply to toe everyday for two weeks apply regular bandaid 1 g 5 11/27/19 25 Active Active Problems Problem Noted Date Diagnosed Date Lumbar stenosis with neurogenic claudication 05/2022 Overview (11/16/2024): Last Assessment & Plan: I reviewed this in detail with Mr. Ramirez and believe he is symptomatic from lumbar stenosis with claudication though his activity tolerance is still better than most patients with this situation. He is able to continue walking despite the back and leg pain and does not yet have to stop and take rest breaks/sit/lean forward. He does not wish to consider surgery at this time and I agree that it is not an emergency. He states that PT never worked for him and declined a referral now. We discussed the option of an WOLF but in my opinion these are not very effective in the setting of significant stenosis. He agreed to a trial of Naprosyn which he has taken in the past and may be more reliable than the nabumetone. He will follow-up with us if his symptoms worsen and he wishes to can consider further treatment. Urinary hesitancy 05/16/2022 Overview (11/16/2024): Last Assessment & Plan: Mr. Ramirez denies urinary incontinence and states that he has no trouble urinating during the day however, he is found over the last several months that there is more pressure in his bladder if he wakes up to go during the night and it is difficult to initiate the urine stream. I recommended that he discuss this with you and consider follow-up with urology. Encounters Date Type Department Care Team Description 11/16/2024 8:15 AM EDT Consult Orthopedic Surgery [facility] [address] [address] Wood Ricketts, DPMark Cellulitis of right toe (Primary Dx); Ingrown toenail from Last 3 Months Surgical History Surgery Date Site/Laterality Comments TONSILLECTOMY ADENOIDECTOMY, BILATERAL MYRINGOTOMY AND TUBES PROCEDURE: [place] TONSILLECTOMY & ADENOIDECTOMY <AGE 14 HAND SURGERY Left PROCEDURE: HISTORICAL HAND SURGERY; COMMENT: left tendon surgery wrist Medical History Medical History Date Comments Afib (CMS/HCC V24, CMS/HCC V28) DX:Afib ([facility]) 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 (CMS/HCC V24, CMS/HCC V28) DX: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 ([facility]) Essential hypertension DX:Essent ial hypertension Mixed hyperlipidemia DX:Mixed hy perlipidemia Social History Tobacco Use Types Packs/Day Years Used Date Smoking Tobacco: Never Smokeless Tobacco: Never Sex and Gender Information Value Date Recorded Sex Assigned at Not on file Legal Sex Male 8:48 PM EST Gender Identity Not on file Sexual Orientation Not on file Obstetrics History Last Filed Vital Signs Vital Sign Reading Time Taken Comments Blood Pressure - - Pulse - - Temperature - - Respiratory Rate - - Oxygen Saturation - - Inhaled Oxygen Concentration - - Weight 93 kg (205 lb) 05/16/2022 9:23 AM EST Height 175.3 cm (5' 9 ) 05/16/2022 9:23 AM EST Body Mass Index 30.27 05/16/2022 9:23 AM EST Plan of Treatment Upcoming Encounters Date Type Department Care Team ([facility] st Contact Info) Description 11/30/2024 9:15 AM EDT Office Visit Orthopedic Surgery [facility] 250 175 [facility] [address] [place] [id number] Wood Ricketts, DPM [address] [facility] [address] [place] [address] Health Maintenance Due Date Last Done Comments COVID-19 Vaccine (#1) 02/21/1955 Pneumococcal Vaccine: 50+ Years (2 of 2 - PPSV23) 02/02/2018 12/08/2017 Abdominal Aortic Aneurysm (AAA) Screen 04/10/2023 Cholesterol Screening (Lipid Panel) 04/10/2023 Colorectal Cancer Screening: Colonoscopy 04/10/2023 Falls Risk Assessment 04/10/2023 Hepatitis C Screening 04/10/2023 Medicare Annual Wellness Visit 04/10/2023 Social Influencers of Health Screening 04/10/2023 Depression Screening 03/16/2024 Influenza Vaccine (#1) 2024 12/21/2017 RSV Immunization Adult Patients (1 - 1-dose 75+ series) 02/21/2027 DTaP,Tdap,and Td Vaccines (3 - Td or Tdap) 12/07/2029 12/08/2019, 02/25/2010 Zoster Vaccines Completed 05/18/2018, 02/11/2018 HIB Vaccines Aged Out No longer eligi ble based on patient's age to complete this topic HPV Vaccines Aged Out No longer eligi ble based on patient's age to complete this topic Hepatitis A Vaccines Aged Out No long er eligible based on patient's age to complete this topic Hepatitis B Vaccines Aged Out No long er eligible based on patient's age to complete this topic IPV Vaccines Aged Out No longer eligi ble based on patient's age to complete this topic MMR Vaccines Aged Out No longer eligi ble based on patient's age to complete this topic Meningococcal ACWY Vaccine Aged Out N o longer eligible based on patient's age to complete this topic Meningococcal B Vaccine Aged Out No l onger eligible based on patient's age to complete this topic RSV Immunization Patients Under 20 months Aged Out No longer eligible b ased on patient's age to complete this topic Varicella Vaccines Aged Out No longer eligible based on patient's age to complete this topic Insurance MEDICARE MEDICAID - [place] Care Teams Inspector Balance Bridge Relationship Specialty Start Date End Date Nicolás Bustos MD [address] [address] PCP - General 05/16/22
--- OUTSIDE RECORDS SUMMARY | 2024-11-24 07:16 | XMS_ITS | Patient Health Record ---
Author Organization [facility] Address [address] [place] [address] Care Team Providers Care Marketing Developer Name Role Phone Nicolás Bustos MD Primary Care Provider UnavailNicolás Dupont Unavailable [phone] Allergies Allergen (clinical drug ingredient) Drug/Non Drug [...] 40 MG TAKE 1 CAPSULE BY [facility] EVERY MORNING for 30 Active [...] Status Risk Notes Problem Colon cancer screening (282268773) Colon cancer screening (Z12.11) Active confirmed Problem 86252733 Pharyngoesophage al dysphagia (R13.14) Active confirmed Problem 052345958 Other specified postprocedural states (Z98.890) Active confirmed Problem Acquired diverticulum of esophagus (15995750) 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 Plan Of Treatment Pending Test Test Name [...] OF [place] [address] [place] [address] [phone] [id number] CALEB RAMIREZ Self - patient is the insured MEDICAID OF [facility] [address] [place] [phone] [id number] CALEB RAMIREZ Self - patient is the insured Medical (General) History Medical History History ICD Code HTN Denies NC,DM,CVA,Lung disease,renal dise ase Screening colonoscopies in 2 in [place] and 2009 in [place]--both negative Atrial fibrillation--s/p abl ation in 2011--was [...] removal-back,wrist,rectum and chest Hemorrhoidectomy Tendon repair-left wrist [place] teeth extraction Tonsillectomy Stapedectomy Surgery for a Zenker's diverticulum with Dr. Anil barger ENT 04/07/2022
--- OUTSIDE RECORDS SUMMARY | 2024-11-24 07:16 | XMS_ITS | Clinical Summary ---
Author Organization [facility] Address [address] [address] Phone Care Team Providers Care Basting Marker Name Role Phone Nicolás Bustos MD Primary Care Provider [phone] Allergies Active Allergy Reactions Criticality Noted Date Comments Amoxicillin Rash Low 06/29/2020 Povidone-Iodine 04/23/2021 Medications ibrutinib (IMBRUVICA) 280 mg tablet Take by mouth daily. Active nabumetone (RELAFEN) 500 MG tablet Take 500 mg by mouth 2 (two) times a day. Active apixaban (ELIQUIS) 5 mg tablet Take 5 mg by mouth 2 (two) times a day. Active atorvastatin (LIPITOR) 20 MG tablet Take 20 mg by mouth daily. Active ferrous sulfate 325 mg ([address] [place] croix iron) tablet Take 325 mg by mouth daily with breakfast. Active multivitamin-mi nerals-lutein (CENTRUM SILVER) Tab Take 1 tablet by mouth daily. Active melatonin 5 mg Tab Take by mouth nightly at bedtime. Active colchicine (COLCRYS) 0.6 mg tablet Take 0.6 mg by mouth. 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 02/21/2021 Active pantoprazole (PROTONIX) 40 MG tablet Take 40 mg by mouth daily. 04/10/2021 Active ondansetron (ZOFRAN) 4 MG tablet TAKE 1 TABLET BY MOUTH EVERY 8 HOURS NEEDED FOR NAUSEA/VOMIT ING 04/03/2021 Active flecainide (TAMBOCOR) 150 MG tablet 2 (two) times a day. 07/09/2021 Active metoprolol tartrate (LOPRESSOR) 50 MG tablet Take 50 mg by mouth 2 (two) times a day. 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 Not on brisa e 07/12/2022 Are you concerned about learning? Not on file 07/12/2022 No 07/12/2022 No 07/12/2022 Digital Access Answer Date Recorded No 08/12/2022 No 08/12/2022 Reliable internet access at home? Not on file 08/12/2022 Device with a working camera? Not on file Sex and Gender Information Value Date Recorded Sex Assigned at Not on file Legal Sex Male 8:35 AM EDT Gender Identity Not on file Sexual Orientation Not on file Last Filed Vital Signs Vital Sign Reading Time Taken Comments Blood Pressure 138/86 04/23/2021 11:20 AM EST Pulse 84 08/07/2021 7:35 AM EDT Temperature - - Respiratory Rate - - Oxygen Saturation 98% 08/07/2021 7:35 AM EDT Inhaled Oxygen Concentration - - Weight 89.4 kg (197 lb) 08/07/2021 7:35 AM EDT Height 175.3 cm (5' 9 ) 08/07/2021 7:35 AM EDT Body Mass Index 29.09 08/07/2021 7:35 AM EDT Plan of Treatment Health Maintenance Due Date Last Done Comments CREATININE LEVEL 1952 LIPID PANEL 1952 DEPRESSION SCREENING 1964 SMOKING Hx and SMOKELESS TOBACCO SCREENING 02/21/1965 HEPATITIS C SCREENING 02/21/1970 COLOGUARD 02/21/1997 COLONOSCOPY 02/21/1997 COLORECTAL CANCER SCREENING 02/21/1997 FIT TEST 02/21/1997 FOBT 02/21/1997 SIGMOIDOSCOPY 02/21/1997 VIRTUAL COLONOSCOPY 02/21/1997 RSV VACCINE (1 - Risk 60-74 years 1-dose series) 2012 ABDOMINAL AORTIC ANEURYSM (AAA) SCREENING 02/21/2017 PNEUMOCOCCAL VACCINES (50+ years) (2 of 2 - PPSV23) 02/02/2018 12/08/2017 INFLUENZA VACCINE (#1) 2024 12/21/2017 COVID-19 VACCINE (1 - 2023-2 5 season) 2024 Adult Td,Tdap Booster 12/07/2029 12/08/2019 , 02/25/2010 ZOSTER VACCINES Completed 05/18/2018, 02/11/2018 HEPATITIS A VACCINES Aged Out No long er eligible based on patient's age to complete this topic HIB VACCINES Aged Out No longer eligi ble based on patient's age to complete this topic MENINGOCOCCAL VACCINES (ACWY) Aged Out No longer eligible based on patient's age to complete this topic MENINGOCOCCAL VACCINES (B) Aged Out N o longer eligible based on patient's age to complete this topic Medical Devices Not on file Insurance [address] [place] [address] MEDICARE PART A & B [facility] MEDICARE PART A & B HEALTH MEDICARE PART A & B [facility] MEDICARE PART A & B HEALTH MEDICARE PART A & B [facility] MEDICARE PART A & [place] MEDICARE PART A & [facility] & [facility] PART A & B [facility] Care Teams Basting Marker Relationship Specialty Start Date End Date Nicolás Bustos MD [address] [place] [id number] PCP - General Medical Oncology 06/19/20 Additional Source Comments The information contained in this document represents components of the legal health record. It is not the complete legal health record.[facility]
--- OUTSIDE RECORDS SUMMARY | 2024-11-24 07:17 | XMS_ITS | Patient Health Record ---
Author Organization Nicolás Bustos III, MD Address [address] [place] [address] Care Team Providers Care Cable Wirer Name Role Phone Nicolás Bustos Primary Care Provider [phone] Allergies Allergen (clinical drug ingredient) Drug/Non Drug Allergy documented on EMR Reaction Allergy Type Onset Date Status Adhesive rash Allergy Active povidone-iodine Betadine Rash Drug Allergy A ctive amoxicillin Amoxicillin Rash Drug Allergy Act jocelin Results Component Value Reference Range Notes Routine Culture Reviewed date:01/03/2024 08:39:28 AM Interpretation: Performing Lab:[facility], [address] [place] [phone] Notes/Report: Routine Culture Report - external Routine [...] BLD Negative Negative - Gram stain Reviewed date:01/03/2024 08:39:28 AM Interpretation: Performing Lab:[facility], [address] [place] [phone] Notes/Report: Gram stain Gram stain results: Gram stain No polys Gram stain 2+ epithelial cells Gram stain No organisms seen MR shoulder RT wo con Reviewed date:01/11/2024 09:22:44 AM Interpretation: Performing Lab: Notes/Report: [address] [address] Magnetic Resonance Report Signed Patient: Jose Powers MR#: [id number] : 1950 Acct:[id number] Age/Sex: 73 / M ADM Date: 01/01/24 Loc: HO.MRI Attending Dr: Sergio Davila MD Ordering Physician: Sergio Davila MD Date of Service: 01/01/24 Procedure(s): MR shoulder RT wo con Accession Number(s): [id number] cc: Nicolás Bustos MD; Sergio Davila MD [...] related to the rotator cuff tendon tears. Hzrc-hl-otlboayt glenohumeral osteoarthritis. Small joint effusion with mild synovitis. Electronically signed by: Munir Pardo MD 01/10/2024 03:35 PM EDT Dictated By: Munir Pardo MD Signed By: <Electronically signed by Munir Pardo MD in OV> 01/10/24 1535 DD/ 0800 TD/TT: 01/01/24 0839 Glass Glazier: [place] [address] Magnetic Resonance Report Signed Patient: Jose Powers MR#: [id number] : 1950 Acct:[id number] Age/Sex: 73 / M ADM Date: 01/01/24 Loc: .MRI Attending Dr: Sergio Davila MD Ordering Physician: Sergio Davila MD Date of Service: 01/01/24 Procedure(s): MR shoulder RT wo con Accession Number(s): [id number] cc: Nicolás Bustos MD; Sergio Davila MD [...] related to the rotator cuff tendon tears. Clwb-bk-udzslhhh glenohumeral osteoarthritis. Smal l joint effusion with mild synovitis. Electronically martha d by: Munir Pardo MD 01/10/2024 03:35 PM EDT Dictated By: Munir Pardo MD Signed By: <Electronically signed by Munir Pardo MD in OV> 01/10/24 1535 DD/ 0800 TD/TT: 01/01/24 0839 Glass Glazier: CT shoulder RT wo con Reviewed date:01/11/2024 09:22:44 AM Interpretation: Performing Lab: Notes/Report: [address] [address] [address] Scan Report Signed Patient: Jose Powers MR#: [id number] : 1950 Acct:[id number] Age/Sex: 73 / M ADM Date: 01/08/24 Loc: HO.CT Attending Dr: Sergio Davila MD Ordering Physician: Sergio Davila MD Date of Service: 01/08/24 Procedure(s): CT shoulder RT wo IV con Accession Number(s): [id number] cc: Nicolás Bustos MD; Sergio Davila MD [...] Glenohumeral joint space narrowing with marginal osteophytes. Qckbhgrx-xr-nnqcil acromioclavicular osteoarthritis. No concerning lytic or blastic [...] tendon tear. 3. Moderate glenohumeral osteoarthritis and siwqrwju-al-rzxzfa acromioclavicular osteoarthritis. Electronically signed by: Munir Pardo MD 01/10/2024 03:49 PM EDT RP Dictated By: Munir Pardo MD Signed By: <Electronically signed by Munir Pardo MD in OV> 01/10/24 1549 DD/ 1341 TD/TT: 01/08/24 1400 [address]azier: [address] [address] [address] Scan Report Signed Patient: Jose Powers MR#: [id number] : 1950 Acct:[id number] Age/Sex: 73 / M ADM Date: 01/08/24 Loc: HO.CT Attending Dr: Sergio Davila MD Ordering Physician: Sergio Davila MD Date of Service: 01/08/24 Procedure(s): CT shoulder RT wo IV con Accession Number(s): [id number] cc: Nicolás Bustos MD; Sergio aDvila MD EXAMINATION: CT SHOULDER WITHOUT CONTRAST, RIGHT [...] joint space narrowin g with marginal osteophytes. Cimflrut-sn-xwsapd acromioclavicular osteoarthritis. No concerning lytic or blastic [...] tear. 3. Moderate glenohum eral osteoarthritis and xwtrfonc-cb-xmxxgz acromioclavicular osteoarthritis. Electronically martha d by: Munir Pardo MD 01/10/2024 03:49 PM EDT RP Workstation: [place] [employer] Dictated By: Munri Pardo MD Signed By: <Electronically signed by Munir Pardo MD in OV> 01/10/24 1549 DD/ 1341 TD/TT: 01/08/24 1400 [address] Glazier: SR Complete Blood Count Auto Di ff Reviewed date:04/17/2024 09:03:36 AM Interpretation: Performing Lab:[facility], [address] [place] [phone] Notes/Report: White Blood Count 8.7 4.8-10.8 X10*3/uL [...] NRBC Abs Auto 0.000 0.0-0.012 X10*3/uL Comprehensive [place]. Panel Fa st Reviewed date:04/17/2024 09:03:36 AM Interpretation: Performing Lab:[address] [address] Notes/Report: Sodium 136 135-145 mmol/L Potassium 4.4 [...] Panel Reviewed date:04/17/2024 09:03:36 AM Interpretation: Performing Lab:[address] [address] Notes/Report: Triglycerides 97 <150 mg/dL Desirable Triglyceride: [...] Total Reviewed date:04/17/2024 09:03:36 AM Interpretation: Performing Lab:[facility], [address] [place] [phone] Notes/Report: Prostate Specific Ag Total 4.8 < [...] 19 < or = 30 93 9 (3)Kristinaona et al.:PAULO 277: 3687-8794 (1996) (4)Catalona et al.:PAULO 279: 4076-5507 (1997) (x)These estimates vary with age, ethnicity, [...] of disease. THIS TEST WAS PERFORMED AT: [facility] [address] [place] [phone] KRYSTAL URBINA MD Free Prostate Spec Ag 0.7 PSA,Total (Free>4and<10) Reviewed date:04/17/2024 09:03:36 AM Interpretation: Performing Lab:[address] [address] Notes/Report: PSA,Total (Free>4and<10) 4.63 0.00-4.00 ng/mL PSA methodology: Bryan Alinity i Chemiluminescent Microparticle Immunoassay (CMIA) Beta-2 Microglobulin, Serum Reviewed date:04/17/2024 09:03:36 AM Interpretation: Performing Lab:[facility], [address] [place] [phone] Notes/Report: Beta-2 Microglobulin, Serum 2.26 < OR = 2.51 mg/L THIS TEST WAS PERFORMED AT: [facility] [address] [place] [phone] KRYSTAL URBINA MD Protein Electrophoresis, Ser um Reviewed date:04/17/2024 09:03:36 AM Interpretation: Performing Lab:[address] [address] Notes/Report: Prot Elec - Total Protein 5.6 [...] be considered. THIS TEST WAS PERFORMED AT: [facility] [address] [place] [phone] KRYSTAL URBINA MD Immunofixation Pnl, Serum Reviewed date:04/17/2024 09:03:36 AM Interpretation: Performing Lab:[address] [address] Notes/Report: IgG 712 970-3777 mg/dL Results verif ied by repeat analysis on dilution. IgA 11 70-320 mg/dL Results verifie d by repeat analysis on dilution. IgM 155 50-300 mg/dL THIS TEST WAS PERFORMED AT: [facility] [address] [place] [phone] KRYSTAL URBINA MD Immunofixation Interpretation SEE NOTE Faint IgM kappa monoclonal band present. Viscosity Reviewed date:04/17/2024 09:03:36 AM Interpretation: Performing Lab:[facility], [address] [place] [phone] Notes/Report: Viscosity 1.5 1.5-1.9 rel to H2O Units = Relative to Water THIS TEST WAS PERFORMED AT: [facility]/[address] [address] MIRELLA ODELL MD,PHD US retroperitoneal comp Reviewed date:04/17/2024 09:03:37 AM Interpretation: Performing Lab: Notes/Report: [address] [address] Ultrasound Report Signed Patient: Jose Powers MR#: [id number] : 1950 Acct:[id number] Age/Sex: 74 / M ADM Date: 04/04/24 Loc: HO.US Attending Dr: Taylor HERNANDEZ Ordering Physician: Taylor Strong Date of Service: 04/04/24 Procedure(s): US retroperitoneal comp Accession Number(s): [id number] cc: Nicolás Bustos MD; Taylor Strong CLINICAL HISTORY: N41.9 - Inflammatory disease of [...] 04/04/24 1203 DD/ 1201 TD/TT: 04/04/24 1201 [address]ier: [place] [address] Ultrasound Report Signed Patient: Jose Powers MR#: [id number] : 1950 Acct:[id number] Age/Sex: 74 / M ADM Date: 04/04/24 Loc: HO.US Attending Dr: Taylor HERNANDEZ Ordering Physician: Taylor Strong Date of Service: 04/04/24 Procedure(s): US retroperitoneal comp Accession Number(s): [id number] cc: Nicolás Bustos MD; Taylor Strong CLINICAL HISTORY: N4 1.9 - Inflammatory disease [...] 04/04/24 1203 DD/ 1201 TD/TT: 04/04/24 1201 Glass Glazier: Protein Electrophoresis, Ser um (Not yet reviewed by provider) Interpretation: Performing Lab:[facility], [address] [place] [phone] Notes/Report: Prot Elec - Total Protein 5.3 6.1-8.1 g/dL Prot Elec - Albumin 3.8 3.8-4.8 g/dL Prot Elec - Alpha1 0.2 [...] be considered. THIS TEST WAS PERFORMED AT: [facility] [address] [place] [phone] KRYSTAL URBINA MD Immunofixation Pnl, Serum (N ot yet reviewed by provider) Interpretation: Performing Lab:[facility], [address] [place] [phone] Notes/Report: IgG 92 600-1540 mg/dL Verified by r epeat analysis. IgA 9 70-320 mg/dL Verified by rep eat analysis. IgM 129 50-300 mg/dL THIS TEST WAS PERFORMED AT: [facility] [address] [place] [phone] KRYSTAL URBINA MD Immunofixation Interpretation SEE NOTE Faint IgM kappa monoclonal band present. Complete Blood Count Auto Di ff Reviewed date:08/31/2024 01:59:03 PM Interpretation: Performing Lab:[facility], [address] [place] [phone] Notes/Report: White Blood Count 9.1 4.8-10.8 X10*3/uL Red Blood Count 4.81 4.60-5.80 X10*6/uL Hemoglobin 14.4 14.0-18.0 g/dl Hematocrit 41.6 42.0-52.0 % Mean Corpuscular Volume 86.5 80.0-98.0 fL Mean Corpuscular Hemoglobin 29.9 27.0-33.0 pg Mean Corpuscular HGB Conc 34.6 31.0-36.0 g/dl Red Cell Distribution Width 14.5 11.0-16.0 % Platelet Count 198 160-400 X10*3/uL Mean Platelet Volume 11.8 9.4-12.4 fL Neutrophils Percent Auto 46.8 45-73 % Imm Gran Pct Auto 0.6 0.0-0.4 % Lymphocytes Percent Auto 39.0 20-40 % Monocytes Percent Auto 10.4 2-11 % Eosinophils Percent Auto 2.6 0-4 % Basophils Percent Auto 0.6 0-2 % NRBC Pct Auto 0.0 0.0-0.2 /100WBC Neutrophils Absolute Auto 4.3 2.0-8.3 x10*3/uL Imm Gran Abs Auto 0.05 0.00-0.03 X10*3/uL Lymphocytes Absolute Auto 3.5 1.2-4.9 X10*3/uL Monocytes Absolute Auto 0.9 0.1-1.2 X10*3/uL Eosinophils Absolute Auto 0.2 0.0-0.4 X10*3/uL Basophils Absolute Auto 0.1 0.0-0.2 X10*3/uL NRBC Abs Auto 0.000 0.0-0.012 X10*3/uL Comprehensive [place]. Panel Fa Reviewed date:08/31/2024 01:59:03 PM Interpretation: Performing Lab:[facility], [address] [place] [phone] Notes/Report: Sodium 140 135-145 mmol/L Potassium 3.7 3.3-5.1 mmol/L Chloride 105 96-108 mmol/L Carbon Dioxide 26 22-29 mmol/L Anion Gap 13 12-20 Blood Urea Nitrogen 16 9-16 mg/dL Creatinine 0.89 0.5-1.4 mg/dL Estimated Glomerular Filt Rate > 60 Chronic Kidney Disease: Estimated GFR < 60 mL/min/1.73m2 Severe Kidney Disease: Estimated GFR < 15 mL/min/1.73m2 Glucose Fasting 97 60-99 mg/dL Calcium 8.8 8.4-10.2 mg/dL Bilirubin Total 0.8 0.0-1.0 mg/dL Aspartate Amino Transferase 37 5-37 U/L Alanine Aminotransferase 32 0-40 U/L Total Protein 5.4 6.5-8.0 g/dL Albumin Level 4.0 3.5-5.0 g/dL Alkaline Phosphatase 110 39-117 U/L Lipid Panel Reviewed date:08/31/2024 01:59:03 PM Interpretation: Performing Lab:[facility], [address] [place] [phone] Notes/Report: Triglycerides 84 <150 mg/dL Desirable Triglyceride: less than 150 mg/dL Borderline High Triglyceride 150-199 mg/dL High Triglyceride: 200-499 mg/dL Very High Triglyceride: greater than or equal to 5OO mg/dL Cholesterol 171 <200 mg/dL Desirable Cholesterol: less than 200 mg/dL Borderline High Cholesterol: 200-239 mg/dL High Cholesterol: greater than 239 mg/dL LDL Cholesterol Calculated 74 <100 mg/dL Desirable LDL: less than 100 mg/dL Near Optimal/Above Optimal LDL: 110-129 mg/dL Borderline High LDL: 130-159 mg/dL High LDL: 160-189 mg/dL Very High LDL: greater than or equal to 190 mg/dL HDL Cholesterol 81 >40 mg/dL Desirable HDL: greater than 40 mg/dL Note: This HDL assay may give artificially low results in patients with liver disease. PSA Free and Total Reviewed date:08/31/2024 01:59:03 PM Interpretation: Performing Lab:[facility], [address] [place] [phone] Notes/Report: Prostate Specific Ag Total 4.2 < OR = 4.0 ng/mL Percent Free Prostate Spec Ag 12 >25 % (calc) PSA(ng/mL) Free PSA(%) Estimated(x) Probability of Cancer(as%) 0-2.5 (*) Approx. 1 2.6-4.0(1) 0-27(2) 24(3) 4.1-10(4) 0-10 56 11-15 28 16-20 20 21-25 16 >or =26 8 >10(+) N/A >50 References:(1)Lesly blue et al.:Urology 60: 469-474 (2001) (2)Fatmata et al.:J.Urol 168: 922-925 (2001) Free PSA(%) Sensitivity(%) Specificity(%) < or = 25 85 19 < or = 30 93 9 (3)Catalona et al.:PAULO 277: 3719-9640 (1996) (4)Catalona et al.:PAULO 279: 9377-6849 (1997) (x)These estimates vary with age, ethnicity, [...] mind. PSA was performed using the Bowen Viking Immunoassay method. Values obtained from different assay methods cannot be used interchangeably. PSA levels, regardless of value, should not be interpreted as absolute evidence of the presence or absence of disease. THIS TEST WAS PERFORMED AT: [facility] [address] [place] [phone] KRYSTAL URBINA MD Free Prostate Spec Ag 0.5 Free T4 (Free Thyroxine) Reviewed date:08/31/2024 01:59:03 PM Interpretation: Performing Lab:[facility], [address] [place] [phone] Notes/Report: Free T4 (Free Thyroxine) 1.09 0.71-1.85 ng/dL Thyroid Stimulating Hormone Reviewed date:08/31/2024 01:59:03 PM Interpretation: Performing Lab:[facility], [address] [place] [phone] Notes/Report: Thyroid Stimulating Hormone 2.23 0.32-4.0 uIU/mL TSH 3rd Generation ([facility]) Viscosity Reviewed date:08/31/2024 01:59:03 PM Interpretation: Performing Lab:[facility], [address] [place] [phone] Notes/Report: Viscosity 1.5 1.5-1.9 rel to H2O Units = Relative to Water THIS TEST WAS PERFORMED AT: [facility] [address] MIRELLA ODELL MD,PHD Reason For Referral Reason non healing wound le ft danielle left danielle mild lymphedema Diagnosis 1 Open wound (T14.8XXA ) Referral Organization Nicolás Bustos III, MD Referring Provider First Name Nicolás Referring Provider Last Name Juli Referring Provider Speciality Internal M edicine Referred Provider [facility] Referred Provider Specialty Unknown General Notes Trina Bueno CMA 01/11 10:37:56 AM > ref/demo/progress [facility] Amber 01/15/2024 02:23:06 PM > [facility] calling stated they did not [...] Referral Priority Routine Referral Appointment Date 08/15/2024 Reason right great toe ingr own nail [...] Referral Priority Routine Referral Appointment Date 11/16/2024 Medications Medication SIG (Take, Route, Frequency, Duration) [...] Acetate 150 MG as directed Orally Active Immunizations Vaccine Route Administration Date Status [...] Problem Status W/U Status Risk Notes Problem 6677741 Former smoker (Z87.891) Active confirmed He is motivated not to smoke and we discussed maintenance of abstinence. Problem 694651485 Overweight (E66.3) Active confirmed We have discussed his diet and nutrition today. We reviewed his weight loss strategy. We made a plan to lose weight at a rate of one half of a pound per week through a diet restricted in calories. Problem 634801942649392 Obesity (BMI 30.0-34.9) (E66.9) Active confirmed He has gained 7 pounds. We have discussed his diet and nutrition and made a weight loss strategy. Problem 661547879 Lumbar radiculopathy (M54.16) Active confirmed He continues to have mild to moderate intermittent low back pain that radiates down both legs. Problem 091261584 Waldenstrom macroglobulinemi a (C88.0) Active confirmed His IgM level and viscosity are stable. He does not require additional treatment at this time.A repeat viscosity has been ordered Problem 961225662 Other obesity due to excess calories (E66.09) Active confirmed Problem 29745675 Other chronic pain (G89.29) Active confirmed Problem Atelectasis (28803525) Atelectasis (J98.11) Active confirmed His most recent chest x-ray failed to show any atelectasis. Problem 457628532328781 Lumbago with sciatica, right side (M54.41) Active confirmed He continues to have intermittent chronic mild low back pain. Problem 295839742 Lumbago with sciatica, left side (M54.42) Active confirmed This appears to be nerve impingement in the lumbar spine. He was given dexamethasone and cyclobenzaprin e. He will rest as much as possible in the position and use heat. Problem 68938781 Essential hypertension (I10) Active confirmed His blood pressure is currently stable no change in his regimen as needed. Problem Peripheral neuropathy (209528838) Peripheral neuropathy (G62.9) Active confirmed His symptoms of tingling and numbness in the lower extremities are unchanged. He is stable in this respect and no additional treatment is needed. Problem 50449605 Penicillin allergy (Z88.0) Active confirmed Problem Atrial fibrillation (18466231) Atrial fibrillation (I48.91) Active confirmed He is in a normal sinus rhythm today. His rate is controlled. 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 He will be observed carefully. His viscosity is 1.4. The abnormal IgM protein is not detectable. The IgM level is in the normal range. His CBC is unremarkable. Problem 1050181 Atrial flutter (I48.92) Active confirmed He is in sinus rhythm today. He is taking metoprolol and flecainide. Problem Hoarseness (53187211) Hoarseness (R49.0) Active confirmed I have ordered thyroid function tests to see if he is hypothyroid. This he is not he will be referred to ENT. 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 He was referred to a gastroenterolo gist. Problem 88541715 Dysphagia, unspecified type (R13.10) Active confirmed This has resolved. Problem 407662806 Ingrown right big toenail (L60.0) Active confirmed The area may need to be debrided. He was referred to podiatry for definitive treatment. Problem Pure hypercholesterolem ia (637844228) Hyperlipidemia type II (E78.01) Active confirmed His lipids are currently stable and no change in his regimen. Problem 917310457 Elevated PSA (R97.20) Active confirmed The PSA was 5.67, but when it was repeated with a free PSA it was 4.7 with a free PSA of 11%.His PSA is now 4.2. He is under the care of urology. Problem 905823641742704 Sciatica of left side (M54.32) Active confirmed He is significantly improved. I cautioned him about doing too much activity too quickly. He will avoid heavy lifting and gradually resumed the activities of daily living. Problem 898361911 Pure hypercholesterol emia (E78.00) Active confirmed Problem 077626190 Benign prostatic hyperplasia, unspecified whether lower urinary tract symptoms present (N40.0) Active confirmed He rises from sleep once a night to urinate. We have discussed lifestyle modifications he could make to reduce nocturia. Problem 60894696 Right anterior shoulder pain (M25.511) Active confirmed He has a full-thickness tear of the infraspinatus and supraspinatus tendons. He does not know how this happened. He has been back to the orthopedic clinic to discuss treatment.They have recommended shoulder replacement. He is considering this. Problem Bilateral carpal tunnel syndrome (27564028917346237 ) Bilateral carpal tunnel syndrome (G56.03) Active confirmed His symptoms are mild and he tolerates. No change in his regimen as needed today. Problem Dyspnea on exertion (51240478) Dyspnea on exertion (R06.00) Active confirmed He has been expperiencing worsening shortness of breath with exertion such as climbing a flight of stairs. He is a former smoker but has been abstinent for many years. The recent [facility] catheterrizati on was unremarkable. Pulmonary function tests have been ordered. This will be followed by a commode a consultation and a repeat office visit. Problem 181577808 Body mass index [BMI] 30.0-30.9, adult (Z68.30) Active confirmed Problem 264288127 Lumbar back pain (M54.50) Active confirmed He is substantially improved since presentation. He was continued on current medication. He will begin to resume the activities of daily living slowly. He has had no falls or incontinence. Problem 120037840 Obesity, class 1 (E66.811) Active confirmed Vital Signs Heart Rate 77 /min 09/23/2024 Temperature 98.1 degrees Fahrenheit 09/23/2024 Blood pressure diastolic 78 mm Hg 09/23/2024 Height 69 in 09/23/2024 Blood pressure systolic 125 mm Hg 09/23/2024 Weight 214 lbs 09/23/2024 BMI 31.6 kg/m2 09/23/2024 Encounters Encounter Location Date Provider Diagnosis Nicolás Bustos III, MD [address] [place] [address] [place] [address] 11/25/2023 Nicolás Bustos 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 ; Benign prostatic hyperplasia, unspecified whether lower urinary tract symptoms present N40.0 ; Essential hypertension I10 ; Former smoker Z87.891 ; Lumbar radiculopathy M54.16 ; Overweight E66.3 ; Atrial flutter I48.92 ; Elevated PSA R97.20 ; Obesity (BMI 30.0-34.9) E66.9 and Edema of left lower extremity R60.0 Nicolás Bustos III, MD [address] [place] [address] [place] [address] 12/29/2023 Nicolás Bustos 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 ; Benign prostatic hyperplasia, unspecified whether lower urinary tract symptoms present N40.0 ; Wound of left lower extremity, initial encounter S81.802A ; Former smoker Z87.891 ; Waldenstrom macroglobulinemia C88.0 ; Essential hypertension I10 and Obesity (BMI 30-39.9) E66.9 Nicolás Bustos III, MD [address] [place] [address] [place] [address] 01/12/2024 Nicolás Bustos 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 ; Benign prostatic hyperplasia, unspecified whether lower urinary tract symptoms present N40.0 ; Former smoker Z87.891 ; Elevated PSA R97.20 ; Atrial fibrillation I48.91 ; Essential hypertension I10 ; Right anterior shoulder pain M25.511 and Obesity (BMI 30-39.9) E66.9 Nicolás Bustos III, MD [address] [place] [address] [place] [address] 02/08/2024 Nicolás Bustos 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 ; Benign prostatic hyperplasia, unspecified whether lower urinary tract symptoms present N40.0 ; Essential hypertension I10 ; Hyperlipidemia type II E78.01 ; Obesity (BMI 30.0-34.9) E66.9 ; Atrial flutter I48.92 ; Former smoker Z87.891 and Wound of left lower extremity, initial encounter S81.802A Nicolás Bustos III, MD [address] [place] [address] [place] [address] 05/04/2024 Nicolás Bustos 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 ; Benign prostatic hyperplasia, unspecified whether lower urinary tract symptoms present N40.0 ; Hoarseness R49.0 ; Essential hypertension I10 ; Atrial flutter I48.92 ; Former smoker Z87.891 and Overweight E66.3 Nicolás Bustos III, MD [address] [place] [address] [place] [address] 06/14/2024 Nicolás Bustos 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 ; Lumbago with sciatica, left side M54.42 ; Benign prostatic hyperplasia, unspecified whether lower urinary tract symptoms present N40.0 ; Former smoker Z87.891 ; Essential hypertension I10 ; Waldenstrom macroglobulinemia C88.0 ; Hyperlipidemia type II E78.01 ; Esophageal diverticulum, acquired K22.5 ; Dysphagia, unspecified type R13.10 and Atrial fibrillation I48.91 Nicolás Bustos III, MD [address] [place] [address] [place] [address] 06/21/2024 Nicolás Bustos 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 ; Benign prostatic hyperplasia, unspecified whether lower urinary tract symptoms present N40.0 ; Former smoker Z87.891 ; Overweight E66.3 and Sciatica of left side M54.32 Nicolás Bustos III, MD [address] [place] [address] [place] [address] 06/24/2024 Nicolás Bustos 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 [...] class 1 E66.811 Nicolás Bustos III, MD [address] [place] [address] [place] [address] 09/02/2024 Nicolás Bustos 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 ; Benign prostatic hyperplasia, unspecified whether lower urinary tract symptoms present N40.0 ; Essential hypertension I10 ; Hyperlipidemia type II E78.01 ; Obesity (BMI 30.0-34.9) E66.9 ; Former smoker Z87.891 ; Dysphagia, unspecified type R13.10 ; Elevated PSA R97.20 ; Right anterior shoulder pain M25.511 and Atrial fibrillation I48.91 Nicolás Bustos III, MD [address] [place] [address] [place] [address] 09/23/2024 Nicolás Bustos 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 ; Ingrown right big toenail L60.0 ; Benign prostatic hyperplasia, unspecified whether lower urinary tract symptoms present N40.0 ; Essential hypertension I10 ; Former smoker Z87.891 ; Obesity (BMI 30.0-34.9) E66.9 ; Lumbago with sciatica, left side M54.42 and Lumbago with sciatica, right side M54.41 Nicolás Bustos III, MD [address] [place] [address] [place] [address] 12/07/2023 Nicolás Bustos III, MD [address] [place] [address] [place] [address] 12/29/2023 Nicolás Bustos III, MD [address] [place] [address] [place] [address] 06/27/2024 Nicolás Bustos III, MD [address] [place] [address] [place] [address] 07/04/2024 Nicolás Bustos 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 He will be observed carefully. His viscosity is 1.4. The abnormal IgM protein is not detectable. The IgM level is in the normal range. His CBC is unremarkable. 11/25/2023 Essential hypertensi on (ICD-10 - I10) [...] change in his regimen as needed. 09/23/2024 Benign prostatic hyperplasia, unspecified whether lower urinary tract symptoms present (ICD-10 - N40.0) He rises from sleep once a night to urinate. We have discussed lifestyle modifications he could make to reduce nocturia. 11/25/2023 Former smoker (ICD-1 0 - Z87.891) [...] and we discussed maintenance of abstinence. 09/02/2024 Hyperlipidemia type II (ICD-10 - E78.01) His lipids are currently stable and no change in his regimen. 09/23/2024 Essential hypertensi on (ICD-10 - I10) His blood pressure is currently stable no change in his regimen as needed. 11/25/2023 Lumbar radiculopathy (ICD-10 - M54.16) He [...] will be rechecked in the near future. 09/02/2024 Obesity (BMI 30.0-34 .9) (ICD-10 - E66.9) He has gained 7 pounds. We have discussed his diet and nutrition and made a weight loss strategy. 09/23/2024 Former smoker (ICD-1 0 - Z87.891) He is motivated not to smoke and we discussed maintenance of abstinence. 11/25/2023 Overweight (ICD-10 - E66.3) We have [...] sinus rhythm today. His rate is controlled. 09/02/2024 Former smoker (ICD-1 0 - Z87.891) He is motivated not to smoke and we discussed maintenance of abstinence. 09/23/2024 Obesity (BMI 30.0-34 .9) (ICD-10 - E66.9) He has gained 7 pounds. We have discussed his diet and nutrition and made a weight loss strategy. 11/25/2023 Atrial flutter (ICD- 10 - I48.92) [...] to the orthopedic clinic to discuss treatment. 09/02/2024 Dysphagia, unspecifi ed type (ICD-10 - R13.10) This has resolved. 09/23/2024 Lumbago with sciatic a, left side (ICD-10 - M54.42) This appears to be nerve impingement in the lumbar spine. He was given dexamethasone and cyclobenzaprine. He will rest as much as possible in the position and use heat. 11/25/2023 Elevated PSA (ICD-10 - R97.20) The [...] his dysphagia. He was referred to a box nailer. 06/24/2024 Other obesity due to excess calories (ICD-10 - E66.09) 09/02/2024 Elevated PSA (ICD-10 - R97.20) The PSA was 5.67, but when it was repeated with a free PSA it was 4.7 with a free PSA of 11%.His PSA is now 4.2. He is under the care of urology. 09/23/2024 Lumbago with sciatic a, right side (ICD-10 - M54.41) He continues to have intermittent chronic mild low back pain. 11/25/2023 Obesity (BMI 30.0-34 .9) (ICD-10 - E66.9) His body mass index is unchanged. We recommended aggressive weight loss, sodium restriction diet low in animal fat and calories. 06/14/2024 Dysphagia, unspecifi ed type (ICD-10 - R13.10) This has resolved. 06/24/2024 Body mass index [BMI ] 30.0-30.9, adult (ICD-10 - Z68.30) 09/02/2024 Right anterior shoul serenity pain (ICD-10 - M25.511) He has a full-thickness tear of the infraspinatus and supraspinatus tendons. He does not know how this happened. He has been back to the orthopedic clinic to discuss treatment.They have recommended shoulder replacement. He is considering this. 11/25/2023 Edema of left lower extremity (ICD-10 [...] 06/24/2024 Obesity, class 1 (ICD-10 - E66.811) 09/02/2024 Atrial fibrillation (ICD-10 - I48.91) He is in a normal sinus rhythm today. His rate is controlled. Plan Of Treatment Pending Test Test Name Order Date PROFILE, FASTING (COMPREHENSIVE METABOLI C) 05/01/2023 PROFILE, FASTING (COMPREHENSIVE METABOLI C) 07/17/2022 PROFILE, FASTING (COMPREHENSIVE METABOLI C) 02/08/2024 PROFILE, FASTING (COMPREHENSIVE METABOLI C) 09/02/2024 PROFILE, FASTING (COMPREHENSIVE METABOLI C) 10/10/2020 PROFILE, FASTING (COMPREHENSIVE METABOLI C) 09/26/2021 PROFILE, [...] 09/26/2021 PSA, TOTAL 05/01/2023 CBC w DIFF 07/17/2022 CBC w DIFF 01/16/2021 CBC w DIFF 10/07/2022 CBC w DIFF 08/08/2020 CBC w DIFF 03/26/2021 CBC w DIFF 09/26/2021 CBC w DIFF 07/26/2018 CBC w DIFF 10/10/2020 CBC w DIFF 06/08/2020 CBC w DIFF 06/14/2018 CBC w DIFF 01/08/2022 CBC w DIFF 04/28/2022 CBC w DIFF 09/02/2024 SED RATE (ESR) 03/26/2021 SED RATE (ESR) 07/26/2018 IMMUNOFIXATION PANEL, SERUM (IEP) 2024 IMMUNOFIXATION PANEL, SERUM (IEP) 2022 IMMUNOFIXATION PANEL, [...] PANEL, SERUM (IEP) 2022 PROTEIN ELECTROPHORESIS, SERUM 1 PROTEIN ELECTROPHORESIS, SERUM 4 PROTEIN ELECTROPHORESIS, SERUM 3 PROTEIN ELECTROPHORESIS, SERUM 5 PROTEIN ELECTROPHORESIS, SERUM 3 PROTEIN ELECTROPHORESIS, SERUM 3 PROTEIN ELECTROPHORESIS, SERUM 1 PROTEIN ELECTROPHORESIS, SERUM 1 PROTEIN ELECTROPHORESIS, SERUM 5 PROTEIN ELECTROPHORESIS, SERUM 4 PROTEIN ELECTROPHORESIS, SERUM 1 PROTEIN ELECTROPHORESIS, SERUM 2 PROTEIN ELECTROPHORESIS, SERUM 1 PROTEIN ELECTROPHORESIS, SERUM 2 VISCOSITY 01/08/2022 VISCOSITY 02/08/2024 VISCOSITY 09/02/2024 VISCOSITY 10/07/2022 VISCOSITY 07/17/2022 VISCOSITY 01/16/2021 VISCOSITY 05/04/2024 BETA-2 MICROGLOBULIN, SERUM 04/28/2022 BETA-2 MICROGLOBULIN, SERUM 01/08/2022 BETA-2 MICROGLOBULIN, SERUM 10/07/2022 BETA-2 MICROGLOBULIN, SERUM 05/01/2023 BETA-2 MICROGLOBULIN, SERUM 01/16/2021 CBC WITH AUTO DIFF 02/08/2024 CBC WITH AUTO DIFF 01/07/2023 CBC WITH AUTO DIFF 05/04/2024 CBC WITH AUTO DIFF 05/01/2023 Lipid Panel 05/04/2024 Lipid Panel 05/01/2023 Lipid Panel 09/02/2024 Lipid Panel 02/08/2024 Lipid Panel 09/26/2021 Lipid Panel 01/07/2023 PSA Free and Total 05/04/2024 PSA Free and Total 09/02/2024 Free T4 (Free Thyroxine) 05/04/2024 Beta-2 Microglobulin, Serum 02/08/2024 Beta-2 Microglobulin, Serum 09/26/2021 Beta-2 Microglobulin, Serum 01/07/2023 Protein Electrophoresis, Serum Protein Electrophoresis, Serum Immunofixation Pnl, Serum 08/25/2024 NE electromyogram (EMG) 08/14/2020 RT pulmonary function test 05/01/2023 Next Appt Details Provider Name:Nicolás Bustos, 12/02/2024 09:00:00 AM, [address] [facility] [address], [place], [address], Provider Name:Nicolás Bustos, 05/05/2025 10:00:00 AM, [address] [facility] [address], [place], [address], Insurance Providers Payer Name Payer Address Payer Phone Subscriber Number Group Number Insured Name Patient Relationship to Insured Coverage Start Date Coverage End Date MEDICARE NGS [address] [place] [address] [phone] [id number] Jose Powers Self - patient is the insured [place] [address] [place], [place] [id number] Jose Powers Self - patient is the [...] windo w 02/2021 Extract wisdom teeth at [facility] 1975 Remove cyst from chest- Dr. Castillo 19 77 Remove cyst from rectum at [facility] 1986 Exploritory surgery Rt. ear- Dr. Washington at [facility] 12-30-2002 Remove external hemorrhoid at [facility] 05-10-2004 Remove cyst right wrist at [facility] 12-31-2004 Remove cyst from back- Dr. Willoughby at [facility] 05-09-2009 A flutter s/p cardioversion- Dr. Xiao a [facility] 07-01-2011 Radiofrequency catheter ablation- Dr. Restrepo at [facility] 07-15-2011 Laser stapedotomy w/ vein gr aft- Dr. Odell at [facility] 12-24-2011 Sleep Study- Dr. Xiao at [facility] 3 Left wrist tendon surgery ag e 30's- Dr. Cl Woody at [facility] 1992 Tonsillectomy child 1954 Hospitalization History Reason Date(Month/Year) No history
[2024-11-24 10:42] LABS: MANUAL DIFF FLAG NO
[2024-11-24 10:50] LABS: Hematocrit 41.6 % (42.0-52.0); Hemoglobin 14.5 g/dl (14.0-18.0); Imm Gran Abs Auto 0.04 X10*3/uL (0.00-0.03); Imm Gran Pct Auto 0.6 % (0.0-0.4); Lymphocytes Absolute Auto 2.2 X10*3/uL (1.2-4.9); Mean Corpuscular HGB Conc 34.9 g/dl (31.0-36.0); Mean Corpuscular Hemoglobin 30.6 pg (27.0-33.0); Mean Corpuscular Volume 87.8 fL (80.0-98.0); NRBC Abs Auto 0.000 X10*3/uL (0.0-0.012); NRBC Pct Auto 0.0 /100WBC (0.0-0.2); Platelet Count 169 X10*3/uL (160-400); Red Blood Count 4.74 X10*6/uL (4.60-5.80); White Blood Count 6.4 X10*3/uL (4.8-10.8)
[2024-11-24 11:35] LABS: Alanine Aminotransferase 43 U/L (0-40); Albumin Level 4.0 g/dL (3.5-5.0); Alkaline Phosphatase 117 U/L (39-117); Anion Gap 10 (12-20); Aspartate Amino Transferase 42 U/L (5-37); Blood Urea Nitrogen 14 mg/dL (9-16); Calcium 8.6 mg/dL (8.4-10.2); Carbon Dioxide 28 mmol/L (22-29); Chloride 106 mmol/L (96-108); Cholesterol 168 mg/dL (<200); Estimated Glomerular Filt Rate > 60; HDL Cholesterol 87 mg/dL (>40); Potassium 3.6 mmol/L (3.3-5.1); Sodium 140 mmol/L (135-145); Total Protein 5.5 g/dL (6.5-8.0); Triglycerides 74 mg/dL (<150)
[2024-11-25 21:33] LABS: PES - Abn Protein Band 1 <0.2 g/dL (NONE DETECTED); Prot Elec - Albumin 3.8 g/dL (3.8-4.8); Prot Elec - Alpha1 0.2 g/dL (0.2-0.3); Prot Elec - Alpha2 0.5 g/dL (0.5-0.9); Prot Elec - Beta 1 0.4 g/dL (0.4-0.6); Prot Elec - Beta 2 0.2 g/dL (0.2-0.5); Prot Elec - Gamma 0.2 g/dL (0.8-1.7); Prot Elec - Total Protein 5.4 g/dL (6.1-8.1)
[2024-11-26 06:24] LABS: Free Prostate Spec Ag 0.7 ng/mL; Percent Free Prostate Spec Ag 16 % (calc) (>25)
== END 2024-11-24 07:12 | disposition home or self-care (01) ==
LOC: HO.10HDL 07:11
PROVIDERS: Visit Provider Internal Medicine Medical Oncology
DX: C83.00 Small cell B-cell lymphoma, unspecified site (principal); N40.0 Benign prostatic hyperplasia without lower urinary tract symptoms; I10 Essential (primary) hypertension; E78.01 Familial hypercholesterolemia; E66.9 Obesity, unspecified
CPT/HCPCS: 36415; 80053; 80061; 82784; 84154; 84165; 85025; 85810; 86334

== ENCOUNTER 2024-12-14 11:10 | Outpatient (REF) | payer MEDICARE, MEDICAID, SELFPAY ==
--- OUTSIDE RECORDS SUMMARY | 2024-12-14 12:44 | XMS_ITS | Clinical Summary ---
Author Organization [address] [facility] Address [address] [place] [address] Phone Care Team Providers Care Policy Value Calculator Name Role Phone Nicolás Bustos MD Primary Care Provider [phone] Allergies Active Allergy Reactions Criticality Noted Date Comments Adhesive Tape-Silicones Other Low 05/16/2022 Amoxicillin Rash Low 06/29/2020 Glszgcscdx-Pzlaoleaz-Shvlguu ne Rash Low 05/16/2022 Povidone-Iodine 04/23/2021 Other [...] bandaid 1 g 5 11/27/19 25 Active Problems Problem Noted Date Diagnosed Date [...] Encounters Date Type Department Care Team Description 11/30/2024 9:15 AM EDT Office Visit Orthopedic Surgery - [place] [address] [phone] Wood Ricketts DPM Open wound of right great toe, initial encounter (Primary Dx) 11/16/2024 8:15 AM EDT Consult Orthopedic Surgery [facility] [address] [phone] Wood Ricketts DPM Cellulitis of right toe (Primary Dx); Ingrown toenail from Last 3 Months Surgical History Surgery Date Site/Laterality Comments TONSILLECTOMY ADENOIDECTOMY, BILATERAL MYRINGOTOMY AND TUBES PROCEDURE: [place] TONSILLECTOMY & ADENOIDECTOMY <AGE 14 HAND SURGERY Left PROCEDURE: HISTORICAL HAND SURGERY; COMMENT: left tendon surgery wrist Medical History Medical History Date Comments Afib (CMS/HCC V24, CMS/HCC V28) DX:Afib (HCC) 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
--- OUTSIDE RECORDS SUMMARY | 2024-12-14 12:44 | XMS_ITS | Clinical Summary ---
Author Organization [facility] Address [address] [address] Phone Care Team Providers Care Production Bow Maker Name Role Phone Nicolás Bustos MD Primary Care Provider [phone] Allergies Active Allergy Reactions Criticality Noted Date [...] Active ferrous sulfate 325 mg (65 mg [place] iron) tablet Take 325 mg by mouth [...] Devices Not on file Insurance [address] [place] [address] MEDICARE PART A & B [facility] MEDICARE PART A & B HEALTH MEDICARE PART A & B [facility] MEDICARE PART A & B HEALTH MEDICARE PART A & B HEALTH MEDICARE PART A & B [place] MED[facility]ARE PART [facility] & [facility] Care Teams Production Bow Maker Relationship Specialty Start Date End Date Nicolás Bustos MD [address] [place] [address] [place] [address] PCP - General Medical Oncology 06/19/20 Additional Source Comments The information contained in this document represents components of the legal health record. It is not the complete legal health record.[facility]
[2024-12-14 13:44] LABS: Prostate Specific Antigen 5.15 ng/mL (<0.05-4.0)
== END 2024-12-14 11:11 | disposition home or self-care (01) ==
LOC: HO.10HDL 11:10
PROVIDERS: Visit Provider Nurse Practitioner Family
DX: Z12.5 Encounter for screening for malignant neoplasm of prostate (principal); R97.20 Elevated prostate specific antigen [PSA]
CPT/HCPCS: 36415; 84153

== ENCOUNTER 2024-12-22 07:50 | Outpatient (AMB) | payer MEDICARE, MEDICAID, SELFPAY ==
--- NOTE | 2024-12-22 08:00 | MHC.OFFVIS ---
Intake Visit Reasons: 5m/PSA/PVR Intake Note: Patient is present for 5M/PSA/PVR Urology Medication:TAMSULOSIN,FINASTERIDE Antibiotic Allergy:AMOXICILLIN Blood Thinner:NONE TODAY'S PVR:73ML'S Dining Room Hostess Required: No Allergies amoxicillin (AMOXICILLIN) Allergy (Intermediate, Verified 12/22/24 13:35) RASH adhesive Allergy (Mild, Verified 12/22/24 13:35) Rash soap (Betadine) Allergy (Unknown, Verified 12/22/24 13:35) Rash povidone-iodine (From BETADINE) Adverse Reaction (Intermediate, Verified 12/22/24 13:35) RASH (IF ON SKIN FOR PROLONGED TIME) Medication List - Last Reconciled 12/22/24 by MIKE Abbasi-NAINA apixaban (Eliquis) 5 mg PO BID atorvastatin 20 mg PO DAILY cyclobenzaprine 10 mg PO ONCE PRN finasteride 5 mg PO DAILY 90 days flecainide 150 mg PO Q12H ibrutinib (Imbruvica) mg PO melatonin 5 mg PO PRN metoprolol tartrate 50 mg PO BID metronidazole 0.75% 1 appl topical BEDTIME multivitamin (Multiple Vitamins tablet) 1 tab PO DAILY naproxen 500 mg PO BID omeprazole 40 mg PO QAM tamsulosin 0.8 mg (2 x 0.4 mg) PO BEDTIME 90 days HPI Comments Details: Jose is a very pleasant 74-year-old male patient of . He has a past medical history of pericardial effusion, hypertension, enlarged right ventricle, and paroxysmal AFib/a flutter. He presents to the office today for follow-up of his elevated PSA. In discussion with the patient today he reports having had no bothersome urinary issues since his last office visit here. He does report compliance with finasteride and Flomax as prescribed. Recent PSA results were reviewed with the patient today as noted and trended below. Previous workup has included a retroperitoneal ultrasound 04/09 notes mild left hydro, no right hydronephrosis. No bladder over distention. The urinary bladder is unremarkable. Pre void bladder volume is approximately 210 mL. Postvoid bladder volume is approximately 50 mL. Prostate volume is calculated at approximately 40 mL. PSAs are as follows: 10/04 2.3, 01/04 2.5, 08/06 3.5, 11/06 4.7, 8/24 5.7 % free PSA 11%, 04/08 4.8 % free PSA 15%, 08/07 4.4, 01/07 5.2 % free PSA 16% BUN: 10/05 20, 01/05 22, 05/09 19, 08/06 16, 11/06 13, 04/09 20, 08/07 18, 09/07 16, 12/08 14 Creatinine: 10/05 0.84, 01/05 0.88, 05/09 0.94, 08/06 0.89, 11/06 0.99, 04/09 0.83, 08/07 0.83, 09/07 0.89, 12/08 0.89 We discussed at length potential causes of elevated/increase in PSA as well as further treatment options and risks and benefits of these treatment options. All questions were answered. He denies hematuria, dysuria, foul smelling urine, changes to urinary stream, flank pain, fever, and or chills. In office urinalysis results reviewed with the patient today. PVR 73 mL. He otherwise offers no other issues or concerns at this time. [facility] Medical History CAD (coronary artery disease) Pericardial effusion HTN (hypertension) Enlarged RV (right ventricle) Paroxysmal atrial flutter Paroxysmal atrial fibrillation Persistent atrial fibrillation Surgical History Status post creation of pericardial window Hx of wisdom tooth extraction History of surgery on wrist Hx of tonsillectomy History of stapedectomy Hx of transesophageal echocardiography (ANUSHKA) for monitoring Hx of hemorrhoidectomy History of bone marrow biopsy History of cardiac radiofrequency ablation (RFA) History of ear surgery Family History Father CVD (cardiovascular disease) Mother Cancer Social History Alcohol intake: current Alcohol intake frequency: holidays/special occasions only Patient Tobacco Use Status: Never used Tobacco 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al status: retired 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 Review of Systems Const All systems reviewed & are unremarkable except as noted in HPI and below Physical Exam Const General: cooperative, healthy appearing, comfortable, no acute distress, well developed, alert and awake Orientation/consciousness: patient oriented x3 Limitations: no limitations HEENT Head: Yes normal to inspection, Yes normocephalic and Yes atraumatic Ears: hearing grossly normal bilaterally Eyes General: appearance normal, both eyes and all related structures Neck Neck: Yes normal visual inspection and Yes trachea midline Chest Chest palpation & inspection: normal inspection of the chest Resp Effort & Inspection: normal respiratory effort and able to speak in complete sentences Cardio Rate: regular rate GI Inspection: Yes normal to inspection General: Yes no CVA tenderness Back/Spine/Pelvis Back: no CVA tenderness Skin General skin exam: no rashes or lesions noted Neuro General: patient oriented x3 Extrem General: Yes normal to inspection Psych Appearance: grossly normal and well kempt Mental Status: mental status grossly normal Speech and movement: Normal speech and movement present and Clear speech present Affect: normal affect Attitude: cooperative Thought process: Normal thought process present Thought content: Normal thought content present Insight: Fair insight present (Psych) Judgement: Fair judgement present (Psych) Office Procedures Post Void Residual Post Residual Void Post Void Residual (PVR): [id number] Void Residual by ultrasound Results AMB Urinalysis, Automated UA Leukoctes 0 Marino/uL Last Edit by RENE Meade on 12/22/24 08:22 UA Nitrite Negative Last Edit by RENE Meade on 12/22/24 08:22 UA Urobilinogen 0.2 mg/dL Last Edit by RENE Meade on 12/22/24 08:22 UA Protein 0 mg/dL Last Edit by RENE Meade on 12/22/24 08:22 UA pH 6.0 Last Edit by RENE Meade on 12/22/24 08:22 UA Blood 0 Mahesh/uL Last Edit by RENE Meade on 12/22/24 08:22 UA Specific [place] 1.005 Last Edit by RENE Meade on 12/22/24 08:22 UA Ketone Negative Last Edit by RENE Meade on 12/22/24 08:22 UA Bilirubin 0 mg/dL Last Edit by RENE Meade on 12/22/24 08:22 UA Glucose 0 mg/dL Last Edit by RENE Meade on 12/22/24 08:22 Results Reviewed Results Reviewed: Laboratory Last Values Urine pH (Auto) 6.0 12/22/24 08:22 Specific [place] (Auto) 1.005 12/22/24 08:22 Urine Protein (Auto) 0 mg/dL 12/22/24 08:22 Glucose (UA)(Auto) 0 mg/dL 12/22/24 08:22 Urine Ketones (Auto) Negative 12/22/24 08:22 Urine Blood (Auto) 0 Mahesh/uL 12/22/24 08:22 Urine Nitrite (Auto) Negative 12/22/24 08:22 Urine Bilirubin (Auto) 0 mg/dL 12/22/24 08:22 Urine Urobilinogen (Auto) 0.2 mg/dL 12/22/24 08:22 Leukocyte Esterase (Auto) 0 Marino/uL 12/22/24 08:22 Assessment & Plan Assessment & Plan (1) Prostatitis: Code(s): N41.9 - Inflammatory disease of prostate, unspecified Category: Medical (2) Weak urinary stream: Code(s): R39.12 - Poor urinary stream Category: Medical (3) History of urinary hesitancy: Code(s): Z87.898 - Personal history of other specified conditions Category: Medical (4) Elevated PSA: Code(s): R97.20 - Elevated prostate specific antigen [PSA] Category: Medical Plan In office urinalysis results reviewed with the patient today; as noted above. Recent PSA results reviewed with the patient today; as noted above. He currently denies any bothersome urinary issues or concerns. He reports be happy with current voiding parameters. We did discussed potential causes of increase in PSA; we discussed further treatment options and risks and benefits of these treatment options Continue finasteride and Flomax as prescribed. All questions were answered. Will obtain MRI of the prostate for further assessment evaluation. Follow-up in 1-3 months with imaging to be completed prior; or sooner with any issues, concerns, and or questions. Orders: Orders AMB Urinalysis Automated Today Z13.9 - Encounter for screening, unspecified MR pelvis wo/w con Today C61 - Malignant neoplasm of prostate Patient Instructions: The patient had an opportunity to ask questions regarding the treatment plan. All questions were answered. Physical exam, labs, and imaging were discussed and reviewed in detail. As well as risks, benefits, and discussion of treatment choices. No major barriers to understanding were identified. The patient expressed understanding and agreement with the above treatment plan. The patient was made aware they should contact our office by phone for worsening of their current condition, the appearance of new symptoms, or with any questions or concerns. Compliance is encouraged with any medications and follow up testing that is ordered. It is a privilege to be allowed the opportunity to participate in? your urological care.? Again, if you have any questions or concerns If you have any questions or concerns please do not hesitate to contact me. The office is [phone]. This note is constructed using voice recognition software. While every effort has been made to ensure accuracy electronic prepress technician errors may have been included. Yours sincerely, MARY Abbasi Coding Level of Care Code Est Pt Level 3 (62783) Complex EM visit Add On G2211 Diagnoses Prostatitis N41.9 Weak urinary stream R39.12 History of urinary hesitancy Z87.898 Elevated PSA R97.20 CPT Codes Post Residual Void - PVR CPT Code: 19904-Sdfl Void Residual by ultrasound ([id number])
== END 2024-12-22 08:56 | disposition home or self-care (01) ==
LOC: HO.HUSH 07:51
PROVIDERS: PCP Internal Medicine Medical Oncology; Visit Provider Nurse Practitioner Family
DX: N41.9 Inflammatory disease of prostate, unspecified (principal); R39.12 Poor urinary stream; Z87.898 Personal history of other specified conditions; R97.20 Elevated prostate specific antigen [PSA]; Z13.9 Encounter for screening, unspecified
CPT/HCPCS: 99213; G2211

== ENCOUNTER → 2024-12-22 07:50 | Outpatient (BNVA) | payer MEDICARE, MEDICAID, SELFPAY | PROVIDERS: PCP Internal Medicine Medical Oncology; Visit Provider Nurse Practitioner Family | DX: R97.20 Elevated prostate specific antigen [PSA] (principal); R39.12 Poor urinary stream; I48.0 Paroxysmal atrial fibrillation; Z79.01 Long term (current) use of anticoagulants; Z87.898 Personal history of other specified conditions | CPT/HCPCS: 51798; 81003; 99212 ==

== ENCOUNTER 2025-02-21 07:45 | Outpatient (REF) | payer MEDICARE, MEDICAID, SELFPAY ==
--- OUTSIDE RECORDS SUMMARY | 2024-02-08 04:00 | XMS_ITS ---
Author Organization Nicolás Bustos III, MD Address [address] [place] [address] Care Team Providers Care Shipping And Receiving Associate Name Role Phone Dr. Nicolás Bustos III Primary Care Provider [phone] Allergies Allergen (clinical drug ingredient) Drug/Non Drug Allergy documented on EMR Reaction Allergy Type Onset Date Status Adhesive rash Allergy Active povidone-iodine Betadine Rash Drug Allergy A ctive amoxicillin Amoxicillin Rash Drug Allergy Act jocelin REASON FOR VISIT Left Shoulder tendinopathy, Lymphoplasmacytic lymphoma, Wound left danielle, Lumbar radiculopathy, Atrial flutter, Review Medications Medication SIG (Take, Route, Frequency, Duration) Notes Start Date End Date Status Flecainide Acetate 150 MG as directed Orally Active Metoprolol Tartrate 50 MG 1 tablet with food Orally Twice a day Active Atorvastatin Calcium 20 MG 1 tablet Oral ly Once a day Active Imbruvica 140 MG 2 tablet Orally Once a day 04/06/2023 Active Multivitamin/Minerals 1 Tablet Orally On ce a day Active Naproxen 500 MG TAKE 1 TABLET BY KATHY TWICE DAILY WITH FOOD OR MILK NEEDED Active Tamsulosin HCl 0.4 MG 1 capsule Orally a t bed time Active Melatonin 5 MG 1 tablet in the even ing Orally Once a day Active Social History Tobacco Use: Social History Observation Description Date Details (start date - stop date) Former Smoker NA - NA Sex Assigned At : Social History Observation Description Sex Assigned At Male Tobacco Use/Smoking Question Answer Notes Patient is a former smoker How long has it been since you last smoked? 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 He will be observed carefully. His viscosity is 1.4. The abnormal IgM protein is not detectable. The IgM level is in the normal range. His CBC is unremarkable. 02/08/2024 Benign prostatic hyperplasia, unspecified whether lower urinary tract symptoms present (ICD-10 - N40.0) He rises from sleep once a night to urinate. We have discussed lifestyle modifications he could make to reduce nocturia. 02/08/2024 Essential hypertensi on (ICD-10 - I10) His blood pressure remained stable. No change in his regimen was made. 02/08/2024 Hyperlipidemia type II (ICD-10 - E78.01) His fasting lipid profile has been ordered. No change in his regimen as needed. 02/08/2024 Obesity (BMI 30.0-34 .9) (ICD-10 - E66.9) His weight has been stable with a body mass index of 31. We have discussed his diet and nutrition at length. We have formulated a weight loss strategy. 02/08/2024 Atrial flutter (ICD- 10 - I48.92) He is in sinus rhythm today. He is taking metoprolol and flecainide. 02/08/2024 Former smoker (ICD-1 0 - Z87.891) He is motivated not to smoke and we discussed maintenance of abstinence. 02/08/2024 Wound of left lower extremity, initial encounter (ICD-10 - S81.802A) Wound on the left danielle has progressed and is almost healed in the peripheral edema has resolved. Plan Of Treatment Medication Medication Name Sig Start Date Stop Date Notes Flecainide Acetate 150 MG as directed Orally Metoprolol Tartrate 50 MG 1 tablet with food Orally Twice a day Atorvastatin Calcium 20 MG 1 tablet Orally Once a day Imbruvica 140 MG 2 tablet Orally Once a day 04/06/2023 Multivitamin/Minerals 1 Tablet Orally Once a day Naproxen 500 MG TAKE 1 TABLET BY KATHY TWICE DAILY WITH FOOD OR MILK NEEDED Tamsulosin HCl 0.4 MG 1 capsule Orally at bed time Melatonin 5 MG 1 tablet in the even ing Orally Once a day Pending Test Test Name Order Date PROFILE, FASTING (COMPREHENSIVE METABOLI C) 02/08/2024 IMMUNOFIXATION PANEL, SERUM (IEP) 2023 PROTEIN ELECTROPHORESIS, SERUM 4 VISCOSITY 02/08/2024 CBC WITH AUTO DIFF 02/08/2024 Lipid Panel 02/08/2024 Beta-2 Microglobulin, Serum 02/08/2024 Next Appt Details Follow Up: As Scheduled, Sandyha son: OV Provider Name:Nicolás Bustos , 03/02/2025 09:15:00 AM, [address] [place] [address] [address], [place], [address], Provider Name:Nicolás Bustos , 05/05/2025 10:00:00 AM, [address] [place] [address] [address], [place], [address], Progress Notes * ASHLEYJoseDOB:1950 ([age] yo M)Acc No.[id number]:02/08/2024 Progress Notes Patient: Jose TRENT Provider: Earl Bustos MD :1950 A ge:73 Y S ex:Male Date:02/08/2024 Address:[address] [place] [address] [address], [id number] Subjective: * Chief Complaints: * L eft Shoulder tendinopathyLymphoplasmacytic lymphomaWound left shinLumbar radiculopathyAtrial flutterReview * HPI: C OVID-19 Screening: Questions H ave you experienced fever, chills, cough, sore throat, shortness of breath, difficulty breathing, muscle aches, loss of taste or smell? N o H ave you been exposed to the virus within the last 10 days? N o H ave you travelled internationally in the last 10 days? N o H ave you been exposed to COVID-19 in the past? N o * : The patient, a 73-year-old male, presented with a history of chronic lymphoma, which is currently under control with medication. He also reported having torn tendons in his shoulder, which have been causing him significant pain. The patient has undergone multiple tests, including MRIs and CT scans, to assess the extent of the damage. The patient also reported a non-healing wound on his leg, which has shown some improvement with Bactrim. The patient also mentioned having an ultrasound of his liver, kidneys, and bladder to ensure his ureter is not dilated. The wound on the danielle has substantially improved and today consist of a scab overlying healthy skin. The peripheral edema in the left leg has resolved. He was instructed to wear kneelength heavy socks to prevent the delicate sitting from trauma and to wear long pants as well. Close follow-up was arranged. * ROS: G eneral/Constitutional: Admits p ain, L eft shoulder. C hills d enies.?Fatigue a dmits. F ever d enies. E NT: Decreased hearing d enies. R espiratory: Cough d enies. C ardiovascular: Chest pain with exertion d enies. D yspnea on exertion?denies. S hortness of breath d enies. G astrointestinal: Constipation a dmits. D ecreased appetite d enies.?Diarrhea d enies. H eartburn d enies. N ausea d enies. R ectal bleeding?denies. V omiting d enies. H ematology: bruising d enies. p etechiae d enies. S wollen glands n one have been noted. G enitourinary: Frequent urination o nce a night. M usculoskeletal: Muscle aches d enies. P ainful joints d enies. S ciatica d enies. W eakness d enies. S kin: Itching d enies. R aleksandra d enies. S kin lesion(s)?denies. N eurologic: Difficulty speaking d enies. D izziness d enies.?Headache d enies. L ow back pain t hat is chronic. P sychiatric: Depressed mood d enies. * Medical History: * Surgical History: T onsillectomy child 1956Left wrist tendon surgery age 32's- Dr. Cl Woody at [facility] leep Study- Dr. Xiao at [facility] [phone] stapedotomy w/ vein graft- Dr. Chin at [facility] [phone] catheter ablation- Dr. Vance at [facility] 07-15-2011 flutter s/p cardioversion- Dr. Xiao at [facility] [phone] cyst from back- Dr. Willoughby at [facility] [phone] cyst right wrist at [facility] [phone] external hemorrhoid at [facility] [phone] surgery Rt. ear- Dr. Washington at [facility] [phone] cyst from rectum at [facility] 1986Remove cyst from chest- Dr. Castillo 1976Extract wisdom teeth at [facility] 1975Pericardiocentesis and pericardial window iverticulum, Esophagus 03/2022,09/29/2022No history * Hospitalization/Major Diagno stic Procedure: N o history * Family History: F ather: , Heart disease, diagnosed with HTN. M other: 82 yrs, lung cancer, diagnosed with Cancer. P aternal Grand Father: , alzheimer. M aternal Grand Father: , Blood disorder/ non-clotting disorder. M aternal Grand Mother: 90 yrs, colon cancer, diagnosed with Cancer. 2 brother(s) , 2 sister(s) . 1 son(s) , 2 daughter(s) . .? One sister has had a cholecystectomy and has an arrythmia. A brother and a son have hypertension. His father's sisters have myeloma and lung cancer. His sister in 2018. He is not aware of any family history of mental illness or substance use disorder or addiction. * Social History: T obacco Use: T obacco Use/Smoking P atient is a f ormer smoker H ow long has it been since you last smoked??> 10 years A dditional Findings: Tobacco Non-User E x-cigarette smoker H e stopped smoking many years ago. He does not drink alcohol. He lives in [facility]. He has two daughters Bernice and Shannan and a son. * Medications: T akingNaproxen 500 MG Tablet TAKE 1 TABLET BY MOUTH TWICE DAILY WITH FOOD OR MILK NEEDED Imbruvica 140 MG Capsule 2 tablet Orally Once a day Atorvastatin Calcium 20 MG Tablet 1 tablet Orally Once a day Multivitamin/Minerals 1 Tablet Orally Once a day Flecainide Acetate 150 MG Tablet as directed Orally Metoprolol Tartrate 50 MG Tablet 1 tablet with food Orally Twice a day Melatonin 5 MG Tablet 1 tablet in the evening Orally Once a day Tamsulosin HCl 0.4 MG Capsule 1 capsule Orally at bed time Medication List reviewed and reconciled with the patientTaking Naproxen 500 MG Tablet TAKE 1 TABLET BY MOUTH TWICE DAILY WITH FOOD OR MILK NEEDED Taking Imbruvica 140 MG Capsule 2 tablet Orally Once a day Taking Atorvastatin Calcium 20 MG Tablet 1 tablet Orally Once a day Taking Multivitamin/Minerals 1 Tablet Orally Once a day Taking Flecainide Acetate 150 MG Tablet as directed Orally Taking Metoprolol Tartrate 50 MG Tablet 1 tablet with food Orally Twice a day Taking Melatonin 5 MG Tablet 1 tablet in the evening Orally Once a day Taking Tamsulosin HCl 0.4 MG Capsule 1 capsule Orally at bed time Medication List reviewed and reconciled with the patient * Allergies: A moxicillin: RashBetadine: RashAdhesive: rashno[Allergies Verified] Objective: * Vitals: H t: 69, Wt:216, BMI:31.89, BP:120/74, HR:66, Temp:97.2, Ht-cm: 175.26, Wt-k.98. * P ast Orders: Lab:Gram stain * Collection Date 12/29/2023 10/07/2023 Collection Time 09:30 AM 09:22 AM Order Date 12/29/2023 10/07/2023 Gram stain No organisms seen No organisms seen * Lab:Routine Culture * Collection Date 12/29/2023 10/07/2023 Collection Time 09:30 AM 09:22 AM Order Date 12/29/2023 10/07/2023 Routine Culture Susceptibility not r outinely performed on this isolate. No growth after 2 days O:STRAGA Strep agalactiae (Gr p B) NR ???Imaging:MR shoulder RT wo con (Order Date - 01/01/2024) (Performed Date - 01/01/2024) ???Imaging:CT shoulder RT wo con (Order Date - 01/08/2024) (Performed Date - 01/08/2024) * Examination: G eneral Examination: GENERAL APPEARANCE: p leasant, well nourished, well developed, in no acute distress, calm and relaxed, obese, man. HEAD: a traumatic, normocephalic. EYES: e corwin, perrla, anicteric, conjugate. EARS: n ormal. NOSE: s eptum intact. ORAL CAVITY: n ormal, unremarkable. NECK/THYROID: n o jugular venous distention, no carotid bruit, thyroid normal. LYMPH NODES: n o enlarged lymph nodes,spleen normal. SKIN: n o suspicious lesions, anicteric, Wound left danielle is 75% healed. HEART: n o clicks, gallops, murmurs, or rubs, regular rhythm, S1, S2 normal, no s3, or vascular bruits. LUNGS: c lear to auscultation . BREASTS: no masses palpable bilaterally. ABDOMEN: b owel sounds normal, no ascites, no organomegaly, no mass, centripital obesity. RECTAL EXAM: n ot examined. MUSCULOSKELETAL: e xtremities unremarkable, no clubbing, cyanosis or edema. PERIPHERAL PULSES: n ormal. NEUROLOGIC: a lert and oriented, cranial nerves 2-12 grossly intact, deep tendon reflexes 2+ symmetrical, motor strength normal upper and lower extremities, sensory exam intact. PSYCH: a lert, oriented. Assessment: * Assessment: 1. 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 He will be observed carefully. His viscosity is 1.4. The abnormal IgM protein is not detectable. The IgM level is in the normal range. His CBC is unremarkable. 2 . B enign prostatic hyperplasia, unspecified whether lower urinary tract symptoms present - N40.0 N otes :He rises from sleep once a night to urinate. We have discussed lifestyle modifications he could make to reduce nocturia. 3 . E ssential hypertension - I10 N otes :His blood pressure remained stable. No change in his regimen was made. 4 . H yperlipidemia type II - E78.01 N otes :His fasting lipid profile has been ordered. No change in his regimen as needed. 5 . O besity (BMI 30.0-34.9) - E66.9 N otes :His weight has been stable with a body mass index of 31. We have discussed his diet and nutrition at length. We have formulated a weight loss strategy. 6 . A trial flutter - I48.92 N otes :He is in sinus rhythm today. He is taking metoprolol and flecainide. 7 . F ormer smoker - Z87.891 N otes :He is motivated not to smoke and we discussed maintenance of abstinence. 8 . W ound of left lower extremity, initial encounter - S81.802A Notes :Wound on the left danielle has progressed and is almost healed in the peripheral edema has resolved. Plan: * Treatment: 2. B enign prostatic hyperplasia, unspecified whether lower urinary tract symptoms present Continue Melatonin Tablet, 5 MG, 1 tablet in the evening, Orally, Once a day. 3. E ssential hypertension L AB: PROFILE, FASTING (COMPREHENSIVE METABOLIC) L AB: IMMUNOFIXATION PANEL, SERUM (IEP) L AB: PROTEIN ELECTROPHORESIS, SERUM L AB: VISCOSITY L AB: CBC WITH AUTO DIFF L AB: Lipid Panel L AB: Beta-2 Microglobulin, Serum 4. H yperlipidemia type II L AB: PROFILE, FASTING (COMPREHENSIVE METABOLIC) L AB: IMMUNOFIXATION PANEL, SERUM (IEP) L AB: PROTEIN ELECTROPHORESIS, SERUM L AB: VISCOSITY L AB: CBC WITH AUTO DIFF L AB: Lipid Panel L AB: Beta-2 Microglobulin, Serum 5. O besity (BMI 30.0-34.9) L AB: PROFILE, FASTING (COMPREHENSIVE METABOLIC) L AB: IMMUNOFIXATION PANEL, SERUM (IEP) L AB: PROTEIN ELECTROPHORESIS, SERUM L AB: VISCOSITY L AB: CBC WITH AUTO DIFF L AB: Lipid Panel L AB: Beta-2 Microglobulin, Serum 6. O thers Continue Naproxen Tablet, 500 MG, TAKE 1 TABLET BY MOUTH TWICE DAILY WITH FOOD OR MILK NEEDED;?Continue Imbruvica Capsule, 140 MG, 2 tablet, Orally, Once a day. * Procedure Codes: * Preventive Medicine: Counseling: C are goal follow-up plan: Counseling for abnormal BMI given Y es Above Normal BMI Follow-up D ietary management education, guidance, and counseling, Dietary needs education, Exercise promotion: strength training, Exercise promotion: stretching, Feeding regime, Giving encouragement to exercise, Lifestyle education regarding diet, Nutrition / feeding management, Nutrition therapy, Prescribed activity/exercise education, Prescribed diet education, Prescribed dietary intake, Special diet education, Weight monitoring , Intervention, Order not done: Medical or Other reason not done S moking/Tobacco Use Patient counseled on the dangers of tobacco use and urged to quit. 04/09/2023 * Follow Up: A s Scheduled (Reason: OV) * Images: * Sign off status: Completed true * Provider: Earl Bustos MD Date: 04/09/2023 Generated for Printi ng/Farashmig/eTransmitting on: 04/24/2024 08:11 AM EST History and Physical Notes * HPI (History of Present Illness) Category Sub-Category Detail Notes COVID-19 Screening Questions Have you had any new onset fever, chills, cough, congestion, sore throat, shortness of breath, muscle aches?: No Have you been exposed to the virus withi n the last 10 days?: No Have you travelled internationally in [facility] last 10 days?: No Have you been exposed to COVID-19 in the past?: No Examination Category Sub-Category Detail Notes General Examination GENERAL APPEARANCE: pleasant , well nourished, well developed, in no acute distress, calm and relaxed, obese, man HEAD: atraumatic, normocep halic EYES: eomi, perrla, anicte leda, conjugate EARS: normal NOSE: septum intact NECK/THYROID: no jugular venous di stention, no carotid bruit, thyroid normal HEART: no clicks, gallops, murmurs, or rubs, regular rhythm, S1, S2 normal, no s3, or vascular bruits LUNGS: clear to auscultatio n ABDOMEN: bowel sounds normal, no ascites, no organomegaly, no mass, centripital obesity NEUROLOGIC: alert and oriented, cranial nerves 2-12 grossly intact, deep tendon reflexes 2+ symmetrical, motor strength normal upper and lower extremities, sensory exam intact SKIN: no suspicious lesion s, anicteric, Wound left danielle is 75% healed PERIPHERAL PULSES: normal BREASTS: no masses palpable b ilaterally MUSCULOSKELETAL: extremities unremark able, no clubbing, cyanosis or edema LYMPH NODES: no enlarged lymph no keya,spleen normal RECTAL EXAM: not examined PSYCH: alert, oriented ORAL CAVITY: normal, unremarkable
--- OUTSIDE RECORDS SUMMARY | 2024-05-04 05:00 | XMS_ITS ---
Author Organization Nicolás Bustos III, MD Address [address] [place] [address] Care Team Providers Care Funeral Attendant Name Role Phone Dr. Nicolás Bustos III Primary Care Provider Allergies Allergen (clinical drug ingredient) Drug/Non Drug Allergy documented on EMR Reaction Allergy Type Onset Date Status Adhesive rash Allergy Active povidone-iodine Betadine Rash Drug Allergy A ctive amoxicillin Amoxicillin Rash Drug Allergy Act jocelin Results Component Value Reference Range Notes URINE DIP STICK Reviewed date:05/04/2024 10:10:08 AM Interpretation: Performing Lab: Notes/Report: SG 1.010 1.005 - 1.025 pH 6.5 5.0 - 9.0 NATACHA Negative Negative - NIT Negative Negative - PRO 15 Negative - Trace GLU Negative Negative - KET Negative Negative - UBG 0.2 0.1 - 1.8 OMKAR Negative 0.2 - 1.3 BLD Negative Negative - REASON FOR VISIT annual exam Medications Medication SIG (Take, Route, Frequency, Duration) Notes Start Date End Date Status Tamsulosin HCl 0.4 MG 1 capsule Orally a t bed time Active Finasteride 5 MG TAKE 1 TABLET BY KATHY TH DAILY Oral Active Metoprolol Tartrate 50 MG 1 tablet with food Orally Twice a day Active Melatonin 5 MG 1 tablet in the even ing Orally Once a day Active Nabumetone 500 MG 1 tablet Orally Twic e a day for 90 days Active Multivitamin/Minerals 1 Tablet Orally Once a day Active Imbruvica 140 MG 2 tablet Orally Once a day 2023 Active Flecainide Acetate 150 MG as directed Orally Active Social History Tobacco Use: Social History Observation Description Date Details (start date - stop date) Former Smoker NA - NA Sex Assigned At : Social History Observation Description Sex Assigned At Male Tobacco Control (Standard) Question Answer Notes Tobacco use: Former smoker How long has it been since you last smoked? Grea ter than 10 years Additional Findings: Tobacco non-user Ex-cigaret te smoker AUDIT-C (Standard) Question Answer Notes Did you have a drink contain ing alcohol in the past year? Yes How often did you have six o r more drinks on one occasion in the past year? 2 to 4 times a month (2 points) How many drinks did you have on a typical day when you were drinking in the past year? 1 or 2 drinks (0 point) How often did you have a dri nk containing alcohol in the past year? Never (0 point) Points 2 Interpretation Negative Problems Problem Type SNOMED Code ICD Code Onset Dates Problem Status W/U Status Risk Notes Problem Hoarseness (75161256) Hoarseness (R49.0) Active confirmed I have ordered thyroid function tests to see if he is hypothyroid . This he is not he will be referred to ENT. 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 He will be observed carefully. His viscosity is 1.4. The abnormal IgM protein is not detectable. The IgM level is in the normal range. His CBC is unremarkable. 05/04/2024 Benign prostatic hyperplasia, unspecified whether lower urinary tract symptoms present (ICD-10 - N40.0) He rises from sleep once a night to urinate. We have discussed lifestyle modifications he could make to reduce nocturia. 05/04/2024 Hoarseness (ICD-10 - R49.0) I have ordered thyroid function tests to see if he is hypothyroid. This he is not he will be referred to ENT. 05/04/2024 Essential hypertensi on (ICD-10 - I10) His blood pressure remained stable. No change in his regimen was made. 05/04/2024 Atrial flutter (ICD- 10 - I48.92) He is in sinus rhythm today. He is taking metoprolol and flecainide. 05/04/2024 Former smoker (ICD-1 0 - Z87.891) He is motivated not to smoke and we discussed maintenance of abstinence. 05/04/2024 Overweight (ICD-10 - E66.3) We have discussed his diet and nutrition today. We reviewed his weight loss strategy. We made a plan to lose weight at a rate of one half of a pound per week through a diet restricted in calories. Plan Of Treatment Medication Medication Name Sig Start Date Stop Date Notes Tamsulosin HCl 0.4 MG 1 capsule Orally at bed time Finasteride 5 MG TAKE 1 TABLET BY KATHY TH DAILY Oral Metoprolol Tartrate 50 MG 1 tablet with food Orally Twice a day Melatonin 5 MG 1 tablet in the even ing Orally Once a day Nabumetone 500 MG 1 tablet Orally Twic e a day for 90 days Multivitamin/Minerals 1 Tablet Orally Once a day Imbruvica 140 MG 2 tablet Orally Once a day 04/06/2023 Flecainide Acetate 150 MG as directed Orally Pending Test Test Name Order Date PROFILE, FASTING (COMPREHENSIVE METABOLI C) 05/04/2024 TSH (THYROID STIMULATING HORMONE) 2024 IMMUNOFIXATION PANEL, SERUM (IEP) 2024 PROTEIN ELECTROPHORESIS, SERUM VISCOSITY 05/04/2024 CBC WITH AUTO DIFF 05/04/2024 Lipid Panel 05/04/2024 PSA Free and Total 05/04/2024 Free T4 (Free Thyroxine) 05/04/2024 Next Appt Details Follow Up: 4 Months, Reason: OV Provider Name:Nicolás Bustos , 03/02/2025 09:15:00 AM, [address], [place], [address], Provider Name:Nicolás Bustos , 05/05/2025 10:00:00 AM, [address] [facility], [place], [address], Progress Notes * Jose POWERSDOB:1950 ([age] yo M)Acc No.[id number]:05/04/2024 Progress Notes Patient: Jose TRENT Provider: Earl Bustos MD :1950 A ge:74 Y S ex:Male Date:05/04/2024 Address:[address] [place], [place] [id number] Subjective: * Chief Complaints: * A nnual exam * HPI: D epression Screening: He returns to the office for his annual physical examination occasional 74. Since his last visit she has been healthy and well. He continues his treatment for the lymphoma and has had no signs of progression of disease. His appetite is good.? He is sleeping well. His blood pressure was well controlled today. His blood work was reviewed with him in detail. No changes to his regimen were necessary today. Routine and regular followup for the malignancy will continue. PHQ-9 L ittle interest or pleasure in doing things?Not at all F eeling down, depressed, or hopeless N ot at all T rouble falling or staying asleep, or sleeping too much N ot at all F eeling tired or having little energy N ot at all P oor appetite or overeating N ot at all F eeling bad about yourself or that you are a failure, or have let yourself or your family down N ot at all T rouble concentrating on things, such as reading the newspaper or watching television N ot at all M oving or speaking so slowly that other people could have noticed; or the opposite, being so fidgety or restless that you have been moving around a lot more than usual N ot at all T houghts that you would be better off or of hurting yourself in some way N ot at all T otal Score 0 C OVID-19 Screening: Questions H ave you had any new onset fever, chills, cough, congestion, sore throat, shortness of breath, muscle aches? N o F all Risk Screening: Fall History H ave you had any falls with injury in the past year? Y es H ave you had two or more falls in the past year? N o F all Risk Assessment: O ne fall with injury in the past year S NOVA Questions: SDOH Questions I n the past year have you been worried about losing your housing? N o I n the past year have you or any family members you live with been unable to get any of the following when it was really needed? 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 C hills d enies. F atigue a dmits. F ever d enies. E NT: Decreased hearing d enies. R espiratory: Cough d enies. C ardiovascular: Chest pain with exertion d enies. D yspnea on exertion?denies. S hortness of breath d enies. G astrointestinal: Constipation o ccasional. D ecreased appetite d enies. D iarrhea d enies. H eartburn o ccasional. N ausea d enies. R ectal bleeding d enies. V omiting d enies. H ematology: bruising [...] enies.?Headache d enies. L ow back pain d enies. P sychiatric: Depressed mood w hich is mild. * Medical History: * Surgical History: T onsillectomy child 1956Left wrist tendon surgery age 32's- Dr. Cl Woody at [facility] 1992Sleep Study- Dr. Xiao at [facility] [id number] stapedotomy w/ vein graft- Dr. Chin at [facility] [phone] catheter ablation- Dr. Vance at [facility] 07-15-2011 flutter s/p cardioversion- Dr. Xiao at [facility] [id number] cyst from back- Dr. Willoughby at [facility] [id number] cyst right wrist at [facility] [phone] external hemorrhoid at [facility] [id number] surgery Rt. ear- Dr. Washington at [facility] [phone] cyst from rectum at [facility] 1986Remove cyst from chest- Dr. Castillo 1976Extract wisdom teeth at [facility] 1975Pericardiocentesis and pericardial window iverticulum, Esophagus 03/2022,09/29/2022No [...] Social History: T obacco Use: T obacco Control (Standard) T obacco use: F ormer smoker H ow long has it been since you last smoked??Greater than 10 years A dditional Findings: Tobacco non-user E x-cigarette smoker D rugs/Alcohol: D rugs H ave you used drugs other than those for medical reasons in the past 12 months? N o D rug/Alcohol: A MINDY-C (Standard) D id you have a drink containing alcohol in the past year? Y es H ow often did you have six or more drinks on one occasion in the past year? 2 to 4 times a month (2 points) H ow many drinks did you have on a typical day when you were drinking in the past year? 1 or 2 drinks (0 point) H ow often did you have a drink containing alcohol in the past year? N ever (0 point) P oints 2 I nterpretation N egative H e stopped smoking many years ago. He does not drink alcohol. He lives in [facility]. He has two daughters Bernice and Shannan and a son. * Medications: T akingNabumetone 500 MG Tablet 1 tablet Orally Twice a day Imbruvica 140 MG Capsule 2 tablet Orally Once a day Multivitamin/Minerals 1 Tablet Orally Once a day Flecainide Acetate 150 MG Tablet as directed Orally Metoprolol Tartrate 50 MG Tablet 1 tablet with food Orally Twice a day Melatonin 5 MG Tablet 1 tablet in the evening Orally Once a day Tamsulosin HCl 0.4 MG Capsule 1 capsule Orally at bed time Finasteride 5 MG Tablet TAKE 1 TABLET BY MOUTH DAILY Oral Taking Nabumetone 500 MG Tablet 1 tablet Orally Twice a day Taking Imbruvica 140 MG Capsule 2 tablet [...] Capsule 1 capsule Orally at bed time Taking Finasteride 5 MG Tablet TAKE 1 TABLET BY MOUTH DAILY Oral DiscontinuedNaproxen 500 MG Tablet TAKE 1 TABLET BY MOUTH TWICE DAILY WITH FOOD OR MILK NEEDED Atorvastatin Calcium 20 MG Tablet 1 tablet Orally Once a day Medication List reviewed and reconciled with the patientDiscontinued Naproxen 500 MG Tablet TAKE 1 TABLET BY MOUTH TWICE DAILY WITH FOOD OR MILK NEEDED Discontinued Atorvastatin Calcium 20 MG Tablet 1 tablet Orally Once a day Medication List reviewed and reconciled with the patient * Allergies: A moxicillin: RashBetadine: RashAdhesive: rashno[Allergies Verified] Objective: * Vitals: H t: 69, Wt:211, BMI:31.16, BP:137/78, HR:63, Temp:97.3, Ht-cm: 175.26, Wt-k.71. * P ast Orders: Lab:Viscosity * Collection Date 04/04/2024 12/29/2022 10/01/2022 Collection Time 09:26 AM 08:00 AM 07:35 AM Order Date 04/04/2024 12/29/2022 10/01/2022 Viscosity 1.5 (Ref Range: 1.5-1.9 rel to H2O) 1.5 (Ref Range: 1.5-1.9 rel to H2O) 1.4 A (Ref Range: 1.5-1.9 rel to H2O) * Lab:PSA Free and Total * Collection Date 04/04/2024 10/28/2023 Collection Time 10:56 AM 11:00 AM Order Date 04/04/2024 10/28/2023 Prostate Specific Ag Total 4.8 A (Ref Range: < OR = 4.0 ng/mL) 4.7 A (Ref Range: < OR = 4.0 ng/mL) Percent Free Prostate Spec Ag 15 A (Ref Range: >25 % (calc)) 11 A (Ref Range: >25 % (calc)) Free Prostate Spec Ag 0.7 (Ref Range: ng/mL) 0.5 (Ref Range: ng/mL) ???Lab:PSA,Total (Free>4and<10) (Order Date - 04/04/2024) (Collection Date & Time - 04/04/2024 09:26 AM)?ValueReference Range?PSA,Total (Free>4and<10)4.63H0.00-4.00 - ng/mL * Lab:Beta-2 Microglobulin, Se rum * Collection Date 04/04/2024 07/21/2023 04/23/2023 Collection Time 09:26 AM 07:38 AM 07:34 AM Order Date 04/04/2024 07/21/2023 04/23/2023 Beta-2 Microglobulin, Serum 2.26 (Ref Range: < OR = 2.51 mg/L) 2.14 (Ref Range: < OR = 2.51 mg/L) 2.23 (Ref Range: < OR = 2.51 mg/L) * Lab:Complete Blood Count Aut o Diff * Collection Date 04/04/2024 10/20/2023 07/21/2023 Collection Time 09:26 AM 07:40 AM 07:38 AM Order Date 04/04/2024 10/20/2023 07/21/2023 White Blood Count 8.7 (Ref Range: 4.8-10.8 X10*3/uL) 7.1 (Ref Range: 4.8-10.8 X10*3/uL) 8.0 (Ref Range: 4.8-10.8 X10*3/uL) Red Blood Count 4.99 (Ref Range: 4.60-5.80 X10*6/uL) 4.79 (Ref Range: 4.60-5.80 X10*6/uL) 5.26 (Ref Range: 4.60-5.80 X10*6/uL) Hemoglobin 14.6 (Ref Range: 14.0-18.0 g/dl) 14.6 (Ref Range: 14.0-18.0 g/dl) 16.3 (Ref Range: 14.0-18.0 g/dl) Hematocrit 42.8 (Ref Range: 42.0-52.0 %) 42.1 (Ref Range: 42.0-52.0 %) 46.5 (Ref Range: 42.0-52.0 %) Mean Corpuscular Volume 85.8 (Ref Range: 80.0-98.0 fL) 87.9 (Ref Range: 80.0-98.0 fL) 88.4 (Ref Range: 80.0-98.0 fL) Mean Corpuscular Hemoglobin 29.3 (Ref Range: 27.0-33.0 pg) 30.5 (Ref Range: 27.0-33.0 pg) 31.0 (Ref Range: 27.0-33.0 pg) Mean Corpuscular HGB Conc 34.1 (Ref Range: 31.0-36.0 g/dl) 34.7 (Ref Range: 31.0-36.0 g/dl) 35.1 (Ref Range: 31.0-36.0 g/dl) Red Cell Distribution Width 13.5 (Ref Range: 11.0-16.0 %) 13.2 (Ref Range: 11.0-16.0 %) 13.8 (Ref Range: 11.0-16.0 %) Platelet Count 228 (Ref Range: 160-400 X10*3/uL) 214 (Ref Range: 160-400 X10*3/uL) 198 (Ref Range: 160-400 X10*3/uL) Mean Platelet Volume 11.5 (Ref Range: 9.4-12.4 fL) 11.8 (Ref Range: 9.4-12.4 fL) 12.1 (Ref Range: 9.4-12.4 fL) Neutrophils Percent Auto 54.3 (Ref Range: 45-73 %) 50.3 (Ref Range: 45-73 %) 54.7 (Ref Range: 45-73 %) Imm Gran Pct Auto 0.6 H (Ref Range: 0.0-0.4 %) 0.6 H (Ref Range: 0.0-0.4 %) 0.5 H (Ref Range: 0.0-0.4 %) Lymphocytes Percent Auto 33.4 (Ref Range: 20-40 %) 34.7 (Ref Range: 20-40 %) 31.3 (Ref Range: 20-40 %) Monocytes Percent Auto 9.3 (Ref Range: 2-11 %) 11.0 (Ref Range: 2-11 %) 10.0 (Ref Range: 2-11 %) Eosinophils Percent Auto 1.8 (Ref Range: 0-4 %) 3.0 (Ref Range: 0-4 %) 3.0 (Ref Range: 0-4 %) Basophils Percent Auto 0.6 (Ref Range: 0-2 %) 0.4 (Ref Range: 0-2 %) 0.5 (Ref Range: 0-2 %) NRBC Pct Auto 0.0 (Ref Range: 0.0-0.2 /100WBC) 0.0 (Ref Range: 0.0-0.2 /100WBC) 0.0 (Ref Range: 0.0-0.2 /100WBC) Neutrophils Absolute Auto 4.7 (Ref Range: 2.0-8.3 x10*3/uL) 3.6 (Ref Range: 2.0-8.3 x10*3/uL) 4.4 (Ref Range: 2.0-8.3 x10*3/uL) Imm Gran Abs Auto 0.05 H (Ref Range: 0.00-0.03 X10*3/uL) 0.04 H (Ref Range: 0.00-0.03 X10*3/uL) 0.04 H (Ref Range: 0.00-0.03 X10*3/uL) Lymphocytes Absolute Auto 2.9 (Ref Range: 1.2-4.9 X10*3/uL) 2.5 (Ref Range: 1.2-4.9 X10*3/uL) 2.5 (Ref Range: 1.2-4.9 X10*3/uL) Monocytes Absolute Auto 0.8 (Ref Range: 0.1-1.2 X10*3/uL) 0.8 (Ref Range: 0.1-1.2 X10*3/uL) 0.8 (Ref Range: 0.1-1.2 X10*3/uL) Eosinophils Absolute Auto 0.2 (Ref Range: 0.0-0.4 X10*3/uL) 0.2 (Ref Range: 0.0-0.4 X10*3/uL) 0.2 (Ref Range: 0.0-0.4 X10*3/uL) Basophils Absolute Auto 0.1 (Ref Range: 0.0-0.2 X10*3/uL) 0.0 (Ref Range: 0.0-0.2 X10*3/uL) 0.0 (Ref Range: 0.0-0.2 X10*3/uL) NRBC Abs Auto 0.000 (Ref Range: 0.0-0.012 X10*3/uL) 0.000 (Ref Range: 0.0-0.012 X10*3/uL) 0.000 (Ref Range: 0.0-0.012 X10*3/uL) * Lab:Protein Electrophoresis, Serum * Collection Date 04/04/2024 10/20/2023 07/21/2023 Collection Time 09:26 AM 07:40 AM 07:38 AM Order Date 04/04/2024 10/20/2023 07/21/2023 Prot Elec - Total Protein 5.6 A (Ref Range: 6.1-8.1 g/dL) 5.2 A (Ref Range: 6.1-8.1 g/dL) 5.6 A (Ref Range: 6.1-8.1 g/dL) Prot Elec - Albumin 4.1 (Ref Range: 3.8-4.8 g/dL) 3.7 A (Ref Range: 3.8-4.8 g/dL) 4.0 (Ref Range: 3.8-4.8 g/dL) Prot Elec - [...] Range: 0.2-0.5 g/dL) Prot Elec - Gamma 0.2 A (Ref Range: 0.8-1.7 g/dL) 0.2 A (Ref Range: 0.8-1.7 g/dL) 0.2 A (Ref Range: 0.8-1.7 g/dL) PES - Abn Protein Band 1 <0.2 A (Ref Range: NONE DETECTED g/dL) <0.2 A (Ref Range: NONE DETECTED g/dL) <0.2 A (Ref Range: NONE DETECTED g/dL) PES-Abn Protein Band 2 TNP TNP TNP PES-Abn Protein Band 3 TNP TNP TNP Prot Elec - Interpretation SEE NOTE SEE NOTE SEE NOTE * Lab:Mauricio Faye * Collection Date 04/04/2024 10/20/2023 07/21/2023 Collection Time 09:26 AM 07:40 AM 07:38 AM Order Date 04/04/2024 10/20/2023 07/21/2023 Sodium 136 (Ref Range: 135-145 mmol/L) 140 (Ref Range: 135-145 mmol/L) 141 (Ref Range: 135-145 mmol/L) Bilirubin Total 0.7 (Ref Range: 0.0-1.0 mg/dL) 0.6 (Ref Range: 0.0-1.0 mg/dL) 0.8 (Ref Range: 0.0-1.0 mg/dL) Aspartate Amino Transferase 35 (Ref Range: 5-37 U/L) 34 (Ref Range: 5-37 U/L) 31 (Ref Range: 5-37 U/L) Alanine Aminotransferase 33 (Ref Range: 0-40 U/L) 32 (Ref Range: 0-40 U/L) 30 (Ref Range: 0-40 U/L) Total Protein 6.0 L (Ref Range: 6.5-8.0 g/dL) 5.5 L (Ref Range: 6.5-8.0 g/dL) 5.9 L (Ref Range: 6.5-8.0 g/dL) Albumin Level 4.0 (Ref Range: 3.5-5.0 g/dL) 3.9 (Ref Range: 3.5-5.0 g/dL) 4.1 (Ref Range: 3.5-5.0 g/dL) Alkaline Phosphatase 112 (Ref Range: 39-117 U/L) 123 H (Ref Range: 39-117 U/L) 100 (Ref Range: 39-117 U/L) Potassium 4.4 (Ref Range: 3.3-5.1 mmol/L) 4.5 (Ref Range: 3.3-5.1 mmol/L) 4.3 (Ref Range: 3.3-5.1 mmol/L) Chloride 103 (Ref Range: 96-108 mmol/L) 103 (Ref Range: 96-108 mmol/L) 106 (Ref Range: 96-108 mmol/L) Carbon Dioxide 27 (Ref Range: 22-29 mmol/L) 27 (Ref Range: 22-29 mmol/L) 26 (Ref Range: 22-29 mmol/L) Anion Gap 10 L (Ref Range: 12-20) 15 (Ref Range: 12-20) 13 (Ref Range: 12-20) Blood Urea Nitrogen 20 H (Ref Range: 9-16 mg/dL) 13 (Ref Range: 9-16 mg/dL) 16 (Ref Range: 9-16 mg/dL) Creatinine 0.83 (Ref Range: 0.5-1.4 mg/dL) 0.99 (Ref Range: 0.5-1.4 mg/dL) 0.89 (Ref Range: 0.5-1.4 mg/dL) Estimated Glomerular Filt Rate > 60 > 60 > 60 Glucose Fasting 77 (Ref Range: 60-99 mg/dL) 103 H (Ref Range: 60-99 mg/dL) 91 (Ref Range: 60-99 mg/dL) Calcium 8.7 (Ref Range: 8.4-10.2 mg/dL) 8.8 (Ref Range: 8.4-10.2 mg/dL) 9.2 (Ref Range: 8.4-10.2 mg/dL) * Lab:Immunofixation Pnl, Seru m * Collection Date 04/04/2024 10/20/2023 07/21/2023 Collection Time 09:26 AM 07:40 AM 07:38 AM Order Date 04/04/2024 10/20/2023 07/21/2023 IgG 113 A (Ref Range: 600-1540 mg/dL) 91 A (Ref Range: 600-1540 mg/dL) 114 A (Ref Range: 600-1540 mg/dL) IgA 11 A (Ref Range: 70-320 mg/dL) 11 A (Ref Range: 70-320 mg/dL) 12 A (Ref Range: 70-320 mg/dL) IgM 155 (Ref Range: 50-300 mg/dL) 136 (Ref Range: 50-300 mg/dL) 161 (Ref Range: 50-300 mg/dL) Immunofixation Interpretation SEE NOTE SEE NOTE SEE NOTE * Lab:Lipid Panel * Collection Date 04/04/2024 10/20/2023 07/21/2023 Collection Time 09:26 AM 07:40 AM 07:38 AM Order Date 04/04/2024 10/20/2023 07/21/2023 Triglycerides 97 (Ref Range: <150 mg/dL) 84 (Ref Range: <150 mg/dL) 99 (Ref Range: <150 mg/dL) Cholesterol 250 H (Ref Range: <200 mg/dL) 162 (Ref Range: <200 mg/dL) 172 (Ref Range: <200 mg/dL) LDL Cholesterol Calculated 158 H (Ref Range: <100 mg/dL) 79 (Ref Range: <100 mg/dL) 75 (Ref Range: <100 mg/dL) HDL Cholesterol 73 (Ref Range: >40 mg/dL) 67 (Ref Range: >40 mg/dL) 78 (Ref Range: >40 mg/dL) ???Imaging:US retroperitoneal comp (Order Date - 04/04/2024) (Performed Date - 04/04/2024) * Examination: G eneral Examination: GENERAL APPEARANCE: [...] nodes,spleen normal. SKIN: n o suspicious lesions, anicteric. HEART: n o clicks, gallops, murmurs, or [...] could make to reduce nocturia. 3 . H oarseness - R49.0 N otes :I have ordered thyroid function tests to see if he is hypothyroid. This he is not he will be referred to ENT. 4 . E ssential hypertension - I10 N otes :His blood pressure remained stable. No change in his regimen was made. 5 . A trial flutter - I48.92 N otes :He is in sinus rhythm today. He is taking metoprolol and flecainide. 6 . F ormer smoker - Z87.891 N otes :He is motivated not to smoke and we discussed maintenance of abstinence. 7 . O verweight - E66.3 N otes :We have discussed his diet and nutrition today. We reviewed his weight loss strategy. We made a plan to lose weight at a rate of one half of a pound per week through a diet restricted in calories. Plan: * Treatment: 2. B enign prostatic hyperplasia, unspecified whether lower urinary tract symptoms present Continue Melatonin Tablet, 5 MG, 1 tablet in the evening, Orally, Once a day. L AB: PROFILE, FASTING (COMPREHENSIVE METABOLIC) L AB: TSH (THYROID STIMULATING HORMONE) L AB: IMMUNOFIXATION PANEL, SERUM (IEP) L AB: PROTEIN ELECTROPHORESIS, SERUM L AB: VISCOSITY L AB: CBC WITH AUTO DIFF L AB: Lipid Panel L AB: PSA Free and Total L AB: Free T4 (Free Thyroxine) 3. H oarseness L AB: PROFILE, FASTING (COMPREHENSIVE METABOLIC) L AB: TSH (THYROID STIMULATING HORMONE) L AB: IMMUNOFIXATION PANEL, SERUM (IEP) L AB: PROTEIN ELECTROPHORESIS, SERUM L AB: VISCOSITY L AB: CBC WITH AUTO DIFF L AB: Lipid Panel L AB: PSA Free and Total L AB: Free T4 (Free Thyroxine) 4. O thers Continue Imbruvica Capsule, 140 MG, 2 tablet, Orally, Once a day; C ontinue Nabumetone Tablet, 500 MG, 1 tablet, Orally, Twice a day, 90 days, 180 Tablet, Refills 3. * Labs: * L ab: URINE DIP STICK (Collection Date & Time - 05/04/2024) Value Reference Range S G 1.010 1.005 - 1.025 * p H 6.5 5.0 - 9.0 * L EU Negative Negative - * N IT Negative Negative - * P RO 15 Negative - Trace * G JOYCE Negative Negative - * K ET Negative Negative - * U BG 0.2 0.1 - 1.8 * B IL Negative 0.2 - 1.3 * B LD Negative Negative - * Procedure Codes: 8 1002 URINE-NO MICRO * Preventive Medicine: Counseling: C are goal [...] of tobacco use and urged to quit. 0 05/03/2024 * Follow Up: 4 Months (Reason: OV) * Images: * Sign off status: Completed true * Provider: Earl Bustos MD Date: 0 05/04/2024 Generated for Samirai ng/Dominiqueg/eTransmitting on: 1 04/24/2024 08:09 AM EST History and Physical Notes * HPI (History of Present Illness) Category Sub-Category Detail Notes Depression Screening PHQ-9 Little inte rest or pleasure in doing things: Not at all Feeling down, depressed, or hopeless: No t at all Trouble falling or staying asleep, or sl eeping too much: Not at all Feeling tired or having little energy: N ot at all Poor appetite or overeating: Not at all Feeling bad about yourself o r that you are a failure, or have let yourself or your family down: Not at all Trouble concentrating on thi ngs, such as reading the newspaper or watching television: Not at all Moving or speaking so slowly that other people could have noticed; or the opposite, being so fidgety or restless that you have been moving around a lot more than usual: Not at all Thoughts that you would be b debby off or of hurting yourself in some way: Not at all Total Score: 0 Fall Risk Screening Fall History Have you had any falls with injury in the past year?: Yes Have you had two or more falls in the st year?: No Fall Risk Assessment:: One fall with inj ury in the past year COVID-19 Screening Questions Have you had any new onset fever, chills, cough, congestion, sore throat, shortness of breath, muscle aches?: No SDOH Questions SDOH Questions In the past year have you been worried about losing your housing?: No In the past year have you or any family members you live with been unable to get any of the following when it was really needed? Check all that apply:: None Examination Category Sub-Category Detail Notes General Examination [...]
--- OUTSIDE RECORDS SUMMARY | 2024-06-14 05:15 | XMS_ITS ---
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 Nicolás Bustos III Primary Care Provider Allergies Allergen (clinical drug ingredient) Drug/Non Drug Allergy documented on EMR Reaction Allergy Type Onset Date Status Adhesive rash Allergy Active povidone-iodine Betadine Rash Drug Allergy A ctive amoxicillin Amoxicillin Rash Drug Allergy Act jocelin REASON FOR VISIT Left knee pain X 1 week, Acute Low back pain, Lymphoma, Macroglobulinemia, Lumbar radiculopathy, Benign prostatic hypertrophy, History of atrial fibrillation Medications Medication SIG (Take, Route, Frequency, Duration) Notes Start Date End Date Status Metoprolol Tartrate 50 MG 1 tablet with food Orally Twice a day Active Melatonin 5 MG 1 tablet in the even ing Orally Once a day Active Tamsulosin HCl 0.4 MG 1 capsule Orally a t bed time Active Finasteride 5 MG TAKE 1 TABLET BY KATHY TH DAILY Oral Active Nabumetone 500 MG 1 tablet Orally Twic e a day Active Flecainide Acetate 150 MG as directed Orally Active Imbruvica 140 MG 2 tablet Orally Once a day 04/06/2023 Active Multivitamin/Minerals 1 Tablet Orally On ce a day Active dexAMETHasone 2 MG 1 tablet Orally twic e a day for 7 days 06/14/2024 Active Cyclobenzaprine HCl 10 MG one tablet Ora lly three times a day for 7 days 06/14/2024 06/21/2024 Active Social History Tobacco Use: Social History Observation Description Date Details (start date - stop date) Former Smoker NA - NA Sex Assigned At : Social History Observation Description Sex Assigned At Male Tobacco Control (Standard) Question Answer Notes Tobacco use: Former smoker How long has it been since you last smoked? 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 ; Lumbago with sciatica, left side M54.42 ; Benign prostatic hyperplasia, unspecified whether lower urinary tract symptoms present N40.0 ; Former smoker Z87.891 ; Essential hypertension I10 ; Waldenstrom macroglobulinemia C88.0 ; Hyperlipidemia type II E78.01 ; Esophageal diverticulum, acquired K22.5 ; Dysphagia, unspecified type R13.10 and Atrial fibrillation I48.91 Assessments Encounter Date Diagnosis (ICD Code) Assessment Notes T reatment Notes Treatment Clinical Notes 06/14/2024 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 He will be observed carefully. His viscosity is 1.4. The abnormal IgM protein is not detectable. The IgM level is in the normal range. His CBC is unremarkable. 06/14/2024 Lumbago with sciatic a, left side (ICD-10 - M54.42) This appears to be nerve impingement in the lumbar spine. He was given dexamethasone and cyclobenzaprine. He will rest as much as possible in the position and use heat. 06/14/2024 Benign prostatic hyperplasia, unspecified whether lower urinary tract symptoms present (ICD-10 - N40.0) He rises from sleep once a night to urinate. We have discussed lifestyle modifications he could make to reduce nocturia. 06/14/2024 Former smoker (ICD-1 0 - Z87.891) He is motivated not to smoke and we discussed maintenance of abstinence. 06/14/2024 Essential hypertensi on (ICD-10 - I10) His pressure is slightly high, today, but he is in pain and excited. It will be rechecked in the near future. 06/14/2024 Waldenstrom macroglobulinemia (ICD-10 - C88.0) His IgM level and viscosity are stable. He does not require additional treatment at this time.A repeat viscosity has been ordered 06/14/2024 Hyperlipidemia type II (ICD-10 - E78.01) His fasting lipid profile has been ordered. No change in his regimen as needed. 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 He was referred to a herb counselor. 06/14/2024 Dysphagia, unspecifi ed type (ICD-10 - R13.10) This has resolved. 06/14/2024 Atrial fibrillation (ICD-10 - I48.91) He is in a normal sinus rhythm today. His rate is controlled. Plan Of Treatment Medication Medication Name Sig Start Date Stop Date Notes Metoprolol Tartrate 50 MG 1 tablet with food Orally Twice a day Melatonin 5 MG 1 tablet in the even ing Orally Once a day Tamsulosin HCl 0.4 MG 1 capsule Orally at bed time Finasteride 5 MG TAKE 1 TABLET BY KATHY TH DAILY Oral Nabumetone 500 MG 1 tablet Orally Twice a day Flecainide Acetate 150 MG as directed Orally Imbruvica 140 MG 2 tablet Orally Once a day 04/06/2023 Multivitamin/Minerals 1 Tablet Orally Once a day dexAMETHasone 2 MG 1 tablet Orally twic e a day for 7 days 06/14/2024 Cyclobenzaprine HCl 10 MG one tablet Ora lly three times a day for 7 days 06/14/2024 06/21/2024 Next Appt Details Follow Up: 1 Week, Reason: T [facility] Provider Name:Nicolás Bustos , 03/02/2025 09:15:00 AM, [address] [place] [address] [address], [place], [address], Provider Name:Nicolás Bustos , 05/05/2025 10:00:00 AM, [address] [place] [address] [address], [place], [address], Progress Notes * Jose POWERSDOB:1950 ([age] yo M)Acc No.[id number]:06/14/2024 Patient: Jose TRENT Provider: Earl Bustos MD :1950 A ge:74 Y S ex:Male Date:06/14/2024 Address:[address] [place] [address], [place] [address], [id number] Subjective: * Chief Complaints: * L eft knee pain X 1 weekAcute Low back painLymphomaMacroglobulinemiaLumbar radiculopathyBenign prostatic hypertrophyHistory of atrial fibrillation * HPI: C OVID-19 Screening: This was a same day visit because of acute low back pain. 10 days ago. He spent several hours working on replacing a radiator in an automobile. The next day he developed severe pain to the left of his lumbar spine and left buttock that radiated down the back of his left leg to his knee. That pain persists today and has not improved. On physical examination. Straight leg raising was positive and reflexes were equal. Strength appeared to be intact.? He has a nerve impingement. Some years ago he had an MRI of his lumbar spine for pain that showeed mild stenosis at multiple areas of spondylosis and foraminal stenosis. I have prescribed cyclobenzaprine as well as dexamethasone and heat and rest. Questions H ave you had any new onset fever, chills, cough, congestion, sore throat, shortness of breath, muscle aches? N o * ROS: G eneral/Constitutional: pain M uscle Daisha to the left of the lumbar spine, muscles of left buttock, hamstrings on left. C hills d enies. F atigue a dmits. F ever d enies. E NT: Decreased hearing d enies. R espiratory: Cough d enies. C ardiovascular: Chest pain with exertion d enies. D yspnea on exertion?denies. S hortness of breath d enies. G astrointestinal: Constipation d enies. D ecreased appetite d enies.?Diarrhea d enies. H eartburn d enies. N ausea d enies. R ectal bleeding?denies. V omiting d enies. H ematology: bruising d enies. p etechiae d enies. S wollen glands n one have been noted. G enitourinary: Frequent urination d enies. M usculoskeletal: Muscle aches d enies. P ainful joints d enies. S ciatica D own left leg to knee. W eakness d enies. S kin: Itching d enies. R aleksandra d enies. S kin lesion(s)?denies. N eurologic: Difficulty speaking d enies. D izziness d enies.?Headache d enies. L ow back pain d enies. P sychiatric: Depressed mood w hich is mild. * Medical History: * Surgical History: T onsillectomy child 1956Left wrist tendon surgery age 32's- Dr. Cl Woody at [facility] 1992Sleep Study- Dr. Xiao at [facility] [id number] stapedotomy w/ vein graft- Dr. Chin at [facility] [id number] catheter ablation- Dr. Vance at [facility] 07-15-2011 flutter s/p cardioversion- Dr. Xiao at [facility] [phone] cyst from back- Dr. Willoughby at [facility] [phone] cyst right wrist at [facility] [phone] external hemorrhoid at [facility] [phone] surgery Rt. ear- Dr. Washington at [facility] [phone] cyst from rectum at [facility] 1986Remove cyst from chest- Dr. Castillo 1976Extract wisdom teeth at [facility] 1975Pericardiocentesis and pericardial window iverticulum, Esophagus 03/2022,09/29/2022No history * Hospitalization/Major Diagno stic Procedure: N o history * Family History: F ather: , Heart disease, diagnosed with HTN. M other: 82 yrs, lung cancer, diagnosed with Cancer. P atemary ellen Grand Father: , alzheimer. [place] Grand Father: , Blood disorder/ non-clotting disorder. [place] Grand Mother: 90 yrs, colon cancer, diagnosed [...] dditional Findings: Tobacco non-user E x-cigarette smoker H e stopped smoking many years ago. He does not drink alcohol. He lives in [facility]. He has two daughters Bernice and Shannan and a son. * Medications: T akingImbruvica 140 MG Capsule 2 tablet Orally Once [...] TAKE 1 TABLET BY MOUTH DAILY Oral Nabumetone 500 MG Tablet 1 tablet Orally Twice a day Medication List reviewed and reconciled with the patientTaking Imbruvica 140 MG Capsule 2 tablet Orally [...] Tablet 1 tablet Orally Twice a day Medication List reviewed and reconciled with the patient * Allergies: A moxicillin: RashBetadine: RashAdhesive: rashno[Allergies Verified] Objective: * Vitals: H t: 69, Wt:209, BMI:30.86, BP:140/78, HR:82, Temp:97.3, Ht-cm: 175.26, Wt-k.8. * P ast Orders: I maging:US retroperitoneal comp (Order Date - 04/04/2024) (Performed Date - 04/04/2024) L ab:PSA,Total (Free>4and<10) (Order Date - 04/04/2024) (Collection Date & Time - 04/04/2024 09:26 AM) Value Reference Range PSA,Total (Free>4and<10) 4.63 H 0.00-4.00 - ng/ mL Lab:PSA Free and Total * Collection Date [...] (Ref Range: ng/mL) 0.5 (Ref Range: ng/mL) * Lab:Viscosity * Collection Date 04/04/2024 12/29/2022 10/01/2022 Collection Time 09:26 AM 08:00 AM 07:35 AM Order Date 04/04/2024 12/29/2022 10/01/2022 Viscosity 1.5 (Ref Range: 1.5-1.9 rel to H2O) 1.5 (Ref Range: 1.5-1.9 rel to H2O) 1.4 A (Ref Range: 1.5-1.9 rel to H2O) * Lab:Lipid Panel * Collection Date 04/04/2024 [...] >40 mg/dL) 78 (Ref Range: >40 mg/dL) * Lab:Immunofixation Pnl, Seru m * [...] SEE NOTE SEE NOTE SEE NOTE * Lab:Comprehensive [place]. Alexe l Fast * Collection Date 04/04/2024 10/20/2023 07/21/2023 Collection [...] mg/dL) 9.2 (Ref Range: 8.4-10.2 mg/dL) * Lab:Protein Electrophoresis, Serum * Collection Date [...] X10*3/uL) 0.000 (Ref Range: 0.0-0.012 X10*3/uL) * Lab:Beta-2 Microglobulin, Se rum * Collection Date 04/04/2024 07/21/2023 04/23/2023 Collection Time 09:26 AM 07:38 AM 07:34 AM Order Date 04/04/2024 07/21/2023 04/23/2023 Beta-2 Microglobulin, Serum 2.26 (Ref Range: < OR = 2.51 mg/L) 2.14 (Ref Range: < OR = 2.51 mg/L) 2.23 (Ref Range: < OR = 2.51 mg/L) * Lab:URINE DIP STICK * Collection Date 05/04/2024 05/01/2023 04/04/2022 Collection Time 09:58 AM Order Date 05/04/2024 05/01/2023 04/04/2022 SG 1.010 (Ref Range: 1.005 - 1.025) 1.010 (Ref Range: 1.005 - 1.025) 1.020 pH 6.5 (Ref Range: 5.0 - 9.0) 6.0 (Ref Range: 5.0 - 9.0) 5.0 NATACHA Negative (Ref Range: Negative -) Negative (Ref Range: Negative -) Neg NIT Negative (Ref Range: Negative -) Negative (Ref Range: Negative -) Neg PRO 15 (Ref Range: Negative - Trace) Negative (Ref Range: Negative - Trace) Neg GLU Negative (Ref Range: Negative -) Negative (Ref Range: Negative -) Neg KET Negative (Ref Range: Negative -) Negative (Ref Range: Negative -) Neg UBG 0.2 (Ref Range: 0.1 - 1.8) 0.2 (Ref Range: 0.1 - 1.8) 0.2 OMKAR Negative (Ref Range: 0.2 - 1.3) Negative (Ref Range: 0.2 - 1.3) Neg BLD Negative (Ref Range: Negative -) Negative (Ref Range: Negative -) 5-10 Menstrating NR NR N/A * Examination: G eneral Examination: GENERAL APPEARANCE: [...] obesity. RECTAL EXAM: n ot examined. MUSCULOSKELETAL: D ecreased range of motion lumbar spine, reflexes intact, positive straight leg raising on the left. PERIPHERAL PULSES: n ormal. NEUROLOGIC: a lert and oriented, cranial nerves 2-12 grossly intact, deep tendon reflexes 2+ symmetrical, motor strength normal upper and lower extremities, sensory exam intact. PSYCH: a lert, oriented. Assessment: * Assessment: 1. L umbago with sciatica, left side - M54.42 (Primary) N otes :This appears to be nerve impingement in the lumbar spine. He was given dexamethasone and cyclobenzaprine. He will rest as much as possible in the position and use heat. 2 . M alignant lymphoplasmacytic lymphoma - C83.00 N otes :He remains stable with no sign of disease progression on physical examination metabolically or biochemically. He will be observed carefully. His viscosity is 1.4. The abnormal IgM protein is not detectable. The IgM level is in the normal range. His CBC is unremarkable. 3 . B enign prostatic hyperplasia, unspecified whether lower urinary tract symptoms present - N40.0 N otes :He rises from sleep once a night to urinate. We have discussed lifestyle modifications he could make to reduce nocturia. 4 . F ormer smoker - Z87.891 N otes :He is motivated not to smoke and we discussed maintenance of abstinence. 5 . E ssential hypertension - I10 N otes :His pressure is slightly high, today, but he is in pain and excited. It will be rechecked in the near future. 6 . W aldenstrom macroglobulinemia - C88.0 N otes :His IgM level and viscosity are stable. He does not require additional treatment at this time.A repeat viscosity has been ordered 7 . H yperlipidemia type II - E78.01 N otes :His fasting lipid profile has been ordered. No change in his regimen as needed. 8 . E sophageal diverticulum, acquired - K22.5 N otes :He has a Zenker's diverticulum in the upper esophagus which is likely the cause of his dysphagia. He was referred to a herb counselor. 9 . D ysphagia, unspecified type - R13.10 N otes :This has resolved. 1 0. A trial fibrillation - I48.91 N otes :He is in a normal sinus rhythm today. His rate is controlled. Plan: * Treatment: 2. B enign prostatic hyperplasia, unspecified whether lower urinary tract symptoms present Continue Melatonin Tablet, 5 MG, 1 tablet in the evening, Orally, Once a day. 3. O thers Continue Imbruvica Capsule, 140 MG, 2 tablet, Orally, Once a day; C ontinue Nabumetone Tablet, 500 MG, 1 tablet, Orally, Twice a day. * Procedure Codes: * Preventive Medicine: Counseling: C are goal follow-up plan: Counseling for abnormal BMI given Y es Above Normal BMI Follow-up D ietary management education, guidance, and counseling, Dietary needs education S moking/Tobacco Use Patient counseled on the dangers of tobacco use and urged to quit. 0 06/14/2024 * Follow Up: 1 Week (Reason: Telehealth) * Images: * Sign off status: Completed true * Provider: Earl Bustos MD Date: 0 06/14/2024 Generated for Michelle pierson/Mikel/Mikeitting on: 1 04/24/2024 08:09 AM EST History and Physical Notes * HPI (History of Present Illness) Category Sub-Category Detail Notes COVID-19 Screening Questions Have you had any new onset fever, chills, cough, congestion, sore throat, shortness of breath, muscle aches?: No Examination Category Sub-Category Detail Notes General [...] BREASTS: no masses palpable b ilaterally MUSCULOSKELETAL: Decreased range of m otion lumbar spine, reflexes intact, positive straight leg raising on the left LYMPH NODES: no enlarged lymph no keya,spleen normal RECTAL EXAM: not examined PSYCH: alert, oriented ORAL CAVITY: normal, unremarkable
--- OUTSIDE RECORDS SUMMARY | 2024-06-21 04:00 | XMS_ITS ---
Author Organization Nicolás Bustos III, MD Address [address] [place] [address] Care Team Providers Care Riprap Worker Name Role Phone Dr. Nicolás Bustos III Primary Care Provider Allergies Allergen (clinical drug ingredient) Drug/Non Drug Allergy documented on EMR Reaction Allergy Type Onset Date Status Adhesive rash Allergy Active povidone-iodine Betadine Rash Drug Allergy A ctive amoxicillin Amoxicillin Rash Drug Allergy Act jocelin Reason For Referral Reason Consult and Treat Severe Left Knee Pain Diagnosis 1 Pain in left knee (M 25.562) Referral Organization Nicolás Bustos III, MD Referring Provider First Name Nicolás Referring Provider Last Name Juli Referring Provider Speciality Internal M edicine Referred Provider PRAKASH BOND Referred Provider Specialty Orthopedic [facility] General Notes Margarita Betancourt 06/21/2024 09:22:57 AM > was able to schedule appointment for 08/15/24 @ 11am they will also place the patient on a cancellation list. Patient was called and notified Referral Priority Routine Referral Appointment Date 08/15/2024 REASON FOR VISIT Left sciatica, Malignant lymphoma, Hypertension, Worsening left knee pain Medications Medication SIG (Take, Route, Frequency, Duration) Notes Start Date End Date Status Cyclobenzaprine HCl 10 MG one tablet Ora lly three times a day 06/14/2024 Active Nabumetone 500 MG 1 tablet Orally Twic e a day Active dexAMETHasone 2 MG 1 tablet Orally twic e a day 06/14/2024 Active Tamsulosin HCl 0.4 MG 1 capsule Orally a t bed time Active Finasteride 5 MG TAKE 1 TABLET BY DAILY Oral Active Imbruvica 140 MG 2 tablet Orally Once a day 2023 Active Metoprolol Tartrate 50 MG 1 tablet with food Orally Twice a day Active Melatonin 5 MG 1 tablet in the even ing Orally Once a day Active Multivitamin/Minerals 1 Tablet Orally Once a day Active Flecainide Acetate 150 [...] Additional Findings: Tobacco non-user Ex-cigaret te smoker Problems Problem Type SNOMED Code ICD Code Onset Dates Problem Status W/U Status Risk Notes Problem 574040116022532 Sciatica of left side (M54.32) Active confirmed He is significantly improved. I cautioned him about doing too much activity too quickly. He will avoid heavy lifting and gradually resumed the activities of daily living. 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 He will be observed carefully. His viscosity is 1.4. The abnormal IgM protein is not detectable. The IgM level is in the normal range. His CBC is unremarkable. 06/21/2024 Benign prostatic hyperplasia, unspecified whether lower urinary tract symptoms present (ICD-10 - N40.0) He rises from sleep once a night to urinate. We have discussed lifestyle modifications he could make to reduce nocturia. 06/21/2024 Former smoker (ICD-1 0 - Z87.891) He is motivated not to smoke and we discussed maintenance of abstinence. 06/21/2024 Overweight (ICD-10 - E66.3) We have discussed his diet and nutrition today. We reviewed his weight loss strategy. We made a plan to lose weight at a rate of one half of a pound per week through a diet restricted in calories. 06/21/2024 Sciatica of left sophia e (ICD-10 - M54.32) He is significantly improved. I cautioned him about doing too much activity too quickly. He will avoid heavy lifting and gradually resumed the activities of daily living. Plan Of Treatment Medication Medication Name Sig Start Date Stop Date Notes Cyclobenzaprine HCl 10 MG one tablet Ora lly three times a day 06/14/2024 Nabumetone 500 MG 1 tablet Orally Twice a day dexAMETHasone 2 MG 1 tablet Orally twice a day 06/14/2024 Tamsulosin HCl 0.4 MG 1 capsule Orally at bed time Finasteride 5 MG TAKE 1 TABLET BY KATHY TH DAILY Oral Imbruvica 140 MG 2 tablet Orally Once a day 04/06/2023 Metoprolol Tartrate 50 MG 1 tablet with food Orally Twice a day Melatonin 5 MG 1 tablet in the even ing Orally Once a day Multivitamin/Minerals 1 Tablet Orally Once a day Flecainide Acetate 150 MG as directed Orally Referrals Referral Date Details 06/21/2024 06/21/2024, Consult and Treat Severe Left Knee Pain, PRAKASH BOND Next Appt Details Follow Up: 2 - 3 Days, Reaso n: Telehealth Provider Name:Nicolás Bustos , 03/02/2025 09:15:00 AM, [address] [place] [address] [address], [place], [address], Provider Name:Nicolás Bustos , 05/05/2025 10:00:00 AM, [address] [place] [address] [address], [place], [address], Progress Notes * Jose RAMIREZDOB:1950 ([age] yo M)Acc No.[id number]:06/21/2024 Patient: Jose TRENT Provider: Earl Bustos MD :1950 A ge:74 Y S ex:Male Date:06/21/2024 Address:[address] [place] [address], [facility] [place] [id number] Subjective: * Chief Complaints: * L eft sciaticaMalignant lymphomaHypertensionWorsening left knee pain * HPI: * : This telehealth visit took place over 15 min. with the patient at home and me in my office. He gave consent for billing. He reports that the pain on the left side of his lower lumbar spine that radiated into his left but intact and down to his knee is substantially better. We discussed how to proceed with his recovery. He will gradually and slowly resume the activities of daily living continuing to take awfk-vqv-wiinpaj analgesics. He will avoid heavy lifting and undue exertion and strenuous activity. The pain in his left knee has not improved and is becoming severe. I have referred him to orthopedics for definitive diagnosis and therapy. Telehealth L ocation of provider rendering services: { ...} [address] [facility] [address] L ocation of patient: mirza ddress listed in demographics for today's visit P atient identification confirmed using: RICHY Souza ame T elehealth method: T elephone only. Patient not visible to care provider. C onsent: P atient verbally consented to treatment, Patient verbally consented to billing insurance company, Patient informed of any privacy concerns related to method of visit T otal time spent with patient (mins) 1 5 * ROS: G eneral/Constitutional: pain L ow back down left leg and left knee with use. C hills d enies. F atigue a dmits. F ever d enies. E NT: Decreased hearing d enies. R espiratory: Cough d enies. C ardiovascular: Chest pain with exertion d enies. D yspnea on exertion?denies. S hortness of breath d enies. G astrointestinal: Constipation o ccasional. D ecreased appetite d enies. D iarrhea d enies. H eartburn d enies. N ausea d enies. R ectal bleeding d enies. V omiting d enies. H ematology: bruising d enies. p etechiae d enies. S wollen glands n one have been noted. G enitourinary: Frequent urination o nce a night. M usculoskeletal: Muscle aches d enies. P ainful joints d enies. S ciatica a ffecting the lower left side of the body. W eakness d enies. ? S kin: Itching d enies. R aleksandra d enies. S kin lesion(s)?denies. N eurologic: Difficulty speaking d enies. D izziness d enies.?Headache d enies. L ow back pain t hat is new. P sychiatric: Depressed mood d enies. * Medical History: * Surgical History: T onsillectomy child 1956Left wrist tendon surgery age 32's- Dr. Cl Woody at [facility] 1992Sleep Study- Dr. Xiao at [facility] [id number] stapedotomy w/ vein graft- Dr. Chin at [facility] [id number] catheter ablation- Dr. Vance at [facility] 07-15-2011 flutter s/p cardioversion- Dr. Xiao at [facility] [id number] cyst from back- Dr. Willoughby at [facility] [id number] cyst right wrist at [facility] [id number] external hemorrhoid at [facility] 39-38-1748Yilhzfpuzxp surgery Rt. ear- Dr. Washington at [facility] [id number] cyst from rectum at [facility] 1986Remove cyst from chest- Dr. Castillo 1976Extract wisdom teeth at [facility] 1975Pericardiocentesis and pericardial window iverticulum, Esophagus [...] does not drink alcohol. He lives in [facility]. He has two daughters Bernice and [...] Tablet 1 tablet Orally Twice a day dexAMETHasone 2 MG Tablet 1 tablet Orally twice a day Cyclobenzaprine HCl 10 MG Tablet one tablet Orally three times a day , stop date 06/21/2024Medication List reviewed and reconciled with the patientTaking [...] 1 tablet Orally Twice a day Taking dexAMETHasone 2 MG Tablet 1 tablet Orally twice a day Taking Cyclobenzaprine HCl 10 MG Tablet one tablet Orally three times a day , stop date 06/21/2024Medication List reviewed and reconciled with the patient * Allergies: A moxicillin: RashBetadine: RashAdhesive: rashno[Allergies Verified] Objective: * Vitals: H t: 69, Wt:209, BMI:30.86, Ht-cm: 175.26, Wt-k.8. Assessment: * Assessment: 1. M alignant lymphoplasmacytic [...] could make to reduce nocturia. 3 . F ormer smoker - Z87.891 N otes :He is motivated not to smoke and we discussed maintenance of abstinence. 4 . O verweight - E66.3 N otes :We have discussed his diet and nutrition today. We reviewed his weight loss strategy. We made a plan to lose weight at a rate of one half of a pound per week through a diet restricted in calories. 5 . S ciatica of left side - M54.32 N otes :He is significantly improved. I cautioned him about doing too much activity too quickly. He will avoid heavy lifting and gradually resumed the activities of daily living. Plan: * Treatment: 2. B enign prostatic hyperplasia, unspecified whether lower urinary tract symptoms present Continue Melatonin Tablet, 5 MG, 1 tablet in the evening, Orally, Once a day. 3. O thers Continue Imbruvica Capsule, 140 MG, 2 tablet, Orally, Once a day; C ontinue Nabumetone Tablet, 500 MG, 1 tablet, Orally, Twice a day. Referral To:PRAKASH BOND Orthopedic Surgery Reason:Consult and Treat Severe Left Knee Pain * Procedure Codes: * Preventive Medicine: Counseling: C are goal follow-up plan: Counseling for abnormal BMI given Y es Above Normal BMI Follow-up D ietary management education, guidance, and counseling, Dietary needs education S moking/Tobacco Use Patient counseled on the dangers of tobacco use and urged to quit. 0 06/21/2024 * Follow Up: 2 - 3 Days (Reason: Telehealth) * Images: * Sign off status: Completed true * Provider: Earl Bustos MD Date: 0 06/21/2024 Generated for Michelle pierson/Mikel/Balwinder on: 1 04/24/2024 08:08 AM EST History and Physical Notes * HPI (History of Present Illness) Category Sub-Category Detail Notes Telehealth Location of [facility] rendering services:: {...} [address] [place] [address] Location of patient:: address listed in demographics for today's visit Patient identification confirmed using:: Name, Telehealth method:: Telephone only. Priya ent not visible to care provider. Consent:: Patient verbally c onsented to treatment, Patient verbally consented to billing insurance company, Patient informed of any privacy concerns related to method of visit Total time spent with patient (mins): 15 Consultation Request Notes Referral Date Referring Provider Referred Provider Not deanna 06/21/2024 Nicolás Bustos NOAH Consult and T reat Severe Left Knee Pain
--- OUTSIDE RECORDS SUMMARY | 2024-06-24 04:45 | XMS_ITS ---
Author Organization Nicolás Bustos III, MD Address [address] [place] [address] Care Team Providers Care Chemistry Lab Instructor Name Role Phone Dr. Nicolás Bustos III Primary Care Provider Allergies Allergen (clinical drug ingredient) Drug/Non Drug Allergy documented on EMR Reaction Allergy Type Onset Date Status Adhesive rash Allergy Active povidone-iodine Betadine Rash Drug Allergy A ctive amoxicillin Amoxicillin Rash Drug Allergy Act jocelin REASON FOR VISIT Telehealth Medications Medication SIG (Take, Route, Frequency, Duration) Notes Start Date End Date Status Tamsulosin HCl 0.4 MG 1 capsule Orally a t bed time Active Finasteride 5 MG TAKE 1 TABLET BY KATHY TH DAILY Oral Active dexAMETHasone 2 MG 1 tablet Orally twic e a day 06/14/2024 Active Cyclobenzaprine HCl 10 MG one tablet Ora lly three times a day 06/14/2024 Active Nabumetone 500 MG 1 tablet Orally Twic e a day Active Metoprolol Tartrate 50 MG 1 tablet with food Orally Twice a day Active Melatonin 5 MG 1 tablet in the even ing Orally Once a day Active Multivitamin/Minerals 1 Tablet Orally Once a day Active Flecainide Acetate 150 MG as directed Orally Active Imbruvica 140 MG 2 tablet Orally Once a day 2023 Active Social History Tobacco Use: Social History [...] Problem Status W/U Status Risk Notes Problem 181199481 Other obesity due to excess calories (E66.09) Active confirmed Problem 282871100 Body mass index [BMI] 30.0-30.9, adult (Z68.30) Active confirmed Problem 109280675 Obesity, class 1 (E66.811) Active confirmed Problem 575481024 Lumbar back pain (M54.50) Active confirmed He is substantially improved since presentation. He was continued on current medication. He will begin to resume the activities of daily living slowly. He has had no falls or incontinence. 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 ; Lumbar back pain M54.50 ; Benign prostatic hyperplasia, unspecified whether lower urinary tract symptoms present N40.0 ; Former smoker Z87.891 ; Essential hypertension I10 ; Atrial fibrillation I48.91 ; Right anterior shoulder pain M25.511 ; Other obesity due to excess calories E66.09 ; Body mass index [BMI] 30.0-30.9, adult Z68.30 and Obesity, class 1 E66.811 Assessments Encounter Date Diagnosis (ICD Code) Assessment Notes T reatment Notes Treatment Clinical Notes 06/24/2024 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 He will be observed carefully. His viscosity is 1.4. The abnormal IgM protein is not detectable. The IgM level is in the normal range. His CBC is unremarkable. 06/24/2024 Lumbar back pain (ICD-10 - M54.50) He is substantially improved since presentation. He was continued on current medication. He will begin to resume the activities of daily living slowly. He has had no falls or incontinence. 06/24/2024 Benign prostatic hyperplasia, unspecified whether lower urinary tract symptoms present (ICD-10 - N40.0) He rises from sleep once a night to urinate. We have discussed lifestyle modifications he could make to reduce nocturia. 06/24/2024 Former smoker (ICD-1 0 - Z87.891) He is motivated not to smoke and we discussed maintenance of abstinence. 06/24/2024 Essential hypertensi on (ICD-10 - I10) His pressure is slightly high, today, but he is in pain and excited. It will be rechecked in the near future. 06/24/2024 Atrial fibrillation (ICD-10 - I48.91) He is in a normal sinus rhythm today. His rate is controlled. 06/24/2024 Right anterior shoul serenity pain (ICD-10 - M25.511) He has a full-thickness tear of the infraspinatus and supraspinatus tendons. He does not know how this happened. He will go back to the orthopedic clinic to discuss treatment. 06/24/2024 Other obesity due to excess calories (ICD-10 - E66.09) 06/24/2024 Body mass index [BMI ] 30.0-30.9, adult (ICD-10 - Z68.30) 06/24/2024 Obesity, class 1 (ICD-10 - E66.811) Plan Of Treatment Medication Medication Name Sig Start Date Stop Date Notes Tamsulosin HCl 0.4 MG 1 capsule Orally at bed time Finasteride 5 MG TAKE 1 TABLET BY KATHY TH DAILY Oral dexAMETHasone 2 MG 1 tablet Orally twice a day 06/14/2024 Cyclobenzaprine HCl 10 MG one tablet Ora lly three times a day 06/14/2024 Nabumetone 500 MG 1 tablet Orally Twice a day Metoprolol Tartrate 50 MG 1 tablet with food Orally Twice a day Melatonin 5 MG 1 tablet in the even ing Orally Once a day Multivitamin/Minerals 1 Tablet Orally Once a day Flecainide Acetate 150 MG as directed Orally Imbruvica 140 MG 2 tablet Orally Once a day 04/06/2023 Next Appt Details Follow Up: 2 Months, Reason: Follow up Provider Name:Nicolás Bustos , 03/02/2025 09:15:00 AM, [address] [place] [address] [address], [place], [address], Provider Name:Nicolás Bustos , 05/05/2025 10:00:00 AM, [address] [place] [address] [place], [address], Progress Notes * Jose POWERSDOB:1950 ([age] yo M)Acc No.[id number]:06/24/2024 Patient: Jose TRENT Provider: Earl Bustos MD :1950 A ge:74 Y S ex:Male Date:06/24/2024 Address:[address] [place] [address] [address], [id number] Subjective: * Chief Complaints: * T elehealth * HPI: * : This telehealth visit took place over 15 minutes with the patient at home and me in my office. He gave consent for billing. This gentleman is low back pain has steadily improved. He says it is a dull ache in his lumbar spine and no longer radiates below the buttocks. He has been compliant with resting and taking his medication. He wants to begin to start to resume normal life. We discussed how rapidly this could be done safely. His x-ray showed only arthritis. Follow-up visit was arranged. Telehealth L ocation of provider rendering services: { ...} [address] [place] [address] [address] [facility] [address] L ocation of patient: mirza ddress listed [...] 5 * ROS: G eneral/Constitutional: pain L umbar spine and left knee. C hills d enies.?Fatigue a dmits. F ever d enies. E NT: Decreased hearing d enies. R espiratory: Cough d enies. C ardiovascular: Chest pain with exertion d enies. D yspnea on exertion?denies. S hortness of breath w ith exertion. G astrointestinal: Constipation o ccasional. D ecreased appetite d enies. D iarrhea d enies. H eartburn d enies. N ausea d enies. R ectal bleeding d enies. V omiting d enies. H ematology: bruising d enies. p etechiae d enies. S wollen glands n one have been noted. G enitourinary: Frequent urination t wice a night. M usculoskeletal: Muscle aches d enies. P ainful joints d enies. S ciatica d enies. W eakness t hat is generalized. S kin: Itching d enies. R aleksandra d enies. S kin lesion(s)?denies. N eurologic: Difficulty speaking d enies. D izziness d enies.?Headache d enies. L ow back pain t hat is new. P sychiatric: Depressed mood w hich is mild. * Medical History: * Surgical History: T onsillectomy child 1956Left wrist tendon surgery age 32's- Dr. Cl Woody at [facility] 1992Sleep Study- Dr. Xiao at . [id number] stapedotomy w/ vein graft- [facility]. [facility] [id number] catheter ablation- [facility]. Vance [facility] 07-15-2011 flutter s/p cardioversion- Dr. Xiao at [facility] [id number] cyst from back- Dr. Willoughby at [facility] [id number] cyst right wrist at [facility] [id number] external hemorrhoid at [facility] 21-32-5940Aefniojluul surgery Rt. ear- Dr. Washington at [facility] [id number] cyst from rectum at [facility] 1986Remove cyst from chest- Dr. Castillo 1976Extract wisdom teeth at [facility] 1975Pericardiocentesis and pericardial window iverticulum, Esophagus 03/2022,09/29/2022No history * Hospitalization/Major Diagno stic Procedure: N o history * Family History: F ather: , Heart disease, diagnosed with HTN. M other: 82 yrs, lung cancer, diagnosed with Cancer. P aternal Grand Father: , alzheimer. M atemary ellen Grand Father: , Blood disorder/ non-clotting disorder. M atemary ellen Grand Mother: 90 yrs, colon cancer, diagnosed [...] does not drink alcohol. He lives in [facility]. He has two daughters Bernice and [...] one tablet Orally three times a day Medication List reviewed and reconciled [...] one tablet Orally three times a day Medication List reviewed and reconciled with the patient * Allergies: A moxicillin: RashBetadine: RashAdhesive: keshav[Allergies Verified] Objective: * Vitals: H t: 69, Wt:209, BMI:30.86, Ht-cm: 175.26, Wt-k.8. Assessment: * Assessment: 1. L umbar back pain - M54.50 (Primary) N otes :He is substantially improved since presentation. He was continued on current medication. He will begin to resume the activities of daily living slowly. Ej miller has had no falls or incontinence. 2 . M alignant lymphoplasmacytic lymphoma - [...] rechecked in the near future. 6 . A trial fibrillation - I48.91 N otes :He is in a normal sinus rhythm today. His rate is controlled. 7 . R ight anterior shoulder pain - M25.511 N otes :He has a full-thickness tear of the infraspinatus and supraspinatus tendons. He does not know how this happened. He will go back to the orthopedic clinic to discuss treatment. 8 . O ther obesity due to excess calories - E66.09 9 . B ilda mass index [BMI] 30.0-30.9, adult - Z68.30 1 0. O besity, class 1 - E66.811? Plan: * Treatment: 2. B enign prostatic hyperplasia, unspecified whether lower urinary tract symptoms present Continue Melatonin Tablet, 5 MG, 1 tablet in the evening, Orally, Once a day. 3. O thers Continue Imbruvica Capsule, 140 MG, 2 tablet, Orally, Once a day; C ontinue Nabumetone Tablet, 500 MG, 1 tablet, Orally, Twice a day. * Procedure Codes: 9 8012 SYNCH AUDIO-ONLY EST SF 10 * Preventive Medicine: Counseling: C are goal [...] done: Medical or Other reason not done * Follow Up: 2 Months (Reason: Follow up) * Images: * Sign off status: Completed true * Provider: Earl Bustos MD Date: 0 06/24/2024 Generated for Michelle pierson/Mikel/Mikeitting on: 1 04/24/2024 08:12 AM EST History and Physical Notes * HPI (History of Present Illness) Category Sub-Category Detail Notes Telehealth Location of [facility] rendering services:: {...} [address] [place] [address] [address] [place] [address] Location of patient:: address listed in demographics [...]
--- OUTSIDE RECORDS SUMMARY | 2024-06-27 04:21 | XMS_ITS ---
Author Organization Nicolás Bustos III, MD Address [address] [place] [address] [place] [address] Care Team Providers Care Building Cleaner Name Role Phone Dr. Nicolás Bustos III Primary Care Provider REASON FOR VISIT Needs call back from Social History Sex Assigned At : Social History Observation Description Sex Assigned At Male Encounters Encounter Location Date Provider Diagnosis Nicolás Bustos III, MD [address] [place] [address] [place] [address] 06/27/2024 Nicolás Bustos Plan Of Treatment Next Appt Details Provider Name:Nicolás Bustos , 03/02/2025 09:15:00 AM, [address] [place] [address] [place], [address], Provider Name:Nicolás Bustos , 05/05/2025 10:00:00 AM, [address] [place] [address] [place], [address], Progress Notes * ASHLEYJoseDOB:1950 ([age] yo M)Acc No.[id number]:06/27/2024 Patient: Jose TRENT :1950 A ge:74 Y S ex:Male Address:[address], [place], [address] * true * Date: Generated for Printi ng/Faxing/eTransmitting on: 04/24/2024 08:08 AM EST
--- OUTSIDE RECORDS SUMMARY | 2024-07-04 06:54 | XMS_ITS ---
Author Organization Nicolás Bustos III, MD Address [address] [place] [address] [place] [address] Care Team Providers Care Dental Office Manager Name Role Phone Dr. 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 He will be observed carefully. His viscosity is 1.4. The abnormal IgM protein is not detectable. The IgM level is in the normal range. His CBC is unremarkable. Plan Of Treatment Medication Medication Name Sig Start Date Stop Date Notes Cyclobenzaprine HCl 10 MG one tablet Ora lly three times a day for 7 days 06/14/2024 08/01/2024 Next Appt Details Provider Name:Nicolás Bustos , 03/02/2025 09:15:00 AM, [address] [place] [address] [place], [address], Provider Name:Nicolás Bustos , 05/05/2025 10:00:00 AM, [address] [place] [address] DR, [facility] [address], [place], [address], Progress Notes * Jose POWERSDOB:1950 ([age] yo M)Acc No.[id number]:07/04/2024 Patient: Jose TRENT :1950 A ge:74 Y S ex:Male Address:[address] [place] [address] [address], [place], [address] * Refills Refill Cyclobenzaprine HCl Tablet, 10 MG, Orally, 21, one tablet, three times a day, 7 days, Refills=3 * true * Date: Generated for Michelle pierson/Mikel/Mikeitting on: 04/24/2024 08:11 AM EST
--- OUTSIDE RECORDS SUMMARY | 2024-09-02 04:00 | XMS_ITS ---
Author Organization Nicolás Bustos III, MD Address [address] [address] Care Team Providers Care Senior It Business Analyst Name Role Phone Dr. Nicolás Bustos III Primary Care Provider Allergies Allergen (clinical drug ingredient) Drug/Non Drug Allergy documented on EMR Reaction Allergy Type Onset Date Status Adhesive rash Allergy Active povidone-iodine Betadine Rash Drug Allergy A ctive amoxicillin Amoxicillin Rash Drug Allergy Act jocelin REASON FOR VISIT Lymphoplasmacytic lymphoma, Hypertension, Lumbar radiculopathy, Benign prostatic hypertrophy, Rightshoulder pain, Elevated PSA, Atrial fibrillation Medications Medication SIG (Take, Route, Frequency, Duration) Notes Start Date End Date Status Multivitamin/Minerals 1 Tablet Orally Once a day Active Flecainide Acetate 150 MG as directed Orally Active Metoprolol Tartrate 50 MG 1 tablet with food Orally Twice a day Active dexAMETHasone 2 MG 1 tablet Orally twic e a day 06/14/2024 Active Imbruvica 140 MG 2 tablet Orally Once a day 2023 Active Tamsulosin HCl 0.4 MG 1 capsule Orally a t bed time Active Finasteride 5 MG TAKE 1 TABLET BY KATHY TH DAILY Oral Active Nabumetone 500 MG 1 tablet Orally Twic e a day Active Melatonin 5 MG 1 [...] non-user Ex-cigaret te smoker Vital Signs Temperature 97.2 degrees Fahrenheit 09/03/19 25 Blood pressure systolic 128 mm Hg 09/03/19 25 Blood pressure diastolic 70 mm Hg 025 Heart Rate 63 /min 09/02/2024 Height 69 in 09/02/2024 Weight 216 lbs 09/02/2024 BMI 31.89 kg/m2 09/02/2024 Encounters Encounter Location Date Provider Diagnosis Nicolás Bustos III, MD [address] [place] [address] [place] [address] 09/02/2024 Nicolás Bustos 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 ; Benign prostatic hyperplasia, unspecified whether lower urinary tract symptoms present N40.0 ; Essential hypertension I10 ; Hyperlipidemia type II E78.01 ; Obesity (BMI 30.0-34.9) E66.9 ; Former smoker Z87.891 ; Dysphagia, unspecified type R13.10 ; Elevated PSA R97.20 ; Right anterior shoulder pain M25.511 and Atrial fibrillation I48.91 Assessments Encounter Date Diagnosis (ICD Code) Assessment Notes T reatment Notes Treatment Clinical Notes 09/02/2024 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 He will be observed carefully. His viscosity is 1.4. The abnormal IgM protein is not detectable. The IgM level is in the normal range. His CBC is unremarkable. 09/02/2024 Benign prostatic hyperplasia, unspecified whether lower urinary tract symptoms present (ICD-10 - N40.0) He rises from sleep once a night to urinate. We have discussed lifestyle modifications he could make to reduce nocturia. 09/02/2024 Essential hypertensi on (ICD-10 - I10) His blood pressure is currently stable no change in his regimen as needed. 09/02/2024 Hyperlipidemia type II (ICD-10 - E78.01) His lipids are currently stable and no change in his regimen. 09/02/2024 Obesity (BMI 30.0-34 .9) (ICD-10 - E66.9) He has gained 7 pounds. We have discussed his diet and nutrition and made a weight loss strategy. 09/02/2024 Former smoker (ICD-1 0 - Z87.891) He is motivated not to smoke and we discussed maintenance of abstinence. 09/02/2024 Dysphagia, unspecifi ed type (ICD-10 - R13.10) This has resolved. 09/02/2024 Elevated PSA (ICD-10 - R97.20) The PSA was 5.67, but when it was repeated with a free PSA it was 4.7 with a free PSA of 11%.His PSA is now 4.2. He is under the care of urology. 09/02/2024 Right anterior shoul serenity pain (ICD-10 - M25.511) He has a full-thickness tear of the infraspinatus and supraspinatus tendons. He does not know how this happened. He has been back to the orthopedic clinic to discuss treatment.They have recommended shoulder replacement. He is considering this. 09/02/2024 Atrial fibrillation (ICD-10 - I48.91) He is in a normal sinus rhythm today. His rate is controlled. Plan Of Treatment Medication Medication Name Sig Start Date Stop Date Notes Multivitamin/Minerals 1 Tablet Orally Once a day Flecainide Acetate 150 MG as directed Orally Metoprolol Tartrate 50 MG 1 tablet with food Orally Twice a day dexAMETHasone 2 MG 1 tablet Orally twice a day 06/14/2024 Imbruvica 140 MG 2 tablet Orally Once a day 04/06/2023 Tamsulosin HCl 0.4 MG 1 capsule Orally at bed time Finasteride 5 MG TAKE 1 TABLET BY KATHY TH DAILY Oral Nabumetone 500 MG 1 tablet Orally Twice a day Melatonin 5 MG 1 tablet in the even ing Orally Once a day Pending Test Test Name Order Date PROFILE, FASTING (COMPREHENSIVE METABOLI C) 09/02/2024 CBC w DIFF 09/02/2024 IMMUNOFIXATION PANEL, SERUM (IEP) 2024 PROTEIN ELECTROPHORESIS, SERUM 5 VISCOSITY 09/02/2024 Lipid Panel 09/02/2024 PSA Free and Total 09/02/2024 Next Appt Details Follow Up: 3 Months, Reason: OV Provider Name:Nicolás Bustos , 03/02/2025 09:15:00 AM, [address] [place] [address] [address], [place], [address], Provider Name:Nicolás Bustos , 05/05/2025 10:00:00 AM, [address] [place] [address] [address], [place], [address], Progress Notes * Jose POWERSDOB:1950 ([age] yo M)Acc No.[id number]:09/02/2024 Progress Notes Patient: Jose TRENT Provider: Earl Bustos MD :1950 A ge:74 Y S ex:Male Date:09/02/2024 Address:[address] [place] [address], [facility] [address], [id number] Subjective: * Chief Complaints: * L ymphoplasmacytic lymphomaHypertensionLumbar radiculopathyBenign prostatic hypertrophyRight shoulder painElevated PSAAtrial fibrillation * HPI: C OVID-19 Screening: He returns for medical management.He recently saw his clinical assistant wants a stress test which is being scheduled. A sterile orthopedic surgeon who is recommending a right shoulder replacement. The stress test has been ordered. He has pondering the shoulder surgery. Comprehensive blood work was available and was reviewed. No change in his regimen was necessary today. His back pain is improving. He is trying to lose weight. His heart rate is well controlled. Questions H ave you had any new onset fever, chills, cough, congestion, sore throat, shortness of breath, muscle aches? N o * ROS: G eneral/Constitutional: pain R ight shoulder, otherwise only normal aches and pains. C hills d enies. F atigue a [...] Muscle aches d enies. P ainful joints R ight shoulder and lumbar spine. S ciatica d enies. W eakness d enies. S kin: Itching d enies. R aleksandra d enies. S kin lesion(s)?denies. N eurologic: Difficulty speaking d enies. D izziness d enies.?Headache d enies. L ow back pain t hat is chronic. P sychiatric: Depressed mood w hich is mild. * Medical History: * Surgical History: T onsillectomy child 1956Left wrist tendon surgery age 32's- Dr. Cl Woody at [facility] 1992Sleep Study- Dr. Xiao at [facility] [id number] stapedotomy w/ vein graft- Dr. Chin at [facility] [id number] catheter ablation- Dr. Vance at [facility] 07-15-2011 flutter s/p cardioversion- Dr. Xiao at [facility] [id number] cyst from back- Dr. Willoughby at [facility] [id number] cyst right wrist at [facility] [id number] external hemorrhoid at [facility] [id number] surgery Rt. ear- Dr. Washington at [facility] 20-11-1946Qjwtuo cyst from rectum at [facility] 1986Remove cyst from chest- Dr. Castillo 1976Extract wisdom teeth at [facility] 1975Pericardiocentesis and pericardial window iverticulum, Esophagus [...] does not drink alcohol. He lives in [facility]. He has two daughters Bernice and [...] Tablet 1 tablet Orally twice a day Medication List reviewed and reconciled [...] Tablet 1 tablet Orally twice a day Medication List reviewed and reconciled with the patient * Allergies: A moxicillin: RashBetadine: RashAdhesive: edelmirano[Allergies Verified] Objective: * Vitals: H t: 69, Wt:216, BMI:31.89, BP:128/70, HR:63, Temp:97.2, Ht-cm: 175.26, Wt-k.98. * P ast Orders: Lab:Lipid Panel * Collection Date 08/25/2024 04/04/2024 10/20/2023 Collection Time 07:38 AM 09:26 AM 07:40 AM Order Date 08/25/2024 04/04/2024 10/20/2023 Triglycerides 84 (Ref Range: <150 mg/dL) 97 (Ref Range: <150 mg/dL) 84 (Ref Range: <150 mg/dL) Cholesterol 171 (Ref Range: <200 mg/dL) 250 H (Ref Range: <200 mg/dL) 162 (Ref Range: <200 mg/dL) LDL Cholesterol Calculated 74 (Ref Range: <100 mg/dL) 158 H (Ref Range: <100 mg/dL) 79 (Ref Range: <100 mg/dL) HDL Cholesterol 81 (Ref Range: >40 mg/dL) 73 (Ref Range: >40 mg/dL) 67 (Ref Range: >40 mg/dL) * Lab:PSA Free and Total * Collection Date 08/25/2024 04/04/2024 10/28/2023 Collection Time 07:38 AM 10:56 AM 11:00 AM Order Date 08/25/2024 04/04/2024 10/28/2023 Prostate Specific Ag Total 4.2 A (Ref Range: < OR = 4.0 ng/mL) 4.8 A (Ref Range: < OR = 4.0 ng/mL) 4.7 A (Ref Range: < OR = 4.0 ng/mL) Percent Free Prostate Spec Ag 12 A (Ref Range: >25 % (calc)) 15 A (Ref Range: >25 % (calc)) 11 A (Ref Range: >25 % (calc)) Free Prostate Spec Ag 0.5 (Ref Range: ng/mL) 0.7 (Ref Range: ng/mL) 0.5 (Ref Range: ng/mL) ???Lab:Free T4 (Free Thyroxine) (Order Date - 08/25/2024) (Collection Date & Time - 08/25/2024 07:38 AM)?ValueReference Range?Free T4 (Free Thyroxine)1.090.71-1.85 - ng/dL * Lab:Complete Blood Count Aut o Diff * Collection Date 08/25/2024 04/04/2024 10/20/2023 Collection Time 07:38 AM 09:26 AM 07:40 AM Order Date 08/25/2024 04/04/2024 10/20/2023 White Blood Count 9.1 (Ref Range: 4.8-10.8 X10*3/uL) 8.7 (Ref Range: 4.8-10.8 X10*3/uL) 7.1 (Ref Range: 4.8-10.8 X10*3/uL) Red Blood Count 4.81 (Ref Range: 4.60-5.80 X10*6/uL) 4.99 (Ref Range: 4.60-5.80 X10*6/uL) 4.79 (Ref Range: 4.60-5.80 X10*6/uL) Hemoglobin 14.4 (Ref Range: 14.0-18.0 g/dl) 14.6 (Ref Range: 14.0-18.0 g/dl) 14.6 (Ref Range: 14.0-18.0 g/dl) Hematocrit 41.6 L (Ref Range: 42.0-52.0 %) 42.8 (Ref Range: 42.0-52.0 %) 42.1 (Ref Range: 42.0-52.0 %) Mean Corpuscular Volume 86.5 (Ref Range: 80.0-98.0 fL) 85.8 (Ref Range: 80.0-98.0 fL) 87.9 (Ref Range: 80.0-98.0 fL) Mean Corpuscular Hemoglobin 29.9 (Ref Range: 27.0-33.0 pg) 29.3 (Ref Range: 27.0-33.0 pg) 30.5 (Ref Range: 27.0-33.0 pg) Mean Corpuscular HGB Conc 34.6 (Ref Range: 31.0-36.0 g/dl) 34.1 (Ref Range: 31.0-36.0 g/dl) 34.7 (Ref Range: 31.0-36.0 g/dl) Red Cell Distribution Width 14.5 (Ref Range: 11.0-16.0 %) 13.5 (Ref Range: 11.0-16.0 %) 13.2 (Ref Range: 11.0-16.0 %) Platelet Count 198 (Ref Range: 160-400 X10*3/uL) 228 (Ref Range: 160-400 X10*3/uL) 214 (Ref Range: 160-400 X10*3/uL) Mean Platelet Volume 11.8 (Ref Range: 9.4-12.4 fL) 11.5 (Ref Range: 9.4-12.4 fL) 11.8 (Ref Range: 9.4-12.4 fL) Neutrophils Percent Auto 46.8 (Ref Range: 45-73 %) 54.3 (Ref Range: 45-73 %) 50.3 (Ref Range: 45-73 %) Imm Gran Pct Auto 0.6 H (Ref Range: 0.0-0.4 %) 0.6 H (Ref Range: 0.0-0.4 %) 0.6 H (Ref Range: 0.0-0.4 %) Lymphocytes Percent Auto 39.0 (Ref Range: 20-40 %) 33.4 (Ref Range: 20-40 %) 34.7 (Ref Range: 20-40 %) Monocytes Percent Auto 10.4 (Ref Range: 2-11 %) 9.3 (Ref Range: 2-11 %) 11.0 (Ref Range: 2-11 %) Eosinophils Percent Auto 2.6 (Ref Range: 0-4 %) 1.8 (Ref Range: 0-4 %) 3.0 (Ref Range: 0-4 %) Basophils Percent Auto 0.6 (Ref Range: 0-2 %) 0.6 (Ref Range: 0-2 %) 0.4 (Ref Range: 0-2 %) NRBC Pct Auto 0.0 (Ref Range: 0.0-0.2 /100WBC) 0.0 (Ref Range: 0.0-0.2 /100WBC) 0.0 (Ref Range: 0.0-0.2 /100WBC) Neutrophils Absolute Auto 4.3 (Ref Range: 2.0-8.3 x10*3/uL) 4.7 (Ref Range: 2.0-8.3 x10*3/uL) 3.6 (Ref Range: 2.0-8.3 x10*3/uL) Imm Gran Abs Auto 0.05 H (Ref Range: 0.00-0.03 X10*3/uL) 0.05 H (Ref Range: 0.00-0.03 X10*3/uL) 0.04 H (Ref Range: 0.00-0.03 X10*3/uL) Lymphocytes Absolute Auto 3.5 (Ref Range: 1.2-4.9 X10*3/uL) 2.9 (Ref Range: 1.2-4.9 X10*3/uL) 2.5 (Ref Range: 1.2-4.9 X10*3/uL) Monocytes Absolute Auto 0.9 (Ref Range: 0.1-1.2 X10*3/uL) 0.8 (Ref Range: 0.1-1.2 X10*3/uL) 0.8 (Ref Range: 0.1-1.2 X10*3/uL) Eosinophils Absolute Auto 0.2 (Ref Range: 0.0-0.4 X10*3/uL) 0.2 (Ref Range: 0.0-0.4 X10*3/uL) 0.2 (Ref Range: 0.0-0.4 X10*3/uL) Basophils Absolute Auto 0.1 (Ref Range: 0.0-0.2 X10*3/uL) 0.1 (Ref Range: 0.0-0.2 X10*3/uL) 0.0 (Ref Range: 0.0-0.2 X10*3/uL) NRBC Abs Auto 0.000 (Ref Range: 0.0-0.012 X10*3/uL) 0.000 (Ref Range: 0.0-0.012 X10*3/uL) 0.000 (Ref Range: 0.0-0.012 X10*3/uL) ???Lab:Thyroid Stimulating Hormone (Order Date - 08/25/2024) (Collection Date & Time - 08/25/2024 07:38 AM)?ValueReference Range?Thyroid Stimulating Hormone2.230.32-4.0 - uIU/mL * Lab:Viscosity * Collection Date 08/25/2024 04/04/2024 12/29/2022 Collection Time 07:38 AM 09:26 AM 08:00 AM Order Date 08/25/2024 04/04/2024 12/29/2022 Viscosity 1.5 (Ref Range: 1.5-1.9 rel to H2O) 1.5 (Ref Range: 1.5-1.9 rel to H2O) 1.5 (Ref Range: 1.5-1.9 rel to H2O) * Lab:Mauricio Bowens. Serge l Fast * Collection Date 08/25/2024 04/04/2024 10/20/2023 Collection Time 07:38 AM 09:26 AM 07:40 AM Order Date 08/25/2024 04/04/2024 10/20/2023 Sodium 140 (Ref Range: 135-145 mmol/L) 136 (Ref Range: 135-145 mmol/L) 140 (Ref Range: 135-145 mmol/L) Bilirubin Total 0.8 (Ref Range: 0.0-1.0 mg/dL) 0.7 (Ref Range: 0.0-1.0 mg/dL) 0.6 (Ref Range: 0.0-1.0 mg/dL) Aspartate Amino Transferase 37 (Ref Range: 5-37 U/L) 35 (Ref Range: 5-37 U/L) 34 (Ref Range: 5-37 U/L) Alanine Aminotransferase 32 (Ref Range: 0-40 U/L) 33 (Ref Range: 0-40 U/L) 32 (Ref Range: 0-40 U/L) Total Protein 5.4 L (Ref Range: 6.5-8.0 g/dL) 6.0 L (Ref Range: 6.5-8.0 g/dL) 5.5 L (Ref Range: 6.5-8.0 g/dL) Albumin Level 4.0 (Ref Range: 3.5-5.0 g/dL) 4.0 (Ref Range: 3.5-5.0 g/dL) 3.9 (Ref Range: 3.5-5.0 g/dL) Alkaline Phosphatase 110 (Ref Range: 39-117 U/L) 112 (Ref Range: 39-117 U/L) 123 H (Ref Range: 39-117 U/L) Potassium 3.7 (Ref Range: 3.3-5.1 mmol/L) 4.4 (Ref Range: 3.3-5.1 mmol/L) 4.5 (Ref Range: 3.3-5.1 mmol/L) Chloride 105 (Ref Range: 96-108 mmol/L) 103 (Ref Range: 96-108 mmol/L) 103 (Ref Range: 96-108 mmol/L) Carbon Dioxide 26 (Ref Range: 22-29 mmol/L) 27 (Ref Range: 22-29 mmol/L) 27 (Ref Range: 22-29 mmol/L) Anion Gap 13 (Ref Range: 12-20) 10 L (Ref Range: 12-20) 15 (Ref Range: 12-20) Blood Urea Nitrogen 16 (Ref Range: 9-16 mg/dL) 20 H (Ref Range: 9-16 mg/dL) 13 (Ref Range: 9-16 mg/dL) Creatinine 0.89 (Ref Range: 0.5-1.4 mg/dL) 0.83 (Ref Range: 0.5-1.4 mg/dL) 0.99 (Ref Range: 0.5-1.4 mg/dL) Estimated Glomerular Filt Rate > 60 > 60 > 60 Glucose Fasting 97 (Ref Range: 60-99 mg/dL) 77 (Ref Range: 60-99 mg/dL) 103 H (Ref Range: 60-99 mg/dL) Calcium 8.8 (Ref Range: 8.4-10.2 mg/dL) 8.7 (Ref Range: 8.4-10.2 mg/dL) 8.8 (Ref Range: 8.4-10.2 mg/dL) * Examination: G eneral Examination: GENERAL APPEARANCE: p leasant, well nourished, well developed, in no acute distress, calm and relaxed,obese, man. HEAD: a traumatic, normocephalic. EYES: e corwin, perrla, anicteric, conjugate. EARS: n ormal. NOSE: s eptum intact. ORAL CAVITY: n ormal, unremarkable. NECK/THYROID: n o jugular venous distention, no carotid bruit, thyroid normal. LYMPH NODES: n o enlarged lymph nodes,spleen normal. SKIN: n o suspicious lesions, anicteric. HEART: n o clicks, gallops, murmurs, or rubs, irregular rhythm, S1, S2 normal, no s3, or vascular bruits. LUNGS: c lear to auscultation . BREASTS: no masses palpable bilaterally. ABDOMEN: b owel sounds normal, no ascites, no organomegaly, no mass, centripital obesity. RECTAL EXAM: n ot examined. MUSCULOSKELETAL: P ain to range of motion right. PERIPHERAL PULSES: n ormal. NEUROLOGIC: a lert [...] - I10 N otes :His blood pressure is currently stable no change in his regimen as needed. 4. H yperlipidemia type II - E78.01 N otes :His lipids are currently stable and no change in his regimen. 5 . O besity (BMI 30.0-34.9) - E66.9 N otes :He has gained 7 pounds. We have discussed his diet and nutrition and made a weight loss strategy. 6 . F ormer smoker - Z87.891 N otes :He is motivated not to smoke and we discussed maintenance of abstinence. 7 . D ysphagia, unspecified type - R13.10 N otes :This has resolved. 8 . E levated PSA - R97.20 N otes :The PSA was 5.67, but when it was repeated with a free PSA it was 4.7 with a free PSA of 11%.His PSA is now 4.2. He is under the care of urology. 9 . R ight anterior shoulder pain - M25.511 N otes :He has a full-thickness tear of the infraspinatus and supraspinatus tendons. He does not know how this happened. He has been back to the orthopedic clinic to discuss treatment.They have recommended shoulder replacement. He is considering this. 1 0. A trial fibrillation - I48.91 N otes :He is in a normal sinus rhythm today. His rate is controlled. Plan: * Treatment: 2. B enign prostatic hyperplasia, unspecified whether lower urinary tract symptoms present Continue Melatonin Tablet, 5 MG, 1 tablet in the evening, Orally, Once a day. L AB: PROFILE, FASTING (COMPREHENSIVE METABOLIC) L AB: CBC w DIFF L AB: IMMUNOFIXATION PANEL, SERUM (IEP) L AB: PROTEIN ELECTROPHORESIS, SERUM L AB: VISCOSITY L AB: Lipid Panel L AB: PSA Free and Total 3. E ssential hypertension L AB: PROFILE, FASTING (COMPREHENSIVE METABOLIC) L AB: CBC w DIFF L AB: IMMUNOFIXATION PANEL, SERUM (IEP) L AB: PROTEIN ELECTROPHORESIS, SERUM L AB: VISCOSITY L AB: Lipid Panel L AB: PSA Free and Total 4. H yperlipidemia type II L AB: PROFILE, FASTING (COMPREHENSIVE METABOLIC) L AB: CBC w DIFF L AB: IMMUNOFIXATION PANEL, SERUM (IEP) L AB: PROTEIN ELECTROPHORESIS, SERUM L AB: VISCOSITY L AB: Lipid Panel L AB: PSA Free and Total 5. O besity (BMI 30.0-34.9) L AB: PROFILE, FASTING (COMPREHENSIVE METABOLIC) L AB: CBC w DIFF L AB: IMMUNOFIXATION PANEL, SERUM (IEP) L AB: PROTEIN ELECTROPHORESIS, SERUM L AB: VISCOSITY L AB: Lipid Panel L AB: PSA Free and Total 6. O thers Continue Imbruvica Capsule, 140 MG, [...] tobacco use and urged to quit. 0 09/02/2024 * Follow Up: 3 Months (Reason: OV) * Images: * Sign off status: Completed true * Provider: Earl Bustos MD Date: 0 09/02/2024 Generated for Printi ng/Farashmig/eTransmitting on: 1 04/24/2024 08:10 AM EST History and Physical Notes * HPI (History of Present Illness) Category Sub-Category Detail Notes COVID-19 Screening Questions Have you had any new onset fever, chills, cough, congestion, sore throat, shortness of breath, muscle aches?: No Examination Category Sub-Category Detail Notes General Examination GENERAL APPEARANCE: pleasant , well nourished, well developed, in no acute distress, calm and relaxed,obese, man HEAD: atraumatic, normocep halic EYES: eomi, perrla, anicte leda, conjugate EARS: normal NOSE: septum intact NECK/THYROID: no jugular venous di stention, no carotid bruit, thyroid normal HEART: no clicks, gallops, murmurs, or rubs, irregular rhythm, S1, S2 normal, no s3, or [...] BREASTS: no masses palpable b ilaterally MUSCULOSKELETAL: Pain to range of mot ion right LYMPH NODES: no enlarged lymph no keya,spleen normal RECTAL EXAM: not examined PSYCH: alert, oriented ORAL CAVITY: normal, unremarkable
--- OUTSIDE RECORDS SUMMARY | 2024-09-23 08:30 | XMS_ITS ---
Author Organization Nicolás Bustos III, MD Address [address] [place] [address] Care Team Providers Care Public Works Supervisor Name Role Phone Dr. Nicolás Bustos III Primary Care Provider [phone] Allergies Allergen (clinical drug ingredient) Drug/Non Drug Allergy documented on EMR Reaction Allergy Type Onset Date Status Adhesive rash Allergy Active povidone-iodine Betadine Rash Drug Allergy A ctive amoxicillin Amoxicillin Rash Drug Allergy Act jocelin Reason For Referral Reason right great toe ingr own nail Diagnosis 1 Ingrown nail (L60.0) Referral Organization Nicolás Bustos III, MD Referring Provider First Name Nicolás Referring Provider Last Name Juli Referring Provider Speciality Internal M edicine Referred Provider MILAD LYNN Referred Provider Specialty Podiatry General Notes Margarita Betancourt 09/26/2024 09:30:58 AM > Patient would like to see Dr. Ricketts and would need a referral faxed prior to scheduling the appointment. Referral and progress note has been faxed.Ximena Suzanne CMA 09/28/2024 09:40:46 AM > ref with progress note faxed to Dr Lynn office Referral Priority Routine Referral Appointment Date 11/16/2024 REASON FOR VISIT Infection right first toe ingrown toenail, Lymphoplasmacytic lymphoma, Hypertension, Benign prostatic hypertrophy, Atrial fibrillation, Right shoulder pain, Elevated PSA, Obesity Medications Medication SIG (Take, Route, Frequency, Duration) Notes Start Date End Date Status dexAMETHasone 2 MG 1 tablet Orally twic e a day 06/14/2024 Active Imbruvica 140 MG 2 tablet Orally Once a day 2023 Active Multivitamin/Minerals 1 Tablet Orally Once a day Active Metoprolol Tartrate 50 MG 1 tablet with food Orally Twice a day Active Flecainide Acetate 150 MG as directed Orally Active Tamsulosin HCl 0.4 MG 1 capsule Orally a t bed time Active Melatonin 5 MG 1 tablet in the even ing Orally Once a day Active Nabumetone 500 MG 1 tablet Orally Twic e a day Active Finasteride 5 MG TAKE 1 TABLET BY KATHY TH DAILY Oral Active Social History Tobacco Use: Social History Observation Description Date Details (start date - stop date) Former Smoker NA - NA Sex Assigned At : Social History Observation Description Sex Assigned At Male Tobacco Control (Standard) Question Answer Notes Tobacco use: Former smoker How long has it been since you last smoked? 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 He will be observed carefully. His viscosity is 1.4. The abnormal IgM protein is not detectable. The IgM level is in the normal range. His CBC is unremarkable. 09/23/2024 Ingrown right big toenail (ICD-10 - L60.0) The area may need to be debrided. He was referred to podiatry for definitive treatment. 09/23/2024 Benign prostatic hyperplasia, unspecified whether lower urinary tract symptoms present (ICD-10 - N40.0) He rises from sleep once a night to urinate. We have discussed lifestyle modifications he could make to reduce nocturia. 09/23/2024 Essential hypertensi on (ICD-10 - I10) His blood pressure is currently stable no change in his regimen as needed. 09/23/2024 Former smoker (ICD-1 0 - Z87.891) He is motivated not to smoke and we discussed maintenance of abstinence. 09/23/2024 Obesity (BMI 30.0-34 .9) (ICD-10 - E66.9) He has gained 7 pounds. We have discussed his diet and nutrition and made a weight loss strategy. 09/23/2024 Lumbago with sciatic a, left side (ICD-10 - M54.42) This appears to be nerve impingement in the lumbar spine. He was given dexamethasone and cyclobenzaprine. He will rest as much as possible in the position and use heat. 09/23/2024 Lumbago with sciatic a, right side (ICD-10 - M54.41) He continues to have intermittent chronic mild low back pain. Plan Of Treatment Medication Medication Name Sig Start Date Stop Date Notes dexAMETHasone 2 MG 1 tablet Orally twice a day 06/14/2024 Imbruvica 140 MG 2 tablet Orally Once a day 04/06/2023 Multivitamin/Minerals 1 Tablet Orally Once a day Metoprolol Tartrate 50 MG 1 tablet with food Orally Twice a day Flecainide Acetate 150 MG as directed Orally Tamsulosin HCl 0.4 MG 1 capsule Orally at bed time Melatonin 5 MG 1 tablet in the even ing Orally Once a day Nabumetone 500 MG 1 tablet Orally Twice a day Finasteride 5 MG TAKE 1 TABLET BY KATHY TH DAILY Oral Referrals Referral Date Details 09/23/2024 09/23/2024, right gr eat toe ingrown nail, MILAD LYNN Next Appt Details Follow Up: as scheduled, Sandhya son: ov Provider Name:Nicolás Bustos , 03/02/2025 09:15:00 AM, [address] [place] [address] DR, [facility] [address], [place], [address], Provider Name:Nicolás Bustos , 05/05/2025 10:00:00 AM, [address] [place] [address] [address], [place], [address], Progress Notes * Jose RAMIREZDOB:1950 ([age] yo M)Acc No.[id number]:09/23/2024 Patient: Jose TRENT Provider: Earl Bustos MD :1950 A ge:74 Y S ex:Male Date:09/23/2024 Address:[address] [place] [address] [address], [id number] Subjective: * Chief Complaints: * I nfection right first toe ingrown toenailLymphoplasmacytic lymphomaHypertensionBenign prostatic hypertrophyAtrial fibrillationRight shoulder painElevated PSAObesity * HPI: v : Ej miller has developed an ingrown toenail on the right first toe which he has been trimming himself. This caused a mild infection in the growth of a mass of soft red tissue along the medial cuticle. He has been washing this with peroxide to no avail. It is mildly painful.? On physical examination the medial side of nail could not be seen due to the overgrowth of tissue. He was encouraged to stop cutting the toenail and to wash the area with soap and water daily. He was referred to podiatry for definitive diagnosis and treatment. * ROS: G eneral/Constitutional: pain L ow back pain, right first toe. C hills d enies. F atigue a [...] surgery age 32's- Dr. Cl Woody at [facility] 1992Sleep Study- Dr. Xiao at [facility] [id number] stapedotomy w/ vein graft- Dr. Chin at [facility] 81-19-4042Flcxrkbczjbjwu catheter ablation- Dr. Vance at [facility] 07-15-2011 flutter s/p cardioversion- Dr. Xiao at [facility] [id number] cyst from back- Dr. Willoughby at [facility] 97-28-3596Qjhpxd cyst right wrist at [facility] [id number] external hemorrhoid at [facility] 85-28-5403Bgudvugicde surgery Rt. ear- Dr. Washington at [facility] 06-25-1338Vjyewb cyst from rectum at [facility] 1986Remove cyst from chest- Dr. Castillo 1976Extract wisdom teeth at [facility] 1975Pericardiocentesis and pericardial window iverticulum, Esophagus [...] does not drink alcohol. He lives in [facility]. He has two daughters Bernice and [...] Verified] Objective: * Vitals: H t: 69, Wt:214, BMI:31.6, BP:125/78, HR:77, Temp:98.1, Ht-cm: 175.26, Wt-k.07. * Examination: G eneral Examination: GENERAL APPEARANCE: [...] e xtremities unremarkable, no clubbing, cyanosis or edema,Overgrowth of tissue medial right first toe which bleeds to catch, Mild erythema medial toe. PERIPHERAL PULSES: n ormal. NEUROLOGIC: a lert and oriented, cranial nerves 2-12 grossly intact, deep tendon reflexes 2+ symmetrical, motor strength normal upper and lower extremities, sensory exam intact. PSYCH: a lert, oriented, anxious appearing. ? Assessment: * Assessment: 1. I ngrown right big toenail - L60.0 (Primary) N otes :The area may need to be debrided. He was referred to podiatry for definitive treatment. 2 . M alignant lymphoplasmacytic lymphoma - [...] could make to reduce nocturia. 4 . E ssential hypertension - I10 N otes :His blood pressure is currently stable no change in his regimen as needed. 5 . F ormer smoker - Z87.891 N otes :He is motivated not to smoke and we discussed maintenance of abstinence. 6 . O besity (BMI 30.0-34.9) - E66.9 N otes :He has gained 7 pounds. We have discussed his diet and nutrition and made a weight loss strategy. 7 . L umbago with sciatica, left side - M54.42 N otes :This appears to be nerve impingement in the lumbar spine. He was given dexamethasone and cyclobenzaprine. He will rest as much as possible in the position and use heat. 8 . L umbago with sciatica, right side - M54.41 N otes :He continues to have intermittent chronic mild low back pain. Plan: * Treatment: 2. B enign prostatic hyperplasia, unspecified whether lower urinary tract symptoms present Continue Melatonin Tablet, 5 MG, 1 tablet in the evening, Orally, Once a day. 3. O thers Continue Imbruvica Capsule, 140 MG, 2 tablet, Orally, Once a day; C ontinue Nabumetone Tablet, 500 MG, 1 tablet, Orally, Twice a day. Referral To:Podiatry Reason:right great toe ingrown nail * Procedure Codes: * Preventive Medicine: Counseling: [...] tobacco use and urged to quit. 0 09/23/2024 * Follow Up: a s scheduled (Reason: ov) * Images: * Sign off status: Completed true * Provider: Earl Bustos MD Date: 0 09/23/2024 Generated for Michelle pierson/Mikel/Mikeitting on: 1 04/24/2024 08:10 AM EST History and Physical Notes * Examination Category Sub-Category Detail Notes General Examination [...] extremities unremark able, no clubbing, cyanosis or edema,Overgrowth of tissue medial right first toe which bleeds to catch, Mild erythema medial toe LYMPH NODES: no enlarged lymph no keya,spleen normal RECTAL EXAM: not examined PSYCH: alert, oriented, anx ious appearing ORAL CAVITY: normal, unremarkable Consultation Request Notes Referral Date Referring Provider Referred Provider Taylor huerta 09/23/2024 Nicolás Bustos CHRISTOPHER right gre at toe ingrown nail
--- OUTSIDE RECORDS SUMMARY | 2024-12-02 04:15 | XMS_ITS ---
Author Organization Nicolás Bustos III, MD Address [address] [place] [address] Care Team Providers Care Fishing Lure Assembler Name Role Phone Dr. Nicolás Bustos III Primary Care Provider Allergies Allergen (clinical drug ingredient) Drug/Non Drug Allergy documented on EMR Reaction Allergy Type Onset Date Status Adhesive rash Allergy Active povidone-iodine Betadine Rash Drug Allergy A ctive amoxicillin Amoxicillin Rash Drug Allergy Act jocelin REASON FOR VISIT Lymphoplasmacytic lymphoma, Macroglobulinemia, Hypertension, Atrial flutter, Carpal tunnel syndrome, Prostatic hypertrophy, Obesity, Hyperlipidemia, Low back pain Medications Medication SIG (Take, Route, Frequency, Duration) Notes Start Date End Date Status Nabumetone 500 MG 1 tablet Orally Twic e a day Active Finasteride 5 MG TAKE 1 TABLET BY KATHY TH DAILY Oral Active Tamsulosin HCl 0.4 MG 1 capsule Orally a t bed time Active Melatonin 5 MG 1 tablet in the even ing Orally Once a day Active dexAMETHasone 2 MG 1 tablet Orally twic e a day 06/14/2024 Active Metoprolol Tartrate 50 MG 1 tablet with food Orally Twice a day Active Flecainide Acetate 150 MG as directed Orally Active Multivitamin/Minerals 1 Tablet Orally Once a [...] smoker Vital Signs Temperature 97.3 degrees Fahrenheit 12/03/19 25 Blood pressure systolic 137 mm Hg 12/03/19 25 Blood pressure diastolic 77 mm Hg 025 Heart Rate 71 /min 12/02/2024 Height 69 in 12/02/2024 Weight 212 lbs 12/02/2024 BMI 31.3 kg/m2 12/02/2024 Encounters Encounter Location Date Provider Diagnosis Nicolás Bustos III, MD [address] [place] [address] [address] [place], [place] [address] 12/02/2024 Nicolás Bustos 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 He will be observed carefully. His viscosity is 1.4. The abnormal IgM protein is not detectable. The IgM level is in the normal range. His CBC is unremarkable. 12/02/2024 Benign prostatic hyperplasia, unspecified whether lower urinary tract symptoms present (ICD-10 - N40.0) He rises from sleep once a night to urinate. We have discussed lifestyle modifications he could make to reduce nocturia. 12/02/2024 Hyperlipidemia type II (ICD-10 - E78.01) His lipids, remain stable. No change in his regimen is necessary. 12/02/2024 Obesity (BMI 30.0-34 .9) (ICD-10 - E66.9) He has lost 2 pounds. His body mass index remains in the obese range. We discussed diet and nutrition at length today. We reviewed his weight loss strategy. 12/02/2024 Former smoker (ICD-1 0 - Z87.891) He is motivated not to smoke and we discussed maintenance of abstinence. 12/02/2024 Waldenstrom macroglobulinemia (ICD-10 - C88.0) His IgM level and viscosity are stable. He does not require additional treatment at this time.A repeat viscosity has been ordered 12/02/2024 Essential hypertensi on (ICD-10 - I10) His blood pressure is currently stable no change in his regimen as needed. 12/02/2024 Atrial flutter (ICD- 10 - I48.92) He is in sinus rhythm today. He is taking metoprolol and flecainide. Plan Of Treatment Medication Medication Name Sig Start Date Stop Date Notes Nabumetone 500 MG 1 tablet Orally Twice a day Finasteride 5 MG TAKE 1 TABLET BY KATHY TH DAILY Oral Tamsulosin HCl 0.4 MG 1 capsule Orally at bed time Melatonin 5 MG 1 tablet in the even ing Orally Once a day dexAMETHasone 2 MG 1 tablet Orally twice a day 06/14/2024 Metoprolol Tartrate 50 MG 1 tablet with food Orally Twice a day Flecainide Acetate 150 MG as directed Orally Multivitamin/Minerals 1 Tablet Orally Once a day Imbruvica 140 MG 2 tablet Orally Once a day 04/06/2023 Pending Test Test Name Order Date PROFILE, FASTING (COMPREHENSIVE METABOLI C) 12/02/2024 CBC w DIFF 12/02/2024 IMMUNOFIXATION PANEL, SERUM (IEP) 2024 PROTEIN ELECTROPHORESIS, SERUM Lipid Panel 12/02/2024 Next Appt Details Follow Up: , Reason: ov Provider Name:Nicolás Bustos , 03/02/2025 09:15:00 AM, [address] [place] [address] [address], [place], [address], Provider Name:Nicolás Bustos , 05/05/2025 10:00:00 AM, [address] [place] [address] [address], [place], [address], Progress Notes * ASHLEYJoseDOB:1950 ([age] yo M)Acc No.[id number]:12/02/2024 Progress Notes Patient: Jose TRENT Provider: Earl Bustos MD :1950 A ge:74 Y S ex:Male Date:12/02/2024 Address:[address] [place] [address], [address], [place], [id number] Subjective: * Chief Complaints: * L ymphoplasmacytic lymphomaMacroglobulinemiaHypertensionAtrial flutterCarpal tunnel syndromeProstatic hypertrophyObesityHyperlipidemiaLow back pain * HPI: C OVID-19 Screening: saw mag newman, clipped toenail, to see derm yessenia way soonThank you. He was seen recently because of an infected right first toe and ingrown toenail. He was treated with an antibiotic and referred to podiatry. The drama therapist i injected and anesthetic and reduce the nail which is now healing. The infection has reesolved. He is due to see his collarette separator, Yessenia Way, in the near future. He feels generally healthy and well. His examination showed no sign of malignancy. His blood work was reviewed with him in detail. He continues his efforts at weight loss. He is experiencing nocturia only once a night. These days. Questions H ave you had any new onset fever, chills, cough, congestion, sore throat, shortness of breath, muscle aches? N o * ROS: G eneral/Constitutional: pain o nly normal aches and pains. C hills d enies.?Fatigue a dmits. F ever d enies. E NT: Decreased hearing m ild. R espiratory: Cough d enies. C ardiovascular: [...] Muscle aches d enies. P ainful joints r ight first toe. S ciatica d enies. W eakness d [...] surgery age 32's- Dr. Cl Woody at [facility] 1992Sleep Study- Dr. Xiao at [facility] [id number] stapedotomy w/ vein graft- Dr. Chin at [facility] [id number] catheter ablation- Dr. Vance at [facility] 07-15-2011 flutter s/p cardioversion- Dr. Xiao at [facility] [id number] cyst from back- Dr. Willoughby at [facility] [id number] cyst right wrist at [facility] [id number] external hemorrhoid at [facility] [id number] surgery Rt. ear- Dr. Washington at [facility] [id number] cyst from rectum at [facility] 1986Remove cyst from chest- Dr. Castillo 1976Extract wisdom teeth at [facility] 1975Pericardiocentesis and pericardial window iverticulum, Esophagus [...] does not drink alcohol. He lives in [facility]. He has two daughters Bernice and [...] Verified] Objective: * Vitals: H t: 69, Wt:212, BMI:31.3, BP:137/77, HR:71, Temp:97.3, Ht-cm: 175.26, Wt-k.16. * P ast Orders: Lab:[facility] * Collection Date 11/24/2024 08/25/2024 04/04/2024 Collection Time 07:20 AM 07:38 AM 09:26 AM Order Date 11/24/2024 08/25/2024 04/04/2024 Sodium 140 (Ref Range: 135-145 mmol/L) 140 (Ref Range: 135-145 mmol/L) 136 (Ref Range: 135-145 mmol/L) Bilirubin Total 0.7 (Ref Range: 0.0-1.0 mg/dL) 0.8 (Ref Range: 0.0-1.0 mg/dL) 0.7 (Ref Range: 0.0-1.0 mg/dL) Aspartate Amino Transferase 42 H (Ref Range: 5-37 U/L) 37 (Ref Range: 5-37 U/L) 35 (Ref Range: 5-37 U/L) Alanine Aminotransferase 43 H (Ref Range: 0-40 U/L) 32 (Ref Range: 0-40 U/L) 33 (Ref Range: 0-40 U/L) Total Protein 5.5 L (Ref Range: 6.5-8.0 g/dL) 5.4 L (Ref Range: 6.5-8.0 g/dL) 6.0 L (Ref Range: 6.5-8.0 g/dL) Albumin Level 4.0 (Ref Range: 3.5-5.0 g/dL) 4.0 (Ref Range: 3.5-5.0 g/dL) 4.0 (Ref Range: 3.5-5.0 g/dL) Alkaline Phosphatase 117 (Ref Range: 39-117 U/L) 110 (Ref Range: 39-117 U/L) 112 (Ref Range: 39-117 U/L) Potassium 3.6 (Ref Range: 3.3-5.1 mmol/L) 3.7 (Ref Range: 3.3-5.1 mmol/L) 4.4 (Ref Range: 3.3-5.1 mmol/L) Chloride 106 (Ref Range: 96-108 mmol/L) 105 (Ref Range: 96-108 mmol/L) 103 (Ref Range: 96-108 mmol/L) Carbon Dioxide 28 (Ref Range: 22-29 mmol/L) 26 (Ref Range: 22-29 mmol/L) 27 (Ref Range: 22-29 mmol/L) Anion Gap 10 L (Ref Range: 12-20) 13 (Ref Range: 12-20) 10 L (Ref Range: 12-20) Blood Urea Nitrogen 14 (Ref Range: 9-16 mg/dL) 16 (Ref Range: 9-16 mg/dL) 20 H (Ref Range: 9-16 mg/dL) Creatinine 0.89 (Ref Range: 0.5-1.4 mg/dL) 0.89 (Ref Range: 0.5-1.4 mg/dL) 0.83 (Ref Range: 0.5-1.4 mg/dL) Estimated Glomerular Filt Rate > 60 > 60 > 60 Glucose Fasting 96 (Ref Range: 60-99 mg/dL) 97 (Ref Range: 60-99 mg/dL) 77 (Ref Range: 60-99 mg/dL) Calcium 8.6 (Ref Range: 8.4-10.2 mg/dL) 8.8 (Ref Range: 8.4-10.2 mg/dL) 8.7 (Ref Range: 8.4-10.2 mg/dL) * Lab:Lipid Panel * Collection Date 11/24/2024 08/25/2024 04/04/2024 Collection Time 07:20 AM 07:38 AM 09:26 AM Order Date 11/24/2024 08/25/2024 04/04/2024 Triglycerides 74 (Ref Range: <150 mg/dL) 84 (Ref Range: <150 mg/dL) 97 (Ref Range: <150 mg/dL) Cholesterol 168 (Ref Range: <200 mg/dL) 171 (Ref Range: <200 mg/dL) 250 H (Ref Range: <200 mg/dL) LDL Cholesterol Calculated 67 (Ref Range: <100 mg/dL) 74 (Ref Range: <100 mg/dL) 158 H (Ref Range: <100 mg/dL) HDL Cholesterol 87 (Ref Range: >40 mg/dL) 81 (Ref Range: >40 mg/dL) 73 (Ref Range: >40 mg/dL) * Lab:PSA Free and Total * Collection Date 11/24/2024 08/25/2024 04/04/2024 Collection Time 07:20 AM 07:38 AM 10:56 AM Order Date 11/24/2024 08/25/2024 04/04/2024 Prostate Specific Ag Total 4.4 A (Ref Range: < OR = 4.0 ng/mL) 4.2 A (Ref Range: < OR = 4.0 ng/mL) 4.8 A (Ref Range: < OR = 4.0 ng/mL) Percent Free Prostate Spec Ag 16 A (Ref Range: >25 % (calc)) 12 A (Ref Range: >25 % (calc)) 15 A (Ref Range: >25 % (calc)) Free Prostate Spec Ag 0.7 (Ref Range: ng/mL) 0.5 (Ref Range: ng/mL) 0.7 (Ref Range: ng/mL) * Lab:Protein Electrophoresis, Serum * Collection Date 11/24/2024 08/25/2024 04/04/2024 Collection Time 07:20 AM 07:38 AM 09:26 AM Order Date 11/24/2024 08/25/2024 04/04/2024 Prot Elec - Total Protein 5.4 A (Ref Range: 6.1-8.1 g/dL) 5.3 A (Ref Range: 6.1-8.1 g/dL) 5.6 A (Ref Range: 6.1-8.1 g/dL) Prot Elec - Albumin 3.8 (Ref Range: 3.8-4.8 g/dL) 3.8 (Ref Range: 3.8-4.8 g/dL) 4.1 (Ref Range: 3.8-4.8 g/dL) Prot Elec - [...] SEE NOTE SEE NOTE SEE NOTE * Lab:Viscosity * Collection Date 11/24/2024 08/25/2024 04/04/2024 Collection Time 07:20 AM 07:38 AM 09:26 AM Order Date 11/24/2024 08/25/2024 04/04/2024 Viscosity 1.5 (Ref Range: 1.5-1.9 rel to H2O) 1.5 (Ref Range: 1.5-1.9 rel to H2O) 1.5 (Ref Range: 1.5-1.9 rel to H2O) * Lab:Complete Blood Count Aut o Diff * Collection Date 11/24/2024 08/25/2024 04/04/2024 Collection Time 07:20 AM 07:38 AM 09:26 AM Order Date 11/24/2024 08/25/2024 04/04/2024 White Blood Count 6.4 (Ref Range: 4.8-10.8 X10*3/uL) 9.1 (Ref Range: 4.8-10.8 X10*3/uL) 8.7 (Ref Range: 4.8-10.8 X10*3/uL) Red Blood Count 4.74 (Ref Range: 4.60-5.80 X10*6/uL) 4.81 (Ref Range: 4.60-5.80 X10*6/uL) 4.99 (Ref Range: 4.60-5.80 X10*6/uL) Hemoglobin 14.5 (Ref Range: 14.0-18.0 g/dl) 14.4 (Ref Range: 14.0-18.0 g/dl) 14.6 (Ref Range: 14.0-18.0 g/dl) Hematocrit 41.6 L (Ref Range: 42.0-52.0 %) 41.6 L (Ref Range: 42.0-52.0 %) 42.8 (Ref Range: 42.0-52.0 %) Mean Corpuscular Volume 87.8 (Ref Range: 80.0-98.0 fL) 86.5 (Ref Range: 80.0-98.0 fL) 85.8 (Ref Range: 80.0-98.0 fL) Mean Corpuscular Hemoglobin 30.6 (Ref Range: 27.0-33.0 pg) 29.9 (Ref Range: 27.0-33.0 pg) 29.3 (Ref Range: 27.0-33.0 pg) Mean Corpuscular HGB Conc 34.9 (Ref Range: 31.0-36.0 g/dl) 34.6 (Ref Range: 31.0-36.0 g/dl) 34.1 (Ref Range: 31.0-36.0 g/dl) Red Cell Distribution Width 13.4 (Ref Range: 11.0-16.0 %) 14.5 (Ref Range: 11.0-16.0 %) 13.5 (Ref Range: 11.0-16.0 %) Platelet Count 169 (Ref Range: 160-400 X10*3/uL) 198 (Ref Range: 160-400 X10*3/uL) 228 (Ref Range: 160-400 X10*3/uL) Mean Platelet Volume 12.1 (Ref Range: 9.4-12.4 fL) 11.8 (Ref Range: 9.4-12.4 fL) 11.5 (Ref Range: 9.4-12.4 fL) Neutrophils Percent Auto 50.2 (Ref Range: 45-73 %) 46.8 (Ref Range: 45-73 %) 54.3 (Ref Range: 45-73 %) Imm Gran Pct Auto 0.6 H (Ref Range: 0.0-0.4 %) 0.6 H (Ref Range: 0.0-0.4 %) 0.6 H (Ref Range: 0.0-0.4 %) Lymphocytes Percent Auto 35.1 (Ref Range: 20-40 %) 39.0 (Ref Range: 20-40 %) 33.4 (Ref Range: 20-40 %) Monocytes Percent Auto 10.2 (Ref Range: 2-11 %) 10.4 (Ref Range: 2-11 %) 9.3 (Ref Range: 2-11 %) Eosinophils Percent Auto 3.3 (Ref Range: 0-4 %) 2.6 (Ref Range: 0-4 %) 1.8 (Ref Range: 0-4 %) Basophils Percent Auto 0.6 (Ref Range: 0-2 %) 0.6 (Ref Range: 0-2 %) 0.6 (Ref Range: 0-2 %) NRBC Pct Auto 0.0 (Ref Range: 0.0-0.2 /100WBC) 0.0 (Ref Range: 0.0-0.2 /100WBC) 0.0 (Ref Range: 0.0-0.2 /100WBC) Neutrophils Absolute Auto 3.2 (Ref Range: 2.0-8.3 x10*3/uL) 4.3 (Ref Range: 2.0-8.3 x10*3/uL) 4.7 (Ref Range: 2.0-8.3 x10*3/uL) Imm Gran Abs Auto 0.04 H (Ref Range: 0.00-0.03 X10*3/uL) 0.05 H (Ref Range: 0.00-0.03 X10*3/uL) 0.05 H (Ref Range: 0.00-0.03 X10*3/uL) Lymphocytes Absolute Auto 2.2 (Ref Range: 1.2-4.9 X10*3/uL) 3.5 (Ref Range: 1.2-4.9 X10*3/uL) 2.9 (Ref Range: 1.2-4.9 X10*3/uL) Monocytes Absolute Auto 0.7 (Ref Range: 0.1-1.2 X10*3/uL) 0.9 (Ref Range: 0.1-1.2 X10*3/uL) 0.8 (Ref Range: 0.1-1.2 X10*3/uL) Eosinophils Absolute Auto 0.2 (Ref Range: 0.0-0.4 X10*3/uL) 0.2 (Ref Range: 0.0-0.4 X10*3/uL) 0.2 (Ref Range: 0.0-0.4 X10*3/uL) Basophils Absolute Auto 0.0 (Ref Range: 0.0-0.2 X10*3/uL) 0.1 (Ref Range: 0.0-0.2 X10*3/uL) 0.1 (Ref Range: 0.0-0.2 X10*3/uL) NRBC Abs Auto 0.000 (Ref Range: 0.0-0.012 X10*3/uL) 0.000 (Ref Range: 0.0-0.012 X10*3/uL) 0.000 (Ref Range: 0.0-0.012 X10*3/uL) * Examination: G eneral Examination: GENERAL APPEARANCE: p leasant, well nourished, well developed, in no acute distress, calm and relaxed: obese: man. HEAD: a traumatic, normocephalic. EYES: e [...] sounds normal, no ascites, no organomegaly, no mass: centripital obesity. RECTAL EXAM: n ot examined. MUSCULOSKELETAL: e xtremities unremarkable, no clubbing, cyanosis or edema, The right first toe ingrown nail is reduced and the infection has resolved. PERIPHERAL PULSES: n ormal. NEUROLOGIC: a lert [...] make to reduce nocturia. 3 . H yperlipidemia type II - E78.01 N otes :His lipids, remain stable. No change in his regimen is necessary. 4 . O besity (BMI 30.0-34.9) - E66.9 N otes :He has lost 2 pounds. His body mass index remains in the obese range. W e discussed diet and nutrition at length today. We reviewed his weight loss strategy. 5 . F ormer smoker - Z87.891 N otes :He is motivated not to smoke and we discussed maintenance of abstinence. 6 . W aldenstrom macroglobulinemia - C88.0 N otes :His IgM level and viscosity are stable. He does not require additional treatment at this time.A repeat viscosity has been ordered 7 . E ssential hypertension - I10 N otes :His blood pressure is currently stable no change in his regimen as needed. 8 . A trial flutter - I48.92 N otes :He is in sinus rhythm today. He is taking metoprolol and flecainide. Plan: * Treatment: 2. B enign prostatic hyperplasia, unspecified whether lower urinary tract symptoms present Continue Melatonin Tablet, 5 MG, 1 tablet in the evening, Orally, Once a day. L AB: PROFILE, FASTING (COMPREHENSIVE METABOLIC) L AB: CBC w DIFF L AB: IMMUNOFIXATION PANEL, SERUM (IEP) L AB: PROTEIN ELECTROPHORESIS, SERUM L AB: Lipid Panel 3. H yperlipidemia type II L AB: PROFILE, FASTING (COMPREHENSIVE METABOLIC) L AB: CBC w DIFF L AB: IMMUNOFIXATION PANEL, SERUM (IEP) L AB: PROTEIN ELECTROPHORESIS, SERUM L AB: Lipid Panel 4. O besity (BMI 30.0-34.9) L AB: PROFILE, FASTING (COMPREHENSIVE METABOLIC) L AB: CBC w DIFF L AB: IMMUNOFIXATION PANEL, SERUM (IEP) L AB: PROTEIN ELECTROPHORESIS, SERUM L AB: Lipid Panel 5. O thers Continue Imbruvica Capsule, 140 MG, [...] tobacco use and urged to quit. 0 12/02/2024 * Follow Up: Earl pacheco: ov * Images: * Sign off status: Completed true * Provider: Earl Bustos MD Date: 0 12/02/2024 Generated for Michelle pierson/Mikel/eTransmitting on: 1 04/24/2024 08:08 AM EST History and Physical Notes * HPI (History of Present Illness) Category Sub-Category Detail Notes COVID-19 Screening Questions Have you had any new onset fever, chills, cough, congestion, sore throat, shortness of breath, muscle aches?: No Examination Category Sub-Category Detail Notes General Examination GENERAL APPEARANCE: pleasant , well nourished, well developed, in no acute distress, calm and relaxed: obese: man HEAD: atraumatic, normocep halic EYES: eomi, perrla, anicte leda, conjugate EARS: normal NOSE: septum intact NECK/THYROID: no jugular venous di stention, no carotid bruit, thyroid normal HEART: no clicks, gallops, murmurs, or rubs, regular rhythm, S1, S2 normal, no s3, or vascular bruits LUNGS: clear to auscultatio n ABDOMEN: bowel sounds normal, no ascites, no organomegaly, no mass: centripital obesity NEUROLOGIC: alert and oriented, cranial nerves 2-12 grossly intact, deep tendon reflexes 2+ symmetrical, motor strength normal upper and lower extremities, sensory exam intact SKIN: no suspicious lesion s, anicteric PERIPHERAL PULSES: normal BREASTS: no masses palpable b ilaterally MUSCULOSKELETAL: extremities unremark able, no clubbing, cyanosis or edema, The right first toe ingrown nail is reduced and the infection has resolved LYMPH NODES: no enlarged lymph no keya,spleen normal RECTAL EXAM: not examined PSYCH: alert, oriented ORAL CAVITY: normal, unremarkable
--- OUTSIDE RECORDS SUMMARY | 2025-02-21 08:09 | XMS_ITS | Clinical Summary ---
Author Organization [address] [facility] Address [address] [place] [address] Phone Care Team Providers Care Hog Feeder Name Role Phone Nicolás Bustos MD Primary Care Provider [phone] Allergies Active Allergy Reactions Criticality Noted Date Comments Adhesive Tape-Silicones Other Low 05/16/2022 Amoxicillin Rash Low 06/29/2020 Cpotjgltxd-Yqozwtyxp-Spltzcf ne Rash Low 05/16/2022 Povidone-Iodine 04/23/2021 Other [...] each day in the morning. 5 Active sulfamethoxazol e-trimethoprim (BACTRIM DS,SEPTRA DS) 800-160 mg per tablet Take 1 tablet by mouth 2 (two) times a day. for 14 days 4 Active tamsulosin (FLOMAX) 0.4 mg 24 hr capsule Take 2 capsules (0.8 mg total) by mouth at bedtime. 5 Active doxycycline (Vibramycin) 100 mg capsule Take 1 capsule (100 mg total) by mouth 2 (two) times a day for 7 days. Take with at least 8 ounces (large glass) of water, do not lie down for 30 minutes after 14 capsule 5 01/27/20 25 Active Problems Problem Noted Date Diagnosed [...] Encounters Date Type Department Care Team Description 01/19/2025 8:15 AM EST Office Visit Orthopedic Surgery [place] [address] [address] Wood Ricketts DPM Open wound of second toe of right foot, subsequent encounter (Primary Dx); Cellulitis of right toe 01/05/2025 9:15 AM EDT Office Visit Orthopedic [place] [address] [address] Wood Ricketts DPM Open wound of second toe of right foot, initial encounter (Primary Dx); Cellulitis of right toe; Ingrown toenail 12/22/2024 10:45 AM EDT Office Visit Orthopedic [facility] [address] [address] Wood Ricketts DPM Cellulitis of right toe (Primary Dx); Ingrown toenail 12/20/2024 Telephone Orthopedic [facility] [address] [address] Wood Ricketts DPM 11/30/2024 9:15 AM EDT Office Visit Orthopedic [facility] [address] [address] Wood Ricketts DPM Open wound of right great toe, initial encounter (Primary Dx) from Last 3 Months Surgical History Surgery Date Site/Laterality Comments TONSILLECTOMY ADENOIDECTOMY, BILATERAL MYRINGOTOMY AND TUBES PROCEDURE: NM TONSILLECTOMY & ADENOIDECTOMY <AGE 14 HAND SURGERY Left PROCEDURE: HISTORICAL HAND SURGERY; COMMENT: left tendon surgery wrist Medical History Medical History Date Comments Afib ([facility]/HCC V24, [facility] V28) DX:Afib (HCC) 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 (CMS/HCC V24, [facility]/HCC V28) DX: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 (HCC) Essential hypertension DX:Essent ial hypertension Mixed hyperlipidemia [...] Health Maintenance Due Date Last Done Comments Colorectal Cancer Screening: Colonoscopy 1950 COVID-19 Vaccine (#1) 02/21/1957 RSV Immunization Adult Patients (1 - Risk 50-74 years 1-dose series) 02/21/2002 Pneumococcal Vaccine: 50+ Years (2 of 2 - PPSV23, PCV20, or PCV21) 02/02/2018 12/08/2017 Abdominal Aortic Aneurysm (AAA) Screen 04/10/2023 Cholesterol Screening (Lipid Panel) 04/10/2023 Falls Risk Assessment 04/10/2023 Hepatitis C Screening 04/10/2023 Medicare Annual Wellness Visit 04/10/2023 Social Influencers of Health Screening 04/10/2023 Depression Screening 03/16/2024 Influenza Vaccine (#1) 2024 12/21/2017 DTaP,Tdap,and Td Vaccines (3 - Td or [...] Insurance MEDICARE MEDICAID - [place] Care Teams Hog Feeder Relationship Specialty Start Date End Date Nicolás Bustos MD [address] [facility] [address] [place] [address] PCP - General 05/16/22
--- OUTSIDE RECORDS SUMMARY | 2025-02-21 08:11 | XMS_ITS | Clinical Summary ---
Author Organization [facility] Address [address] [address] Phone Care Team Providers Care Raw Finish Mill Operator Name Role Phone Nicolás Bustos MD Primary Care Provider [phone] Allergies Active Allergy Reactions Criticality Noted Date [...] Active ferrous sulfate 325 mg (65 mg tribe iron) tablet Take 325 mg by mouth [...] FOBT 02/21/1997 SIGMOIDOSCOPY 02/21/1997 VIRTUAL COLONOSCOPY 02/21/1997 ABDOMINAL AORTIC ANEURYSM (AAA) SCREENING 02/21/2017 PNEUMOCOCCAL VACCINES (50+ years) (2 of 2 - PPSV23, PCV20, or PCV21) 02/02/2018 12/08/2017 INFLUENZA VACCINE (#1) 2024 12/21/2017 COVID-19 VACCINE (1 - 2024-2 6 season) 2024 RSV VACCINE (1 - 1-dose 75+ series) 02/21/2027 Adult Td,Tdap Booster 12/07/2029 12/08/2019 , 02/25/2010 [...] topic Medical Devices Not on file Insurance MEDICARE PART A & B [facility] MEDICARE PART A & B HEALTH MEDICARE PART A & B HEALTH MEDICARE PART A & B HEALTH MEDICARE PART A & B [place] MEDICARE PART A & B [facility] & B [facility] MEDICARE PART A & B [facility] Care Teams Raw Finish Mill Operator Relationship Specialty Start Date End Date Nicolás Bustos MD [address] [place] [address] [place] [address] PCP - General Medical Oncology 06/19/20 Additional Source Comments The information contained in this document represents components of the legal health record. It is not the complete legal health record.[facility]
--- OUTSIDE RECORDS SUMMARY | 2025-02-21 08:12 | XMS_ITS | Patient Health Record ---
Author Organization [facility] Address [address] [place] [address] Care Team Providers Care Talent Acquisition Operations Manager Name Role Phone Nicolás Bustos MD Primary Care Provider UnavailNicolás Dupont Unavailable [phone] Allergies Allergen (clinical drug ingredient) Drug/Non Drug Allergy documented on EMR Reaction Allergy Type Onset Date Status amoxicillin Amoxicillin Unknown Drug Allergy Act jocelin diphenhydramine Benadryl Unknown Drug Allergy A ctive povidone-iodine Betadine Unknown Drug Allergy A ctive Reason For Referral No Information Medications Medication SIG (Take, Route, Frequency, Duration) Notes Start Date End Date Status Imbruvica 280 MG Tablet Oral; Duration: 28 Active Eliquis 5 MG Tablet Oral; Duration: 90 Active Naproxen 500 MG Tablet Oral; Duration: 30 Active Omeprazole 40 MG Capsule Delayed Release TAKE 1 CAPSULE BY MOUTH EVERY MORNING; Duration: 90 Active Metoprolol Tartrate 50 MG Tablet 1 tablet with food Orally Twice a day Active Melatonin 5 MG Tablet 1 tablet at bedtim e as needed with food Orally Once a day Active Multi Vitamin/Minerals Tablet Orally Active Flecainide Acetate 150 MG Tablet Oral; Duration: 90 Active Atorvastatin Calcium 20 MG Tablet Oral; Duration: 90 Active Immunizations Vaccine Route Administration Date Status Comme nts Influenza Unknown 11/26/2021 Refused Social History Social History Additional Details Category Social Info Options Details Miscellaneous: Marital status: 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 alcohol Nonsmoker; no sig. alcohol Nonsmoker; no sig. alcohol Nonsmoker; no sig. alcohol Nonsmoker; no sig. 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 Nicolsá Bustos Cardiac ablation in 2020 wit h complication requiring chest tubes and pericardial window...he was in the hospital for 4 weeks. Surgical History Surgery Date(Month/Year) Cyst removal-back,wrist,rectum and chest Hemorrhoidectomy Tendon repair-left wrist [place] teeth extraction Tonsillectomy Stapedectomy Surgery for a Zenker's diverticulum with Dr. Anil bagrer ENT 04/07/2022
--- OUTSIDE RECORDS SUMMARY | 2025-02-21 08:15 | XMS_ITS | Patient Health Record ---
Author Organization Nicolás Bustos III, MD Address [address] [place] [address] Care Team Providers Care Orderlies Teacher Name Role Phone Dr. Nicolás Bustos III [...] ff Reviewed date:04/17/2024 09:03:36 AM Interpretation: Performing Lab:[facility], [address] [place] [address] Notes/Report: White Blood Count 8.7 4.8-10.8 X10*3/uL [...] NRBC Abs Auto 0.000 0.0-0.012 X10*3/uL Comprehensive Ossian. Panel Fa st Reviewed date:04/17/2024 09:03:36 AM Interpretation: Performing Lab:[facility], [address] [place] [phone] Notes/Report: Sodium 136 135-145 mmol/L Potassium 4.4 [...] Panel Reviewed date:04/17/2024 09:03:36 AM Interpretation: Performing Lab:[facility], [address] [place] [phone] Notes/Report: Triglycerides 97 <150 mg/dL Desirable Triglyceride: [...] Total Reviewed date:04/17/2024 09:03:36 AM Interpretation: Performing Lab:[facility], [address] [place] [phone] Notes/Report: Prostate Specific Ag Total 4.8 < OR = 4.0 ng/mL Percent Free Prostate Spec Ag 15 >25 % (calc) PSA(ng/mL) Free PSA(%) Estimated(x) Probability of Cancer(as%) 0-2.5 (*) Approx. 1 2.6-4.0(1) 0-27(2) 24(3) 4.1-10(4) 0-10 56 11-15 28 16-20 20 21-25 16 >or =26 8 >10(+) N/A >50 References:(1)Fatmata et al.:Urology 60: 469-474 (2002) (2)Fatmata et al.:J.Urol 168: 922-925 (2002) Free PSA(%) Sensitivity(%) Specificity(%) < or = 25 85 19 < or = 30 93 9 (3)Fatmata et al.:PAULO 277: 4483-3789 (1996) (4)Catalona et al.:PAULO 279: 5216-2243 (1998) (x)These estimates vary with age, ethnicity, family [...] of disease. THIS TEST WAS PERFORMED AT: [facility] [address] [place] [phone] KRYSTAL URBINA MD Free Prostate Spec Ag 0.7 PSA,Total (Free>4and<10) Reviewed date:04/17/2024 09:03:36 AM Interpretation: Performing Lab:[address] [address] Notes/Report: PSA,Total (Free>4and<10) 4.63 0.00-4.00 ng/mL PSA methodology: Bryan Alinity i Chemiluminescent Microparticle Immunoassay (CMIA) Beta-2 Microglobulin, Serum Reviewed date:04/17/2024 09:03:36 AM Interpretation: Performing Lab:[facility], [address] [place] [phone] Notes/Report: Beta-2 Microglobulin, Serum 2.26 < OR = 2.51 mg/L THIS TEST WAS PERFORMED AT: [facility] [address] [place] [phone] KRYSTAL URBINA MD Protein Electrophoresis, Ser um Reviewed date:04/17/2024 09:03:36 AM Interpretation: Performing Lab:[facility], [address] [place] [phone] Notes/Report: Prot Elec - Total Protein 5.6 [...] be considered. THIS TEST WAS PERFORMED AT: [facility] [address] [address] KRYSTAL URBINA MD Immunofixation Pnl, Serum Reviewed date:04/17/2024 09:03:36 AM Interpretation: Performing Lab:[address] [address] Notes/Report: IgG 234 097-3078 mg/dL Results verif ied by repeat analysis on dilution. IgA 11 70-320 mg/dL Results verifie d by repeat analysis on dilution. IgM 155 50-300 mg/dL THIS TEST WAS PERFORMED AT: [facility] [address] [place] [phone] KRYSTAL URBINA MD Immunofixation Interpretation SEE NOTE Faint IgM kappa monoclonal band present. Viscosity Reviewed date:04/17/2024 09:03:36 AM Interpretation: Performing Lab:[facility], [address] [place] [phone] Notes/Report: Viscosity 1.5 1.5-1.9 rel to H2O Units = Relative to Water THIS TEST WAS PERFORMED AT: [facility]/[address] [address] MIRELLA ODELL MD,PHD US retroperitoneal comp Reviewed date:04/17/2024 09:03:37 AM Interpretation: Performing Lab: Notes/Report: [address] [address] Ultrasound Report Signed Patient: Jose Powers MR#: [id number] : 1950 Acct:[id number] Age/Sex: 74 / M ADM Date: 04/04/24 Loc: HO.US Attending Dr: Taylor HERNANDEZ Ordering Physician: Taylor Strong Date of Service: 04/04/24 Procedure(s): US retroperitoneal comp Accession Number(s): [id number] cc: Nicolás Bustos MD; Taylor Strong CLINICAL [...] 04/04/24 1203 DD/ 1201 TD/TT: 04/04/24 1201 Theater Projectionist: [address] [address] Ultrasound Report Signed Patient: Jose Powers MR#: [id number] : 1950 Acct:[id number] Age/Sex: 74 / M ADM Date: 04/04/24 Loc: HO.US Attending Dr: Taylor HERNANDEZ Ordering Physician: Taylor Strong Date of Service: 04/04/24 Procedure(s): US retroperitoneal comp Accession Number(s): [id number] cc: Nicolás Bustos MD; Taylor Strong [facility] CLINICAL HISTORY: N4 1.9 - Inflammatory disease [...] 04/04/24 1203 DD/ 1201 TD/TT: 04/04/24 1201 Theater Projectionist: Complete Blood Count Auto Di ff Reviewed date:08/31/2024 01:59:03 PM Interpretation: Performing Lab:[facility], [address] [place] [phone] Notes/Report: White Blood Count 9.1 4.8-10.8 X10*3/uL [...] NRBC Abs Auto 0.000 0.0-0.012 X10*3/uL Comprehensive Ossian. Panel Fa st Reviewed date:08/31/2024 01:59:03 PM Interpretation: Performing Lab:[facility], [address] [place] [phone] Notes/Report: Sodium 140 135-145 mmol/L Potassium 3.7 [...] Panel Reviewed date:08/31/2024 01:59:03 PM Interpretation: Performing Lab:[facility], [address] [place] [phone] Notes/Report: Triglycerides 84 <150 mg/dL Desirable Triglyceride: [...] Total Reviewed date:08/31/2024 01:59:03 PM Interpretation: Performing Lab:[facility], [address] [place] [phone] Notes/Report: Prostate Specific Ag Total 4.2 < OR = 4.0 ng/mL Percent Free Prostate Spec Ag 12 >25 % (calc) PSA(ng/mL) Free PSA(%) Estimated(x) Probability of Cancer(as%) 0-2.5 (*) Approx. 1 2.6-4.0(1) 0-27(2) 24(3) 4.1-10(4) 0-10 56 11-15 28 16-20 20 21-25 16 >or =26 8 >10(+) N/A >50 References:(1)Fatmata et al.:Urology 60: 469-474 (2002) (2)Kristinaona et al.:J.Urol 168: 922-925 (2002) Free PSA(%) Sensitivity(%) Specificity(%) < or = 25 85 19 < or = 30 93 9 (3)Kristinaona et al.:PAULO 277: 6550-6483 (1996) (4)Catalona et al.:PAULO 279: 0297-8555 (1997) (x)These estimates vary with age, ethnicity, [...] mind. PSA was performed using the Bowen Bishop Immunoassay method. Values obtained from different assay methods cannot be used interchangeably. PSA levels, regardless of value, should not be interpreted as absolute evidence of the presence or absence of disease. THIS TEST WAS PERFORMED AT: [facility] [address] [place] [phone] KRYSTAL URBINA MD Free Prostate Spec Ag 0.5 Free T4 (Free Thyroxine) Reviewed date:08/31/2024 01:59:03 PM Interpretation: Performing Lab:[address] [address] Notes/Report: Free T4 (Free Thyroxine) 1.09 0.71-1.85 ng/dL Thyroid Stimulating Hormone Reviewed date:08/31/2024 01:59:03 PM Interpretation: Performing Lab:[address] [address] Notes/Report: Thyroid Stimulating Hormone 2.23 0.32-4.0 uIU/mL TSH 3rd Generation ([facility]) Protein Electrophoresis, Ser um Reviewed date:11/28/2024 12:57:12 PM Interpretation: Performing Lab:[address] [address] Notes/Report: Prot Elec - Total Protein 5.3 [...] be considered. THIS TEST WAS PERFORMED AT: [facility] [address] [place] [phone] KRYSTAL URBINA MD Immunofixation Pnl, Serum Reviewed date:11/28/2024 12:57:12 PM Interpretation: Performing Lab:[address] [address] Notes/Report: IgG 92 600-1540 mg/dL Verified by r epeat analysis. IgA 9 70-320 mg/dL Verified by rep eat analysis. IgM 129 50-300 mg/dL THIS TEST WAS PERFORMED AT: [facility] [address] [place] [phone] KRYSTAL URBINA MD Immunofixation Interpretation SEE NOTE Faint IgM kappa monoclonal band present. Viscosity Reviewed date:08/31/2024 01:59:03 PM Interpretation: Performing Lab:[address] [address] Notes/Report: Viscosity 1.5 1.5-1.9 rel to H2O Units = Relative to Water THIS TEST WAS PERFORMED AT: [facility]/[address] [address] MIRELLA ODELL MD,PHD Complete Blood Count Auto Di ff Reviewed date:11/28/2024 12:57:12 PM Interpretation: Performing Lab:[address] [address] Notes/Report: White Blood Count 6.4 4.8-10.8 X10*3/uL Red Blood Count 4.74 4.60-5.80 X10*6/uL Hemoglobin 14.5 14.0-18.0 g/dl Hematocrit 41.6 42.0-52.0 % Mean Corpuscular Volume 87.8 80.0-98.0 fL Mean Corpuscular Hemoglobin 30.6 27.0-33.0 pg Mean Corpuscular HGB Conc 34.9 31.0-36.0 g/dl Red Cell Distribution Width 13.4 11.0-16.0 % Platelet Count 169 160-400 X10*3/uL Mean Platelet Volume 12.1 9.4-12.4 fL Neutrophils Percent Auto 50.2 45-73 % Imm Gran Pct Auto 0.6 0.0-0.4 % Lymphocytes Percent Auto 35.1 20-40 % Monocytes Percent Auto 10.2 2-11 % Eosinophils Percent Auto 3.3 0-4 % Basophils Percent Auto 0.6 0-2 % NRBC Pct Auto 0.0 0.0-0.2 /100WBC Neutrophils Absolute Auto 3.2 2.0-8.3 x10*3/uL Imm Gran Abs Auto 0.04 0.00-0.03 X10*3/uL Lymphocytes Absolute Auto 2.2 1.2-4.9 X10*3/uL Monocytes Absolute Auto 0.7 0.1-1.2 X10*3/uL Eosinophils Absolute Auto 0.2 0.0-0.4 X10*3/uL Basophils Absolute Auto 0.0 0.0-0.2 X10*3/uL NRBC Abs Auto 0.000 0.0-0.012 X10*3/uL Comprehensive Ossian. Panel Fa st Reviewed date:11/28/2024 12:57:12 PM Interpretation: Performing Lab:[facility], [address] [place] [phone] Notes/Report: Sodium 140 135-145 mmol/L Potassium 3.6 3.3-5.1 mmol/L Chloride 106 96-108 mmol/L Carbon Dioxide 28 22-29 mmol/L Anion Gap 10 12-20 Blood Urea Nitrogen 14 9-16 mg/dL Creatinine 0.89 0.5-1.4 mg/dL Estimated Glomerular Filt Rate > 60 Chronic Kidney Disease: Estimated GFR < 60 mL/min/1.73m2 Severe Kidney Disease: Estimated GFR < 15 mL/min/1.73m2 Glucose Fasting 96 60-99 mg/dL Calcium 8.6 8.4-10.2 mg/dL Bilirubin Total 0.7 0.0-1.0 mg/dL Aspartate Amino Transferase 42 5-37 U/L Alanine Aminotransferase 43 0-40 U/L Total Protein 5.5 6.5-8.0 g/dL Albumin Level 4.0 3.5-5.0 g/dL Alkaline Phosphatase 117 39-117 U/L Lipid Panel Reviewed date:11/28/2024 12:57:12 PM Interpretation: Performing Lab:[facility], [address] [place] [phone] Notes/Report: Triglycerides 74 <150 mg/dL Desirable Triglyceride: less than 150 mg/dL Borderline High Triglyceride 150-199 mg/dL High Triglyceride: 200-499 mg/dL Very High Triglyceride: greater than or equal to 5OO mg/dL Cholesterol 168 <200 mg/dL Desirable Cholesterol: less than 200 mg/dL Borderline High Cholesterol: 200-239 mg/dL High Cholesterol: greater than 239 mg/dL LDL Cholesterol Calculated 67 <100 mg/dL Desirable LDL: less than 100 mg/dL Near Optimal/Above Optimal LDL: 110-129 mg/dL Borderline High LDL: 130-159 mg/dL High LDL: 160-189 mg/dL Very High LDL: greater than or equal to 190 mg/dL HDL Cholesterol 87 >40 mg/dL Desirable HDL: greater than 40 mg/dL Note: This HDL assay may give artificially low results in patients with liver disease. PSA Free and Total Reviewed date:11/28/2024 12:57:12 PM Interpretation: Performing Lab:[facility], [address] [place] [phone] Notes/Report: Prostate Specific Ag Total 4.4 < OR = 4.0 ng/mL Percent Free Prostate Spec Ag 16 >25 % (calc) PSA(ng/mL) Free PSA(%) Estimated(x) Probability of Cancer(as%) 0-2.5 (*) Approx. 1 2.6-4.0(1) 0-27(2) 24(3) 4.1-10(4) 0-10 56 11-15 28 16-20 20 21-25 16 >or =26 8 >10(+) N/A >50 References:(1)Fatmata et al.:Urology 60: 469-474 (2002) (2)Fatmata et al.:J.Urol 168: 922-925 (2002) Free PSA(%) Sensitivity(%) Specificity(%) < or = 25 85 19 < or = 30 93 9 (3)Catalona et al.:PAULO 277: 8910-7741 (1996) (4)Catalona et al.:PAULO 279: 2088-7547 (1997) (x)These estimates vary with age, ethnicity, [...] of disease. THIS TEST WAS PERFORMED AT: [facility] [address] [place] [phone] KRYSTAL URBINA MD Free Prostate Spec Ag 0.7 Protein Electrophoresis, Ser um Reviewed date:11/28/2024 12:57:12 PM Interpretation: Performing Lab:[facility], [address] [place] [phone] Notes/Report: Prot Elec - Total Protein 5.4 6.1-8.1 g/dL Prot Elec - Albumin 3.8 [...] be considered. THIS TEST WAS PERFORMED AT: [facility] [address] [place] [phone] KRYSTAL URBINA MD Immunofixation Pnl, Serum Reviewed date:12/05/2024 05:46:15 AM Interpretation: Performing Lab:[facility], [address] [place] [phone] Notes/Report: IgG 85 600-1540 mg/dL IgA 10 70-320 mg/dL IgM 125 50-300 mg/dL THIS TEST WAS PERFORMED AT: [facility] [address] [place] [phone] KRYSTAL URBINA MD Immunofixation Interpretation SEE NOTE Faint IgM kappa monoclonal band present. Viscosity Reviewed date:11/28/2024 12:57:12 PM Interpretation: Performing Lab:[facility], [address] [place] [phone] Notes/Report: Viscosity 1.5 1.5-1.9 rel to H2O Units = Relative to Water This test was developed and its analytical performance characteristics have been determined by [facility] [place] [place]. It has not been cleared or approved by the FDA. This assay has been validated pursuant to the CLIA regulations and is used for clinical purposes. THIS TEST WAS PERFORMED AT: [facility] [address] [address] MIRELLA ODELL MD,PHD Reason For Referral Reason Consult and Treat Severe Left Knee Pain Diagnosis 1 Pain in left knee (M 25.562) Referral Organization Nicolás Bustos III, MD Referring Provider First Name Nicolás Referring Provider Last Name Juli Referring Provider Speciality Internal edicine Referred Provider PRAKASH BOND Referred Provider Specialty Orthopedic [facility] General Notes DMargarita 06/21/2024 09:22:57 AM > was able to [...] LYNN Referred Provider Specialty Podiatry General Notes Asia Margarita 09/26/2024 09:30:58 AM > Patient would like to see Dr. Ricketts and would need a referral faxed prior to scheduling the appointment. Referral and progress note has been faxed., Trina Bueno GABE 09/28/2024 09:40:46 AM > ref with progress [...] Problem Status W/U Status Risk Notes Problem 4265072 Former smoker (Z87.891) Active confirmed He is motivated not to smoke and we discussed maintenance of abstinence. Problem 354364365 Overweight (E66.3) Active confirmed We have discussed his diet and nutrition today. We reviewed his weight loss strategy. We made a plan to lose weight at a rate of one half of a pound per week through a diet restricted in calories. Problem 963525214055746 Obesity (BMI 30.0-34.9) (E66.9) Active confirmed He has lost 2 pounds. His body mass index remains in the obese range. We discussed diet and nutrition at length today. We reviewed his weight loss strategy. Problem 334147806 Lumbar radiculopathy (M54.16) Active confirmed He continues to have mild to moderate intermittent low back pain that radiates down both legs. Problem 012058954 Waldenstrom macroglobulinemi a (C88.0) Active confirmed His IgM level and viscosity are stable. He does not require additional treatment at this time.A repeat viscosity has been ordered Problem 305170209 Other obesity due to excess calories (E66.09) Active confirmed Problem 91806676 Other chronic pain (G89.29) Active confirmed Problem Atelectasis (27351183) Atelectasis (J98.11) Active confirmed His most recent chest x-ray failed to show any atelectasis. Problem 209763168144227 Lumbago with sciatica, right side (M54.41) Active confirmed He continues to have intermittent chronic mild low back pain. Problem 610197187 Lumbago with sciatica, left side (M54.42) Active confirmed This appears to be nerve impingement in the lumbar spine. He was given dexamethasone and cyclobenzaprin e. He will rest as much as possible in the position and use heat. Problem 23144318 Essential hypertension (I10) Active confirmed His blood pressure is currently stable no change in his regimen as needed. Problem Peripheral neuropathy (324492792) Peripheral neuropathy (G62.9) Active confirmed His symptoms of tingling and numbness in the lower extremities are unchanged. He is stable in this respect and no additional treatment is needed. Problem 60786688 Penicillin allergy (Z88.0) Active confirmed Problem Atrial fibrillation (31132948) Atrial fibrillation (I48.91) Active confirmed He is in a normal sinus rhythm today. His rate is controlled. 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 He will be observed carefully. His viscosity is 1.4. The abnormal IgM protein is not detectable. The IgM level is in the normal range. His CBC is unremarkable. Problem 7861357 Atrial flutter (I48.92) Active confirmed He is in sinus rhythm today. He is taking metoprolol and flecainide. Problem Hoarseness (39554108) Hoarseness (R49.0) Active confirmed I have ordered thyroid function tests to see if he is hypothyroid. This he is not he will be referred to ENT. 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 He was referred to a gastroenterolo gist. Problem 51164520 Dysphagia, unspecified type (R13.10) Active confirmed This has resolved. Problem Pure hypercholesterolem ia (142604381) Hyperlipidemia type II (E78.01) Active confirmed His lipids, remain stable. No change in his regimen is necessary. Problem 676125361 Elevated PSA (R97.20) Active confirmed The PSA was 5.67, but when it was repeated with a free PSA it was 4.7 with a free PSA of 11%.His PSA is now 4.2. He is under the care of urology. Problem 467676452860132 Sciatica of left side (M54.32) Active confirmed He is significantly improved. I cautioned him about doing too much activity too quickly. He will avoid heavy lifting and gradually resumed the activities of daily living. Problem 607825773 Pure hypercholesterol emia (E78.00) Active confirmed Problem 756329541 Benign prostatic hyperplasia, unspecified whether lower urinary tract symptoms present (N40.0) Active confirmed He rises from sleep once a night to urinate. We have discussed lifestyle modifications he could make to reduce nocturia. Problem 05350847 Right anterior shoulder pain (M25.511) Active confirmed He has a full-thickness tear of the infraspinatus and supraspinatus tendons. He does not know how this happened. He has been back to the orthopedic clinic to discuss treatment.They have recommended shoulder replacement. He is considering this. Problem Bilateral carpal tunnel syndrome (86941707543301952 ) Bilateral carpal tunnel syndrome (G56.03) Active confirmed His symptoms are mild and he tolerates. No change in his regimen as needed today. Problem Dyspnea on exertion (14149159) Dyspnea on exertion (R06.00) Active confirmed He has been expperiencing worsening shortness of breath with exertion such as climbing a flight of stairs. He is a former smoker but has been abstinent for many years. The recent [facility] catheter[facility] on was unremarkable. Pulmonary function tests have been ordered. This will be followed by a commode a consultation and a repeat office visit. Problem 426017467 Body mass index [BMI] 30.0-30.9, adult (Z68.30) Active confirmed Problem 701098925 Lumbar back pain (M54.50) Active confirmed He is substantially improved since presentation. He was continued on current medication. He will begin to resume the activities of daily living slowly. He has had no falls or incontinence. Problem 402017555 Obesity, class 1 (E66.811) Active confirmed Vital Signs Heart Rate 71 /min 12/02/2024 Temperature 97.3 degrees Fahrenheit 12/02/2024 Blood pressure diastolic 77 mm Hg 12/02/2024 Height 69 in 12/02/2024 Blood pressure systolic 137 mm Hg 12/02/2024 Weight 212 lbs 12/02/2024 BMI 31.3 kg/m2 12/02/2024 Encounters Encounter Location Date Provider Diagnosis Nicolás Bustos III, MD [address] [place] [address] [place] [address] 05/04/2024 Nicolás Bustos 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 ; Benign prostatic hyperplasia, unspecified whether lower urinary tract symptoms present N40.0 ; Hoarseness R49.0 ; Essential hypertension I10 ; Atrial flutter I48.92 ; Former smoker Z87.891 and Overweight E66.3 Nicolás Bustos III, MD [address] [place] [address] [place] [address] 06/14/2024 Nicolás Bustos 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 ; Lumbago with sciatica, left side M54.42 ; Benign prostatic hyperplasia, unspecified whether lower urinary tract symptoms present N40.0 ; Former smoker Z87.891 ; Essential hypertension I10 ; Waldenstrom macroglobulinemia C88.0 ; Hyperlipidemia type II E78.01 ; Esophageal diverticulum, acquired K22.5 ; Dysphagia, unspecified type R13.10 and Atrial fibrillation I48.91 Nicolás Bustos III, MD [address] [place] [address] [place] [address] 06/21/2024 Nicolás Bustos 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 ; Benign prostatic hyperplasia, unspecified whether lower urinary tract symptoms present N40.0 ; Former smoker Z87.891 ; Overweight E66.3 and Sciatica of left side M54.32 Nicolás Bustos III, MD [address] [place] [address] [place] [address] 06/24/2024 Nicolás Bustos 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 ; Lumbar back pain M54.50 ; Benign prostatic hyperplasia, unspecified whether lower urinary tract symptoms present N40.0 ; Former smoker Z87.891 ; Essential hypertension I10 ; Atrial fibrillation I48.91 ; Right anterior shoulder pain M25.511 ; Other obesity due to excess calories E66.09 ; Body mass index [BMI] 30.0-30.9, adult Z68.30 and Obesity, class 1 E66.811 Nioclás Bustos III, MD [address] [place] [address] [place] [address] 09/02/2024 Nicolás Bustos 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 ; Benign prostatic hyperplasia, unspecified whether lower urinary tract symptoms present N40.0 ; Essential hypertension I10 ; Hyperlipidemia type II E78.01 ; Obesity (BMI 30.0-34.9) E66.9 ; Former smoker Z87.891 ; Dysphagia, unspecified type R13.10 ; Elevated PSA R97.20 ; Right anterior shoulder pain M25.511 and Atrial fibrillation I48.91 Nicolás Bustos III, MD [address] [place] [address] [place] [address] 09/23/2024 Nicolás Bustos 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 ; Ingrown right big toenail L60.0 ; Benign prostatic hyperplasia, unspecified whether lower urinary tract symptoms present N40.0 ; Essential hypertension I10 ; Former smoker Z87.891 ; Obesity (BMI 30.0-34.9) E66.9 ; Lumbago with sciatica, left side M54.42 and Lumbago with sciatica, right side M54.41 Nicolás Bustos III, MD [address] [place] [address] [address] [place] [address] 12/02/2024 Nicolás Bustos 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 ; Benign prostatic hyperplasia, unspecified whether lower urinary tract symptoms present N40.0 ; Hyperlipidemia type II E78.01 ; Obesity (BMI 30.0-34.9) E66.9 ; Former smoker Z87.891 ; Waldenstrom macroglobulinemia C88.0 ; Essential hypertension I10 and Atrial flutter I48.92 Nicolás Bustos III, MD [address] [place] [address] [address] [place] [address] 06/27/2024 Nicolás Bustos III, MD [address] [place] [address] [address] [place] [address] 07/04/2024 Nicolás Bustos 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 [...] was referred to podiatry for definitive treatment. 12/02/2024 Malignant lymphoplasmacytic lymphoma (ICD-10 - C83.00) [...] modifications he could make to reduce nocturia. 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 He will be observed carefully. His viscosity is 1.4. The abnormal IgM protein is not detectable. The IgM level is in the normal range. His CBC is unremarkable. 05/04/2024 Hoarseness (ICD-10 - R49.0) I have [...] No change in his regimen is necessary. 05/04/2024 Essential hypertensi on (ICD-10 - I10) [...] change in his regimen as needed. 12/02/2024 Obesity (BMI 30.0-34 .9) (ICD-10 - E66.9) He has lost 2 pounds. His body mass index remains in the obese range. We discussed diet and nutrition at length today. We reviewed his weight loss strategy. 05/04/2024 Atrial flutter (ICD- [...] and we discussed maintenance of abstinence. 12/02/2024 Former smoker (ICD-1 0 - Z87.891) He is motivated not to smoke and we discussed maintenance of abstinence. 05/04/2024 Former smoker (ICD-1 0 - Z87.891) [...] nutrition and made a weight loss strategy. 12/02/2024 Waldenstrom macroglobulinemia (ICD-10 - C88.0) His IgM level and viscosity are stable. He does not require additional treatment at this time.A repeat viscosity has been ordered 05/04/2024 Overweight (ICD-10 - E66.3) We have [...] possible in the position and use heat. 12/02/2024 Essential hypertensi on (ICD-10 - I10) His blood pressure is currently stable no change in his regimen as needed. 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 He was referred to a garment supervisor. 06/24/2024 Other obesity due to excess calories [...] have intermittent chronic mild low back pain. 12/02/2024 Atrial flutter (ICD- 10 - I48.92) He is in sinus rhythm today. He is taking metoprolol and flecainide. 06/14/2024 Dysphagia, unspecifi ed type (ICD-10 - [...] recommended shoulder replacement. He is considering this. 06/14/2024 Atrial fibrillation (ICD-10 - I48.91) He [...] C) 05/04/2024 PROFILE, FASTING (COMPREHENSIVE METABOLI C) 12/02/2024 PROFILE, FASTING (COMPREHENSIVE METABOLI C) 05/01/2023 PROFILE, [...] 09/26/2021 PSA, TOTAL 05/01/2023 CBC w DIFF 03/26/2021 CBC w DIFF 10/07/2022 CBC w DIFF 08/08/2020 CBC w DIFF 12/02/2024 CBC w DIFF 09/26/2021 CBC w DIFF 07/26/2018 CBC w DIFF 10/10/2020 CBC w DIFF 06/08/2020 CBC w DIFF 06/14/2018 CBC w DIFF 01/08/2022 CBC w DIFF 04/28/2022 CBC w DIFF 09/02/2024 CBC w DIFF 01/16/2021 CBC w DIFF 07/17/2022 SED RATE (ESR) 03/26/2021 SED RATE (ESR) 07/26/2018 IMMUNOFIXATION PANEL, SERUM (IEP) 2022 IMMUNOFIXATION PANEL, SERUM (IEP) 2020 IMMUNOFIXATION PANEL, SERUM (IEP) 2022 IMMUNOFIXATION PANEL, SERUM (IEP) 2024 IMMUNOFIXATION PANEL, [...] SERUM (IEP) 2022 IMMUNOFIXATION PANEL, SERUM (IEP) 2024 PROTEIN ELECTROPHORESIS, SERUM 3 PROTEIN ELECTROPHORESIS, SERUM 5 PROTEIN ELECTROPHORESIS, SERUM 3 PROTEIN ELECTROPHORESIS, SERUM 1 PROTEIN ELECTROPHORESIS, SERUM 3 PROTEIN ELECTROPHORESIS, SERUM 5 PROTEIN ELECTROPHORESIS, SERUM 1 PROTEIN ELECTROPHORESIS, SERUM 5 PROTEIN ELECTROPHORESIS, SERUM 4 PROTEIN ELECTROPHORESIS, SERUM 1 PROTEIN ELECTROPHORESIS, SERUM 2 PROTEIN ELECTROPHORESIS, SERUM 1 PROTEIN ELECTROPHORESIS, SERUM 2 PROTEIN ELECTROPHORESIS, SERUM 4 PROTEIN ELECTROPHORESIS, SERUM 1 VISCOSITY 01/08/2022 VISCOSITY 02/08/2024 VISCOSITY 09/02/2024 VISCOSITY 10/07/2022 VISCOSITY 01/16/2021 VISCOSITY 07/17/2022 VISCOSITY 05/04/2024 BETA-2 MICROGLOBULIN, SERUM 04/28/2022 BETA-2 MICROGLOBULIN, SERUM 01/08/2022 BETA-2 MICROGLOBULIN, SERUM 10/07/2022 BETA-2 MICROGLOBULIN, SERUM 05/01/2023 BETA-2 MICROGLOBULIN, SERUM 01/16/2021 CBC WITH AUTO DIFF 02/08/2024 CBC WITH AUTO DIFF 01/07/2023 CBC WITH AUTO DIFF 05/04/2024 CBC WITH AUTO DIFF 05/01/2023 Lipid Panel 05/04/2024 Lipid Panel 05/01/2023 Lipid Panel 02/08/2024 Lipid Panel 09/02/2024 Lipid Panel 01/07/2023 Lipid Panel 09/26/2021 Lipid Panel 12/02/2024 PSA Free and Total 05/04/2024 PSA Free and Total 09/02/2024 Free T4 (Free Thyroxine) 05/04/2024 Beta-2 Microglobulin, Serum 02/08/2024 Beta-2 Microglobulin, Serum 01/07/2023 Beta-2 Microglobulin, Serum 09/26/2021 Protein Electrophoresis, Serum 2 NE electromyogram (EMG) 08/14/2020 RT pulmonary function test 05/01/2023 Next Appt Details Provider Name:Nicolás Bustos , 03/02/2025 09:15:00 AM, [address] [place] [address] KIKO REYNOLDS, KEANU ODOLEY, [phone], Provider Name:Nicolás Bustos , 05/05/2025 10:00:00 AM, [address] [place] [address] KIKO REYNOLDS, KEANU DOOLEY, [id number], Insurance Providers Payer Name Payer Address Payer Phone Subscriber Number Group Number Insured Name Patient Relationship to Insured Coverage Start Date Coverage End Date MEDICARE NGS [address] [place] [address] [id number] Jose Powers Self - patient is the insured [place] [address] [place], [place] [id number] Jose Powers Self - patient is the [...] windo w 02/2021 Extract wisdom teeth at [facility] 1975 Remove cyst from chest- Dr. Castillo 19 77 Remove cyst from rectum at [facility] 1986 Exploritory surgery Rt. ear- Dr. Washington at [facility] 12-30-2002 Remove external hemorrhoid at [facility] 05-10-2004 Remove cyst right wrist at [facility] 12-31-2004 Remove cyst from back- Dr. Willoughby at [facility] 05-09-2009 A flutter s/p cardioversion- Dr. Xiao a t [facility] 07-01-2011 Radiofrequency catheter ablation- Dr. Restrepo at [facility] 07-15-2011 Laser stapedotomy w/ vein gr aft- Dr. Odell at [facility] 12-24-2011 Sleep Study- Dr. Xiao at [facility] 3 Left wrist tendon surgery ag e s- Dr. Cl Woody at [facility] 1992 Tonsillectomy child 1954 Hospitalization History Reason Date(Month/Year) No history
[2025-02-21 10:16] LABS: MANUAL DIFF FLAG NO
[2025-02-21 10:47] LABS: Alanine Aminotransferase 50 U/L (0-40); Albumin Level 4.1 g/dL (3.5-5.0); Alkaline Phosphatase 143 U/L (39-117); Anion Gap 11 (12-20); Aspartate Amino Transferase 45 U/L (5-37); Blood Urea Nitrogen 12 mg/dL (9-16); Calcium 8.8 mg/dL (8.4-10.2); Carbon Dioxide 28 mmol/L (22-29); Chloride 103 mmol/L (96-108); Cholesterol 163 mg/dL (<200); HDL Cholesterol 81 mg/dL (>40); Potassium 4.2 mmol/L (3.3-5.1); Sodium 138 mmol/L (135-145); Total Protein 5.5 g/dL (6.5-8.0); Triglycerides 72 mg/dL (<150)
[2025-02-21 10:50] LABS: Hematocrit 43.8 % (42.0-52.0); Hemoglobin 15.1 g/dl (14.0-18.0); Imm Gran Abs Auto 0.04 X10*3/uL (0.00-0.03); Imm Gran Pct Auto 0.5 % (0.0-0.4); Lymphocytes Absolute Auto 2.4 X10*3/uL (1.2-4.9); Mean Corpuscular HGB Conc 34.5 g/dl (31.0-36.0); Mean Corpuscular Hemoglobin 30.7 pg (27.0-33.0); Mean Corpuscular Volume 89.0 fL (80.0-98.0); NRBC Abs Auto 0.000 X10*3/uL (0.0-0.012); NRBC Pct Auto 0.0 /100WBC (0.0-0.2); Platelet Count 173 X10*3/uL (160-400); Red Blood Count 4.92 X10*6/uL (4.60-5.80); White Blood Count 8.4 X10*3/uL (4.8-10.8)
[2025-02-21 10:56] LABS: Estimated Glomerular Filt Rate > 60
== END 2025-02-21 07:46 | disposition home or self-care (01) ==
LOC: HO.10HDL 07:45
PROVIDERS: Visit Provider Internal Medicine Medical Oncology
DX: N40.0 Benign prostatic hyperplasia without lower urinary tract symptoms (principal); C83.00 Small cell B-cell lymphoma, unspecified site; E78.019 Familial hypercholesterolemia, unspecified; E66.9 Obesity, unspecified
CPT/HCPCS: 36415; 80053; 80061; 82784; 84165; 85025; 86334

== ENCOUNTER → 2025-02-22 07:56 | Outpatient (REF) | payer MEDICARE, MEDICAID, SELFPAY ==
--- NOTE | 2025-02-22 07:59 | CA_ITS ---
Transthoracic Echocardiogram Patient (Last, First, Middle): Jose Powers M Gender: Male Date of : 1950 Age: 75 Procedure Date: 02/22/2025 Procedure Type: Transthoracic Echocardiogram Location: OP Height: 175.26 cm Weight: 93.44 kg BSA: 2.09 m2 Heart Rate: bpm Envelope Folding Machine Operator: ESA Referring MD: Yvan Xiao MD Loan Manager: Yvan Xiao MD Symptoms: I48.0 - Paroxysmal atrial fibrillation Study Quality: Fair ECG Rhythm: Sinus Conclusions: - 1. Normal LV ejection fraction 55-60% with impaired relaxation filling pattern 2. Mildly dilated right-sided chamber size with normal RV systolic function 3. Early mild aortic stenosis noted 4. Normal RV systolic pressure 5. Mildly dilated ascending aorta 3.7 cm 6. No gross pericardial effusion Findings Left Ventricle Normal left ventricular size, thickness, and systolic function. The visually estimated ejection fraction is between 55-60%. Spectral Doppler is indicative of an impaired relaxation filling pattern. E/E prime ratio is between 8 and 15 consistent with indeterminate filling pressures. Right Ventricle Mildly increased right ventricular cavity size. There is normal right ventricular systolic function. Atria The left atrium is normal in size. There is no evidence of interatrial shunt. The right atrium is mildly dilated. Aortic Valve There is mild calcification of the aortic valve. The peak aortic gradient is 10 mmHg.The mean gradient is 5 mmHg. The aortic valve area is 2.00 cm2. There is no aortic valve regurgitation. Mitral Valve There is mild anterior and posterior mitral leaflet thickening. There is trace mitral valve regurgitation. There is no mitral valve stenosis. Pulmonic Valve The pulmonic valve is likely normal. Tricuspid Valve Normal tricuspid valve structure. There is mild tricuspid valve regurgitation. The right ventricular systolic pressure is normal. The right ventricular systolic pressure is 30 mmHg. Normal right atrial pressure. There is no evidence of pulmonary hypertension. Great Vessels The pulmonary artery was not well visualized. There is mild dilatation of the ascending aorta measuring 3.70 cm. Small plaque is seen in the sino tubular ridge. Venous The inferior vena cava is normal in size and collapses greater than 50% with inspiration. Pericardium/Pleural There is no evidence of pericardial effusion. Prior Study Comparison No significant change compared to prior study dated: 08/19/2022. Measurements 2D Linear Measurements IVSd: 0.92 0.6-0.9/0.6-1.0 cm LVIDd: 5.18 3.9-5.3/4.2-5.9 cm LVIDd Index: 2.48 2.4-3.2/2.2-3.1 cm/m2 LVIDs: 3.59 2.0-3.6 cm LVPWd: 1.02 0.7-1.1 cm LA Diam: 3.90 2.7-3.8/3.0-4.0 cm LAIDs Index: 1.87 1.5-2.3 cm/m2 LV Mass: 231.46 67-162/88-224 g LV Mass Index: 110.75 43-95/49-115 g/m2 LVOT Diam: 2.00 3.0+(-)1.3 cm 2D Systolic Function EF 4C: 53.70 >55% EF 2C: 56.50 >55% EF BiP: 55.80 >55% Mitral Valve MV Pk E: 0.93 MV PK A: 0.78 MV Decel Time: 161.00 E/A: 1.20 E'Lateral: 8.81 E'Medial: 6.42 E/E' Med: 14.40 E/E' Lat: 10.50 PHT: 47.00 MVA PHT: 4.68 Decel [place]: 5.76 Aortic Valve AoV Pk Durga: 1.57 AoV Mn Durga: 1.07 AoV VTI: 0.32 AoV Pk Grad: 10.00 Aov Mn Grad: 5.00 LACEY Cont.VTI: 2.00 LVOT LVOT Pk Durga: 0.97 LVOT Mn Durga: 0.64 LVOT VTI: 0.20 LVOT Pk Grad: 4.00 LVOT Mn Grad: 2.00 LVOT Diam: 2.00 LVOT Area: 3.14 Diastolic Function MV Pk E: 0.93 MV Pk A: 0.78 E/A: 1.20 E'Medial: 6.42 E/E' Med: 14.40 E' Laterial: 8.81 E/E' Lat: 10.50 Right Ventricle TAPSE (mm): 24.40 TVS' Durga: 9.90 Tricuspid Valve TR Pk Durga: 2.58 TR Pk Grad: 27.00 RA Press: 3.00 RVSP: 30.00 Great Vessels Aorta Sinus of Valsalva: 2.93 2.0-3.5 cm Ao Asc: 3.70 2.1-3.4 cm Pulmonary Veins Pulm Vein S/D 0.50 Updated in Other Vendor System with Status of Final Yvan Xiao MD electronically signed on 02/23/2025 4:55:33 PM with status of Final
== END ==
LOC: HO.CARD 07:56
PROVIDERS: PCP Internal Medicine Medical Oncology; Visit Provider Internal Medicine Cardiovascular Disease
DX: I48.0 Paroxysmal atrial fibrillation (principal); I51.7 Cardiomegaly; I25.10 Atherosclerotic heart disease of native coronary artery without angina pectoris
CPT/HCPCS: 93306

== ENCOUNTER → 2025-02-22 07:59 | Outpatient (BNV) | payer MEDICARE, MEDICAID, SELFPAY | PROVIDERS: PCP Internal Medicine Medical Oncology; Visit Provider Internal Medicine Cardiovascular Disease | DX: I35.0 Nonrheumatic aortic (valve) stenosis (principal); I51.7 Cardiomegaly; I77.810 Thoracic aortic ectasia | CPT/HCPCS: 93306 ==